=== PATIENT | female | born 1960 | race Caucasian/White ===

== ENCOUNTER → 2020-01-13 08:06 | Outpatient (CLI) | payer OTHER, SELFPAY ==
[2020-01-13 10:19] LABS: Absolute Lymphocyte Count 2.91 X10^3/uL (0.83-4.51); Absolute Neutrophil Count 4.7 X10^3/uL (2.0-7.7); Basophil# 0.06 X10^3/uL; Basophil% 0.7 % (0-1); Eosinophil# 0.35 X10^3/uL; Hematocrit 43.5 % (37-47); Hemoglobin 14.1 g/dL (12.0-15.0); Lymphocyte # 2.91 X10^3/ul (4.0); Lymphocyte % 33.4 % (19-41); Mean Corp Hgb Conc 32.4 g/dL (32-36); Mean Corpuscular Hgb 31.9 pg (27.0-32.0); Mean Corpuscular Volume 98.4 fL (81-99); Monocyte# 0.69 X10^3/uL; Monocyte% 7.9 % (0-10); NRBC Flagged by Analyzer 0 % (0-5); Neutrophil # 4.66 X10^3/uL (2.7-7.7); Neutrophil % 53.5 % (47-70); Platelet Count 298 K/mm3 (150-450); RBC Distribution Width CV 12.6 % (11.6-14.6); RBC Distribution Width SD 45.7 fl (35.1-43.9); Red Blood Count 4.42 M/mm3 (4.2-5.4); White Blood Count 8.7 K/mm3 (4.4-11.0)
[2020-01-13 10:36] LABS: Hemoglobin A1c 6.2 % (3.8-5.6)
[2020-01-13 10:43] LABS: ALB/GLOB Ratio 1.1 RATIO (0.9-2.4); AST(SGOT) 27 U/L (15-37); Alanine Aminotransfer ALT/SGPT 59 U/L (13-56); Albumin, Serum 3.9 g/dL (3.2-5.0); Alkaline Phosphatase 90 U/L (45-117); Anion Gap 10 (5-15); BUN 16 mg/dL (7-18); BUN/Creat Ratio 15.2 RATIO (10-20); Calcium,Total 9.8 mg/dL (8.5-10.1); Chloride 108 mmol/L (98-107); Cholesterol 203 mg/dL (200); Creatinine, Serum 1.05 mg/dL (0.55-1.02); EST Glomerular Filtration Rate 57 mL/min (>60); Est Glom Filt Rate - Afr Amer 69 mL/min (>60); Globulin 3.6 g/dL (2.2-4.2); Glucose 116 mg/dL (74-106); High Density Lipoprotein 38 mg/dL; Protein, Total 7.5 g/dL (6.4-8.2); Sodium Level 142 mmol/L (136-145); T4 Free Direct 0.95 ng/dL (0.76-1.46); Thyroid Stim Hormone (TSH) 0.33 uIU/mL (0.358-3.74); Triglycerides 245 mg/dL; Very Low Density Lipoprotein 49 mg/dL (5-40)
[2020-01-13 10:54] LABS: Microalbumin,Random Urine 10.2 mg/L (NO RANGE EST.); Microalbumin:Creatinine Ratio 10.1 mg/g CRE (<30 mg/g CRE)
[2020-01-14 05:06] LABS: Carcinoembryonic Antigen 0.7 ng/mL (0.0-4.7)
== END ==
PROVIDERS: PCP Family Medicine; Referring Provider Family Medicine; Visit Provider Family Medicine
DX: K63.5 Polyp of colon (principal); E11.9 Type 2 diabetes mellitus without complications; E07.9 Disorder of thyroid, unspecified
CPT/HCPCS: 36415; 80053; 80061; 82043; 82378; 82570; 83036; 84439; 84443; 85025

== ENCOUNTER 2020-02-25 11:30 | Outpatient (RCR) | payer OTHER, SELFPAY ==
--- NOTE | 2020-01-23 15:53 | HP.PTEVAL_ITS ---
Patient's Visit Information RICHY RODRIGUEZ is a 59 year old F referred to Physical Therapy by Dr. Jonnie Phipps MD with a diagnosis of L knee paintendonitis. Date of Evaluation: 01/23/20 Physical Therapist: Jonnie Calderón, DPT, OCS, CSCS - Visit Plan Frequency: 2x /Week Duration: 4-6 Weeks Plan: 2x/week for 4-6 for. quad and ITB rollout and stretches. L hip and quad strengthening progress to HEP. ES if needed. - Subjective L knee painful and sore. Sometimes afraid to walk due to shooting pain. Went to doctor and gave cortizone for a week which helped but it is back. Has been hurting for a couple months and insidious onset. Cortizone helped 100% for a month. No x rays. Sleep is OK now but hard before cortizone. took ibuprofen this am. 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 Not missed work. Home activites are effected as she cannot do flower bed shovelling. Packing house and cleaning is not getting .Can climb steps and shower and careful stepping into shower. - Pain L knee medially and top Pain Intensity (Out of 10): 0 Pain Intensity Range: 0, 7 Comment: worse with sitting too long. - Objective L knee shows slight antalgia in gait today. Up from chair without UE. steps reciprocal with slight L anterior knee pain. L knee tender to palpation under knee cap lateral>medial. - valgus and varus. - bounce home. + patellar grind L slightly. AROM L slightly limited vs R and stiff/tight anteriorly at end range flexion. Full extension. Other LE joints WFL however ITB and quad tight B and painful quad stretch L. Strength is 4 L knee ext with crepitus and 4+ flexion with R being 4+ B. Hip strength abd and ext 3+ and flexion 4- and adduction 4+. ankle 4+ throughout. 2/3 patella and achilles reflexes. - Goals Goal 1:: Sleep without waking due to pain Goal Time Frame: 4-6 Weeks Goal 2:: Work without increased pain getting out of chair Goal Time Frame: 4-6 Weeks Goal 3:: Pt feel 80% better in overall paina nd activity level Goal Time Frame: 4-6 Weeks Goal 4:: LEFS of 60+ Goal Time Frame: 4-6 Weeks Goal 5:: I approp HEP to minimize future problems Goal Time Frame: 4-6 Weeks - Rehabilitation Potential Physical Therapy Diagnosis: L knee pain tendonitis vs degeneration under knee cap. Rehabilitation Potential: Fair - Anticipated Interventions Patient/Client Instruction: Educate patient on: Condition, Plan of Care For the Purpose of:: To decrease pain, To increase ROM, To improve muscle performance and motor function, To improve performance and independence with ADL's Therapeutic Exercise to Include: Strength training, Flexibilty training, Neuromotor development, Passive ROM, Active ROM For the Purpose of:: To decrease pain, To increase ROM, To improve muscle performance and motor function, To increase tolerance to activity/condition/position, To improve ability of physical actions for home/community/work/leisure, To improve gait and locomotor functions Manual Therapy Techniques to Include: Mobilization, Soft tissue mobilization For the Purpose of:: To increase ROM TENS: Yes Thermo therapy (hot pack): Yes For the Purpose of:: To decrease pain Thank you for the opportunity to evaluate your patient. For Medicare and Medicare HMO plans, please review the plan of care and approve it. It will need to be FAXED BACK to us at [phone] for Medicare purposes. For Medicare only, by signing this I certify the plan of care. Please let me know if there are questions or concerns regarding this plan of care. Physician Signature: Date:
--- NOTE | 2020-04-27 16:10 | HP.PT.NRP ---
RICHY RODRIGUEZ was seen in my office for initial evaluation on 01/23/20. The following Plan of Care was established for this patient: Initial Frequency: 2x /Week Initial Duration: 4-6 Weeks Patient/Client Instruction: Educate patient on: Condition, Plan of Care For the Purpose of:: To decrease pain, To increase ROM, To improve muscle performance and motor function, To improve performance and independence with ADL's Therapeutic Exercise to Include: Strength training, Flexibilty training, Neuromotor development, Passive ROM, Active ROM For the Purpose of:: To decrease pain, To increase ROM, To improve muscle performance and motor function, To increase tolerance to activity/condition/position, To improve ability of physical actions for home/community/work/leisure, To improve gait and locomotor functions Manual Therapy Techniques to Include: Mobilization, Soft tissue mobilization For the Purpose of:: To increase ROM TENS: Yes Thermo therapy (hot pack): Yes For the Purpose of:: To decrease pain This patient was last seen in our office 02/25/20. Pertinent comments regarding their Physical therapy will appear below: Pt seen 8 visits of POC and was improving according to her notes. She did not schedule or attend her recheck. At this point, it has been over two months ad I will discontinue due to nonattendance. At this point I will be discontinuing this patient from physical therapy. I would be happy to see this patient again in the future if found appropriate by the physician. Thank you! Jonnie Calderón, DPT, OCS, CSCS
== END 2020-02-25 19:00 | disposition home or self-care (01) ==
LOC: PT 11:30
PROVIDERS: PCP Family Medicine; Referring Provider Family Medicine; Visit Provider Family Medicine
DX: M76.9 Unspecified enthesopathy, lower limb, excluding foot (principal)
CPT/HCPCS: 97110; 97161

== ENCOUNTER → 2020-07-13 | Outpatient (CLI) | payer OTHER, SELFPAY | END | disposition home or self-care (01) | LOC: LABSPEC 14:01 | PROVIDERS: PCP Family Medicine; Referring Provider Family Medicine; Visit Provider Family Medicine | DX: U07.1 COVID-19 (principal) | CPT/HCPCS: 87635; U0003 ==

== ENCOUNTER → 2020-11-03 08:16 | Outpatient (CLI) | payer OTHER, SELFPAY ==
[2020-11-03 10:52] LABS: AST(SGOT) 28 U/L (15-37); Alanine Aminotransfer ALT/SGPT 47 U/L (13-56); Albumin, Serum 3.9 g/dL (3.2-5.0); Alkaline Phosphatase 104 U/L (45-117); BUN 18 mg/dL (7-18); Calcium,Total 9.8 mg/dL (8.5-10.1); Cholesterol 231 mg/dL (200); Creatinine, Serum 1.06 mg/dL (0.55-1.02); EST Glomerular Filtration Rate 56 mL/min (>60); Est Glom Filt Rate - Afr Amer 68 mL/min (>60); Globulin 3.8 g/dL (2.2-4.2); Glucose 109 mg/dL (74-106); Protein, Total 7.7 g/dL (6.4-8.2); Triglycerides 233 mg/dL
[2020-11-03 10:53] LABS: Anion Gap 7 (5-15); Chloride 106 mmol/L (98-107); Free T3 2.5 pg/mL (2.18-3.98); High Density Lipoprotein 47 mg/dL; Potassium 4.2 mmol/L (3.5-5.1); Sodium Level 138 mmol/L (136-145); T4 Free Direct 0.98 ng/dL (0.76-1.46); Thyroid Stim Hormone (TSH) 0.39 uIU/mL (0.358-3.74); Very Low Density Lipoprotein 47 mg/dL (5-40)
[2020-11-05 16:09] LABS: Endomysial Antibody IgA Negative (Negative)
[2020-11-05 21:43] LABS: Deamidated Gliadin IgA 8 units (0-19); Deamidated Gliadin IgG 4 units (0-19); Immunoglobulin A 312 mg/dL (87-352); t-Transglutaminase IgA <2 U/mL (0-3)
== END ==
PROVIDERS: PCP Family Medicine; Referring Provider Family Medicine; Visit Provider Family Medicine
DX: E11.9 Type 2 diabetes mellitus without complications (principal); E07.9 Disorder of thyroid, unspecified
CPT/HCPCS: 36415; 80053; 80061; 82784; 83036; 83516; 84439; 84443; 84481; 86255

== ENCOUNTER → 2020-12-14 08:18 | Outpatient (CLI) | payer OTHER, SELFPAY ==
[2020-12-14 10:56] LABS: ALB/GLOB Ratio 1.1 RATIO (0.9-2.4); AST(SGOT) 22 U/L (15-37); Alanine Aminotransfer ALT/SGPT 46 U/L (13-56); Albumin, Serum 4.2 g/dL (3.2-5.0); Alkaline Phosphatase 106 U/L (45-117); Anion Gap 8 (5-15); BUN 15 mg/dL (7-18); BUN/Creat Ratio 15.2 RATIO (10-20); Calcium,Total 9.9 mg/dL (8.5-10.1); Chloride 103 mmol/L (98-107); Creatinine, Serum 0.99 mg/dL (0.55-1.02); EST Glomerular Filtration Rate 61 mL/min (>60); Est Glom Filt Rate - Afr Amer 74 mL/min (>60); Globulin 3.7 g/dL (2.2-4.2); Glucose 102 mg/dL (74-106); Potassium 3.9 mmol/L (3.5-5.1); Protein, Total 7.9 g/dL (6.4-8.2); Sodium Level 140 mmol/L (136-145); Thyroid Stim Hormone (TSH) 0.41 uIU/mL (0.358-3.74)
[2020-12-14 11:22] LABS: Hemoglobin A1c 5.9 % (3.8-5.6)
[2020-12-14 11:53] LABS: Creatinine, Urine (random) < 13.00 mg/dL (NO RANGE EST.); Microalbumin,Random Urine < 5.0 mg/L (NO RANGE EST.)
== END ==
PROVIDERS: PCP Family Medicine; Visit Provider Family Medicine
DX: E11.9 Type 2 diabetes mellitus without complications (principal); I10 Essential (primary) hypertension
CPT/HCPCS: 36415; 80053; 82043; 82570; 83036; 84443

== ENCOUNTER → 2020-12-23 07:17 | Outpatient (CLI) | payer OTHER, SELFPAY ==
--- NOTE | 2020-12-23 07:19 | BI_ITS ---
MAMMOGRAPHY - BILATERAL SCREENING REASON FOR EXAM: Female, 60 years old. Routine annual screening examination. PERTINENT HISTORY: Mother with breast cancer. TECHNIQUE: Digital bilateral breast miles (3D mammographic acquisition) in the CC and MLO projections. 2-D mediolateral oblique (MLO) and craniocaudad (CC) views of both breasts were obtained. CAD: Full Field Digital Mammography with Computer Added Detection was performed. COMPARISON: Comparison is made with prior outside examination dated 11/22/2018. FINDINGS: Breast Composition: The breasts are heterogeneously dense, which may obscure small masses. There are no dominant masses or suspicious calcifications. Stable benign appearing bilateral axillary lymph nodes. No other significant abnormalities are identified. There has been no significant change since the prior study. BI/SCRN MAMM (CAD)W/MILES BILAT IMPRESSION: Stable bilateral screening mammogram. Yearly follow-up mammogram recommended. (A) ASSESSMENT CATEGORY: BIRADS Category 2: Benign. A letter regarding these results will be sent to the patient by the facility within 30 days. Approximately 10% of breast cancers are not detected by mammography. A normal mammogram should not delay biopsy of a clinically suspicious abnormality. [id number] Electronically Signed: Lonnie Doll MD at 8:17 EDT , Service support ,
== END ==
PROVIDERS: PCP Family Medicine; Referring Provider Family Medicine; Visit Provider Family Medicine
DX: Z12.31 Encounter for screening mammogram for malignant neoplasm of breast (principal); Z80.3 Family history of malignant neoplasm of breast
CPT/HCPCS: 77063; 77067

== ENCOUNTER 2021-09-05 13:46 | Outpatient (CLI) | payer OTHER, SELFPAY | END 2021-09-05 23:59 | disposition short-term general hospital (02) | LOC: MFPLAB 13:47 | PROVIDERS: PCP Family Medicine; Visit Provider Family Medicine | DX: J39.9 Disease of upper respiratory tract, unspecified (principal) | CPT/HCPCS: 87635; U0003; U0005 ==

== ENCOUNTER 2021-10-07 08:06 | Outpatient (CLI) | payer OTHER, SELFPAY ==
[2021-10-07 10:29] LABS: ALB/GLOB Ratio 0.9 RATIO (0.9-2.4); AST(SGOT) 20 U/L (15-37); Alanine Aminotransfer ALT/SGPT 45 U/L (13-56); Albumin, Serum 3.7 g/dL (3.2-5.0); Alkaline Phosphatase 99 U/L (45-117); Anion Gap 8 (5-15); BUN 16 mg/dL (7-18); BUN/Creat Ratio 17.4 RATIO (10-20); Calcium,Total 9.8 mg/dL (8.5-10.1); Chloride 107 mmol/L (98-107); Cholesterol 188 mg/dL (200); Creatinine, Serum 0.92 mg/dL (0.55-1.02); EST Glomerular Filtration Rate 66 mL/min (>60); Est Glom Filt Rate - Afr Amer 80 mL/min (>60); Globulin 3.9 g/dL (2.2-4.2); Glucose 109 mg/dL (74-106); High Density Lipoprotein 39 mg/dL; Potassium 3.9 mmol/L (3.5-5.1); Protein, Total 7.6 g/dL (6.4-8.2); Sodium Level 139 mmol/L (136-145); Thyroid Stim Hormone (TSH) 0.31 uIU/mL (0.358-3.74); Triglycerides 204 mg/dL; Very Low Density Lipoprotein 41 mg/dL (5-40)
== END 2021-10-07 23:59 | disposition home or self-care (01) ==
LOC: MFPLAB 08:07
PROVIDERS: PCP Family Medicine; Referring Provider Family Medicine; Visit Provider Family Medicine
DX: Z00.00 Encounter for general adult medical examination without abnormal findings (principal); E11.9 Type 2 diabetes mellitus without complications; I10 Essential (primary) hypertension; E04.2 Nontoxic multinodular goiter
CPT/HCPCS: 36415; 80053; 80061; 83036; 84443

== ENCOUNTER → 2022-01-10 | Outpatient (CLI) | payer OTHER, SELFPAY ==
[2022-01-10 18:38] LABS: Microalbumin:Creatinine Ratio 8.6 mg/g CRE (<30 mg/g CRE)
[2022-01-10 18:48] LABS: AST(SGOT) 33 U/L (15-37); Alanine Aminotransfer ALT/SGPT 75 U/L (13-56); Albumin, Serum 3.7 g/dL (3.2-5.0); Alkaline Phosphatase 95 U/L (45-117); Anion Gap 7 (5-15); BUN 14 mg/dL (7-18); BUN/Creat Ratio 14.6 RATIO (10-20); Calcium,Total 9.9 mg/dL (8.5-10.1); Chloride 106 mmol/L (98-107); Creatinine, Serum 0.96 mg/dL (0.55-1.02); EST Glomerular Filtration Rate 63 mL/min (>60); Est Glom Filt Rate - Afr Amer 77 mL/min (>60); Free T3 2.3 pg/mL (2.18-3.98); Globulin 3.6 g/dL (2.2-4.2); Glucose 189 mg/dL (74-106); Potassium 3.6 mmol/L (3.5-5.1); Protein, Total 7.3 g/dL (6.4-8.2); Sodium Level 139 mmol/L (136-145); T4 Free Direct 0.84 ng/dL (0.76-1.46); Thyroid Stim Hormone (TSH) 0.63 uIU/mL (0.358-3.74)
[2022-01-13 11:13] LABS: Anti-Thyroglobulin AB < 1.0 IU/mL (0.0-0.9); Thyroglobulin, Serum Qt. 24.5 ng/mL (1.5-38.5); Thyroid Peroxidase AB < 8 IU/mL (0-34)
== END | disposition home or self-care (01) ==
LOC: MFPLAB 16:00
PROVIDERS: PCP Family Medicine; Visit Provider Family Medicine
DX: E11.9 Type 2 diabetes mellitus without complications (principal); E07.9 Disorder of thyroid, unspecified; I10 Essential (primary) hypertension
CPT/HCPCS: 36415; 80053; 82043; 82570; 84432; 84439; 84443; 84481; 86376; 86800

== ENCOUNTER → 2022-01-17 | Outpatient (CLI) | payer OTHER, SELFPAY ==
--- NOTE | 2022-01-17 08:44 | BI_ITS ---
MAMMOGRAPHY - BILATERAL SCREENING REASON FOR EXAM: Female, 61 years old. Routine annual screening examination. PERTINENT HISTORY: Mother with breast cancer. TECHNIQUE: Digital bilateral breast miles (3D mammographic acquisition) in the CC and MLO projections. 2-D mediolateral oblique (MLO) and craniocaudad (CC) views of both breasts were obtained. CAD: Full Field Digital Mammography with Computer Added Detection was performed. COMPARISON: Bilateral breast screening mammograms from 12/23/2020. FINDINGS: Breast Composition: The breasts are heterogeneously dense, which may obscure small masses. There are no dominant masses or suspicious calcifications. No other significant abnormalities are identified. There has been no significant change since the prior study. BI/SCRN MAMM (CAD)W/MILES BILAT IMPRESSION: Stable bilateral screening mammogram. Yearly follow-up mammogram recommended. (A) ASSESSMENT CATEGORY: BIRADS Category 1: Negative. A letter regarding these results will be sent to the patient by the facility within 30 days. Approximately 10% of breast cancers are not detected by mammography. A normal mammogram should not delay biopsy of a clinically suspicious abnormality. [id number] Electronically Signed: Jeff Llamas, at 18:39 EDT ,
== END | disposition home or self-care (01) ==
LOC: OPBI 08:42
PROVIDERS: PCP Family Medicine; Visit Provider Family Medicine
DX: Z12.31 Encounter for screening mammogram for malignant neoplasm of breast (principal); Z80.3 Family history of malignant neoplasm of breast
CPT/HCPCS: 77063; 77067

== ENCOUNTER → 2023-11-16 | Outpatient (CLI) | payer OTHER, SELFPAY ==
[2023-11-16 11:03] LABS: Microalbumin,Random Urine 14.1 mg/L (NO RANGE EST.); Microalbumin:Creatinine Ratio 8.7 mg/g CRE (<30 mg/g CRE)
[2023-11-16 11:55] LABS: Cholesterol 223 mg/dL (200); High Density Lipoprotein 36 mg/dL; Thyroid Stim Hormone (TSH) 0.79 uIU/mL (0.358-3.74); Triglycerides 334 mg/dL; Very Low Density Lipoprotein 67 mg/dL (5-40)
[2023-11-16 16:29] LABS: AST(SGOT) 50 U/L (15-37); Alanine Aminotransfer ALT/SGPT 81 U/L (13-56); Albumin, Serum 3.9 g/dL (3.2-5.0); Alkaline Phosphatase 131 U/L (45-117); Anion Gap 7 (5-15); BUN 14 mg/dL (7-18); BUN/Creat Ratio 15.9 RATIO (10-20); Chloride 108 mmol/L (98-107); Creatinine, Serum 0.88 mg/dL (0.55-1.02); EST Glomerular Filtration Rate 69 mL/min (>60); Est Glom Filt Rate - Afr Amer 83 mL/min (>60); Globulin 3.8 g/dL (2.2-4.2); Glucose 203 mg/dL (74-106); Potassium 4.2 mmol/L (3.5-5.1); Protein, Total 7.7 g/dL (6.4-8.2); Sodium Level 141 mmol/L (136-145)
== END | disposition home or self-care (01) ==
LOC: MTLAB 07:53
PROVIDERS: PCP Family Medicine; Referring Provider Family Medicine; Visit Provider Family Medicine
DX: E11.59 Type 2 diabetes mellitus with other circulatory complications (principal)
CPT/HCPCS: 36415; 80053; 80061; 82043; 82570; 84443

== ENCOUNTER → 2024-01-04 | Outpatient (CLI) | payer OTHER, SELFPAY ==
--- NOTE | 2024-01-04 07:15 | US_ITS ---
STUDY: ABDOMINAL ULTRASOUND - RIGHT UPPER QUADRANT; ELASTOGRAPHY REASON FOR VISIT: Female, 63 years old. History of fatty infiltration of the liver. TECHNIQUE: Ultrasound evaluation of the right upper quadrant was performed with real-time and static clancy-scale imaging. Point quantification shear wave elastography was performed (Solulink). TECHNICAL QUALITY: Adequate. COMPARISON: None. FINDINGS: Liver: The liver is enlarged and measures 19 cm. There is increased echogenicity consistent with fatty infiltration. The bile ducts are within normal limits. There is hepatic color flow. The direction of portal flow is hepatopetal. There is no demonstrated mass lesion. Median liver stiffness measured 8.9 kPa. Gallbladder: The patient is status post cholecystectomy. Common Bile Duct (C.B.D.): The common bile duct measures 6.7 mm. Pancreas: There is normal echogenicity of the visualized pancreas. There is no demonstrated pancreatic mass or cyst. Right Kidney: Normal size of the right kidney. The right kidney measures 11 cm x 5.4 cm x 3.8 cm. Normal renal cortex. The right cortex measures 1.8 cm. There is no demonstrated renal mass or cyst. There is no right hydronephrosis. US/ABD Limited w/ Elastography IMPRESSION: 1. Liver stiffness measures 8.9 kPa compatible with F2-F3 (Mild to moderate liver fibrosis) Metavir score. Electronically Signed: Lonnie Doll MD at 10:33 EDT ,
== END | disposition home or self-care (01) ==
PROVIDERS: PCP Family Medicine; Referring Provider Family Medicine; Visit Provider Family Medicine
DX: K76.9 Liver disease, unspecified (principal)
CPT/HCPCS: 76705; 76981

== ENCOUNTER → 2024-02-19 | Outpatient (CLI) | payer OTHER, SELFPAY ==
--- NOTE | 2024-02-19 09:25 | RAD_ITS ---
STUDY: X-RAY RIGHT FOREFOOT, ATTENTION SECOND TOE REASON FOR EXAM: Female, 63 years old. 3 view, 2nd R toe, diabetic ulcer on lateral aspect of right second toe. Patient also having pain to the dorsal aspect of the foot proximal to the toes. TECHNIQUE: 3 views of the right forefoot (with attention to the second toe) were obtained. COMPARISON: None. FINDINGS: Intact visualized metatarsi. There is mild degenerative arthrosis at the first MTP joint. Normal tibial and fibular sesamoid bones. Normal interphalangeal joint of the great toe. Normal phalanges of the great toe. Normal second through fifth metatarsophalangeal joints. Normal interphalangeal joints and phalanges of the lesser toes. There is no demonstrated fracture or osseous erosion. There is soft tissue swelling of the second digit. RAD/Toe(s) Min 2 Views IMPRESSION: Soft tissue swelling of the second digit. No demonstrated fracture or osseous erosion. Electronically Signed: Fam Flores MD at 8:55 EDT ,
[2024-02-19 12:35] LABS: Absolute Lymphocyte Count 3.28 X10^3/uL (0.83-4.51); Absolute Neutrophil Count 4.6 X10^3/uL (2.0-7.7); Basophil# 0.09 X10^3/uL; Eosinophil# 0.29 X10^3/uL; Eosinophils% 3.2 % (0-5); Hematocrit 40.7 % (37-47); Hemoglobin 13.5 g/dL (12.0-15.0); Lymphocyte # 3.28 X10^3/ul (0.83-4.51); Lymphocyte % 36.7 % (19-41); Mean Corp Hgb Conc 33.2 g/dL (32-36); Mean Corpuscular Hgb 32.1 pg (27.0-32.0); Mean Corpuscular Volume 96.7 fL (81-99); Mean Platelet Vol. 10.6 fl (6.2-12.0); Monocyte# 0.62 X10^3/uL; Monocyte% 6.9 % (0-10); NRBC Flagged by Analyzer 0 % (0-5); Neutrophil # 4.62 X10^3/uL (2.7-7.7); Neutrophil % 51.8 % (47-70); Platelet Count 332 K/mm3 (150-450); RBC Distribution Width CV 13.2 % (11.6-14.6); RBC Distribution Width SD 46.9 fl (35.1-43.9); Red Blood Count 4.21 M/mm3 (4.2-5.4); White Blood Count 8.9 K/mm3 (4.4-11.0)
[2024-02-19 12:48] LABS: CRP 8.85 mg/L (0.0-3.0)
== END | disposition home or self-care (01) ==
LOC: MTLAB 09:21
PROVIDERS: PCP Family Medicine; Referring Provider Family Medicine; Visit Provider Family Medicine
DX: E11.621 Type 2 diabetes mellitus with foot ulcer (principal)
CPT/HCPCS: 36415; 73660; 85025; 86140

== ENCOUNTER → 2024-02-26 | Outpatient (CLI) | payer OTHER, SELFPAY | END | disposition home or self-care (01) | PROVIDERS: PCP Family Medicine; Visit Provider Podiatrist | DX: L97.912 Non-pressure chronic ulcer of unspecified part of right lower leg with fat layer exposed (principal) | CPT/HCPCS: 87070; 87077; 87186; 87205 ==

== ENCOUNTER → 2024-04-23 | Outpatient (CLI) | payer OTHER, SELFPAY ==
--- NOTE | 2024-04-23 16:22 | RAD_ITS ---
EXAM: XR RIGHT TOES, 2 OR MORE VIEWS CLINICAL INDICATION: None provided. TECHNIQUE: Frontal, lateral and oblique views of the toes of the right foot. COMPARISON: History: PAIN FINDINGS: BONES/JOINTS: Hallux valgus deformity. No acute fracture. No dislocation. SOFT TISSUES: Unremarkable. No radiopaque foreign body. RAD/Toe(s) Min 2 Views IMPRESSION: Hallux valgus deformity. No acute abnormality. Electronically Signed: Lane Carbajal MD at 0:54 EDT ,
== END | disposition home or self-care (01) ==
LOC: MTRAD 16:21
PROVIDERS: PCP Family Medicine; Referring Provider Podiatrist; Visit Provider Podiatrist
DX: L97.513 Non-pressure chronic ulcer of other part of right foot with necrosis of muscle (principal)
CPT/HCPCS: 73660

== ENCOUNTER → 2024-09-23 | Outpatient (CLI) | payer OTHER, SELFPAY ==
[2024-09-23 15:20] LABS: Absolute Neutrophil Count 5.6 X10^3/uL (2.0-7.7); Hematocrit 41.5 % (37-47); Hemoglobin 13.4 g/dL (12.0-15.0); Mean Corp Hgb Conc 32.3 g/dL (32-36); Mean Corpuscular Hgb 31.3 pg (27.0-32.0); Platelet Count 349 K/mm3 (150-450); Red Blood Count 4.28 M/mm3 (4.2-5.4); White Blood Count 10.2 K/mm3 (4.4-11.0)
[2024-09-23 15:43] LABS: Microalbumin,Random Urine < 5.0 mg/L (NO RANGE EST.)
[2024-09-23 15:57] LABS: ALB/GLOB Ratio 0.9 RATIO (0.9-2.4); AST(SGOT) 16 U/L (15-37); Alanine Aminotransfer ALT/SGPT 33 U/L (13-56); Albumin, Serum 3.7 g/dL (3.2-5.0); Alkaline Phosphatase 97 U/L (45-117); Anion Gap 7 (5-15); BUN 20 mg/dL (7-18); BUN/Creat Ratio 20.3 RATIO (10-20); Calcium,Total 10.5 mg/dL (8.5-10.1); Chloride 104 mmol/L (98-107); Creatinine, Serum 0.99 mg/dL (0.55-1.02); EST Glomerular Filtration Rate 61 mL/min (>60); Est Glom Filt Rate - Afr Amer 73 mL/min (>60); Globulin 4.3 g/dL (2.2-4.2); Glucose 114 mg/dL (74-106); Potassium 3.6 mmol/L (3.5-5.1); Sodium Level 138 mmol/L (136-145)
[2024-09-23 18:25] LABS: Basophil 2 % (0-1); Eosinophil 4 % (0-5); Lymphocyte 38 % (19-41); Metamyelocyte 1 % (0-1); Monocyte 6 % (0-10); Neutrophil-Band 2 % (0-5); Neutrophil-Segmented 47 % (47-70); Total Cells Counted 100 (MANUAL DIFF)
[2024-09-23 18:26] LABS: Platelet Estimate ADEQUATE (ADEQ); Red Cell Morphology N CHROM NORMAL (NORM C&C)
[2024-09-23 18:30] LABS: Anisocytosis RARE; Macrocytosis RARE
[2024-09-24 14:25] LABS: Pathologist Review Reviewed
== END | disposition home or self-care (01) ==
LOC: MTLAB 12:49
PROVIDERS: PCP Family Medicine; Referring Provider Family Medicine; Visit Provider Family Medicine
DX: R68.83 Chills (without fever) (principal); E11.9 Type 2 diabetes mellitus without complications
CPT/HCPCS: 36415; 80053; 82043; 82570; 84443; 85007; 85027

== ENCOUNTER → 2025-05-05 | Outpatient (CLI) | payer OTHER, SELFPAY ==
--- NOTE | 2025-05-05 15:57 | CT_ITS ---
PROCEDURE: CT BRAIN/HEAD WITHOUT CONTRAST 05/05/2025 REASON FOR EXAM: DIZZINESS TECHNIQUE: Procedure Code: CTBR Modality: CT Procedure: BRAIN/HEAD WITHOUT CONTRAST Coronal and Sagittal reconstruction series were provided. One or more dose reduction techniques were used (e.g., Automated exposure control, adjustment of the mA and/or kV according to patient size, use of iterative reconstruction technique. RADIATION DOSE SUMMARY: CTDlvol: 44.99 mGy DLP: 812.98 mGycm COMPARISON: None available. FINDINGS: No acute intracranial hemorrhage, extra-axial collection, mass effect or evidence of acute infarct. Ventricles and subarachnoid spaces are normal in size. Orbital contents are unremarkable. Intact skull base and calvarium. Clear paranasal sinuses and mastoid air cells. CT/Brain/Head without Contrast IMPRESSION: No acute intracranial abnormality. Reading Location: [facility]
== END | disposition home or self-care (01) ==
LOC: CT 15:56
PROVIDERS: PCP Family Medicine; Referring Provider Nurse Practitioner Family; Visit Provider Nurse Practitioner Family
DX: R42 Dizziness and giddiness (principal)
CPT/HCPCS: 70450

== ENCOUNTER → 2025-06-04 | Outpatient (CLI) | payer OTHER, SELFPAY ==
--- NOTE | 2025-06-04 12:53 | US_ITS ---
PROCEDURE: THYROID 06/04/2025 REASON FOR EXAM: HYPERTHYROIDISM TECHNIQUE: Procedure Code: USTHY Modality: US Procedure: THYROID COMPARISON: None. FINDINGS: Right thyroid lobe size: 4.5 x 2.7 x 1.6 cm Upper pole, 8 x 7 x 6 mm, solid, heterogeneous, with a smooth margin. TR 3 Upper pole, 1.6 x 1.4 x 1.4 cm, solid, heterogeneous, with an ill-defined margin. TR 3 Left thyroid lobe size: 4.1 x 2.6 x 1.4 cm Upper pole, 9 x 8 x 7 mm, solid, heterogeneous, with a smooth margin. TR 3 Upper pole, 9 x 7 x 6 mm, solid, heterogeneous, with a smooth margin. TR 3 Isthmus: 3 mm US/Thyroid IMPRESSION: There is a TR 3 nodule measuring greater than 1.5 cm in the right thyroid lobe. Recommendation: Follow up thyroid ultrasound in 1 year. Reading Location: [place] [id number]
== END | disposition home or self-care (01) ==
LOC: US 12:50
PROVIDERS: PCP Family Medicine; Referring Provider Family Medicine; Visit Provider Family Medicine
DX: E05.90 Thyrotoxicosis, unspecified without thyrotoxic crisis or storm (principal)
CPT/HCPCS: 76536

== ENCOUNTER → 2025-06-10 | Outpatient (CLI) | payer OTHER, SELFPAY ==
[2025-06-10 19:00] LABS: AST(SGOT) 21 U/L (<=31); Alanine Aminotransfer ALT/SGPT 24 U/L (<=34); Albumin, Serum 4.3 g/dL (3.4-4.8); Alkaline Phosphatase 83 U/L (35-104); Anion Gap 13 (5-15); BUN 12 mg/dL (4-19); BUN/Creat Ratio 15.9 RATIO (10-20); Calcium,Total 10.4 mg/dL (7.6-11.0); Carbon Dioxide 21.5 mmol/L (21.0-32.0); Chloride 101 mmol/L (98-108); Globulin 2.8 g/dL (2.2-4.2); Glucose 105 mg/dL (70-99); Potassium 4.0 mmol/L (3.3-5.1); Syphilis Antibodies Nonreactive (Nonreactive)
[2025-06-12 15:08] LABS: PROEL- A/G Ratio 1.2 (0.7-1.7); PROEL- Albumin 3.6 g/dL (2.9-4.4); PROEL- Alpha-1 Globulin 0.2 g/dL (0.0-0.4); PROEL- Alpha-2 Globulin 0.9 g/dL (0.4-1.0); PROEL- Beta Globulin 1.2 g/dL (0.7-1.3); PROEL- Gamma Globulin 0.9 g/dL (0.4-1.8); PROEL- Globulin, Total 3.1 g/dL (2.2-3.9); PROEL- TOTAL PROTEIN 6.7 g/dL (6.0-8.5); PROEL-M-Spike Comment: g/dL (Not Observed)
== END | disposition home or self-care (01) ==
PROVIDERS: PCP Family Medicine; Visit Provider Family Medicine
DX: R27.0 Ataxia, unspecified (principal)
CPT/HCPCS: 36415; 80053; 84165; 84443; 86780

== ENCOUNTER → 2025-06-16 | Outpatient (CLI) | payer OTHER, SELFPAY ==
--- NOTE | 2025-06-16 08:52 | MRI_ITS ---
PROCEDURE: MRA HEAD ONLY WITHOUT CONTRAST; MRA NECK WITH AND W/O CONTRAST 06/16/2025 REASON FOR EXAM: BLURRED VISION, RULING OUT STROKE; AMAUROSIS FUGAX TECHNIQUE: Procedure Code: MRIMRAH; MRIMRANWWOC Modality: MR Procedure: MRA HEAD ONLY WITHOUT CONTRAST; MRA NECK WITH AND W/O CONTRAST Multiplanar multisequential imaging was performed without IV contrast administration. FINDINGS: HEAD: The intracranial segments of the bilateral ICAs appear unremarkable. The bilateral ACAs appear unremarkable. The anterior communicating artery is patent. The bilateral MCAs appear unremarkable. The proximal aspects of the bilateral ophthalmic arteries are visualized. The intracranial segments of the bilateral vertebral arteries (V4) appear unremarkable. The basilar artery is unremarkable. The bilateral business services intern are unremarkable. The bilateral posterior communicating arteries are visualized and patent. NECK: The bilateral common carotid arteries, carotid bulbs, and cervical ICAs appear unremarkable. The cervical segments of the bilateral vertebral arteries appear unremarkable. MRI/MRA Neck WITH and W/O Contrast IMPRESSION: No hemodynamically significant stenosis, major vessel occlusion/dissection, or aneurysm greater than 5 millimeters. Reading Location: [id number]
--- NOTE | 2025-06-16 08:52 | MRI_ITS ---
PROCEDURE: BRAIN W/WO CONTRAST 06/16/2025 REASON FOR EXAM: AMAUROSIS FUGAX dizziness, ataxia and memory loss. TECHNIQUE: Procedure Code: MRIBRWW Modality: MR Procedure: BRAIN W/WO CONTRAST Multiplanar and multisequence images were obtained. CONTRAST: Clariscan VOLUME: 19 mL COMPARISON: CT head without contrast, 05/05/2025. FINDINGS: There are few punctate foci of abnormal periventricular and subcortical white matter signal in both cerebral hemispheres. Additionally there is an area of abnormal white matter signal adjacent to the anterior horn of the right lateral ventricle. These findings are nonspecific and are consistent with chronic ischemic white matter disease, but demyelinating disease is not excluded. There is a chronic lacunar infarction in the right basal ganglia. There is no abnormal intracranial contrast enhancement. There is a normal sulcal pattern and gyral configuration. There is no evidence of acute intracranial hemorrhage or infarction. The clancy-white differentiation is well preserved. There is no evidence of restricted diffusion. The ventricles and basilar cisterns are normal. There are normal flow voids demonstrated in the recognized intracranial vessels. The cerebellum and brainstem are unremarkable. The cerebellar pontine angles are normal. The craniovertebral junction is normal. The sella and suprasellar regions are normal. The orbits and retro-orbital regions are unremarkable. There is nasal septal deviation to the left. There is mucoperiosteal thickening of the ethmoidal air cells bilaterally. The paranasal sinuses are otherwise clear. There is mucosal thickening of the left nasal cavity. There is a fluid-filled mastoid air cell on the right. The mastoid air cells are otherwise clear. There is normal bone marrow signal in the skull base and calvarium. MRI/Brain W/WO Contrast IMPRESSION: 1. No evidence of acute intracranial pathology. 2. There is a chronic lacunar infarction in the right basal ganglia. 3. Other findings as noted. Reading Location: [place] [id number]
--- NOTE | 2025-06-16 08:52 | MRI_ITS ---
PROCEDURE: MRA HEAD ONLY WITHOUT CONTRAST; MRA NECK WITH AND W/O CONTRAST 06/16/2025 REASON FOR EXAM: BLURRED VISION, RULING OUT STROKE; AMAUROSIS FUGAX TECHNIQUE: Procedure Code: MRIMRAH; MRIMRANWWOC Modality: MR Procedure: MRA HEAD ONLY WITHOUT CONTRAST; MRA NECK WITH AND W/O CONTRAST Multiplanar multisequential imaging was performed without IV contrast administration. FINDINGS: HEAD: The intracranial segments of the bilateral ICAs appear unremarkable. The bilateral ACAs appear unremarkable. The anterior communicating artery is patent. The bilateral MCAs appear unremarkable. The proximal aspects of the bilateral ophthalmic arteries are visualized. The intracranial segments of the bilateral vertebral arteries (V4) appear unremarkable. The basilar artery is unremarkable. The bilateral player development manager are unremarkable. The bilateral posterior communicating arteries are visualized and patent. NECK: The bilateral common carotid arteries, carotid bulbs, and cervical ICAs appear unremarkable. The cervical segments of the bilateral vertebral arteries appear unremarkable. MRI/MRA Head ONLY without Contrast IMPRESSION: No hemodynamically significant stenosis, major vessel occlusion/dissection, or aneurysm greater than 5 millimeters. Reading Location: [id number]
== END | disposition home or self-care (01) ==
LOC: MRI 08:49
PROVIDERS: PCP Family Medicine; Referring Provider Family Medicine; Visit Provider Family Medicine
DX: G45.3 Amaurosis fugax (principal); H53.8 Other visual disturbances
CPT/HCPCS: 70544; 70549; 70553; A9575; A4216

== ENCOUNTER 2025-06-19 12:41 | Emergency (ER) | payer OTHER, SELFPAY ==
[2025-06-19] VITALS (25 sets, daily range): BP systolic 123–148; BP diastolic 60–99; PULSE 52–86; RESP 12–23; TEMP 36.9–37.1; O2SAT 96–100; BMI 38.5
[2025-06-19 13:52] LABS: Hematocrit 40.1 % (37-47); Hemoglobin 13.2 g/dL (12.0-15.0); Immature Granulocytes Count 0.030 X10^3/uL (0.0-0.0); Mean Corp Hgb Conc 32.9 g/dL (32-36); Mean Corpuscular Volume 95.7 fL (81-99); Mean Platelet Vol. 9.9 fl (6.2-12.0); NRBC Flagged by Analyzer 0 % (0-5); Platelet Count 325 K/mm3 (150-450); RBC Distribution Width CV 13.1 % (11.6-14.6); RBC Distribution Width SD 45.8 fl (35.1-43.9); Red Blood Count 4.19 M/mm3 (4.2-5.4); White Blood Count 8.5 K/mm3 (4.4-11.0)
--- NOTE | 2025-06-19 13:56 | EX.ED.DYSGE1 ---
HPI History of Present Illness Chief Complaint: Weakness Informant: patient, family and PCP Narrative Narrative: 64-year-old female presenting to the emergency room with several week history of progressive confusion and gait abnormality and generalized weakness. Patient states that she had recently underwent MRI/MRA. She states that she has had some thyroid test and her doctor is concerned that she may be in thyroid storm. I spoke with her primary care doctor he tells me that the patient had a normal T3 and T4 but a markedly abnormally low TSH. He states that the MRI was concerning for possible MS. Family states that her confusion seems to be worsening. Her doctor tells me that it seemed that the patient had a pronounced foot drop that seems more central than peripheral when she ambulates. He was concerned that the patient would need more urgent neurologic evaluation and possible IV steroids. 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 PFSH PFSH Allergy/AdvReac Type Severity Reaction Status Date / Time No Known Allergies Allergy Verified 06/19/25 12:44 Social History Smoking Status: Never smoker ROS ROS ED ROS Narrative Generalized fatigue Constitutional Constitutional ED: Denies chills, fever(s) or weight loss Eyes Eyes: Denies blurry vision, change in vision or diplopia ENT ENT ED: Denies ear pain, rhinorrhea or sore throat Cardiovascular Cardiovascular: Denies chest pain, orthopnea, palpitations or racing heartbeat Respiratory/Chest Respiratory/Chest: Denies cough, dyspnea or orthopnea Gastrointestinal Gastrointestinal: Denies abdominal pain, diarrhea, nausea or vomiting Genitourinary Genitourinary ED: Denies dysuria, hematuria or urinary frequency Musculoskeletal Musculoskeletal: Denies arthralgias or myalgias Integumentary Denies abscess or rash Neurologic Neurologic: Reports other Details: Gait abnormality confusion ; Denies headache(s) or weakness Psychiatric Psychiatric: Denies anxiety, depression, suicidal ideation or suicidal thoughts Endocrine Endocrinology: Denies polydipsia, polyphagia or polyuria Allergic/Immunologic Allergic/Immunologic ED: Denies mouth swelling, tongue swelling or urticaria EXAM Physical Exam Const Vital Signs: 06/19/25 12:42 06/19/25 12:42 06/19/25 13:42 Temperature 98.4 F Temperature Source Oral Pulse Rate 85 66 Respiratory Rate 16 13 Respiratory Effort Normal Non-Labored Respiratory Pattern Normal Blood Pressure 131/76 H 139/85 H Blood Pressure Mean 94 103 Pulse Ox 99 97 Oxygen Delivery Method Room Air Room Air 06/19/25 15:00 Temperature Temperature Source Pulse Rate 66 Respiratory Rate 12 Respiratory Effort Respiratory Pattern Blood Pressure 137/76 H Blood Pressure Mean 96 Pulse Ox 98 Oxygen Delivery Method Room Air Positive well nourished and well developed General Appearance ED: well developed HEENT Reports normocephalic, head/scalp atraumatic and moist mucous membranes Eyes PERRL and EOMs intact bilaterally Neck no lymphadenopathy, supple and no JVD Resp normal respiratory effort and clear to auscultation bilaterally Cardio regular rate, regular rhythm and no murmurs GI normal to inspection, nondistended, normoactive bowel sounds and non-tender Palpation: soft Back/Spine no CVA tenderness and normal ROM Extremity normal to inspection General Extremety ED: Negative for edema General Extremity: Negative for edema Neuro oriented x3, CN's II-XII intact bilaterally and no sensory deficits noted Neuro Narrative: While alert and oriented x 3. She often looks to her daughter to answer questions that are basic. She forgets what room number she is in her which direction to go to good from the bathroom to her room. I watched her ambulate she does not appear to have a foot drop that the gait seems to be more wide-based and short steps. She is able to lift both arms and legs off the bed and maintain it. She is able to push with her feet against my hands and up against my hands. Sensorium / Orientation: alert Motor Exam: strength 5/5 throughout Psych mental status grossly normal Mood & Affect: Negative for depressed or tearful Skin no rashes or lesions noted and no wounds MDM MDM MDM Narrative Medical decision making narrative: Differential diagnosis includes but not limited to thyroid dysfunction demyelinating neuropathy discitis transverse myelitis NPH toxidromes I reviewed the patient's outpatient MRIs thyroid imaging. I spoke with her primary care doctor. Basic blood work here was rather unremarkable showing a TSH of however of 0.019 and a free T4 of 1.5 with a free T3 of 3.6. Urinalysis shows no overt infection. Alcohol level is negative. I spoke with our hospitalist regarding potential admission. I do not see an obvious cause to the patient's symptomology as this is a very unique presentation especially for the patient. They have asked that I add on ESR CRP and ammonia level. I have also asked for a teleneurology consult to see if would be appropriate to keep the patient at this institution. History & Record Review Discussion w/independent historian: Patient, Family and Other (PCP) Additional record(s) reviewed:: Prior outpatient record and Prior labs Lab Data Attestation: I reviewed the patient's lab results. Labs: Laboratory Results - last 24 hr 06/19/25 06/19/25 11:41 12:58 WBC 8.5 RBC 4.19 L Hgb 13.2 Hct 40.1 MCV 95.7 MCH 31.5 MCHC 32.9 RDW Std Deviation 45.8 H RDW Coeff of Teresa 13.1 Plt Count 325 MPV 9.9 Immature Gran % (Auto) 0.400 Neut % (Auto) 58.8 Lymph % (Auto) 30.7 Fannin % (Auto) 7.6 Eos % (Auto) 2.0 Baso % (Auto) 0.5 Absolute Neuts (auto) 5.0 Absolute Lymphs (auto) 2.59 Nucleated RBC % 0 Sodium 138 Potassium 3.9 Chloride 101 Carbon Dioxide 25.5 Anion Gap 11 BUN 11 Creatinine 0.91 Est GFR (MDRD) Non-Af 71 BUN/Creatinine Ratio 12.2 Glucose 255 H Calcium 10.5 Magnesium 2.1 Total Bilirubin 1.63 H AST 23 ALT 25 Alkaline Phosphatase 81 Total Protein 7.2 Albumin 4.3 Globulin 2.9 Albumin/Globulin Ratio 1.5 TSH 0.019 L Free T4 1.50 H Free T3 pg/dL 3.6 Urine Color Yellow Urine Clarity Sl. Cloudy Urine pH 5.0 Ur Specific [place] 1.030 Urine Protein 30 H Urine Glucose (UA) 100 H Urine Ketones Negative Urine Occult Blood 25 H Urine Nitrite Negative Urine Bilirubin Negative Urine Urobilinogen Normal Ur Leukocyte Esterase Negative Urine RBC 0-5 SEEN Urine WBC 0 SEEN Ur Squamous Epith Cells 0-5 SEEN Urine Bacteria 1+ Urine Mucus 1+ Ethyl Alcohol < 10.1 Management Discussion w/another healthcare provider: Hospitalist and PCP Discharge Plan Triage Chief Complaint: Weakness ED Provider: Shayne Herring Dx/Rx/DC Orders Primary Care Provider: Jonnie Phipps Referrals: Jonnie Phipps MD [Primary Care Provider, Family Practice] Print Language: Ukrainian
[2025-06-19 14:18] LABS: AST(SGOT) 23 U/L (<=31); Alanine Aminotransfer ALT/SGPT 25 U/L (<=34); Albumin, Serum 4.3 g/dL (3.4-4.8); Alkaline Phosphatase 81 U/L (35-104); Anion Gap 11 (5-15); BUN 11 mg/dL (4-19); BUN/Creat Ratio 12.2 RATIO (10-20); Calcium,Total 10.5 mg/dL (7.6-11.0); Carbon Dioxide 25.5 mmol/L (21.0-32.0); Chloride 101 mmol/L (98-108); Free T3 3.6 pg/mL (2.18-3.98); Globulin 2.9 g/dL (2.2-4.2); Glucose 255 mg/dL (70-99); Magnesium 2.1 mg/dL (1.5-2.2); Potassium 3.9 mmol/L (3.3-5.1)
[2025-06-19 14:20] LABS: Color, Urine Yellow (Yellow); Glucose, Dipstick 100 mg/dl (Normal); Ketone-Dipstick Negative (Negative); Leukocyte Esterase-Dipstick Negative /ul (Negative); Nitrite-Dipstick Negative (Negative); Occult Blood-Urine 25 /ul (Negative); Protein-Dipstick 30 mg/dl (Negative); Specific Gravity, Urine 1.030 (1.002-1.030); Urine Bilirubin Dipstick Negative (Negative)
[2025-06-19 14:26] LABS: Mucous, Urine 1+ /hpf (<or=2+); Red Blood Cells-Urine 0-5 SEEN /hpf (0-5); Squamous Epithelial Cells - UA 0-5 SEEN /hpf (5-10)
[2025-06-19 14:39] LABS: Alcohol, Blood (Medical)-Serum < 10.1 mg/dL (<=10.0)
[2025-06-19 17:48] LABS: Ammonia 17.5 umol/L (11-51)
[2025-06-19 17:53] LABS: CRP 3.20 mg/L (0.0-3.0)
== END 2025-06-19 22:15 | disposition short-term general hospital (02) ==
PROVIDERS: Emergency Provider Emergency Medicine; PCP Family Medicine; Visit Provider Emergency Medicine
DX: R41.0 Disorientation, unspecified (principal); R26.9 Unspecified abnormalities of gait and mobility; R53.1 Weakness; M21.379 Foot drop, unspecified foot
CPT/HCPCS: 80053; 81001; 82077; 82140; 83735; 84439; 84443; 84481; 85025; 85652; 86140; 99285; A4216

== ENCOUNTER 2025-06-24 13:43 | Inpatient (IN) | payer OTHER, SELFPAY ==
[2025-06-24 14:11] VITALS: BP 134/88; PULSE 72; RESP 17; TEMP 36.2; O2SAT 96; BMI 39.8
--- NOTE | 2025-06-24 14:55 | EX.PCM.HP.RE ---
Documented by User: OMER Perea 06/25/25 12:42 HPI - General General Date of Admission: 06/24/25 Date of Service: 06/24/25 Chief Complaint: Ataxia with debility HPI Narrative RICHY RODRIGUEZ, is a 64 F who has history of hypertension, dyslipidemia, type 2 diabetes who is being admitted to inpatient rehab following presentation to the ED at [facility] on 06/19/25 for AMS and Ataxia. She was reportedly experiencing progressive confusion and forgetfulness over several weeks She had a complaint of dizziness/lightheadedness with intermittent blurred vision. She had been, reportedly, experiencing unstady gait. She denied any focal weakness, numbness or paresthesia. There was an MRI of the brain with and without contrast as well as an MRA of the head and neck available. These were assessed by the ED physician which demonstrated scattered T2 flair, hyperintensities within the periventricular white matter right greater than left they were fairly mild in severity. There was no definite enhancement of contrast but the MRI was limited by artifact motion. There was no suggestion of recent infarct or hemorrhage. Family was concerned about MS, which runs in the family. Pt was then transferred to [facility] for continued workup. At [facility], the pt did receive a repeat MRI did show some white matter disease present on previous MRI. No enhancing lesions. She did have an elevated Ammonia in which she received Lactulose. Neurology was consulted and felt that demyelinating was less likely. They did recommend an EMG/NCS as an outpatient, given her ataxia and gait instability. On assessment, pt states that she feels hazy She is aao x 3. During her NIH assessment, I did note her to have some ataxia in bilateral upper arms. She does acknowledge some forgetfulness and does take notes frequently. . Although pt was able to follow all instructions, I did note a slight delay in completion of tasks or answering questions. [facility] Medical History (Updated 06/25/25 @ 16:[address] Suyapa Templeton DO) Encephalopathy Hemorrhoids Obesity Diabetes mellitus Hyperlipidemia Hypertension Home Medications ?Medication ?Instructions ?Recorded ?Last Taken ?Type amlodipine 5 mg tablet 5 mg PO QHS blood pressure 06/19/25 Unknown History losartan 50 mg tablet 50 mg PO DAILY blood pressure 06/19/25 06/24/25 History metoprolol succinate 50 mg 50 mg PO DAILY blood pressure 06/19/25 06/24/25 History tablet,extended release 24 hr rosuvastatin 10 mg tablet 10 mg PO QHS cholesterol 06/19/25 06/23/25 History metformin 750 mg tablet 750 mg PO DAILY DM 06/24/25 06/24/25 History Allergy/AdvReac Type Severity Reaction Status Date / Time No Known Allergies Allergy Verified 06/19/25 12:44 Family History unable to obtain Social History household members: none Smoking Status: Never smoker ROS Review of Systems ROS Unobtainable: Denies due to encephalopathy, due to endotracheal tube, due to mental condition or due to mental status Constitutional Constitutional: Reports systems reviewed and no addt'l complaints, except as documented; Denies anorexia, change in weight, chills, fatigue, fever(s), night sweats or weakness Eyes Eyes: Reports blurry vision bilateral (Intermittent) and change in vision bilateral (Intermittent); Denies eye pain or loss of vision ENT HEENT: Reports other Details: Feeling of fogginess ; Denies abnormal hearing, dysphagia, headache(s), hearing loss, nasal congestion or sore throat Cardiovascular Cardiovascular: Reports systems reviewed and no addt'l complaints, except as documented; Denies chest pain, dyspnea on exertion, edema, lightheadedness, orthopnea, palpitations, paroxysmal nocturnal dyspnea or syncope Respiratory/Chest Respiratory/Chest: Reports systems reviewed and no addt'l complaints, except as documented; Denies cough, dyspnea, shortness of breath at rest, shortness of breath with exertion or wheezing Gastrointestinal Gastrointestinal: Reports systems reviewed and no addt'l complaints, except as documented; Denies abdominal pain, constipation, diarrhea, dyspepsia, hematemesis, hematochezia, nausea or vomiting Genitourinary Genitourinary: Reports systems reviewed and no addt'l complaints, except as documented; Denies dysuria, hematuria, nocturia, urinary frequency, urinary hesitancy, urinary incontinence or urinary urgency Musculoskeletal Musculoskeletal: Reports systems reviewed and no addt'l complaints, except as documented; Denies back pain, joint pain, joint swelling or neck pain Integumentary Integumentary: Reports systems reviewed and no addt'l complaints, except as documented Neurologic Neurologic: Reports as per HPI, abnormal movements and confusion; Denies disequilibrium, dizziness, focal weakness, headache(s), paresthesias, seizures or tremor(s) Psychiatric Psychiatric: Reports systems reviewed and no addt'l complaints, except as documented; Denies anxiety, depression, homicidal ideation or suicidal ideation Endocrine Endocrinology: Reports systems reviewed and no addt'l complaints, except as documented; Denies change in body appearance, polydipsia or polyuria Hematologic/Lymphatic Hematologic/Lymphatic: Reports systems reviewed and no addt'l complaints, except as documented; Denies easy bleeding, easy bruising or lymphadenopathy Allergic/Immunologic Allergic/Immunologic: Reports systems reviewed and no addt'l complaints, except as documented; Denies rhinitis, eczemia or asthma Vital Signs Vital Signs Vital Signs: Weight Weight: 231 lb 14.821 oz Body Mass Index (BMI) 39.8 Indicators for Scoring Admitted with or Primary Diagnosis of CVA/Stroke: No Hx of CVA/Stroke: No Modified Rosa Score MRS Score at time of Evaluation: 3-Moderate disability NIHSS NIHSS 1a. Level of Consciousness: 0 - Alert; keenly responsive 1b. LOC Questions: 0 - Answers BOTH questions correctly 1c. LOC Commands: 0 - Performs BOTH tasks correctly 2. Best Gaze: 0 - Normal 3. Visual: 0 - No visual loss 4. Facial Palsy: 0 - Normal symmetrical movements 5a. Left Arm: 0 - No drift; arm holds 90 (or 45) degrees for full 10 seconds 5b. Right Arm: 0 - No drift; arm holds 90 (or 45) degrees for full 10 seconds 6a. Left Le - No drift; leg holds 30-degree position for full 5 seconds 6b. Right Le - No drift; leg holds 30-degree position for full 5 seconds 7. Limb Ataxia: 2 - Present in 2 limbs 8. Sensory: 0 - Normal; no sensory loss 9. Best Language: 0 - No aphasia; normal 10. Dysarthria: 0 - Normal 11. Extinction and Inattention: 0 - No abnormality Total: 2 Physical Exam Const alert, oriented x3 and no apparent distress General Appearance: cooperative and comfortable Orientation / Consciousness: awake, oriented to person, oriented to place and oriented to time HEENT normocephalic Mouth: oral and palatal mucosa normal Eyes PERRL Neck full ROM Chest inspection of chest normal Resp normal respiratory effort, no use of accessory muscles and clear to auscultation bilaterally Cardio regular rate, regular rhythm, S1 normal heart sound, S2 normal heart sound, no murmurs, no rub and no gallops GI normal to inspection, nondistended, normoactive bowel sounds, non-tender and non-distended GI Narrative: no guarding with palpation no CVA tenderness Extremity no clubbing, cyanosis or edema Skin no rashes or lesions noted, no wounds and no jaundice Neuro oriented x3, CN's II-XII intact bilaterally and moves all extremities Neuro Narrative: Reported abnormal gait. Patient was sitting in bedside recliner and did not assess gait. I did note some ataxia in her upper extremities. Although she did answer all questions appropriately she did repeat my question and had a delayed answer although correct. No facial asymmetry. No visual field cuts. Tongue protrudes on the midline. Palate elevates symmetrically. Good shoulder shrug bilaterally. No drift with either upper extremity. Good biofuels technology development manager strength bilaterally. No tremors. Generalized weakness. No ataxia of the lower extremities. No drift with the legs. No extinction. No significant dysarthria.....I can understand her easily. Able to read all the words and sentences on the NIHSS screening tool. Was able to tell me several things that were going on in the picture without prompting. No paresthesias. Sensorium / Orientation: alert Coordination: [id number] test normal Psych affect normal Psych Narrative: appropriate, makes good eye contact Results Lab / Micro Data 06/25/25 06:42 06/25/25 06:42 Assessment & Plan Assessment/Plan (1) Debility: PLAN: *continue all therapies *PT for gait stability *OT for ADL's *ST for evaluation (2) Abnormal gait: PLAN: *Continue all therapies. *fall precautions *call gracia within reach (3) Confusion: PLAN: *reorientation as needed *continue to monitor (4) Diabetes mellitus: QUALIFIERS: Diabetes mellitus type: type 2 Diabetes mellitus termite treater insulin use: without fdc use Diabetes mellitus complication status: with neurologic complications Diabetes mellitus complication detail: with unspecified neuropathy Qualified Code(s): E11.40 - Type 2 diabetes mellitus with diabetic neuropathy, unspecified PLAN: *POC blood sugars AC/HS *hypoglycemia protocol *Metformin 750mg po daily *Humalog sliding scale AC/HS * carb consistent calorie controlled diet (5) Hyperlipidemia: QUALIFIERS: Hyperlipidemia type: unspecified Qualified Code(s): E78.5 - Hyperlipidemia, unspecified PLAN: *Lipitor 20mg PO nightly (6) Essential (primary) hypertension: PLAN: *Metoprolol Succinate 50mg PO daily *Cozaar 50mg PPO daily *Norvasc 5mg PO nightly * Vital signs per protocol PLAN: Plan *Analgesics as needed *Bowel protocol *Assess for Anxiety/Depression *GI prophylaxis -not necessary at this time. She is asymptomatic. *DVT prophylaxis Heparin 5000units q 12h *Follow up with PCP, neurology, following DC from [facility] Rehab *AM lab including CMP, CBC, Mag and Phos Charges/Coding Visit Charges Inpatient E&M: 87331 Init Hosp L2 Documented by User: Dr. Suyapa Templeton, 06/25/25 16:59 HPI - General General Date of Admission: 06/24/25 HPI Narrative RICHY RODRIGUEZ, is a 64 F who has history of hypertension, dyslipidemia, type 2 diabetes who is being admitted to inpatient rehab following presentation to the ED at [facility] on 06/19/25 for AMS and Ataxia. She was reportedly experiencing progressive confusion and forgetfulness over several weeks She had a complaint of dizziness/lightheadedness with intermittent blurred vision. She had been, reportedly, experiencing unstady gait. She denied any focal weakness, numbness or paresthesia. There was an MRI of the brain with and without contrast as well as an MRA of the head and neck available. These were assessed by the ED physician which demonstrated scattered T2 flair, hyperintensities within the periventricular white matter right greater than left they were fairly mild in severity. There was no definite enhancement of contrast but the MRI was limited by artifact motion. There was no suggestion of recent infarct or hemorrhage. Family was concerned about MS, which runs in the family. Pt was then transferred to [facility] for continued workup. At [facility], the pt did receive a repeat MRI did show some white matter disease present on previous MRI. No enhancing lesions. She did have an elevated Ammonia in which she received Lactulose. Neurology was consulted and felt that demyelinating was less likely. They did recommend an EMG/NCS as an outpatient, given her ataxia and gait instability. On assessment, pt states that she feels hazy She is aao x 3. During her NIH assessment, I did note her to have some ataxia in bilateral upper arms. She does acknowledge some forgetfulness and does take notes frequently. Although pt was able to follow all instructions, I did note a slight delay in completion of tasks or answering questions. I independently reviewed the documentation of the MANAGER OF TRANSPORTATION and reviewed all lab work and documentation sent to us from [facility]. The Tsh is low but, T4 and T3 are normal. Antithyroid antibodies were negative. Calcium has been as high as 11.2 but the PTH was reportedly normal. Bilirubin has been elevated but the other LFTs are within normal limits. An ultrasound of the liver was consistent with fatty infiltration. Hemoglobin A1c was excellent at 6.4. She had a single elevated ammonia at 38 and was given 1 dose of lactulose but follow-up studies revealed normal ammonia. C3 was high at 188. C4 was normal. Folate was normal. C-reactive protein was less than 0.5. ESR was normal at 13. Test for syphilis was nonreactive. Vitamin D level was normal at 42.6 and the B12 was normal at 450. Total cholesterol was 108 with an HDL of 30 and an LDL of 42. Tests that were still pending at the time of discharge include a B1, protein electrophoresis panel and an anti-NMDAR. She did not have a lumbar puncture. Neurology signed off prior to Dc and did not feel strongly about dx of MS but, did not offer a lot of other possibilities. she had an MRI of the cervical spine and the report was not included in the documentation sent to us. Follow up was recommended with Dr. Migue Palacio post DC fro cervical stenosis and with the [facility] for evaluation for MS. She had a brother with MS who also had spina bifida and he has . She has a sister who is 45 and was diagnosed with MS several years ago. She tells me that she recently started using a cane to help maintain her balance. She loses her balance when she is in a crowd. She tells me that she has numbness in her feet and EMG/NCV were recommended. 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 When I was asking her about numbness in her hands she was very evasive and was slow to answer questions. She c/o blurred vision in the L eye but, this resolves when she puts her most recent lens RX glasses on. Denies urine and fecal incontinence. Denies cephalgia, neck stiffness, fevers, chills, night sweats. ESR and CRP were both within normal limits and she is afebrile. She drives. Lives independently but, thinks she will stay with her mother when she is discharged from rehab. On PE she had no ataxia with the UE's or LE's. The pupils are equal round and reactive to light. She is slow to adduct both eyes and the eye do not deviate totally to the lateral canthus. She had no nystagmus. There is no facial asymmetry. Sensation in the face is intact. The tongue protrudes on the midline. She denies any problems with dysphagia. She has no drift with either upper extremity and strength is 5/5. She also has no drift of the lower extremities and strength is 5/5 bilaterally. She has good plantarflexion and dorsiflexion in both feet. She had a negative reverse Phalen's. Good biofuels technology development manager strength BL. She had no difficulty with naming objects and she was able to read all the words on the NIHSS exam and all the sentences with no dysarthria. She is very slow to answer some of my questions. she was oriented to place, person, month and year but, it took her a while to come up with May. She can not count backward from 100 by 7's........she only got 93 correct. She is able to spell the word WORLD backwards and forwards when asked. When I ask her questions about her sx she tells what what her family thinks is malou with her and what she has been doing. She is very slow to answer questions about what she has noticed difficulty with. I agree with the remainder of the PE as documented by the MANAGER OF TRANSPORTATION [facility] Medical History (Updated 06/25/25 @ 16:[address] Suyapa Templeton, ) Encephalopathy Hemorrhoids Obesity Diabetes mellitus Hyperlipidemia Hypertension Home Medications ?Medication ?Instructions ?Recorded ?Last Taken ?Type amlodipine 5 mg tablet 5 mg PO QHS blood pressure 06/19/25 Unknown History losartan 50 mg tablet 50 mg PO DAILY blood pressure 06/19/25 06/24/25 History metoprolol succinate 50 mg 50 mg PO DAILY blood pressure 06/19/25 06/24/25 History tablet,extended release 24 hr rosuvastatin 10 mg tablet 10 mg PO QHS cholesterol 06/19/25 06/23/25 History metformin 750 mg tablet 750 mg PO DAILY DM 06/24/25 06/24/25 History Allergy/AdvReac Type Severity Reaction Status Date / Time No Known Allergies Allergy Verified 06/19/25 12:44 Family History unable to obtain Social History household members: none Smoking Status: Never smoker NIHSS NIHSS Total: 2 Results Lab / Micro Data 06/25/25 06:42 06/25/25 06:42 Assessment & Plan Assessment/Plan (1) Debility: (2) Abnormal gait: (3) Confusion: (4) Diabetes mellitus: QUALIFIERS: Diabetes mellitus type: type 2 Diabetes mellitus fdc insulin use: without termite treater use Diabetes mellitus complication status: with neurologic complications Diabetes mellitus complication detail: with unspecified neuropathy Qualified Code(s): E11.40 - Type 2 diabetes mellitus with diabetic neuropathy, unspecified (5) Hyperlipidemia: QUALIFIERS: Hyperlipidemia type: unspecified Qualified Code(s): E78.5 - Hyperlipidemia, unspecified (6) Essential (primary) hypertension: PLAN: Plan *Analgesics as needed *Bowel protocol *Assess for Anxiety/Depression *GI prophylaxis -not necessary at this time. She is asymptomatic. *DVT prophylaxis Heparin 5000units q 12h *Follow up with PCP, neurology, following DC from Rehab *AM lab including CMP, CBC, Mag and Phos I personally supervised the nurse practitioner in the evaluation and development of a treatment plan for this patient on the same day of service. I personally discussed the review of systems and interviewed the patient along with performing a physical examination. I discussed the patient's condition and treatment options with patient. All questions were answered. My findings agree with the nurse practitioners note except for any details corrected below. Will obtain the results of the cervical MRI, thiamine, anti-NMDAR and protein electrophoresis. Many of the findings that were present on admission to [facility] have either resolved or improved. No definitive dx at this time. Will F/U with neurology post DC. Will recommende she follow up with the drivers rehab program at [facility] [place] prior to driving again. Charges/Coding Visit Charges Inpatient E&M: 52992 Init Hosp L3
[2025-06-24 17:34] VITALS: BP 134/88; PULSE 72; RESP 17; TEMP 36.2; O2SAT 96
[2025-06-24 21:00] VITALS: PULSE 72; RESP 17; O2SAT 96
[2025-06-24] MEDS: Heparin Injection (Vial) 5,000 UNIT/ML VIAL 5000 UNIT SC (21:15)
[2025-06-24] MEDS: Senna/Docusate Sodium 1 Tablet 2 TABLET PO (21:15)
[2025-06-25 05:00] VITALS: BP 123/72; PULSE 68; RESP 16; TEMP 37.1; O2SAT 94
[2025-06-25 06:54] LABS: Hematocrit 36.5 % (37-47); Hemoglobin 12.1 g/dL (12.0-15.0); Immature Granulocytes Count 0.030 X10^3/uL (0.0-0.0); Mean Corp Hgb Conc 33.2 g/dL (32-36); Mean Corpuscular Volume 94.8 fL (81-99); Mean Platelet Vol. 9.6 fl (6.2-12.0); NRBC Flagged by Analyzer 0 % (0-5); Platelet Count 263 K/mm3 (150-450); RBC Distribution Width CV 13.2 % (11.6-14.6); RBC Distribution Width SD 45.0 fl (35.1-43.9); Red Blood Count 3.85 M/mm3 (4.2-5.4); White Blood Count 7.8 K/mm3 (4.4-11.0)
[2025-06-25 06:57] VITALS: O2SAT 94
[2025-06-25 08:28] VITALS: BP 107/71; PULSE 78
[2025-06-25] MEDS: Heparin Injection (Vial) 5,000 UNIT/ML VIAL 5000 UNIT SC ×2 (08:28→21:32)
[2025-06-25] MEDS: Metoprolol(XL)Succ 50 MG Tablet PO (08:28)
[2025-06-25] MEDS: Senna/Docusate Sodium 1 Tablet 2 TABLET PO (08:29)
[2025-06-25 09:02] LABS: AST(SGOT) 26 U/L (<=31); Alanine Aminotransfer ALT/SGPT 27 U/L (<=34); Albumin, Serum 3.8 g/dL (3.4-4.8); Alkaline Phosphatase 77 U/L (35-104); Anion Gap 12 (5-15); BUN 13 mg/dL (4-19); BUN/Creat Ratio 16.1 RATIO (10-20); Calcium,Total 10.4 mg/dL (7.6-11.0); Carbon Dioxide 21.9 mmol/L (21.0-32.0); Chloride 104 mmol/L (98-108); Estimated Creatinine Clearance 84.06 ml/min (50-250); Globulin 2.6 g/dL (2.2-4.2); Glucose 132 mg/dL (70-99); Magnesium 2.2 mg/dL (1.5-2.2); Potassium 4.3 mmol/L (3.3-5.1)
--- NOTE | 2025-06-25 10:40 | REHABEVAL_ITS ---
Admission Information Primary Diagnosis:: ataxia Actual Problem List:: Mobility Impaired, Self Care Deficit, BP, Hypertension and Alteration-Leisure Activ. Potential Problem List:: DVT, Falls and Depression Risk of Complications DVT: LMWH Bleeding: Monitor Lab Values Infection: Clinical Staff to Monitor for S/S of infection: Urinary Tract Infection: Monitor for frequency, burning, discomfort, or incontinence. Aspiration: Clinical staff will monitor for coughing, drooling, congestion. Falls: Patient will be evaluated for Fall Precautions and Patient will be placed on Fall Precautions as indicated per protocol. Skin Breakdown: Nursing will assess skin daily using assessment tool. Pain: Clinical staff will assess patient's pain level per protocol. Plan of Care Patient needs Physical Therapy: At least 5 out of 7 days and For a minimum of 1.5 hrs Patient needs Physical Therapy to improve:: Mobility, Strengthening, Transfers, Endurance, Stairs, Gait and Balance Patient needs Occupational Therapy: For a minimum of 1 hour and At least 5 out of 7 days Patient needs Occupational Therapy to improve ADL's incl.: Bathing, Dressing, Toileting, Toilet transfers, Household tasks, Adaptive Equipment and Other activities as determined Patient requires speech therapy: For a minimum of 1 hour and At least 5 out of 7 days Patient requires speech therapy for: Cognition Patient requires 24/7 Rehabilitation Nursing for: Identifying and preventing risk factors, Monitoring and reporting current medical conditions, Assisting with ambulation, transfer, and all ADL's, Providing safe environment and Medication Management Patient needs Doctor Of Chiropractic/ Case Management for: Discharge Planning, Arranging Home Equipment or Services and Family Interventions Patient needs Dietary and Nutrition Services for: Adequate Nutrition and Nutritional Education Goals Goals Patient will remain: free from falls and or injury at time of discharge. Patient will perform eating at: Standby Assist. Patient will perform bed mobility at: Standby Assist. Patient will complete transfers from bed to chair at: Standby Assist. Patient will ambulate: 100 feet and with MOD I assist Patient will complete upper body dressing at: Standby Assist. Patient will complete lower body dressing at: Standby Assist. Patient will complete toilet transfer at: Standby Assist. Patient will complete toileting at: Standby Assist. Patient will perform bathing at: Standby Assist. Patient will perform Tub/Shower transfer at: Standby Assist. Patient will complete grooming at: Standby Assist. Patient will complete home management skills at: Standby Assist. Patient will achieve: at MOD I assist and with standby assist Patient will have pain level of: of 3 or less Patient's skin will: remain intact Patient will receive: adequate nutrition. Discharge Planning Pt Prognosis for Sig. Practical Improv. w/in Reasonable Time: Good Estimated Length of stay (days): 21 Anticipated D/C Destination: Home w/ family or friends Was Preadmission Assessment Accurate?: Yes
[2025-06-25 13:46] VITALS: BP 106/77; BP 120/76; BP 126/69; PULSE 65; PULSE 73; PULSE 77
[2025-06-25 17:52] VITALS: BP 121/72; PULSE 75; RESP 16; TEMP 37.1; O2SAT 97
[2025-06-25 21:00] VITALS: PULSE 75; RESP 16; O2SAT 97
[2025-06-26 05:24] VITALS: BP 129/74; PULSE 75; RESP 16; TEMP 37.2; O2SAT 97
[2025-06-26 08:08] VITALS: PULSE 69
[2025-06-26] MEDS: Metoprolol(XL)Succ 50 MG Tablet PO (08:08)
[2025-06-26] MEDS: Heparin Injection (Vial) 5,000 UNIT/ML VIAL 5000 UNIT SC ×2 (08:09→21:24)
[2025-06-26 08:30] VITALS: BP 111/63; PULSE 96
--- NOTE | 2025-06-26 10:40 | PCM.PROGNOTE ---
Subjective Subjective Afebrile Blood pressure is well-controlled however she is on amlodipine, metoprolol and losartan for hypertension. Heart rate has ranged from 65-96 over the past 24 hours. Blood sugars are well-controlled on metformin 750 mg once daily and her hemoglobin A1c was recently 6.4. We received additional labs done at [facility]. TONY, RA, anti-CCP, protein electrophoresis, anti- NMDAR, ESR, CRP and antithyroid antibodies were all WNL. An extensive autoimmune panel was negative. She had mild elevation in C4. No LP was done and we still do not have a thiamine level. MRI at [facility] showed a chronic lacunar infarct in the R BG. She had mild R side weakness and ataxia with the RUE. She also had confusion and dysequilibrium. there is 1 note from [facility] that said she had foot drop. EEG was negative. TSH at [facility] at presentation to the ER was only 0.019. T4 was mildly elevated at 1.5. T3 was normal at 3.6. At [facility] the TSH was 0.022 and the T4 and T3 were normal. Recent ultrasound of the thyroid showed thyroid nodules with 1 of the nodules measuring 1.4 cm with irregular margins. She admits to having anxiety, insomnia, tremors, confusion, sweating and weakness. Has had difficulty climbing steps at work for a few months. I discussed her PE with PT....she does not have ataxia but, she jerks the R leg up and down and has difficulty maintaining balance. PT did not feel she had weakness in the RUE. She has no pronator drift on my exam. Lots of trouble word finding. she has no complaints today. 10 point ROS is negative. Objective Data Objective Data Vital Signs: Vital Signs Temp Pulse Resp BP Pulse Ox O2 Del Method 98.9 F 96 16 111/63 97 Room Air 06/26/25 05:24 06/26/25 08:30 06/26/25 05:24 06/26/25 08:30 06/26/25 05:24 06/26/25 05:24 Oxygen Delivery Method Room Air Weight: 231 lb 14.821 oz Body Mass Index (BMI) 39.8 Intake & Output: Intake and Output for Last 24 Hours 06/24/25 06/25/25 06/26/25 23:59 23:59 23:59 Intake Total 420 / 420 1860 / 1860 150 / 150 Output Total 650 / 650 1500 / 1500 600 / 600 Balance -230 / -230 360 / 360 -450 / -450 Lab / Micro Data 06/25/25 06:42 06/25/25 06:42 Labs: Laboratory Results - last 24 hr 06/25/25 11:46: POC Glucose 118 H 06/25/25 16:38: POC Glucose 136 H 06/25/25 21:29: POC Glucose 151 H 06/26/25 06:32: POC Glucose 125 H Physical Exam Const alert, oriented x3 and no apparent distress General Appearance: cooperative and comfortable Resp normal respiratory effort and clear to auscultation bilaterally Cardio regular rate, regular rhythm, no murmurs, no rub and no gallops GI normal to inspection, nondistended, normoactive bowel sounds, non-tender and non-distended GI Narrative: no guarding with palpation Skin Skin Narrative: appears to have rosacea. 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 Continue therapy 2. We repeated the TSH, T4 and T3. TSH is still very low at 0.028 but the T4 is normal at 1.3 and the free T3 is normal at 3. Discussed with endocrinology and they recommend methimazole 2.[address] Gomez is agreeable to following up with Breanna postdischarge from rehab. Will likely need a thyroid nuclear scan going forward. 3. Met with family and discussed plans for Methimazole and we discussed that she has had a lacunar infarct in the past and I suspect this was within a few weeks of presenting to the ED at [facility]. We discussed the results of all the lab work we have received from [facility]. Charges/Coding Visit Charges Inpatient E&M: 74102 Subs Hosp L1
[2025-06-26 11:15] LABS: Free T3 3.0 pg/mL (2.18-3.98)
[2025-06-26 11:28] LABS: CPK Total, Creatine Kinase 35 U/L (24-195)
[2025-06-26 18:00] VITALS: BP 107/54; PULSE 71; RESP 17; TEMP 36.5; O2SAT 96
[2025-06-26 21:00] VITALS: PULSE 71; RESP 17; O2SAT 96
[2025-06-27 06:00] VITALS: PULSE 68; RESP 16; O2SAT 95
[2025-06-27] MEDS: Heparin Injection (Vial) 5,000 UNIT/ML VIAL 5000 UNIT SC ×2 (09:03→20:30)
[2025-06-27 09:04] VITALS: BP 127/79; PULSE 90
[2025-06-27] MEDS: Metoprolol(XL)Succ 50 MG Tablet PO (09:04)
[2025-06-27 17:50] VITALS: BP 108/59; PULSE 67; RESP 18; TEMP 36.4; O2SAT 97
[2025-06-28 00:40] VITALS: PULSE 77; O2SAT 96
[2025-06-28 06:00] VITALS: BP 122/71; PULSE 75; RESP 17; TEMP 36.8; O2SAT 98
[2025-06-28 07:52] VITALS: BP 120/70; PULSE 71; RESP 18; O2SAT 96
[2025-06-28 07:58] VITALS: BP 120/70; PULSE 71
[2025-06-28] MEDS: Heparin Injection (Vial) 5,000 UNIT/ML VIAL 5000 UNIT SC ×2 (07:58→20:25)
[2025-06-28] MEDS: Metoprolol(XL)Succ 50 MG Tablet PO (07:58)
[2025-06-28 17:54] VITALS: BP 120/84; PULSE 71; RESP 17; TEMP 36.5; O2SAT 96
[2025-06-29 06:00] VITALS: BP 126/76; PULSE 72; RESP 16; TEMP 36.9; O2SAT 85
[2025-06-29 07:58] VITALS: BP 122/79; PULSE 82
[2025-06-29] MEDS: Metoprolol(XL)Succ 50 MG Tablet PO (07:58)
[2025-06-29] MEDS: Heparin Injection (Vial) 5,000 UNIT/ML VIAL 5000 UNIT SC ×2 (08:00→20:51)
[2025-06-29] MEDS: Senna/Docusate Sodium 1 Tablet 2 TABLET PO (08:05)
--- NOTE | 2025-06-29 09:17 | PCM.PROGNOTE ---
Subjective Subjective Patient states that she feels like she is less foggy today. She continues to have some ataxia to the right upper extremity. Mini Baccarat Dealer strengths are equal bilaterally. She does have some difficulty with complex problems requiring more than 1 step. She does have some difficulty with word finding. She does feel that this is progressively improving but very slowly. She did state that she had some fogginess when she came out of the bathroom earlier but she stated it was not dizziness she feels that her dizziness has improved. I did note her to be alert and oriented x 3 she currently denies pain or shortness of breath. I did review PT/OT's/ST notes. Breanna continues to work well with PT/OT/ST. I did note her to have bruising to the posterior aspect of the left upper extremity. It is in various stages of healing. It does resemble a handprint. Patient was unaware of how it happened she feels it may have been the result of someone helping her up. This would be consistent with the handprint. Per previous documentation, patient was thought to have thyroid toxicosis related to multinodular goiter. She has been started on methimazole and will follow-up with endocrinology at discharge. All questions answered. This note was generated with [employer] dictation software. It may contain incorrect words, spelling, and punctuation that were not noted in checking the note before signing. Objective Data Objective Data Vital Signs: Vital Signs Temp Pulse Resp BP Pulse Ox O2 Del Method FiO2 98.4 F 82 16 122/79 H 85 Room Air 21 06/29/25 06:00 06/29/25 07:58 06/29/25 06:00 06/29/25 07:58 06/29/25 06:00 06/29/25 06:00 06/28/25 00:40 Oxygen Delivery Method Room Air Weight: 231 lb 14.821 oz Body Mass Index (BMI) 39.8 Intake & Output: Intake and Output for Last 24 Hours 06/27/25 06/28/25 06/29/25 23:59 22:59 23:59 Intake Total 1520 / 1520 1462 / 1462 300 / 300 Output Total 1600 / 1600 900 / 900 1425 / 1425 Balance -80 / -80 562 / 562 -1125 / -1125 Lab / Micro Data Attestation: I reviewed the patient's lab results. Lab results narrative: No new labs since 06/25/2025. 06/25/25 06:42 06/25/25 06:42 Labs: Laboratory Results - last 24 hr 06/28/25 11:23: POC Glucose 139 H 06/28/25 16:32: POC Glucose 158 H 06/28/25 20:37: POC Glucose 187 H 06/29/25 07:13: POC Glucose 153 H Physical Exam Const alert, oriented x3 and no apparent distress General Appearance: cooperative and comfortable Orientation / Consciousness: awake, oriented to person, oriented to place and oriented to time HEENT normocephalic Eyes PERRL Neck full ROM Chest inspection of chest normal Resp normal respiratory effort, no use of accessory muscles and clear to auscultation bilaterally Cardio regular rate, regular rhythm, S1 normal heart sound, S2 normal heart sound, no murmurs, no rub and no gallops GI normal to inspection, nondistended, normoactive bowel sounds, non-tender and non-distended GI Narrative: no guarding with palpation no CVA tenderness Extremity no clubbing, cyanosis or edema Skin no rashes or lesions noted, no wounds and no jaundice Neuro oriented x3, CN's II-XII intact bilaterally, moves all extremities and no focal motor deficits Neuro Narrative: Reported abnormal gait. Patient was sitting in bedside recliner and did not assess gait. I did note some ataxia in her R upper extremities. Although she did answer all questions appropriately she did repeat my question and had a delayed answer although correct. No facial asymmetry. No visual field cuts. Tongue protrudes on the midline. Palate elevates symmetrically. Good shoulder shrug bilaterally. No drift with either upper extremity. Good electrician underground strength bilaterally. No tremors. Generalized weakness. No ataxia of the lower extremities. No drift with the legs. No extinction. No significant dysarthria.....I can understand her easily. Able to read all the words and sentences on the NIHSS screening tool. Was able to tell me several things that were going on in the picture without prompting. Does experience some word finding issues. No paresthesias. Sensorium / Orientation: alert Coordination: [id number] test normal Psych affect normal Psych Narrative: appropriate, makes good eye contact Assessment & Plan Assessment/Plan (1) Debility: PLAN: *continue all therapies *PT for gait stability *OT for ADL's *ST for evaluation (2) Abnormal gait: PLAN: *Continue all therapies. *fall precautions *call gracia within reach (3) Confusion: PLAN: *reorientation as needed *continue to monitor (4) Diabetes mellitus: QUALIFIERS: Diabetes mellitus type: type 2 Diabetes mellitus fci insulin use: without parts counterman use Diabetes mellitus complication status: with neurologic complications Diabetes mellitus complication detail: with unspecified neuropathy Qualified Code(s): E11.40 - Type 2 diabetes mellitus with diabetic neuropathy, unspecified PLAN: *POC blood sugars AC/HS *hypoglycemia protocol *Metformin 750mg po daily *Humalog sliding scale AC/HS * carb consistent calorie controlled diet (5) Hyperlipidemia: QUALIFIERS: Hyperlipidemia type: unspecified Qualified Code(s): E78.5 - Hyperlipidemia, unspecified PLAN: *Lipitor 20mg PO nightly (6) Essential (primary) hypertension: PLAN: *Metoprolol Succinate 50mg PO daily *Cozaar 50mg PPO daily *Norvasc 5mg PO nightly * Vital signs per protocol (7) Right-sided lacunar infarction: (8) 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 We repeated the TSH, T4 and T3. TSH is still very low at 0.028 but the T4 is normal at 1.3 and the free T3 is normal at 3. Discussed with endocrinology and they recommend methimazole 2.[address] Gomez is agreeable to following up with Breanna postdischarge from rehab. Will likely need a thyroid nuclear scan going forward. 2. Family was informed by Dr. Templeton about ddition of Methimazole and they discussed that she has had a lacunar infarct in the past and she suspect this was within a few weeks of presenting to the ED at [facility]. They discussed the results of all the lab work we have received from [facility]. PLAN: Plan *Analgesics as needed *Bowel protocol *Assess for Anxiety/Depression *GI prophylaxis -not necessary at this time. She is asymptomatic. *DVT prophylaxis Heparin 5000units q 12h *Follow up with PCP, neurology, following DC from [facility] Charges/Coding Visit Charges Inpatient E&M: 87965 Subs Hosp L2
--- NOTE | 2025-06-29 09:52 | PCM.PROGNOTE ---
Subjective Subjective Breanna was seen independently of the nurse practitioner. Objective Data Objective Data Vital Signs: Vital Signs Temp Pulse Resp BP Pulse Ox O2 Del Method FiO2 98.4 F 82 16 122/79 H 85 Room Air 21 06/29/25 06:00 06/29/25 07:58 06/29/25 06:00 06/29/25 07:58 06/29/25 06:00 06/29/25 06:00 06/28/25 00:40 Oxygen Delivery Method Room Air Weight: 231 lb 14.821 oz Body Mass Index (BMI) 39.8 Intake & Output: Intake and Output for Last 24 Hours 06/27/25 06/28/25 06/29/25 23:59 22:59 23:59 Intake Total 1520 / 1520 1462 / 1462 540 / 540 Output Total 1600 / 1600 900 / 900 1675 / 1675 Balance -80 / -80 562 / 562 -1135 / -1135 Lab / Micro Data 06/25/25 06:42 06/25/25 06:42 Labs: Laboratory Results - last 24 hr 06/28/25 11:23: POC Glucose 139 H 06/28/25 16:32: POC Glucose 158 H 06/28/25 20:37: POC Glucose 187 H 06/29/25 07:13: POC Glucose 153 H
--- NOTE | 2025-06-29 12:56 | CASEMGMT ---
Team meeting held with pt present and pt's dgt in [facility] on speaker phone. PT/OT/ST/SN and physician provided updates on pt current status. Pt is progressing well with therapy. SW updated pt that insurance has approved stay with next review on 07/06 and that continued stay is not guranteed. Pt recently sold her home and was planning on moving in with her mother at an independent living at [facility]. Alecia confirms that pt's mother is able to supervise pt with medications and for safety decisions. Pt's mother is not able to assist with physical care. Will continue with treatment plan at this time and reTeam next week. JIM Byrnes
[2025-06-29 18:00] VITALS: BP 116/65; PULSE 74; RESP 18; TEMP 36.6; O2SAT 98
[2025-06-29 20:45] VITALS: PULSE 74; RESP 18; O2SAT 98
[2025-06-30 05:17] VITALS: BP 127/79; PULSE 74; RESP 16; TEMP 36.9; O2SAT 95
[2025-06-30] MEDS: Heparin Injection (Vial) 5,000 UNIT/ML VIAL 5000 UNIT SC ×2 (07:57→20:36)
[2025-06-30 07:59] VITALS: BP 114/79; PULSE 77
[2025-06-30] MEDS: Metoprolol(XL)Succ 50 MG Tablet PO (07:59)
--- NOTE | 2025-06-30 16:21 | PCM.PROGNOTE ---
Subjective Subjective Afebrile VSS -blood pressure over the past 24 hours has ranged from 114/79 to 127/79. Heart rate is within normal limits. Maintaining appropriate oxygen saturation on RA Oral intake - FOOD good FLUIDS good Discussed with nursing - no problems that need addressed Reviewed the THERAPY notes Medication list reviewed. Denies vertigo but feels off as though she has trouble maintaining her balance. Denies cephalgia, chest pain, palpitations, shortness of breath, nausea/vomiting/abdominal pain, dysuria, calf pain. Objective Data Objective Data Vital Signs: Vital Signs Temp Pulse Resp BP Pulse Ox O2 Del Method FiO2 98.4 F 77 16 114/79 95 Room Air 21 06/30/25 05:17 06/30/25 07:59 06/30/25 05:17 06/30/25 07:59 06/30/25 05:17 06/30/25 10:00 06/28/25 00:40 Oxygen Delivery Method Room Air Weight: 231 lb 14.821 oz Body Mass Index (BMI) 39.8 Intake & Output: Intake and Output for Last 24 Hours 06/28/25 06/29/25 06/30/25 22:59 23:59 23:59 Intake Total 1462 / 1462 1840 / 1940 740 / 740 Output Total 900 / 900 3075 / 3075 1050 / 1050 Balance 562 / 562 -1235 / -1135 -310 / -310 Lab / Micro Data 06/25/25 06:42 06/25/25 06:42 Physical Exam Const alert, oriented x3 and no apparent distress Constitutional Narrative: Still having a lot of trouble answering direct questions and coming up with an answer. General Appearance: cooperative Resp normal respiratory effort and clear to auscultation bilaterally Cardio regular rate, regular rhythm, no murmurs, no rub and no gallops GI normal to inspection, nondistended, normoactive bowel sounds, non-tender and non-distended GI Narrative: no guarding with palpation Extremity no calf tenderness General Extremity: Negative for edema Skin Skin Narrative: appears to have rosacea. Assessment & Plan Assessment/Plan (1) Debility: (2) Right-sided lacunar infarction: PLAN: Her neurologic deficits at presentation to the emergency department were consistent with a right sided lacunar/right basal ganglia infarct. (3) Thyrotoxicosis due to multinodular goiter: (4) Cognitive dysfunction: (5) Right sided weakness: (6) Ataxia: PLAN: Plan 1. Continue therapy 2. Recheck a BMP on . 3. Unsafe to go home alone so will be going to stay with her mother in [place]. 4. I do not think that all this confusion is coming from MS but, will have her follow up with the [facility] to complete the W/U. Sx started suddenly several weeks ago and she has a infarct on the MRI.......I think she had a stroke and problems/deficits are exacerbated by the thyrotoxicosis. Will continue the Methimazole. 5. some how accuchecks got DC'd? Will reorder AC and HS. Glucophage was increased yesterday. Charges/Coding Visit Charges Inpatient E&M: 31813 Subs Hosp L1
[2025-06-30 17:36] VITALS: BP 110/69; PULSE 60; RESP 18; TEMP 37; O2SAT 97
[2025-06-30 20:30] VITALS: PULSE 60; RESP 18; O2SAT 97
[2025-06-30] MEDS: Senna/Docusate Sodium 1 Tablet 2 TABLET PO (20:36)
[2025-07-01 05:45] VITALS: BP 115/80; PULSE 68; RESP 17; TEMP 37; O2SAT 94
[2025-07-01 05:51] VITALS: BMI 40.6
[2025-07-01] MEDS: Senna/Docusate Sodium 1 Tablet 2 TABLET PO (07:43)
[2025-07-01 07:44] VITALS: PULSE 68
[2025-07-01] MEDS: Heparin Injection (Vial) 5,000 UNIT/ML VIAL 5000 UNIT SC ×2 (07:44→20:28)
[2025-07-01] MEDS: Metoprolol(XL)Succ 50 MG Tablet PO (07:44)
[2025-07-01 17:54] VITALS: BP 115/82; PULSE 80; RESP 17; TEMP 36.6; O2SAT 98
[2025-07-01 22:00] VITALS: PULSE 80; RESP 17; O2SAT 98
[2025-07-02 05:00] VITALS: BP 111/62; PULSE 66; RESP 16; TEMP 36.8; O2SAT 96
[2025-07-02 09:14] VITALS: BP 111/62; PULSE 66
[2025-07-02] MEDS: Metoprolol(XL)Succ 50 MG Tablet PO (09:14)
[2025-07-02] MEDS: Heparin Injection (Vial) 5,000 UNIT/ML VIAL 5000 UNIT SC ×2 (09:16→21:03)
--- NOTE | 2025-07-02 09:17 | PCM.PROGNOTE ---
Subjective Subjective Afebrile VSS -blood pressure is within goal. Heart rate is within normal limits. Maintaining appropriate oxygen saturation on RA Oral intake - FOOD good FLUIDS good The blood sugar record was reviewed and the blood sugars are well-controlled. Discussed with nursing - no problems that need addressed Reviewed the THERAPY notes Medication list reviewed. Still very confused. Nothing acute just not progressing with cognition. Memory is poor and balance is also poor. She is CGA. mother is 92 and although she can supervise medications I doubt she will be able to assist with ambulation/equilibrium. She really has no complaints other than blurriness........same complaint every day and when I ask her if it is better with her glasses on she says yes. Very slow to repsond to questions. May need SNF at DC and follow up with neurology MARGARET after DC from rehab. Objective Data Objective Data Vital Signs: Vital Signs Temp Pulse Resp BP Pulse Ox O2 Del Method FiO2 98.3 F 66 16 111/62 96 Room Air 21 07/02/25 05:00 07/02/25 05:00 07/02/25 05:00 07/02/25 05:00 07/02/25 05:00 07/02/25 05:00 06/28/25 00:40 Oxygen Delivery Method Room Air Weight: 238 lb 1.588 oz Body Mass Index (BMI) 40.6 Intake & Output: Intake and Output for Last 24 Hours 06/30/25 07/01/25 07/02/25 23:59 23:59 23:59 Intake Total 1430 / 1430 1940 / 1940 Output Total 1250 / 1250 2400 / 2400 400 / 400 Balance 180 / 180 -460 / -460 -400 / -400 Lab / Micro Data 06/25/25 06:42 06/25/25 06:42 Labs: Laboratory Results - last 24 hr 07/01/25 20:33: POC Glucose 134 H 07/02/25 06:34: POC Glucose 127 H Physical Exam Const alert and no apparent distress Constitutional Narrative: Still having a lot of trouble answering direct questions and coming up with an answer. Always pleasant. No signs of depression. Seems to understand what I am saying when we talk but, can not retain the information. General Appearance: cooperative Neck supple Resp normal respiratory effort and clear to auscultation bilaterally Cardio regular rate, regular rhythm, no murmurs, no rub and no gallops GI normal to inspection, nondistended, normoactive bowel sounds, non-tender and non-distended GI Narrative: no guarding with palpation Extremity no calf tenderness General Extremity: Negative for edema Skin Skin Narrative: appears to have rosacea. 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 Continue therapy 2. Change the Accu-Chek blood sugars to as needed. They are well-controlled with no hypoglycemia. 3. Continue methimazole and will follow-up with Dr. Tyrese Gomez as an outpatient. 4. She has an appointment to follow-up with Dr. Melchor from neurology postdischarge from rehab. If Dr. Melchor feels she needs more W/U for possible MS family is willing to take her to the [facility]. I had a discussion with pt and family about dysequilibrium and risk of falls. She is still CGA with the therapists. PT, family an myself agree that probably the safest option at DC is going to be SNF. I have the feeling that we are nissing something and she is going to need additional testing. Will check with SW tomorrow and discuss options for DC. Charges/Coding Visit Charges Inpatient E&M: 89692 Subs Hosp L1
[2025-07-02 18:00] VITALS: BP 116/74; PULSE 75; RESP 16; TEMP 36.4; O2SAT 98
[2025-07-02 21:01] VITALS: BP 119/77; PULSE 78
[2025-07-02] MEDS: Senna/Docusate Sodium 1 Tablet 2 TABLET PO (21:04)
[2025-07-03 06:00] VITALS: BP 107/79; PULSE 72; RESP 16; TEMP 36.5; O2SAT 95
[2025-07-03 08:13] VITALS: PULSE 72
[2025-07-03] MEDS: Metoprolol(XL)Succ 50 MG Tablet PO (08:13)
[2025-07-03] MEDS: Senna/Docusate Sodium 1 Tablet 2 TABLET PO ×2 (08:13→22:01)
[2025-07-03] MEDS: Heparin Injection (Vial) 5,000 UNIT/ML VIAL 5000 UNIT SC ×2 (08:13→22:01)
--- NOTE | 2025-07-03 13:08 | CASEMGMT ---
Social Work Dr spoke with this worker about conversation with family and pt. Pt will need an alternative DC plan, likely a SNF, as pt is not safe to live with mother. - HARPREET attempted to contact the son, but not the phone number did appear in service. HARPREET phoned the sister and sister was not involved in conversation, but noted son and DIL were. Son's phone number confirmed, but he drives truck. Sister provided pt's DIL phone number. SW phoned DIL and left VM. Chyna Escobar CLOTH DESIZING RANGE OPERATOR CHIEF GREEN PRIZE PACKER
--- NOTE | 2025-07-03 15:24 | CASEMGMT ---
Social Work SW received return call from ROMY. HARPREET and ROMY discussed the need for pt to DC to a SNF as pt's mother cannot provide the care pt needs. ROMY inquired about Dr's recommendation for TCU. SW educated that is likely not an appropriate placement given insurance may deny the SNF precert, pt may need Medicaid, and pt does not have current housing and will likely need longer term placement. TCU is a short-term skilled, thus pt would likely need to transfer to another ECF after TCU stay, if insurance approves. ROMY expressed understanding and agreed, as there are many unknowns to pt's recovery and condition. SW agreed. SW educated to skilled vs intermediate stay in a SNF, part B therapies, private pay and Medicaid coverage. HARPREET advised family determining pt's finances, updating this worker, to determine if pt is eligible for GM to start that application process. ROMY agreed. SW to provide GM checklist to assist in gathering financial information. SW to leave a list of SNF providers in pt's room for family to retrieve that are in pt's preferred geographical area, INN with pt?s insurance, including quality and resource data via [employer]. ROYM appreciative. SW acknowledged there is a lot of information and can be overwhelming, but this worker will continue assisting as family makes decisions. ROMY appreciative. HARPREET educated that insurance update is 07/06 and unsure of LOS. Team meeting will be held on Sunday as well. ROMY inquired about SSI disability as pt was working prior. SW encouraged family to contact pt's HR department to assist with insurance coverage and resources, but SW can provide resources for SS disability. ROMY stated since pt will no longer be employed at 2025, HR is working with pt's son getting COBRA insurance or private insurance. HARPREET also stated that would impact coverage in the long-term. ROMY expressed understanding. SW will continue to follow for DC planning. Chyna Escobar TYPESETTER APPRENTICE DIGITAL INTERN
[2025-07-03 17:17] VITALS: BP 127/97; PULSE 82; RESP 16; TEMP 36.7; O2SAT 96
[2025-07-04 05:21] VITALS: BP 127/78; PULSE 64; RESP 17; TEMP 36.4; O2SAT 95
[2025-07-04] MEDS: Heparin Injection (Vial) 5,000 UNIT/ML VIAL 5000 UNIT SC ×2 (07:58→20:09)
[2025-07-04 07:59] VITALS: BP 125/80; PULSE 81
[2025-07-04] MEDS: Metoprolol(XL)Succ 50 MG Tablet PO (07:59)
[2025-07-04] MEDS: Senna/Docusate Sodium 1 Tablet 2 TABLET PO ×2 (08:00→20:08)
[2025-07-04 17:03] VITALS: BP 109/74; PULSE 76; RESP 16; TEMP 36.5; O2SAT 97
[2025-07-04 20:00] VITALS: BP 112/74; PULSE 79; RESP 16; TEMP 37; O2SAT 96
[2025-07-05 05:27] VITALS: BP 116/76; PULSE 72; RESP 18; TEMP 36.8; O2SAT 95
[2025-07-05] MEDS: Senna/Docusate Sodium 1 Tablet 2 TABLET PO ×2 (08:58→21:03)
[2025-07-05] MEDS: Heparin Injection (Vial) 5,000 UNIT/ML VIAL 5000 UNIT SC ×2 (08:59→21:02)
[2025-07-05 09:06] VITALS: PULSE 82
[2025-07-05] MEDS: Metoprolol(XL)Succ 50 MG Tablet PO (09:06)
[2025-07-05 17:19] VITALS: BP 130/74; PULSE 71; RESP 16; TEMP 36.9; O2SAT 96
[2025-07-05 21:19] VITALS: PULSE 82
[2025-07-06 05:43] LABS: Hematocrit 37.9 % (37-47); Hemoglobin 12.6 g/dL (12.0-15.0); Mean Corp Hgb Conc 33.2 g/dL (32-36); Mean Corpuscular Volume 95.2 fL (81-99); Mean Platelet Vol. 9.7 fl (6.2-12.0); Platelet Count 287 K/mm3 (150-450); RBC Distribution Width CV 13.0 % (11.6-14.6); RBC Distribution Width SD 45.5 fl (35.1-43.9); Red Blood Count 3.98 M/mm3 (4.2-5.4); White Blood Count 10.3 K/mm3 (4.4-11.0)
[2025-07-06 05:54] VITALS: BP 126/79; PULSE 83; RESP 16; TEMP 36.9; O2SAT 95
[2025-07-06 06:08] LABS: Anion Gap 12 (5-15); BUN 12 mg/dL (4-19); BUN/Creat Ratio 16.3 RATIO (10-20); Calcium,Total 10.5 mg/dL (7.6-11.0); Carbon Dioxide 20.7 mmol/L (21.0-32.0); Chloride 105 mmol/L (98-108); Estimated Creatinine Clearance 90.93 ml/min (50-250); Glucose 149 mg/dL (70-99); Potassium 3.8 mmol/L (3.3-5.1)
[2025-07-06] MEDS: Heparin Injection (Vial) 5,000 UNIT/ML VIAL 5000 UNIT SC ×2 (07:57→21:03)
[2025-07-06 09:05] VITALS: PULSE 83
[2025-07-06] MEDS: Metoprolol(XL)Succ 50 MG Tablet PO (09:05)
--- NOTE | 2025-07-06 09:28 | PCM.PROGNOTE ---
Subjective Subjective Breanna was seen on team rounds today. Her [id number]-bz-svp Alecia and her son Lucio participated by phone. Afebrile VSS -blood pressure is within goal. Heart rate is within normal limits. Maintaining appropriate oxygen saturation on RA Oral intake - FOOD good FLUIDS good Discussed with nursing - no problems that need addressed Reviewed the THERAPY notes Medication list reviewed. All lab from today was personally reviewed. White blood cell count is 10.3. Hemoglobin is normal at 12.6 and platelets are also normal. Normal MCV and MCH. Sodium is 138 and the potassium is 3.8. The BUN is 12 and a creatinine of 0.76. Random blood sugar today is 149. The calcium is normal at 10.5. No complaints other than blurry vision which is an everyday complaint. No visual field cuts. When asked how she thinks she is doing she says she is still foggy. She thinks she is walking okay but, she still need a FWW and she is still CGA and voice cueing. Not really making progress with this. She recognizes that it would not be safe going home with her mother and knows she will need to go to a SNF. We talked about the importance of getting in to see a neurologist MARGARET. She agrees with this. Objective Data Objective Data Vital Signs: Vital Signs Temp Pulse Resp BP Pulse Ox O2 Del Method FiO2 98.5 F 83 16 126/79 H 95 Room Air 21 07/06/25 05:54 07/06/25 09:05 07/06/25 05:54 07/06/25 05:54 07/06/25 05:54 07/06/25 05:54 06/28/25 00:40 Oxygen Delivery Method Room Air Weight: 238 lb 1.588 oz Body Mass Index (BMI) 40.6 Intake & Output: Intake and Output for Last 24 Hours 07/04/25 07/05/25 07/06/25 23:59 23:59 23:59 Intake Total 1350 / 1350 2340 / 2500 920 / 920 Output Total 650 / 650 700 / 700 600 / 600 Balance 700 / 700 1640 / 1800 320 / 320 Lab / Micro Data 07/06/25 05:17 07/06/25 05:17 Labs: Laboratory Results - last 24 hr 07/06/25 05:17: WBC 10.3, RBC 3.98 L, Hgb 12.6, Hct 37.9, MCV 95.2, MCH 31.7, MCHC 33.2, RDW Std Deviation 45.5 H, RDW Coeff of Teresa 13.0, Plt Count 287, MPV 9.7, Sodium 138, Potassium 3.8, Chloride 105, Carbon Dioxide 20.7 L, Anion Gap 12, BUN 12, Creatinine 0.76, Estim Creat Clear Calc 90.93, Est GFR (MDRD) Non-Af 88, BUN/Creatinine Ratio 16.3, Glucose 149 H, Calcium 10.5 Physical Exam Const alert and no apparent distress Constitutional Narrative: Still having a lot of trouble answering direct questions and coming up with an answer. Always pleasant. No signs of depression. Seems to understand what I am saying when we talk but, can not retain the information. Unable to give me the names of her 2 sons that live in the area. When I said the son I have been talking to has 2 children she was able to come up with Fredis. General Appearance: cooperative Orientation / Consciousness: confused HEENT moist oral mucous membranes Eyes PERRL and EOMs intact bilaterally Eyes Narrative: No visual field cuts. Neck No nuchal rigidity and supple Resp normal respiratory effort and clear to auscultation bilaterally Resp Narrative: No conversational dyspnea. Able to speak in complete sentences. No cough. Effort and Inspection: Negative for tachypneic Cardio regular rate, regular rhythm, no murmurs, no rub and no gallops Cardio Narrative: No ectopy. GI normal to inspection, nondistended, normoactive bowel sounds, non-tender and non-distended GI Narrative: no guarding with palpation Extremity no calf tenderness General Extremity: Negative for edema Skin Skin Narrative: appears to have rosacea. Neuro Neuro Narrative: No drift with the RUE. No pronator drift with either UE. No ataxia........goes from her nose to my finger slowly and has to concentrate but, no ataxia with either UE. No ataxia with the LE's. No tremors. No difficulty swallowing. Lots of trouble answering even simple questions. when I asked her if her family was coming in for TEAM today she started counting and went from 1-6. She then said she thought she had 6 family members in yesterday. 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 Continue therapy 2. She is no longer making progress in therapy. Remains confused and has dysequilibrium requiring the use of a FWW and CGA from the therapists. 3. I feel she did have a R side lacunar infarct in the past couple months......sx started suddenly in March with disequilibrium and then progressed to confusion. she did not have an LP at the previous hospital. Extensive blood tests were negative for etiology of the confusion. She has made progress in therapy but, she has now plateaued. In my opinion it is imperative she be evaluated by neurology as soon as possible for additional W/U to determine the etiology of her persistent sx. Will need to go to SNF at [place]......not safe to go home with her 92 YO mother........still CGA and losing balance. Family agrees with plan to go to SNF and F/U with neurology as soon as we can get an appt. She has an appt with Dr. Melchor on 08/06........they will notify us if they have a cancellation. Charges/Coding Visit Charges Inpatient E&M: 31928 Subs Hosp L2
--- NOTE | 2025-07-06 13:13 | CASEMGMT ---
Social Work IDT met with patient at bedside, then heather Valdes and ROMY Alston, via conference call for Team meeting. 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 Educated to [facility] insurance with NRD 07/06 and continued stay is not guaranteed with each review. SW re-educated on pt needing a SNF at DC and a SNF will allow pt to attend specialist appts. Currently, pt has appt with Dr. Melchor on 07/30 and if there is an earlier appt that would be ideal. Family to review pt's finances to determine OOP or Medicaid, and provide SNF choices for this worker to place referrals. SW will request precert at SNF, but if denied, finances will need to be determined. SW will continue to follow for DC planning. Chyna Escobar TIE MAKER WINDOW MACHINE OPERATOR
[2025-07-06 17:30] VITALS: BP 122/80; PULSE 78; RESP 17; TEMP 36.6; O2SAT 96
[2025-07-06] MEDS: Senna/Docusate Sodium 1 Tablet 2 TABLET PO (21:02)
[2025-07-06 21:04] VITALS: BP 147/88; PULSE 82
[2025-07-07 05:51] VITALS: BP 108/71; PULSE 67; RESP 16; TEMP 36.7; O2SAT 98
[2025-07-07 07:38] VITALS: PULSE 67
[2025-07-07] MEDS: Metoprolol(XL)Succ 50 MG Tablet PO (07:38)
[2025-07-07] MEDS: Heparin Injection (Vial) 5,000 UNIT/ML VIAL 5000 UNIT SC ×2 (07:38→22:31)
[2025-07-07] MEDS: Senna/Docusate Sodium 1 Tablet 2 TABLET PO (07:39)
--- NOTE | 2025-07-07 14:25 | CASEMGMT ---
Addendum entered by Chyna Escobar 07/07/25 15:03: Addendum: SW did inform DIL that insurance clearly stated skilled precert for SNF would not be approved. Thus pt would either need to admit private pay with 30 days upfront or Medicaid pending Original Note: Social Work SW received update from insurance that they were anticipating a DC date for pt, but after further advocation from Hall Tender, insurance approved with DC date no later than 07/13 to allow for safe DC planning. - SW phoned DIL to update on above. SW inquired family review of pt's finances or SNF chocies. DIL stated well it is hard to get the three sons together at the same time. SW explained information and decisions need to be made and provided to this worker by the morning of 07/09 to allow for referrals and coordination of DC to align with DC 07/13 or sooner. DIL expressed understanding. SW stressed this worker is available to assist and answer questions. DIL appreciative. SW will continue to follow. Chyna Escobar WEB UI SOFTWARE ENGINEER HOP FARM WORKER
--- NOTE | 2025-07-07 15:18 | PCM.PROGNOTE ---
Subjective Subjective Afebrile Vital signs stable and blood pressure is well-controlled Maintaining appropriate oxygen saturation on room air Blood sugars are well-controlled. Sleeping well at night. No concerns per nursing except that she seems to be getting more confused and having more difficulty with ambulation. Had more difficulty with ambulation today and tells me legs were mushy Very confused and needing VC's for all activities. She has no complaints and laughs about mushy legs. OT had her propelling a WC today. She is not improving and is actually getting worse. We have no reason for her neurologic deficits. I reviewed once again all the records we have from [facility]. C spine had no demyelination. C-reactive protein was less than 0.5. C3 TONY was mildly elevated at 188 and the C4 a was normal at 34. Folate was normal at 17.88. Antithyroid antibodies were negative. Vitamin D level was within normal limits. Rheumatoid factor was negative CCP was negative. Antiparietal cell antibody was negative. Phipps antibody was negative. INSPECTOR RETURNED MATERIALS antibody was negative. SSA and SSB were negative. Centromere antibody was negative. Scleroderma antibody was negative. Ribosomal INSPECTOR RETURNED MATERIALS was negative. Fartun 1 antibody was negative. Chromatin antibody was negative. Actin antibody was negative. Acsd-nvrjth-rijlgcwg DNA was negative. Mitochondrial antibody was negative. Serum protein electrophoresis was normal. NMDA R antibody was negative. EEG was negative for epileptic activity. NO LP wqs done and she diud not have nerve conduction studies done. On list of final diagnoses it lists MG without exacerbation? She was sent to rehab and told to follow up at [facility]. Objective Data Objective Data Vital Signs: Vital Signs Temp Pulse Resp BP Pulse Ox O2 Del Method FiO2 98.0 F 67 16 108/71 98 Room Air 21 07/07/25 05:51 07/07/25 07:38 07/07/25 05:51 07/07/25 05:51 07/07/25 05:51 07/07/25 05:51 06/28/25 00:40 Oxygen Delivery Method Room Air Weight: 238 lb 1.588 oz Body Mass Index (BMI) 40.6 Intake & Output: Intake and Output for Last 24 Hours 07/05/25 07/06/25 07/07/25 23:59 23:59 23:59 Intake Total 2340 / 2500 1720 / 1820 940 / 940 Output Total 700 / 700 750 / 900 350 / 350 Balance 1640 / 1800 970 / 920 590 / 590 Lab / Micro Data 07/06/25 05:17 07/06/25 05:17 Labs: Laboratory Results - last 24 hr 07/06/25 16:36: POC Glucose 156 H 07/07/25 06:22: POC Glucose 133 H Physical Exam Const alert and no apparent distress Constitutional Narrative: Confusion is worse today. General Appearance: cooperative Orientation / Consciousness: confused HEENT moist oral mucous membranes Eyes PERRL and EOMs intact bilaterally Eyes Narrative: No visual field cuts. C/O blurry vision with the left eye........but when she has her glasses on the blurriness goes away. Neck No nuchal rigidity and supple Neck Narrative: Denies cephalgia and neck pain. Lymph Lymphatic: no lymphadenopathy noted Resp normal respiratory effort and clear to auscultation bilaterally Resp Narrative: No conversational dyspnea. Able to speak in complete sentences. No cough. Effort and Inspection: Negative for tachypneic Cardio regular rate, regular rhythm, no murmurs, no rub and no gallops Cardio Narrative: No ectopy. GI normal to inspection, nondistended, normoactive bowel sounds, non-tender and non-distended GI Narrative: no guarding with palpation Extremity no calf tenderness General Extremity: Negative for edema Skin Skin Narrative: appears to have rosacea. Rashes: no rashes Neuro Neuro Narrative: No drift with the RUE or the LUE. No pronator drift with either UE. No ataxia........goes from her nose to my finger slowly and has to concentrate but, no ataxia with either UE. No ataxia with the LE's. No tremors. Mild decrease in strength with the RLE but, no drift. She can hold her legs up for a count of 5 but, she is bouncing the legs up and down a bit.......she always does this bouncing at the knees when she is standing and ambulating. Ambulation was worse today. No difficulty swallowing. Lots of trouble answering even simple questions. When I asked her if her family was coming in for TEAM today she started counting and went from 1-6. She then said she thought she had 6 family members in her room yesterday. Psych Psych Narrative: Seems to be unaware of the extent of her cognitive deficits. Laughing inappropriately at times. She is unable to retain information for even a minute. Today she could not remember how to turn the TV off......the PT showed her how to do it and then she was trying to use the TV remote to put the leg rest on the recliner down. 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 Continue therapy for now. Insurance wants her discharged by the . Neurology can not see her until 08/06 which is a month away. Extensive testing at the previous hospital was negative for etiology of her sx but, they did not do a LP. They told her to follow up at the [facility]. She was fully functional and living alone and working prior to March. In March she developed trouble walking and dysequilibrium. She continued to work. In April she became confused and could not do her work. Whatever she has it has been progressive. I discussed this with Breanna and her family. They are not happy with the workup done at [place]. We discussed trying to transfer to another acute facility since she is continuing to decline. They are in agreement. Will start calling around to find a place with in house neurology who will accepty her. 2. WBC was normal yesterday but a little higher than it had been. Will check a UA (straight cath) and an ammonia level. She had 1 mildly elevated ammonia level at the previous hospital......she has fatty infiltration of the liver. Charges/Coding Visit Charges Inpatient E&M: 29675 Subs Hosp L2
[2025-07-07 17:01] VITALS: BP 113/77; PULSE 74; RESP 16; TEMP 36.2; O2SAT 96
[2025-07-07 17:48] LABS: Ammonia 19.0 umol/L (11-51)
[2025-07-07 22:16] LABS: Color, Urine Yellow (Yellow); Glucose, Dipstick Normal (Normal); Ketone-Dipstick Negative (Negative); Leukocyte Esterase-Dipstick Negative /ul (Negative); Nitrite-Dipstick Negative (Negative); Occult Blood-Urine 10 /ul (Negative); Protein-Dipstick 15 mg/dl (Negative); Specific Gravity, Urine 1.025 (1.002-1.030); Urine Bilirubin Dipstick Negative (Negative)
[2025-07-07 22:27] LABS: Red Blood Cells-Urine 0-5 SEEN /hpf (0-5)
[2025-07-07 22:28] LABS: Mucous, Urine 1+ /hpf (<or=2+); Squamous Epithelial Cells - UA 0-5 SEEN /hpf (5-10)
[2025-07-07 22:29] LABS: Calcium Oxalate Crystals Ur 1+ /hpf (<or=2+)
[2025-07-08 05:04] VITALS: BP 120/65; PULSE 74; RESP 18; TEMP 36.7; O2SAT 95; BMI 37.1
[2025-07-08 08:58] VITALS: PULSE 74
[2025-07-08] MEDS: Metoprolol(XL)Succ 50 MG Tablet PO (08:58)
[2025-07-08] MEDS: Heparin Injection (Vial) 5,000 UNIT/ML VIAL 5000 UNIT SC ×2 (08:58→20:34)
--- NOTE | 2025-07-08 09:05 | PN_ITS ---
Subjective Subjective Afebrile Vital signs stable and blood pressure is well-controlled Maintaining appropriate oxygen saturation on room air Blood sugars are well-controlled. Sleeping well at night. No concerns per nursing except that she seems to be getting more confused. Today she states that she is feeling woozey I asked her if she felt woozey as in nauseated or dizzy and she pointed to her head. She was able to tell me that she was at [employer], the year and the president. General Inspector are strong and equal bilaterally leg strength strong and equal bilaterally. No facial asymmetry noted. I did encourage her to drink water. Orthostatic VS ordered. Concerns that she is not improving and is actually getting worse. We have no reason for her neurologic deficits. Pt is to follow up with Neurology as outpatient, per Dr. Templeton notes that I reviewed from [facility]: C spine had no demyelination. C-reactive protein was less than 0.5. C3 TONY was mildly elevated at 188 and the C4 a was normal at 34. Folate was normal at 17.88. Antithyroid antibodies were negative. Vitamin D level was within normal limits. Rheumatoid factor was negative CCP was negative. Antiparietal cell antibody was negative. Phipps antibody was negative. PROGRAM ANALYST antibody was negative. SSA and SSB were negative. Centromere antibody was negative. Scleroderma antibody was negative. Ribosomal PROGRAM ANALYST was negative. Fartun 1 antibody was negative. Chromatin antibody was negative. Actin antibody was negative. Wbhj-pwlxox-inyenthv DNA was negative. Mitochondrial antibody was negative. Serum protein electrophoresis was normal. NMDA R antibody was negative. EEG was negative for epileptic activity. NO LP wqs done and she did not have nerve conduction studies done. She was sent to rehab and told to follow up at [facility]. Objective Data Objective Data Vital Signs: Vital Signs Temp Pulse Resp BP Pulse Ox O2 Del Method FiO2 98.1 F 74 18 120/65 95 Room Air 21 07/08/25 05:04 07/08/25 08:58 07/08/25 05:04 07/08/25 05:04 07/08/25 05:04 07/08/25 05:04 06/28/25 00:40 Oxygen Delivery Method Room Air Weight: 216 lb 4.375 oz Body Mass Index (BMI) 37.1 Intake & Output: Intake and Output for Last 24 Hours 11/10/25 11/11/25 11/12/25 23:59 23:59 23:59 Intake Total 1720 / 1820 1680 / 1780 340 / 340 Output Total 750 / 900 550 / 850 300 / 300 Balance 970 / 920 1130 / 930 40 / 40 Lab / Micro Data Attestation: I reviewed the patient's lab results. Lab results narrative: reviewed labs from 07/0607/06/25 05:17 07/06/25 05:17 Labs: Laboratory Results - last 24 hr 07/07/25 16:05: POC Glucose 128 H 07/07/25 17:15: Ammonia 19.0 07/07/25 20:55: Urine Color Yellow, Urine Clarity Clear, Urine pH 5.0, Ur Specific Frederic 1.025, Urine Protein 15 H, Urine Glucose (UA) Normal, Urine Ketones Negative, Urine Occult Blood 10 H, Urine Nitrite Negative, Urine Bilirubin Negative, Urine Urobilinogen Normal, Ur Leukocyte Esterase Negative, Urine RBC 0-5 SEEN, Urine WBC 0-5 SEEN, Ur Squamous Epith Cells 0-5 SEEN, Calcium Oxalate Crystal 1+, Urine Bacteria RARE, Hyaline Casts 0-5 SEEN, Urine Mucus 1+ 07/08/25 07:01: POC Glucose 133 H Physical Exam Const alert, oriented x3 and no apparent distress Constitutional Narrative: Confusion is worse today. General Appearance: cooperative and comfortable Orientation / Consciousness: awake, oriented to person, oriented to place and oriented to time HEENT normocephalic Eyes PERRL Eyes Narrative: No visual field cuts. C/O blurry vision with the left eye........but when she has her glasses on the blurriness goes away. Neck full ROM Neck Narrative: Denies cephalgia and neck pain. Lymph Lymphatic: no lymphadenopathy noted Chest inspection of chest normal Resp normal respiratory effort, no use of accessory muscles and clear to auscultation bilaterally Resp Narrative: No conversational dyspnea. Able to speak in complete sentences. No cough. Effort and Inspection: Negative for tachypneic Cardio regular rate, S1 normal heart sound, S2 normal heart sound, no murmurs, no rub and no gallops Cardio Narrative: No ectopy. GI normal to inspection, nondistended, normoactive bowel sounds, non-tender and non-distended GI Narrative: no guarding with palpation no CVA tenderness Extremity no clubbing, cyanosis or edema General Extremity: Negative for edema Skin no rashes or lesions noted, no wounds and no jaundice Skin Narrative: appears to have rosacea. Rashes: no rashes Neuro oriented x3, CN's II-XII intact bilaterally, moves all extremities and no focal motor deficits Neuro Narrative: Reported abnormal gait. Patient was sitting in bedside recliner. She did answer all questions appropriately No facial asymmetry. No visual field cuts. Tongue protrudes on the midline. Palate elevates symmetrically. Good shoulder shrug bilaterally. No drift with either upper extremity. Good winder contort operator strength bilaterally. No tremors. Generalized weakness. No ataxia of the lower extremities. No drift with the legs. No extinction. No significant dysarthria. Some word finding/delay. No paresthesias. Sensorium / Orientation: alert Coordination: [id number]-ra-vrwj test normal Psych affect normal Psych Narrative: appropriate, makes good eye contact Assessment & Plan Assessment/Plan (1) Debility: PLAN: *continue all therapies *PT for gait stability *OT for ADL's *ST for evaluation (2) Abnormal gait: PLAN: *Continue all therapies. 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 use: without halfway use Diabetes mellitus complication status: with neurologic complications Diabetes mellitus complication detail: with unspecified neuropathy Qualified Code(s): E11.40 - Type 2 diabetes mellitus with diabetic neuropathy, unspecified PLAN: *POC blood sugars AC/HS *hypoglycemia protocol *Metformin 750mg po daily *Humalog sliding scale AC/HS * carb consistent calorie controlled diet (5) Hyperlipidemia: QUALIFIERS: Hyperlipidemia type: unspecified Qualified Code(s): E 78.5 - Hyperlipidemia, unspecified PLAN: *Lipitor 20mg PO nightly (6) Essential (primary) hypertension: PLAN: *Metoprolol Succinate 50mg PO daily *Cozaar 50mg PPO daily *Norvasc 5mg PO nightly * Vital signs per protocol (7) Right-sided lacunar infarction: (8) 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 We repeated the TSH, T4 and T3. TSH is still very low at 0.028 but the T4 is normal at 1.3 and the free T3 is normal at 3. Discussed with endocrinology and they recommend methimazole 2.[address] Gomez is agreeable to following up with Breanna postdischarge from rehab. Will likely need a thyroid nuclear scan going forward. 2. Family was informed by Dr. Templeton about ddition of Methimazole and they discussed that she has had a lacunar infarct in the past and she suspect this was within a few weeks of presenting to the ED at [facility]. They discussed the results of all the lab work we have received from [facility]. (9) Cognitive dysfunction: (10) Right sided weakness: (11) Ataxia: PLAN: Plan *Analgesics as needed *Bowel protocol *Assess for Anxiety/Depression *GI prophylaxis -not necessary at this time. She is asymptomatic. *DVT prophylaxis Heparin 5000units q 12h *Follow up with PCP, neurology, following DC from [facility] *Teleneurology consult 07/09/25. PLAN: 1. Continue therapy for now. Insurance wants her discharged by the . Neurology can not see her until 08/06 which is a month away. Extensive testing at the previous hospital was negative for etiology of her sx but, they did not do a LP. They told her to follow up at the [facility]. She was fully functional and living alone and working prior to March. In March she developed trouble walking and dysequilibrium. She continued to work. In April she became confused and could not do her work. Whatever she has it has been progressive. I discussed this with Breanna and her family. They are not happy with the workup done at [place]. We discussed trying to transfer to another acute facility since she is continuing to decline. They are in agreement. Will start calling around to find a place with in house neurology who will accepty her. 2. WBC was normal yesterday but a little higher than it had been. Will check a UA (straight cath) and an ammonia level. She had 1 mildly elevated ammonia level at the previous hospital......she has fatty infiltration of the liver. Dr. Templeton plans to consult Teleneurology on 07/09/25. Charges/Coding Visit Charges Inpatient E&M: 11306 Subs Hosp L2
[2025-07-08 09:32] VITALS: BP 116/76; BP 118/72; BP 123/74; PULSE 73; PULSE 80; PULSE 91
[2025-07-08 17:32] VITALS: BP 116/70; PULSE 84; RESP 16; TEMP 36.6; O2SAT 98
[2025-07-08] MEDS: Senna/Docusate Sodium 1 Tablet 2 TABLET PO (20:34)
[2025-07-08 20:44] VITALS: RESP 16; O2SAT 95
[2025-07-09 06:00] VITALS: BP 111/80; PULSE 78; RESP 16; TEMP 36.7; O2SAT 95
[2025-07-09] MEDS: Senna/Docusate Sodium 1 Tablet 2 TABLET PO ×2 (08:18→21:45)
[2025-07-09 08:20] VITALS: BP 110/71; PULSE 85
[2025-07-09] MEDS: Heparin Injection (Vial) 5,000 UNIT/ML VIAL 5000 UNIT SC ×2 (08:20→21:45)
[2025-07-09] MEDS: Metoprolol(XL)Succ 50 MG Tablet PO (08:20)
--- NOTE | 2025-07-09 15:16 | PN_ITS ---
Subjective Subjective Afebrile VSS -blood pressure over the past 24 hours has ranged from 110/71 to 120/65. The heart rate has ranged from 73-85. Maintaining appropriate oxygen saturation on RA -95 to 98% Oral intake - FOOD good FLUIDS good Discussed with nursing - no problems that need addressed. Unsteady with ambulation, unstable with standing at the sink. The knees are soft and tend to buckle. Reviewed the THERAPY notes -when working with OT today she did not feel that she would be able to walk to 15 feet from the bathroom to the recliner. The therapist move the recliner to 10 feet away and she completed functional mobility using a wheeled walker at min assist. Still requiring voice cues for hand placement on the walker. Also requiring voice cues for positioning to turn and then sit...... does not turn enough and then sits too soon. Contact-guard assist with therapy. Slight loss of balance today with toilet transfer with physical therapy. She is oriented to person and place. she guessed the date and was right. Medication list reviewed. Calm and pleasant but, unable to answer simple questions. Can not retain information that I give her even 30 sec after I have told her something. When I ask her how she is feeling she consistently tells me blurry........when I ask her if her vision is blurry with her glasses on she says no. Always with the same answer to how are you. When I ask her a direct question she usually just stares at me and can not give me an answer. Denies CARRION. No lightheadedness. Denies pain. Denies shortness of breath. No cough. Denies dysuria. Recent UA was negative for infection. Serum ammonia was only 19 which is normal. Denies calf pain. Sits in her recliner most of the day when not with therapy.......staring out the window. She was able to follow instructions with ST today but, there is a delay in responses and completion of tasks. With speech therapy today she was able to retain a word list of 4 words with 80% accuracy. She was able to complete abstract category identification tasks with 93% accuracy without cues and connected the dot puzzles of increasing complexity with numerical order without cues at 100%. She was given alphabetical order pictures and only needed 35 to 50% assistance to recall and maintain throughout the task. During a delayed recall task the patient was tasked with generating a list of 7 items requiring 35 to 50% cues to generate. After 7 minutes she did not even recall making a list. Her performance from day to day is highly variable and inconsistent. Orthostatics are negative.......she is unable to explain to me what she means when she says she is blurry or hazy I d not know if this refers to her vision or her cognition. She has no visual field cuts. PERRL and EOMI. Objective Data Objective Data Vital Signs: Vital Signs Temp Pulse Resp BP Pulse Ox O2 Del Method FiO2 98.0 F 85 16 110/71 95 Room Air 21 07/09/25 06:00 07/09/25 08:20 07/09/25 06:00 07/09/25 08:20 07/09/25 06:00 07/09/25 06:00 06/28/25 00:40 Oxygen Delivery Method Room Air Weight: 216 lb 4.375 oz Body Mass Index (BMI) 37.1 Intake & Output: Intake and Output for Last 24 Hours 07/07/25 07/08/25 07/09/25 23:59 23:59 23:59 Intake Total 1680 / 1780 1780 / 1780 960 / 960 Output Total 550 / 850 950 / 950 Balance 1130 / 930 830 / 830 960 / 960 Lab / Micro Data 07/06/25 05:17 07/06/25 05:17 Labs: Laboratory Results - last 24 hr 07/09/25 06:16: POC Glucose 119 H Physical Exam Const alert and no apparent distress Constitutional Narrative: Oriented to person and she can tell me the month and the year. when I asked her where she is she told me [facility]. she told the PT she just got here yesterday. When I asked her why she is here she told me because she fell. PT tells me that her gait was more unsteady today. She is bouncing at the knees when she is standing and trying to walk as though her legs are going to buckle. She is sitting in the recliner at the bedside. He does not appear to be in any distress and she actually looks comfortable. General Appearance: cooperative Orientation / Consciousness: awake, oriented to person, oriented to place, oriented to time and confused HEENT moist oral mucous membranes HEENT Narrative: Tongue protrudes on the midline. Palate elevates symmetrically. Eyes PERRL, EOMs intact bilaterally, conjunctivae normal and no scleral icterus Eyes Narrative: No visual field cuts. No visual extinction. No discharge from the eyes and no mattering of the eyelashes. the R eye does not track all the way to the lateral canthus. There is no nystagmus. Neck supple Neck Narrative: Denies cephalgia and neck pain. General: trachea midline Lymph Lymphatic: no lymphadenopathy noted Chest inspection of chest normal Chest: symmetrical chest wall rise Resp normal respiratory effort, normal air movement and clear to auscultation bilaterally Resp Narrative: No cough. Effort and Inspection: able to speak in complete sentences Cardio regular rate, regular rhythm, no murmurs, no rub and no gallops Cardio Narrative: No ectopy. GI normal to inspection, nondistended, normoactive bowel sounds, soft to palpation and non-tender GI Narrative: No guarding with palpation. Having regular bowel movements. No nausea, no vomiting. Eating 75 to 100% of her meals. no CVA tenderness Extremity no calf tenderness and no pedal edema General Extremity: Negative for edema Skin no rashes or lesions noted, no wounds and no jaundice Skin Narrative: appears to have rosacea. General Skin Exam: no breakdown Rashes: rashes noted Neuro oriented x3, CN's II-XII intact bilaterally, moves all extremities and no focal motor deficits Neuro Narrative: Cranial nerves II through XII are grossly intact. She is oriented to person, month and year. Cannot tell me where she is at and thinks she is at [facility]. She thinks she is here because she fell. She does not recall me telling her yesterday that we are planning to transfer to [facility] when a bed becomes available. Tongue protrudes on the midline. Palate elevates symmetrically. No nystagmus. No visual field cuts. No visual extinction. She can hold both upper extremities up for a count of 10 with no drift. She has good straight knife cutter machine strength bilaterally. The RUE has very mild ataxia......this seems to wax and wane. She has drift with both lower extremities today and is c/o pain in the anterior thighs when she is trying to hold her legs off the bed....she is grimacing......this is new today. The legs hit the bed prior to a count of 5. She denies back pain. No ataxia in the lower extremities. Good plantarflexion and dorsiflexion bilaterally. No foot drop. Babinski's are downgoing bilaterally. No extinction. She was able to correctly name all of the pictures on the NIHSS scoring card. She was also able to identify several things in the picture. She was able to read all the words with no significant slurring and she was also able to complete all the sentences. I gave her 3 words to remember and she was able to immediately repeat them. After 5 minutes she could not give me any of the words. Unable to coung backwards from 100 by 7's. She could spell WORLD forwards but, when spelling it backward she said DLwor. Sensorium / Orientation: alert Coordination: [id number] test normal Psych affect normal, denies hallucinations, denies homicidal ideation and denies suicidal ideation Psych Narrative: Seems to be unaware of the extent of her cognitive deficits. Laughing inappropriately at times. She is unable to retain information for even a minute. Today she could not remember how to turn the TV off......the PT showed her how to do it and then she was trying to use the TV remote to put the leg rest on the recliner down. Appearance: grossly normal Attitude: calm, engaged and other She is engaged from I am speaking with her but then cannot recall what hide said to her even a few minutes later. Activity / Motor Behavior: appropriate eye contact Assessment & Plan Assessment/Plan (1) Debility: (2) Toxic metabolic encephalopathy: PLAN: Seen at [facility] and had MRI of the brain in the ED at [facility] on 06/16/2025 which showed a few punctate foci of abnormal periventricular and subcortical white matter signal in both cerebral hemispheres. There was an area of abnormal white matter signal adjacent to the anterior horn of the right lateral ventricle. There was also a chronic lacunar infarction in the right basal ganglia. Breanna denied hx of stroke. MRA of the head/neck showed no hemodynamically significant stenosis, major vessel occlusion/dissection or aneurysm greater than 5 mm. She was transferred to [facility] for further workup and was seen by neurology. MRI was repeated at [facility] and was not significantly different. It showed areas of white matter disease which were nonspecific possibly secondary to small vessel disease, MS or other demyelinating neurodengenerative disease. MRI of the C spine showed no demyelination. Extensive lab work was negative. EEG showed no seizure activity. No LP was done. (3) Right sided weakness: (4) Abnormal gait: PLAN: Dysequilibrium....FWW needed and still CGA due to LOB. Knees are soft and can buckle with ambulation. Needs voice cues for hand placement on the FWW. (5) Ataxia: (6) Right-sided lacunar infarction: (7) Diabetes mellitus: QUALIFIERS: Diabetes mellitus type: type 2 Diabetes mellitus mcfp insulin use: without mcfp use Diabetes mellitus complication status: with neurologic complications Diabetes mellitus complication detail: with unspecified neuropathy Qualified Code(s): E11.40 - Type 2 diabetes mellitus with diabetic neuropathy, unspecified PLAN: Most recent HGBA1C was 6.4. BS's are well controlled on metformin 750 mg in the a.m. and 500 mg with supper. No diarrhea and no hypoglycemia. (8) Hyperlipidemia: QUALIFIERS: Hyperlipidemia type: unspecified Qualified Code(s): E 78.5 - Hyperlipidemia, unspecified PLAN: Taking atorvastatin 20 mg daily. (9) Essential (primary) hypertension: PLAN: Blood pressure is consistently less than 130/80. Hx of a R basal ganglia lacunar infarct. Unknown when the stroke happened. 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 Antithyroid antibodies were negative. TSH has been low since 2019 but recently decreased. On 06/19/2025 the TSH was 0.019. On that MAP was elevated at 1.5. She has thyroid nodules. The largest stone had change in 1 cm and is located in the right thyroid. It has ill-defined margins. She has not had a biopsy. She was started on methimazole 2.5 mg daily. (11) Fatty infiltration of liver: PLAN: Liver ultrasound with elastography in December 2023 showed liver stiffness measuring 8.9 K PA compatible with F2?F3 disease (mild to moderate liver fibrosis). She had a ammonia of 38 at [place], got 1 dose of lactulose and follow up testing shows ammonia to be WNL.......the most recent ammonia was 19. (12) Obesity (BMI 30-39.9): PLAN: BMI is 37.1. PLAN: Plan 1. Continue therapy 2. She has been accepted for transfer to [facility] but, they do not currently have a bed and she is on a list. I spoke with Dr. Grajeda from neurology. She requested that we try and obtain discs of the MRI's she had a [place]. Will also send all the lab results we have obtained. She is not improving with therapy and in fact has been declining. No diagnosis for her confusion and dysequilibrium at this time. In order to treat we need a diagnosis. 3.. I talked with Breanna's [id number] Chuyita and explained that she was accepted at [facility] and we will transfer when there is a bed available. EEG and all lab done at [place] were negative. Charges/Coding Visit Charges Inpatient E&M: 45204 [facility] L[facility]
[2025-07-09 17:06] VITALS: BP 117/75; PULSE 78; RESP 17; TEMP 36.8; O2SAT 96
[2025-07-09 21:00] VITALS: PULSE 78; RESP 17; O2SAT 96
[2025-07-10 06:00] VITALS: BP 126/86; PULSE 67; RESP 15; TEMP 37; O2SAT 96
--- NOTE | 2025-07-10 07:49 | DS.PCM_ITS ---
Providers Date of Admission: 06/24/25 Primary Care Physician: Dr. Jonnie Phipps MD none Reason For Visit: Toxic Metabolic Encephalopathy Diagnosis Discharge Diagnosis (1) Debility: Status: Acute Code(s): R53.81 - Other malaise (2) Toxic metabolic encephalopathy: Status: Acute Code(s): G92.8 - Other toxic encephalopathy Plan: Seen at [facility] and had MRI of the brain in the ED at [facility] on 06/16/2025 which showed a few punctate foci of abnormal periventricular and subcortical white matter signal in both cerebral hemispheres. There was an area of abnormal white matter signal adjacent to the anterior horn of the right lateral ventricle. There was also a chronic lacunar infarction in the right basal ganglia. Breanna denied hx of stroke. MRA of the head/neck showed no hemodynamically significant stenosis, major vessel occlusion/dissection or aneurysm greater than 5 mm. She was transferred to [facility] for further workup and was seen by neurology. MRI was repeated at [facility] and was not significantly different. It showed areas of white matter disease which were nonspecific possibly secondary to small vessel disease, MS or other demyelinating neurodengenerative disease. MRI of the C spine showed no demyelination. Extensive lab work was negative. EEG showed no seizure activity. No LP was done. (3) Right sided weakness: Status: Acute Code(s): R53.1 - Weakness (4) Abnormal gait: Status: Acute Code(s): R26.9 - Unspecified abnormalities of gait and mobility Plan: Dysequilibrium....FWW needed and still CGA due to LOB. Knees are soft and can buckle with ambulation. Needs voice cues for hand placement on the FWW. (5) Ataxia: Status: Acute Code(s): R27.0 - Ataxia, unspecified (6) Right-sided lacunar infarction: Status: Chronic Code(s): I63.81 - Other cerebral infarction due to occlusion or stenosis of small artery (7) Diabetes mellitus: Status: Chronic Code(s): E11.9 - Type 2 diabetes mellitus without complications Qualifiers: Diabetes mellitus complication detail: with unspecified neuropathy D iabetes mellitus complication status: with neurologic complications Diabetes mellitus [facility] insulin use: without [facility] use Diabetes mellitus type: t ype 2 Qualified Code(s): E11.40 - Type 2 diabetes mellitus with diabetic neuropathy, unspecified Plan: Most recent HGBA1C was 6.4. BS's are well controlled on metformin 750 mg in the a.m. and 500 mg with supper. No diarrhea and no hypoglycemia. (8) Hyperlipidemia: Status: Chronic Code(s): E78.5 - Hyperlipidemia, unspecified Qualifiers: Hyperlipidemia type: unspecified Qualified Code(s): E78.5 - Hyperlipidemia, unspecified Plan: Taking atorvastatin 20 mg daily. (9) Essential (primary) hypertension: Status: Chronic Code(s): I10 - Essential (primary) hypertension Plan: Blood pressure is consistently less than 130/80. Hx of a R basal ganglia lacunar infarct. Unknown when the stroke happened. 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 Antithyroid antibodies were negative. TSH has been low since 2019 but recently decreased. On 06/19/2025 the TSH was 0.019. On that MAP was elevated at 1.5. She has thyroid nodules. The largest stone had change in 1 cm and is located in the right thyroid. It has ill-defined margins. She has not had a biopsy. She was started on methimazole 2.5 mg daily. (11) Fatty infiltration of liver: Status: Chronic Code(s): K76.0 - Fatty (change of) liver, not elsewhere classified Plan: Liver ultrasound with elastography in December 2023 showed liver stiffness measuring 8.9 K PA compatible with F2?F3 disease (mild to moderate liver fibrosis). She had a ammonia of 38 at [place], got 1 dose of lactulose and follow up testing shows ammonia to be WNL.......the most recent ammonia was 19. (12) Obesity (BMI 30-39.9): Status: Chronic Code(s): E66.9 - Obesity, unspecified Plan: BMI is 37.1. Plan Medications at Discharge Home Medications amlodipine 5 mg tablet 5 mg PO QHS blood pressure 06/19/25 losartan 50 mg tablet 50 mg PO DAILY blood pressure 06/19/25 metoprolol succinate 50 mg tablet,extended release 24 hr 50 mg PO DAILY blood pressure 06/19/25 metformin 750 mg tablet 750 mg PO DAILY DM 06/24/25 acetaminophen 325 mg tablet 650 mg (2 x 325 mg) PO Q6H PRN PRN Pain Score 1-10 #1 TAB 07/10/25 atorvastatin 20 mg tablet 20 mg PO QHS #1 TAB 07/10/25 heparin (porcine) 5,000 unit/mL injection solution 5,000 unit subcut Q12 #1 mL 07/10/25 metformin 500 mg tablet 500 mg PO SUPPER #1 TAB 07/10/25 methimazole 5 mg tablet 2.5 mg (1/2 x 5 mg) PO DAILY #1 TAB 07/10/25 sennosides 8.6 mg-docusate sodium 50 mg tablet (Stimulant Laxative Plus) 2 tab PO BID #1 TAB 07/10/25 Physical Exam Const alert and no apparent distress Constitutional Narrative: Oriented to person and she can tell me the month and the year. when I asked her where she is she told me [facility]. she told the PT she just got here yesterday. When I asked her why she is here she told me because she fell. PT tells me that her gait was more unsteady today. She is bouncing at the knees when she is standing and trying to walk as though her legs are going to buckle. She is sitting in the recliner at the bedside. He does not appear to be in any distress and she actually looks comfortable. General Appearance: cooperative HEENT moist oral mucous membranes HEENT Narrative: Tongue protrudes on the midline. Palate elevates symmetrically. Eyes PERRL, conjunctivae normal and no scleral icterus Eyes Narrative: No visual field cuts. No visual extinction. No discharge from the eyes and no mattering of the eyelashes. the R eye does not track all the way to the lateral canthus. There is no nystagmus. Neck supple and no carotid bruits General: trachea midline Chest Chest: symmetrical chest wall rise Resp normal respiratory effort, normal air movement and clear to auscultation bilaterally Resp Narrative: No cough. Effort and Inspection: able to speak in complete sentences Cardio regular rate, regular rhythm, S1 normal heart sound, S2 normal heart sound, no murmurs, no rub and no gallops GI normal to inspection, nondistended, normoactive bowel sounds, soft to palpation and non-tender GI Narrative: No guarding with palpation. Having regular bowel movements. No nausea, no vomiting. Eating 75 to 100% of her meals. no CVA tenderness Extremity no calf tenderness and no pedal edema Skin no jaundice General Skin Exam: no breakdown Rashes: rashes noted rosacea Neuro Neuro Narrative: Cranial nerves II through XII are grossly intact. She is oriented to person, month and year. Cannot tell me where she is at and thinks she is at [facility]. She thinks she is here because she fell. She does not recall me telling her yesterday that we are planning to transfer to [facility] when a bed becomes available. Tongue protrudes on the midline. Palate elevates symmetrically. No nystagmus. No visual field cuts. No visual extinction. She can hold both upper extremities up for a count of 10 with no drift. 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 The RUE has very mild ataxia......this seems to wax and wane. She has drift with both lower extremities today and is c/o pain in the anterior thighs when she is trying to hold her legs off the bed....she is grimacing......this is new today. The legs hit the bed prior to a count of 5. She denies back pain. No ataxia in the lower extremities. Good plantarflexion and dorsiflexion bilaterally. No foot drop. Babinski's are downgoing bilaterally. No extinction. She was able to correctly name all of the pictures on the NIHSS scoring card. She was also able to identify several things in the picture. She was able to read all the words with no significant slurring and she was also able to complete all the sentences. I gave her 3 words to remember and she was able to immediately repeat them. After 5 minutes she could not give me any of the words. Unable to coung backwards from 100 by 7's. She could spell WORLD forwards but, when spelling it backward she said DLwor. Psych affect normal, denies hallucinations, denies homicidal ideation and denies suicidal ideation Appearance: grossly normal Attitude: calm, engaged and other She is engaged from I am speaking with her but then cannot recall what hide said to her even a few minutes later. Activity / Motor Behavior: appropriate eye contact Weight / BMI Weight Weight: 216 lb 4.375 oz Body Mass Index (BMI) 37.1 ABG / Lab / Microbiology Data 07/06/25 05:17 07/06/25 05:17 Laboratory: Laboratory Results - last 24 hr 07/09/25 16:30: POC Glucose 151 H 07/10/25 06:28: POC Glucose 135 H Indicators for Scoring Admitted with or Primary Diagnosis of CVA/Stroke: No Hx of CVA/Stroke: No Modified [place] Score MRS Score at time of Evaluation: 3-Moderate disability (She has a chronic R basal ganglia lacunar infarct on MRI.....she denies a hx of CVA. ) NIHSS NIHSS 1a. Level of Consciousness: 0 - Alert; keenly responsive 1b. LOC Questions: 1 - Answers ONE question correctly 1c. LOC Commands: 0 - Performs BOTH tasks correctly 2. Best Gaze: 1 - Partial gaze palsy; (The right thigh does not track completely to the outer canthus.) 3. Visual: 0 - No visual loss 4. Facial Palsy: 0 - Normal symmetrical movements 5a. Left Arm: 0 - No drift; arm holds 90 (or 45) degrees for full 10 seconds 5b. Right Arm: 0 - No drift; arm holds 90 (or 45) degrees for full 10 seconds 6a. Left Le - Some effort against gravity; (Previously able to hold the legs up for, 5 with slight drift.) 6b. Right Le - Some effort against gravity; 7. Limb Ataxia: 1 - Present in 1 limb 8. Sensory: 1 - [id number] sensory loss; (Decreased sensation in the R arm) 9. Best Language: 0 - No aphasia; normal 10. Dysarthria: 0 - Normal 11. Extinction and Inattention: 0 - No abnormality Total: 8 Stroke Questions Stroke Team Activated: No D/C Instructions Diet Diet Order/Speech Therapy: INPATIENT Hospital Diet / Speech Therapy Order(s) 06/24/25 14:10 Diet: Consistent Carb - Calorie Controlled How many daily calories?: 1800 calorie Discharge order: Continue INPATIENT Hospital Diet / Speech Therapy Orders: No Discharge Diet: - (She is on an 1800-calorie, carb consistent, low-fat, low-salt diet) Discharge Activity: May Not Drive and Use Walker Weight Bearing Status: Full weight bearing DC O2, CPAP, BIPAP Needs PSN CPAP & BiPAP: BiPAP & CPAP Settings per PSN Fraction of Inspired Oxygen ( 06/28/25 00:40 FIO2) Home O2 Discharge instructions: No DC home with Oxygen: No Pending Tests Upon Discharge: none Meaningful Use Info Meaningful Use Meaningful Use Diagnoses (Choose all that apply): None applicable (she has had a stroke in the past but, she is not admitted for this. She was admitted for toxic/metabolic encephalopathy of unknown origin. ) Ischemic Stroke Statin Dosing Therapy Reference: STATIN DOSE THERAPY REFERENCE: * Patients > 75 years receive moderate or high dose statin therapy. * Patients 75 years or YOUNGER should receive HIGH intensity statin dose unless contraindicated. You will be required to document reason for non-treatment if statin daily dose does not meet guidelines. HIGH DOSE STATIN THERAPY DAILY Atorvastatin > than or = to 40 mg Rosuvastatin > than or = to 20 mg Amlodipine + Atorvastatin > than or = to 2.5/40 mg Ezetimibe + Simvastatin 10/80 mg Simvastatin 80mg Discharge Plan Admission Admit Date/Time: 06/24/25 13:43 Primary Reason for Your Visit: Toxic/metabolic encephalopathy of unknown origin leading to disequilibrium Attending Provider: Suyapa Templeton Primary Care Provider: Jonnie Phipps Instructions Additional Instructions / Restrictions: She is being discharged to [facility] when a bed becomes available. Discharge Orders/Prescriptions Prescriptions: New acetaminophen 325 mg Tablet 650 mg PO Q6H PRN PRN (Reason: Pain Score 1-10) Qty: 1 0RF metformin 500 mg Tablet 500 mg PO SUPPER Qty: 1 0RF atorvastatin 20 mg Tablet 20 mg PO QHS Qty: 1 0RF sennosides-docusate sodium [Stimulant Laxative Plus] 8.6-50 mg Tablet 2 tab PO BID Qty: 1 0RF methimazole 5 mg Tablet 2.5 mg PO DAILY Qty: 1 0RF heparin (porcine) 5,000 unit/mL Solution 5,000 unit subcut Q12 Qty: 1 0RF Continued losartan 50 mg tablet 50 mg PO DAILY metoprolol succinate 50 mg tablet extended release 24 hr 50 mg PO DAILY amlodipine 5 mg tablet 5 mg PO QHS metformin 750 mg tablet 750 mg PO DAILY Discontinued rosuvastatin 10 mg tablet 10 mg PO QHS Referrals / Follow Up: Fer Melchor MD [Med Staff - Consulting, Neurology] - 07/07/25 11:45 Jonnie Greco MD [Primary Care Provider, Family Practice] Tyrese Gomez MD [Med Staff - Courtesy Staff, Endocrinology] - 08/06/25 Disposition Disposition (needs filled in before D/C Order can be placed): Acute Care Hospital Hospital Course RU Operations None Procedures None Summary of Care Provided Minutes Spent on Discharge: 60 Hospital Course: Breanna Valera is a 64-year-old female with a past medical history of hypertension, dyslipidemia (LDL on 07/10 is 48 with an HDL of 43 on 20 mg of Atorvastatin daily), type 2 diabetes mellitus (without insulin), a low TSH (dating back to December of 2019), thyroid nodules on thyroid US, fatty infiltration of the liver and obesity who presented to the ED at [facility] on 06/19/2025 complaining of a several week history of progressive confusion, disequilibrium and generalized weakness. Family stated the dysequilibrium started in mid March and she had to start using a cane. She had a noncontrast CT brain done as an OP on 05/05/2025 that showed no acute intracranial abnormality and did not mention any white matter changes. In April she developed confusion and it was progressive. On 06/16/2025 she had an outpatient MRI of the brain and the impressions were no evidence of acute intracranial pathology, chronic lacunar infarction in the right basal ganglia and a few punctate foci of abnormal periventricular and subcortical white matter signals in both cerebral hemispheres. There was also an area of abnormal white matter signal adjacent to the anterior horn of the right lateral ventricle. MRA of the head and neck on 06/16/2025 showed no hemodynamically significant stenosis, no major muscle occlusion/dissection or aneurysm. Prior to the onset of dysequilibrium in March she was working full-time, living alone and driving. Lab in the ED was unremarkable with the exception of a low TSH of 0.019 and an elevated free T4 at 1.5. Free T3 was normal at 3.6. She did not have any additional imaging in the ED. Because there is not a neurologist on staff at [facility] she was transferred to [facility] in [place]. Repeat MRI with contrast at [place] on 06/21/2025 showed no change in the callosal/pericallosal white matter disease. There were no enhancing lesions. MRI of the cervical spine showed no demyelination. She had an EEG that showed no epileptiform activity. Labs showed a mildly increased calcium of 11 but this has since normalized. PTH was normal at 75. TSH was low at 0.022 and the free T4 was 1.55 which is normal. The free T3 was also normal at 3.51. Thyroid antibodies were negative. She had 1 mildly elevated ammonia of 38 and received 1 dose of lactulose but, follow-up ammonia levels were normal. C-reactive protein was less than 0.5. ESR was 13. Vitamin D level was normal. Syphilis was negative. Folate was normal. Hemoglobin A1c was 6.4%. Anti-NMDAR was negative. Serum protein electrophoresis was negative for monoclonal gammopathy. RA and CCP were negative. TONY and [id number] DNA were negative. B12 was normal. a thiamine level was supposedly ordered but, this was not sent to us when we got her records. Antiparietal cell antibody was negative. Phipps antibody was negative. GELATIN MAKER UTILITY antibody was negative. SSA and SSB were negative. Centromere antibody was negative and so was the sclera antibody. Fartun 1 antibody was negative and chromatin antibody was negative. Actin antibody was negative. Mitochondrial antibody was negative. Complement C3A was mildly increased at 188 and the complement C4A was normal at 34. At that point neurology signed off the case and recommended an LP as OP, nerve conduction studies as an OP and follow up at [facility]. She was seen by PT/OT/ST and acute inpt rehab was recommended. She was transferred to the acute inpatient rehab unit at [facility] on 06/24/2025 with a diagnosis of toxic metabolic encephalopathy. Her TSH has been low since December of 2019 but, T4 and T3 have been normal or high normal. She has nodules on the thyroid US and the largest nodule measures 1.6 x 1.4 x 1.4 cm and has ill-defined margins. I discussed with endocrinology and they felt she likely had a hot nodule. They recommended starting methimazole 2.5 mg daily and this was started on 06/26/2025. We rechecked a TSH and T4 on 07/10/2025 and the TSH is now 0.141 (up from 0.019 on 06/19/2025). The T4 is 1.2 (down from 1.5 on 06/19/2025). she will need to follow up with endocrinology going forward for further W/U for toxic multinodular goiter. At arrival to acute rehab her BCAT (brief cognitive assessment tool) score was 33 out of a possible 50. This is indicative of significant cognitive dysfunction. She had disequilibrium and was using a front wheel walker to ambulate. Even with the front wheel walker she had loss of balance and she is still CGA when ambulating. She needs constant reminders for proper placement of her hands on the front wheeled walker and proper technique for sitting down into a chair. She can not operate the TV remote and she tries to use the remote to lower the foot rest on the recliner which is not controlled by a remote....it is manual. Her memory is very poor and she can not not retain information for more than 5 minutes. She failed to make progress on acute rehab and in fact she has decflined. She is consistently oriented to person, place, month and year but, when I ask her open ended direct questions like how are you she stares at me and can not give me an answer. Often times she will tell me she is blurry but, she can not can not tell me what she means by this. when I ask her if her vision is blurry she will say yes.......but she denies Blurry vision when she has her glasses on. She has no side neglect and visual grier are intact in all quadrants. Sometimes she can recalll her sons name and sometimes she can't and she describes them instead. We do not have a diagnosis and can not treat without a diagnosis. She is not improving with therapy and is getting worse. Family is not able to care for her at home. I reached out to [facility] and they graciously agreed to accept Breanna for transfer to the main [place] when a bed becomes available. Breanna and her family are agreeable with the transfer.
[2025-07-10 07:58] VITALS: BP 113/67; PULSE 74
[2025-07-10] MEDS: Metoprolol(XL)Succ 50 MG Tablet PO (07:58)
[2025-07-10] MEDS: Senna/Docusate Sodium 1 Tablet 2 TABLET PO ×2 (08:00→20:32)
[2025-07-10] MEDS: Heparin Injection (Vial) 5,000 UNIT/ML VIAL 5000 UNIT SC ×2 (08:49→20:33)
[2025-07-10 10:51] LABS: Cholesterol 115 mg/dL (<=200); Low Density Lipoprotein Calc. 48 mg/dL; Triglycerides 138 mg/dL; Very Low Density Lipoprotein 28 mg/dL (5-40); cholesterol:hdl ratio screen 2.67
[2025-07-10 17:00] VITALS: BP 109/70; PULSE 70; RESP 16; TEMP 36.6; O2SAT 95
[2025-07-11 05:19] VITALS: BP 133/80; PULSE 71; RESP 18; TEMP 37.2; O2SAT 95
[2025-07-11] MEDS: Heparin Injection (Vial) 5,000 UNIT/ML VIAL 5000 UNIT SC ×2 (09:27→19:51)
[2025-07-11 09:28] VITALS: BP 119/73; PULSE 83
[2025-07-11] MEDS: Metoprolol(XL)Succ 50 MG Tablet PO (09:28)
[2025-07-11 17:47] VITALS: BP 106/60; PULSE 72; RESP 18; TEMP 37.2; O2SAT 95
--- NOTE | 2025-07-11 18:31 | NURSING ---
Attempted to give report to [facility] H060 for pt going to bed 13 three times. Spoke to biscuit machine operator twice. Phone only rings with no answer.
[2025-07-11 20:00] VITALS: BP 130/71; PULSE 73; RESP 18; TEMP 37.3; O2SAT 95
--- NOTE | 2025-07-11 21:00 | NURSING ---
1999; Physicians here to get pt. Report given. VSS. Pt is pain free. Skin warm and dry. Evening meds administered to pt. 2014; Pt transported to [facility] via ambulance. 2054; Report given to Blanche WALTON on H060 Bed 13.
== END 2025-07-11 20:15 | disposition short-term general hospital (02) | DRG 57 ==
PROVIDERS: Nurse Practitioner Family; Admitting Provider Internal Medicine; PCP Family Medicine; Visit Provider Internal Medicine
DX: I69.393 Ataxia following cerebral infarction (principal); E04.2 Nontoxic multinodular goiter; E11.40 Type 2 diabetes mellitus with diabetic neuropathy, unspecified; I10 Essential (primary) hypertension; K76.0 Fatty (change of) liver, not elsewhere classified; Z68.39 Body mass index [BMI] 39.0-39.9, adult; E05.20 Thyrotoxicosis with toxic multinodular goiter without thyrotoxic crisis or storm; K74.00 Hepatic fibrosis, unspecified; M48.02 Spinal stenosis, cervical region; E78.5 Hyperlipidemia, unspecified; H53.8 Other visual disturbances; F09 Unspecified mental disorder due to known physiological condition; Z79.84 Long term (current) use of oral hypoglycemic drugs; Z79.899 Other long term (current) drug therapy; E66.9 Obesity, unspecified
CPT/HCPCS: 36415; 80048; 80053; 80061; 81001; 82140; 82550; 82962; 83735; 84100; 84439; 84443; 84481; 85025; 85027; 92507; 92523; 94762; 97110; 97112; 97116; 97129; 97130; 97162; 97167; 97530; 97535

== ENCOUNTER → 2025-07-24 06:32 | Outpatient (REF) | payer OTHER, SELFPAY ==
--- OUTSIDE RECORDS SUMMARY | 2025-07-24 07:20 | XMS RPT_ITS | CCD ---
Author Organization [facility] ion [facility] Care Team Providers Care Ton Container Filler Name Role Phone REFERRING, PHY WO ID Unavailable Unavailable MURALI LEIVA Unavailable Unavailable MURALI LEIVA Unavailable Unavailable REFERRING, PHY WO ID Unavailable Unavailable MURALI LEIVA Unavailable Unavailable MURALI LEIVA Unavailable Unavailable CALI ADMITTING CLERK-CUSTOMER EXPERIENCE CONSULTANT, MURALI S Primary Care Physicia n JULY REES MD Primary Care Physician OLIVIER BROWN DO Attending Unavailable CALI ADMITTING CLERK-CUSTOMER EXPERIENCE CONSULTANTMURALI Primary Care Unava ilable OLIVIER BROWN DO Attending Unavailable JULY REES MD Primary Care Unavailable OLIVIER BROWN DO Attending Unavailable JULY REES MD Primary Care Unavailable OLIVIER BROWN DO Attending Unavailable JULY REES MD Primary Care Unavailable OLIVIER BROWN DO Referring Unavailable NAHUM HEWITT Attending Unavailable JULY REES MD Primary Care Unavailable Dr. July Rees MD Primary Care Physician Pat EFFICIENCY MANAGER-CNan Attending Physician [phone] Pat EFFICIENCY MANAGER-C, Nan Referring Provider TORITO KEE, FAAN, CHAS Consulting Sienna DR ANGY Meza DO Attending Unavailable STANISLAV KEE, DR KAPLAN Admitting Unavailable JULY REES MD Primary Care Unavailable ELVIS NEGRON MD Consulting Unavailable JULY REES MD Primary Care Unavailable JULY REES MD Attending Unavailable JULY REES MD Attending Unavailable JULY REES MD Primary Care Unavailable JULY REES MD Attending Unavailable JULY REES MD Primary Care Unavailable JUANPABLO PATEL Attending Unavailable MOISE KEE, JULY Amezquita Primary Care Unavailable MOISE KEE, JULY Amezquita Primary Care Unavailable JULY REES MD Attending Unavailable Andres Serrano Consulting Unavailable Moise, July Primary Care Unavailable Shayne Herring Attending Unavailable Debby Frank Consulting Unavailable Rodolfo Mayfield Consulting Unavailable Nena Hernandez Consulting Unavailable Citlaly Estrada Consulting Unavailable Patricio Amador Consulting Unavailable Reagan Rodas Consulting Unavailable Lm Schofield Consulting Unavailable Vazquez Hernández Consulting Unavailable Hinduchi, Preeti Consulting Unavailable Carbajal, Ramtrina Consulting Unavailable Get Virgen Consulting Unavailable JedElaine finney Consulting Unavailable Campbell Rowe Consulting Unavailable Jayleen Flores Consulting Unavailable Anjana Hayden Consulting Unavailable Thad Gomez Consulting Unavailable Tony Vila Consulting Unavailable Soren Duque Consulting Unavailable Princess Webb Consulting UnavailNicole Flores Consulting Unavailable July Rees Referring Unavailable July Rees Attending Unavailable Moise, July Primary Care Unavailable Suyapa Templeton Admitting Unavailraad Rees, July Primary Care Unavailable Fanny Anthony Attending Suyapa Mccarty Consulting UnavailSuyapa Lopez Attending Unavailraad Rees, July Primary Care Unavailable Pat EFFICIENCY MANAGER, Nan Referring Unavailable Pat EFFICIENCY MANAGER, Nan Attending Unavailable Moise, July Primary Care Unavailable July Rees Referring Unavailable July Rees Attending Unavailable Moise, July Primary Care Unavailable July Rees Attending Unavailable Moise, July Primary Care Unavailable July Rees Referring Unavailable July Rees Attending Unavailable Medications Current Medications Medication Drug Class(es) Dates Sig (Normalized) Sig (Original) losartan potassium 25 mg oral tablet (10 sources) Angiotensin 2 Receptor Wil Start: 07-09-2019 losartan 25 mg oral tablet See Instructions, # 60 tab(s), Refill #: 5 Total Refills: 5, TAKE 1 TABLET BY MOUTH EVERY DAY, [facility]/pharmacy #[id number] Start Date: 07/09/19 Status: Ordered Medication Dispense Status: Completed Quantity: 60.0 Unit: tab(s) Total Allowed Fills: 6 Fills Dispensed: 0 24 hr metFORMIN hydrochloride 750 mg extended release oral tablet (10 sources) Biguanide Start: 07-22-2018 metFORMIN 750 mg oral tablet, extended release Dose : 750 mg = 1 tab(s), Oral, qDay, # 90 tab(s), 0 Refill(s) Start Date: 07/22/18 Status: Ordered Medication Dispense Status: Completed Quantity: 90.0 Unit: tab(s) Total Allowed Fills: 1 Fills Dispensed: 0 Completed/Discontinued Medications Medication Drug Class(es) Dates Sig (Normalized) Sig (Original) 24 hr metoprolol succinate 50 mg extended release oral tablet (12 sources) beta-Adrenergic Wil Start: 06-23-2025 End: 06-24-2025 take 1 tablet by mouth in the morning metoprolol succinate 50 mg oral TABLET extended release Start: 06/24/25 8:00:00 AM EDT, Dose = 50 mg, = 1 tab(s), Oral, give with food/meal, 06/20/25 4:32:00 EDT Start Date: 06/24/25 Stop Date: 06/24/25 Status: Completed Medication Dispense Status: Completed Total Allowed Fills: 1 Fills Dispensed: 0 Start: 06-10-2019 Metoprolol Suc cinate ER 50 mg oral tablet, extended release See Instructions, # 30 tab(s), Refill #: 11 Total Refills: 11, TAKE 1 TABLET BY MOUTH EVERY DAY, [facility]/pharmacy #[id number] Start Date: 06/10/19 Status: Ordered Medication Dispense Status: Completed Quantity: 30.0 Unit: tab(s) Total Allowed Fills: 12 Fills Dispensed: 0 Problems Active Problems Problem Classification Problem Date Documented Da te Episodic/Chronic Acquired foot deformities (6 sources) Foot-drop; Translations: [Foot drop, unspecified foot] Onset: 06-19-2025 Episodic Acute cerebrovascular disease (1 source) Other cerebral infarction due to occlusion or stenosis of small artery; Translations: [Other cerebral infarction due to occlusion or stenosis of small artery] Onset: 07-08-2025 Chronic Conditions associated with dizziness or vertigo (2 sources) Benign paroxysmal vertigo, right ear; Translations: [Dizziness and giddiness] Onset: 05-11-2025 Episodic Delirium, dementia, and amnestic and other cognitive disorders (1 source) Unspecified mental disorder due to known physiological condition; Translations: [Unspecified mental disorder due to known physiological condition] Onset: 07-08-2025 Chronic Diabetes mellitus with complications (1 source) Type 2 diabetes mellitus with diabetic neuropathy, unspecified; Translations: [Type 2 diabetes mellitus with diabetic neuropathy, unspecified] Onset: 07-08-2025 Chronic Diabetes mellitus without complication (12 sources) Type 2 diabetes mellitus; Translations: [Type 2 diabetes mellitus without complications] Onset: 06-19-2025 07-16-2018 Chronic Disorders of lipid metabolism (11 sources) Mixed hyperlipidemia; Translations: [Hyperlipidemia, unspecified] Onset: 07-08-2025 08-12-2019 Chronic Essential hypertension (11 sources) Hypertensive disorder; Translations: [Essential (primary) hypertension] Onset: 07-08-2025 07-16-2018 Chronic Hemorrhoids (10 sources) Hemorrhoids 07-22-2018 Episodic Malaise and fatigue (3 sources) Other malaise; Translations: [Weakness] Onset: 07-01-2025 Episodic Other circulatory disease (1 source) History of transient ischemic attack; Translations: [Personal history of transient ischemic attack (TIA), and cerebral infarction without residual deficits] Episodic Other circulatory disease (1 source) Personal history of transient ischemic attack (TIA), and cerebral infarction without residual deficits; Translations: [Personal history of transient ischemic attack (TIA), and cerebral infarction without residual deficits] Onset: 06-19-2025 Episodic Other connective tissue disease (2 sources) Calcific tendinitis of left shoulder; Translations: [Calcific tendinitis of left shoulder] Episodic Other connective tissue disease (1 source) Bursitis of left shoulder; Translations: [Bursitis of left shoulder] Episodic Other liver diseases (1 source) Steatosis of liver; Translations: [Fatty (change of) liver, not elsewhere classified] Chronic Other liver diseases (1 source) Fatty (change of) liver, not elsewhere classified; Translations: [Fatty (change of) liver, not elsewhere classified] Onset: 06-19-2025 Chronic Other nervous system disorders (1 source) Myasthenia gravis without exacerbation; Translations: [Myasthenia gravis without (acute) exacerbation] Chronic Other nervous system disorders (1 source) Myasthenia gravis without (acute) exacerbation; Translations: [Myasthenia gravis without (acute) exacerbation] Onset: 06-19-2025 Chronic Other nervous system disorders (1 source) Toxic encephalopathy; Translations: [Other toxic encephalopathy] Episodic Other nervous system disorders (1 source) Ataxia; Translations: [Ataxia, unspecified] Episodic Other nervous system disorders (1 source) Ataxic gait; Translations: [Ataxic gait] Episodic Other nervous system disorders (1 source) White matter disease; Translations: [White matter disease, unspecified] Episodic Other nervous system disorders (3 sources) Ataxia, unspecified; Translations: [Ataxia, unspecified] Onset: 06-19-2025 Episodic Other nervous system disorders (1 source) Ataxic gait; Translations: [Ataxic gait] Onset: 06-19-2025 Episodic Other nervous system disorders (1 source) White matter disease, unspecified; Translations: [White matter disease, unspecified] Onset: 06-19-2025 Episodic Other nervous system disorders (1 source) Unspecified abnormalities of gait and mobility; Translations: [Unspecified abnormalities of gait and mobility] Onset: 07-08-2025 Episodic Other nutritional; endocrine; and metabolic disorders (1 source) Obesity; Translations: [Obesity, unspecified] Chronic Other nutritional; endocrine; and metabolic disorders (1 source) Obesity, unspecified; Translations: [Obesity, unspecified] Onset: 06-19-2025 Chronic Other screening for suspected conditions (not mental disorders or infectious disease) (2 sources) Encounter for screening for malignant neoplasm of colon; Translations: [Encounter for screening for malignant neoplasm of colon] Onset: 11-20-2022 Episodic Residual codes; unclassified (1 source) Disorientation, unspecified; Translations: [Disorientation, unspecified] Onset: 07-08-2025 Episodic Sprains and strains (1 source) Injury of glenoid labrum of shoulder joint; Translations: [Superior glenoid labrum lesion of left shoulder, subsequent encounter] Episodic Thyroid disorders (2 sources) Thyrotoxicosis with toxic multinodular goiter without thyrotoxic crisis or storm; Translations: [Thyrotoxicosis, unspecified without thyrotoxic crisis or storm] Onset: 06-22-2025 Chronic Transient cerebral ischemia (1 source) Amaurosis fugax; Translations: [Amaurosis fugax] Onset: 06-23-2025 Chronic Unclassified (1 source) Unknown / UNK(Unknown) Onset: 03-03-2017 Unclassified (1 source) Other toxic encephalopathy; Translations: [Other toxic encephalopathy] Onset: 06-19-2025 Past or Other Problems Problem Classification Problem Date Documented Da te Episodic/Chronic Residual codes; unclassified (1 source) Chills (without fever); Translations: [Chills (without fever)] Onset: 10-09-2024 Episodic Unclassified (1 source) E78.2, E11.9, E04.2 Onset: 03-03-2017 Results Test Name Value Interpretation Reference Range Facility Bedside Glucoseon 07-08-2025 FINGERSTICK GLU 133 mg/dL High 74-106 [facility] Comment on above: Result Comment: KATYA GEMENT OF PATIENT CARE PER NURSING PROTOCOL Performed By: #### L 501.080 #### [facility] [address] [place], [address] Ammoniaon 07-07-2025 Ammonia (P) [Moles/Vol] 19.0 umol/L Normal [facility] Comment on above: Performed By: #### L 503.5510 #### [facility] [address] [place], [address] Bedside Glucoseon 07-07-2025 FINGERSTICK GLU 128 mg/dL High 74-106 [facility] Comment on above: Result Comment: KATYA GEMENT OF PATIENT CARE PER NURSING PROTOCOL Performed By: #### L 501.080 #### [facility] [address] [place], [address] FINGERSTICK GLU 133 mg/dL High 74-106 [facility] Comment on above: Result Comment: KATYA GEMENT OF PATIENT CARE PER NURSING PROTOCOL Performed By: #### L 501.080 #### [facility] [address] [place], [address] Urinalysis, Completeon 07-07 CA OX CRYSTAL 1+ /hpf Normal [facility] Comment on above: Order Comment: ANGELA TER SPECIMEN Performed By: #### L 400.0001 #### [facility] [address] [place], [address] CAST,HYALINE 0-5 SEEN Normal 0-5 [facility] Comment on above: Order Comment: ANGELA TER SPECIMEN Performed By: #### L 400.0001 #### [facility] [address] [place], [address] BACTERIA RARE Normal None Seen [facility] Comment on above: Order Comment: ANGELA TER SPECIMEN Performed By: #### L 400.0001 #### [facility] [address] [place], [address] EPI,SQUAMOUS 0-5 SEEN Normal 5-10 [facility] Comment on above: Order Comment: ANGELA TER SPECIMEN Performed By: #### L 400.0001 #### [facility] [address] [place], [address] Mucus Ql (Urine sed) 1+ /hpf Normal [facility] Comment on above: Order Comment: ANGELA TER SPECIMEN Performed By: #### L 400.0001 #### [facility] [address] [place], [address] RBC 0-5 SEEN Normal 0-5 [facility] Comment on above: Order Comment: ANGELA TER SPECIMEN Performed By: #### L 400.0001 #### [facility] [address] [place], [address] WBC 0-5 SEEN Normal 0-5 [facility] Comment on above: Order Comment: ANGELA TER SPECIMEN Performed By: #### L 400.0001 #### [facility] [address] [place], [address] Basic Metabolic Profile (BMP )on 07-06-2025 BUN/CRE 16.3 RATIO Normal 10-20 [facility] Comment on above: Performed By: #### L 100.0500, L500.2500 #### [facility] [address] [place], [address] Calcium [Mass/Vol] 10.5 mg/dL Normal 7.6-11.0 [facility] Comment on above: Performed By: #### L 100.0500, L500.2500 #### [facility] [address] [place], [address] Chloride [Moles/Vol] 105 mmol/L Normal 98-108 [facility] Comment on above: Performed By: #### L 100.0500, L500.2500 #### [facility] [address] [place], [address] CO2 [Moles/Vol] 20.7 mmol/L Low 21.0-32.0 [facility] Comment on above: Performed By: #### L 100.0500, L500.2500 #### [facility] [address] [place], [address] Creatinine [Mass/Vol] 0.76 mg/dL Normal 0.70-1.[address] [facility] Comment on above: Performed By: #### L 100.0500, L500.2500 #### [facility] [address] [place], [address] ECRCL 90.93 ml/min Normal 50-250 [facility] Comment on above: Performed By: #### L 100.0500, L500.2500 #### [facility] [address] [place], [address] GAP 12 Normal 5-15 [facility] Comment on above: Performed By: #### L 100.0500, L500.2500 #### [facility] [address] [place], [address] GFR/1.73 sq M.predicted among non-blacks MDRD (S/P/Bld) [Vol rate/Area] 88 mL/min/{1.73_m2} Normal >60 [facility] Comment on above: Result Comment: mL/m in/1.73m2 CKD-EPI Creatinine Equation (2020) Performed By: #### L 100.0500, L500.2500 #### [facility] [address] [place], [address] Glucose [Mass/Vol] 149 mg/dL High 70-99 [facility] Comment on above: Performed By: #### L 100.0500, L500.2500 #### [facility] [address] [place], [address] Potassium [Moles/Vol] 3.8 mmol/L Normal 3.3-5.[address] [facility] Comment on above: Performed By: #### L 100.0500, L500.2500 #### [facility] [address] [place], [address] Sodium [Moles/Vol] 138 mmol/L Normal 133-145 [facility] Comment on above: Performed By: #### L 100.0500, L500.2500 #### [facility] [address] [place], [address] Urea nitrogen [Mass/Vol] 12 mg/dL Normal 4-19 [facility] Comment on above: Performed By: #### L 100.0500, L500.2500 #### [facility] [address] [place], [address] Bedside Glucoseon 07-06-2025 FINGERSTICK GLU 156 mg/dL High 74-106 [facility] Comment on above: Result Comment: KATYA SAINI OF PATIENT CARE PER NURSING PROTOCOL Performed By: #### L 501.080 #### [facility] [address] [place], [address] CBC-Complete Blood Cnt No Di ffon 07-06-2025 Erythrocyte distribution width (RBC) [Ratio] 13.0 % Normal 11.6-14.6 [facility] Comment on above: Performed By: #### L 100.0500, L500.2500 #### [facility] [address] [place], [address] Hematocrit (Bld) [Volume fraction] 37.9 % Normal 37-47 [facility] Comment on above: Performed By: #### L 100.0500, L500.2500 #### [facility] [address] [place], [address] Hemoglobin (Bld) [Mass/Vol] 12.6 g/dL Normal 12.0-15.0 [facility] Comment on above: Performed By: #### L 100.0500, L500.2500 #### [facility] [address] [place], [address] MCH (RBC) [Entitic mass] 31.7 pg Normal 27.0-32.0 [facility] Comment on above: Performed By: #### L 100.0500, L500.2500 #### [facility] [address], [address] MCHC (RBC) [Mass/Vol] 33.2 g/dL Normal 32-[address] [facility] Comment on above: Performed By: #### L 100.0500, L500.2500 #### [facility] [address], [address] MCV (RBC) [Entitic vol] 95.2 fL Normal 81-99 [facility] Comment on above: Performed By: #### L 100.0500, L500.2500 #### [facility] [address] [place], [address] Platelet mean volume (Bld) [Entitic vol] 9.7 fL Normal 6.2-12.0 [facility] Comment on above: Performed By: #### L 100.0500, L500.2500 #### [facility] [address] [place], [address] Platelets (Bld) [#/Vol] 287 10*3/uL Normal 150-450 [facility] Comment on above: Performed By: #### L 100.0500, L500.2500 #### [facility] [address] [place], [address] RBC (Bld) [#/Vol] 3.98 10*6/uL Low 4.2-5.4 [facility] Comment on above: Performed By: #### L 100.0500, L500.2500 #### [facility] [address] [place], [address] RDW SD 45.5 fl High 35.1-43.9 [facility] Comment on above: Performed By: #### L 100.0500, L500.2500 #### [facility] [address] [place], [address] WBC (Bld) [#/Vol] 10.3 10*3/uL Normal 4.4-11.0 [facility] Comment on above: Performed By: #### L 100.0500, L500.2500 #### [facility] [address] [place], [address] Bedside Glucoseon 07-02-2025 FINGERSTICK GLU 127 mg/dL High 74-106 [facility] Comment on above: Result Comment: KATYA GEMENT OF PATIENT CARE PER NURSING PROTOCOL Performed By: #### L 501.080 #### [facility] [address] [place], [address] Bedside Glucoseon 07-01-2025 FINGERSTICK GLU 134 mg/dL High 74-106 [facility] Comment on above: Result Comment: KATYA GEMENT OF PATIENT CARE PER NURSING PROTOCOL Performed By: #### L 501.080 #### [facility] [address] [place], [address] FINGERSTICK GLU 149 mg/dL High 74-106 [facility] Comment on above: Result Comment: KATYA GEMENT OF PATIENT CARE PER NURSING PROTOCOL Performed By: #### L 501.080 #### [facility] [address] [place], [address] B1WBon 06-30-2025 Vitamin B1 Whl Bld 97.1 nmol/L Normal 66.5-200.0 [facility] Comment on above: Result Comment: This test was developed and its performance characteristics determined by [facility]. It has not been cleared or approved by the Food and Drug Administration. Performed At: [facility] [id number] Bob Cohen MD Ph:[phone] Performed By: #### P #### [facility] [address] [place] [address] Bedside Glucoseon 06-30-2025 FINGERSTICK GLU 132 mg/dL High 74-106 [facility] Comment on above: Result Comment: KATYA GEMENT OF PATIENT CARE PER NURSING PROTOCOL Performed By: #### L 400.0001 #### [facility] [address] [place], [address] Bedside Glucoseon 06-29-2025 FINGERSTICK GLU 153 mg/dL High 74-106 [facility] Comment on above: Result Comment: KATYA GEMENT OF PATIENT CARE PER NURSING PROTOCOL Performed By: #### L 400.0001 #### [facility] [address] [place], [address] Bedside Glucoseon 06-28-2025 FINGERSTICK GLU 187 mg/dL High 74-106 [facility] [facility] Comment on above: Result Comment: KATYA GEMENT OF PATIENT CARE PER NURSING PROTOCOL Performed By: #### L 501.080 #### [facility] [address] [place], [address] FINGERSTICK GLU 158 mg/dL High -106 [facility] Comment on above: Result Comment: KATYA GEMENT OF PATIENT CARE PER NURSING PROTOCOL Performed By: #### L 100.0500, L500.2500 #### [facility] [address] [place], [address] FINGERSTICK GLU 139 mg/dL High 74-106 [facility] Comment on above: Result Comment: KATYA GEMENT OF PATIENT CARE PER NURSING PROTOCOL Performed By: #### L 501.080 #### [facility] [address] [place], [address] FINGERSTICK GLU 135 mg/dL High [address] [place] [address] Comment on above: Result Comment: KATYA GEMENT OF PATIENT CARE PER NURSING PROTOCOL Performed By: #### L 400.0001 #### [facility] [address] [facility] [address] Bedside Glucoseon 06-27-2025 FINGERSTICK GLU 187 mg/dL High [address] [place] [address] Comment on above: Result Comment: KATYA GEMENT OF PATIENT CARE PER NURSING PROTOCOL Performed By: #### L 100.0500, L500.2500 #### [facility] [address] [facility] [address] FINGERSTICK GLU 120 mg/dL High -106 [facility] Comment on above: Result Comment: KATYA GEMENT OF PATIENT CARE PER NURSING PROTOCOL Performed By: #### L 100.0500, L500.2500 #### [facility] [address] [facility] [address] FINGERSTICK GLU 146 mg/dL High [address] [place] [address] Comment on above: Result Comment: KATYA GEMENT OF PATIENT CARE PER NURSING PROTOCOL Performed By: #### L 100.0500, L500.2500 #### [facility] [address] [facility] [address] FINGERSTICK GLU 126 mg/dL [facility] Comment on above: Result Comment: KATYA GEMENT OF PATIENT CARE PER NURSING PROTOCOL Performed By: #### L 100.0500, L500.2500 #### [facility] [address] [place], [address] Bedside Glucoseon 06-26-2025 FINGERSTICK GLU 156 mg/dL High -106 [facility] Comment on above: Result Comment: KATYA GEMENT OF PATIENT CARE PER NURSING PROTOCOL Performed By: #### L 100.0500, L500.2500 #### [facility] [address] [place], [address] FINGERSTICK GLU 155 mg/dL High 74-106 [facility] Comment on above: Result Comment: KATYA GEMENT OF PATIENT CARE PER NURSING PROTOCOL Performed By: #### L 501.080 #### [facility] [address] [place], [address] FINGERSTICK GLU 136 mg/dL High 74-106 [facility] Comment on above: Result Comment: KATYA GEMENT OF PATIENT CARE PER NURSING PROTOCOL Performed By: #### L 100.0500, L500.2500 #### [facility] [address] [place], [address] FINGERSTICK GLU 125 mg/dL High 74-106 [facility] Comment on above: Result Comment: KATYA GEMENT OF PATIENT CARE PER NURSING PROTOCOL Performed By: #### L 400.0001 #### [facility] [address] [place], [address] CPK Total, Creatine Kinaseon 06-26-2025 CPK TOTAL 35 U/L Normal 24-195 [facility] Comment on above: Order Comment: Comme nts: OK to use blood from yesterday Performed By: #### L 501.080 #### [facility] [address] [place], [address] Free T3on 06-26-2025 Free T3 [Mass/Vol] 3.0 pg/mL Normal 2.18-3.98 [facility] Comment on above: Performed By: #### L 400.0001 #### [facility] [address] [place], [address] [id number] 06-26-2025 Reverse T3 23.1 ng/dL Normal 9.2-24.1 [facility] Comment on above: Result Comment: This test was developed and its performance characteristics determined by [facility]. It has not been cleared or approved by the Food and Drug Administration. Performed At: [address] [id number] Bob Cohen MD Ph:[phone] Performed By: #### P TH #### [facility] [address] [place] [address] T4 Free Directon 06-26-2025 T4 FREE DIRECT 1.30 ng/dL Normal 0.76-1.46 [facility] Comment on above: Performed By: #### L 400.0001 #### [facility] [address] [place], [address] Thyroid Stim Hormone (TSH)on 06-26-2025 TSH 0.028 uIU/mL Low 0.300-4.200 [facility] Comment on above: Performed By: #### L 400.0001 #### [facility] [address] [place], [address] Bedside Glucoseon 06-25-2025 FINGERSTICK GLU 151 mg/dL High 74-106 [facility] Comment on above: Result Comment: KATYA GEMENT OF PATIENT CARE PER NURSING PROTOCOL Performed By: #### L 400.0001 #### [facility] [address] [place], [address] FINGERSTICK GLU 136 mg/dL High 74-106 [facility] Comment on above: Result Comment: KATYA GEMENT OF PATIENT CARE PER NURSING PROTOCOL Performed By: #### L 400.0001 #### [facility] [address] [place], [address] FINGERSTICK GLU 118 mg/dL High 74-106 [facility] Comment on above: Result Comment: KATYA GEMENT OF PATIENT CARE PER NURSING PROTOCOL Performed By: #### L 100.0500, L500.2500 #### [facility] [address] [place], [address] FINGERSTICK GLU 126 mg/dL High 74-106 [facility] Comment on above: Result Comment: KATYA SAINI OF PATIENT CARE PER NURSING PROTOCOL Performed By: #### L 501.080 #### [facility] [address] [place], [address] CBC W/Diff, Automatedon 10-3 0-2024 Absolute Lymph 2.55 X10 3/uL Normal 0.83-4.51 [facility] Comment on above: Performed By: #### L 100.0500, L500.2500 #### [facility] [address] [place], [address] Absolute Neut 4.1 X10 3/uL Normal 2.0-7.7 [facility] Comment on above: Performed By: #### L 100.0500, L500.2500 #### [facility] [address] [place], [address] Basophils/100 WBC (Bld) 0.8 % Normal 0-1 [facility] Comment on above: Performed By: #### L 100.0500, L500.2500 #### [facility] [address] [place], [address] Eosinophils/100 WBC (Bld) 2.9 % Normal 0-5 [facility] Comment on above: Performed By: #### L 100.0500, L500.2500 #### [facility] [address] [place], [address] Erythrocyte distribution width (RBC) [Ratio] 13.2 % Normal 11.6-14.6 [facility] Comment on above: Performed By: #### L 100.0500, L500.2500 #### [facility] [address] [place], [address] Hematocrit (Bld) [Volume fraction] 36.5 % Low 37-47 [facility] Comment on above: Performed By: #### L 100.0500, L500.2500 #### [facility] [address] [place], [address] Hemoglobin (Bld) [Mass/Vol] 12.1 g/dL Normal 12.0-15.0 [facility] Comment on above: Performed By: #### L 100.0500, L500.2500 #### [facility] [address] [place], [address] IG% 0.400 Normal 0.0-0.9 [facility] Comment on above: Result Comment: IG% - Immature Granulocytes (promyelocytes, myelocytes and metamyelocytes) > 1% indicates that a LEFT SHIFT is Present. Performed By: #### L 100.0500, L500.2500 #### [facility] [address] [place], [address] Lymphocytes/100 WBC (Bld) 32.7 % Normal 19-41 [facility] Comment on above: Performed By: #### L 100.0500, L500.2500 #### [facility] [address] [place], [address] MCH (RBC) [Entitic mass] 31.4 pg Normal 27.0-32.0 [facility] Comment on above: Performed By: #### L 100.0500, L500.2500 #### [facility] [address] [place], [address] MCHC (RBC) [Mass/Vol] 33.2 g/dL Normal 32-[address] [facility] Comment on above: Performed By: #### L 100.0500, L500.2500 #### [facility] [address] [place], [address] MCV (RBC) [Entitic vol] 94.8 fL Normal 81-99 [facility] Comment on above: Performed By: #### L 100.0500, L500.2500 #### [facility] [address] [place], [address] Monocytes/100 WBC (Bld) 10.4 % High 0-10 [facility] Comment on above: Performed By: #### L 100.0500, L500.2500 #### [facility] [address] [place], [address] Neutrophils/100 WBC (Bld) 52.8 % Normal 47-70 [facility] Comment on above: Performed By: #### L 100.0500, L500.2500 #### [facility] [address] [place], [address] Nucleated RBC (Bld) [#/Vol] 0 10*3/uL Normal 0-5 [facility] Comment on above: Performed By: #### L 100.0500, L500.2500 #### [facility] [address] [place], [address] Platelet mean volume (Bld) [Entitic vol] 9.6 fL Normal 6.2-12.0 [facility] Comment on above: Performed By: #### L 100.0500, L500.2500 #### [facility] [address] [place], [address] Platelets (Bld) [#/Vol] 263 10*3/uL Normal 150-450 [facility] Comment on above: Performed By: #### L 100.0500, L500.2500 #### [facility] [address] [place], [address] RBC (Bld) [#/Vol] 3.85 10*6/uL Low 4.2-5.4 [facility] Comment on above: Performed By: #### L 100.0500, L500.2500 #### [facility] [address] [place], [address] RDW SD 45.0 fl High 35.1-43.9 [facility] Comment on above: Performed By: #### L 100.0500, L500.2500 #### [facility] [address] [place], [address] WBC (Bld) [#/Vol] 7.8 10*3/uL Normal 4.4-11.0 [facility] Comment on above: Performed By: #### L 100.0500, L500.2500 #### [facility] [address] [place], [address] Comprehensive Metabolic Prof ilon 06-25-2025 Albumin [Mass/Vol] 3.8 g/dL Normal 3.4-4.8 [facility] Comment on above: Performed By: #### L 100.0500, L500.2500 #### [facility] [address] [place], [address] Albumin/Globulin [Mass ratio] 1.4 {ratio} Normal 0.9-2.4 [facility] Comment on above: Performed By: #### L 100.0500, L500.2500 #### [facility] [address] [place], [address] ALK PHOS 77 U/L Normal 35-104 [facility] Comment on above: Performed By: #### L 100.0500, L500.2500 #### [facility] [address] [place], [address] ALT [Catalytic activity/Vol] 27 U/L Normal <=34 [facility] Comment on above: Performed By: #### L 100.0500, L500.2500 #### [facility] [address] [place], [address] AST [Catalytic activity/Vol] 26 U/L Normal <=31 [facility] Comment on above: Performed By: #### L 100.0500, L500.2500 #### [facility] [address] [place], [address] Bilirubin [Mass/Vol] 1.27 mg/dL Normal 0.00-1.30 [facility] Comment on above: Performed By: #### L 100.0500, L500.2500 #### [facility] [address] [place], [address] BUN/CRE 16.1 RATIO Normal 10-20 [facility] Comment on above: Performed By: #### L 100.0500, L500.2500 #### [facility] [address] [place], [address] Calcium [Mass/Vol] 10.4 mg/dL Normal 7.6-11.0 [facility] Comment on above: Performed By: #### L 100.0500, L500.2500 #### [facility] [address] [place], [address] Chloride [Moles/Vol] 104 mmol/L Normal 98-108 [facility] Comment on above: Performed By: #### L 100.0500, L500.2500 #### [facility] [address] [place], [address] CO2 [Moles/Vol] 21.9 mmol/L Normal 21.0-32.0 [facility] Comment on above: Performed By: #### L 100.0500, L500.2500 #### [facility] [address] [place], [address] Creatinine [Mass/Vol] 0.81 mg/dL Normal 0.70-1.[address] [facility] Comment on above: Performed By: #### L 100.0500, L500.2500 #### [facility] [address] [place], [address] ECRCL 84.06 ml/min Normal 50-250 [facility] Comment on above: Performed By: #### L 100.0500, L500.2500 #### [facility] [address] [place], [address] GAP 12 Normal 5-15 [facility] Comment on above: Performed By: #### L 100.0500, L500.2500 #### [facility] [address] [place], [address] GFR/1.73 sq M.predicted among non-blacks MDRD (S/P/Bld) [Vol rate/Area] 82 mL/min/{1.73_m2} Normal >60 [facility] Comment on above: Result Comment: mL/m in/1.73m2 CKD-EPI Creatinine Equation (2020) Performed By: #### L 100.0500, L500.2500 #### [facility] [address] [place], [address] Globulin (S) [Mass/Vol] 2.6 g/dL Normal 2.2-4.2 [facility] Comment on above: Performed By: #### L 100.0500, L500.2500 #### [facility] [address] [place], [address] Glucose [Mass/Vol] 132 mg/dL High 70-99 [facility] Comment on above: Performed By: #### L 100.0500, L500.2500 #### [facility] [address] [place], [address] Potassium [Moles/Vol] 4.3 mmol/L Normal 3.3-5.[address] [facility] Comment on above: Performed By: #### L 100.0500, L500.2500 #### [facility] [address] [place], [address] Sodium [Moles/Vol] 138 mmol/L Normal 133-145 [facility] Comment on above: Performed By: #### L 100.0500, L500.2500 #### [facility] [address] [place], [address] T PROT 6.4 g/dL Normal 5.9-8.4 [facility] Comment on above: Performed By: #### L 100.0500, L500.2500 #### [facility] [address] [place], [address] Urea nitrogen [Mass/Vol] 13 mg/dL Normal 4-19 [facility] Comment on above: Performed By: #### L 100.0500, L500.2500 #### [facility] [address] [place], [address] Magnesiumon 06-25-2025 Magnesium [Mass/Vol] 2.2 mg/dL Normal 1.5-2.2 [facility] Comment on above: Performed By: #### L 100.0500, L500.2500 #### [facility] [address] [place], [address] Phosphoruson 06-25-2025 Phosphate [Mass/Vol] 3.9 mg/dL Normal 2.7-4.5 [facility] Comment on above: Performed By: #### L 100.0500, L500.2500 #### [facility] [address] [place], [address] .Auto Diffon 06-24-2025 Basophil, Absolute 0.0 10 3/mcL Normal 0.0-0.3 [facility] Comment on above: Performed By: #### C BC, ADIFF, ANEU, BMP, GFR #### [address] [address] Basophils/100 WBC (Bld) 0.7 % Normal 0.0-2.5 [facility] Comment on above: Performed By: #### C BC, ADIFF, ANEU, BMP, GFR #### [address] [address] Eosinophil, Absolute 0.2 10 3/mcL Normal 0.0-0.7 [facility] Comment on above: Performed By: #### C BC, ADIFF, ANEU, BMP, GFR #### [address] [address] Eosinophils/100 WBC (Bld) 3.0 % Normal 0.0-6.0 [facility] Comment on above: Performed By: #### C BC, ADIFF, ANEU, BMP, GFR #### [address] [address] Lymphocyte, Absolute 2.6 10 3/mcL Normal 0.9-4.3 [facility] Comment on above: Performed By: #### C BC, ADIFF, ANEU, BMP, GFR #### [address] [address] Lymphocytes/100 WBC (Bld) 38.6 % Normal 20.0-40.0 [facility] Comment on above: Performed By: #### C BC, ADIFF, ANEU, BMP, GFR #### [address] [address] Monocyte, Absolute 0.6 10 3/mcL Normal 0.1-1.4 [facility] Comment on above: Performed By: #### C BC, ADIFF, ANEU, BMP, GFR #### [address] [address] Monocytes/100 WBC (Bld) 9.6 % Normal 2.0-13.0 [facility] Comment on above: Performed By: #### C BC, ADIFF, ANEU, BMP, GFR #### [address] [address] Neutrophils/100 WBC (Bld) 48.1 % Low 50.0-75.0 [facility] Comment on above: Performed By: #### C BC, ADIFF, ANEU, BMP, GFR #### [address] [address] .GFRon 06-24-2025 Estimated Glomerular Filtration Rate 99 ml/min/1.73sqm Normal [facility] Comment on above: Result Comment: Stages of Chronic Kidney Disease (CKD) Stage Description eGFR(ml/min/1.73 sq.m.) CKD 1 Normal kidney function or >=90 normal kindney function with possible kidney damage (ex. Proteinuria) CKD 2 Kidney damage with mild loss 60-89 of kidney function CKD 3a Mild to moderate loss of kidney 45-59 function CKD 3b Moderate to severe loss of 30-44 of kindey function CKD 4 Severe loss of kidney function 15-29 CKD 5 Kidney failure <15 Note: (go live 2024) the eGFR calculation was updated to the 2020 CKD-EPI creatinine equation without a race factor to calculate the eGFR results. Performed By: #### C BC, ADIFF, ANEU, BMP, GFR #### [address] [address] .NEUABSon 06-24-2025 Neutrophil, Absolute 3.2 10 3/mcL Normal 2.3-8.1 [facility] Comment on above: Performed By: #### C BC, ADIFF, ANEU, BMP, GFR #### [place] [id number] [facility] BUN/Creatinine Ratio 12.5 ratio Normal 10.0-22.0 [facility] Comment on above: Performed By: #### C BC, ADIFF, ANEU, BMP, GFR #### [place] [address] Calcium [Mass/Vol] 11.0 mg/dL High 8.7-10.4 [facility] Comment on above: Performed By: #### C BC, ADIFF, ANEU, BMP, GFR #### [place] [address] Chloride [Moles/Vol] 107 mmol/L Normal 98-110 [facility] Comment on above: Performed By: #### C BC, ADIFF, ANEU, BMP, GFR #### [place] [address] CO2 [Moles/Vol] 25 mmol/L Normal 22-32 [facility] Comment on above: Performed By: #### C BC, ADIFF, ANEU, BMP, GFR #### [place] [id number] Creatinine [Mass/Vol] 0.64 mg/dL Normal 0.50-1.20 [facility] Comment on above: Result Comment: Test ing performed on [employer] analyzer using enzymatic creatinine methodology. Performed By: #### C BC, ADIFF, ANEU, BMP, GFR #### [address] [address] Electrolyte Balance 8.0 mEq/L Normal 4.0-15.0 [facility] Comment on above: Performed By: #### C BC, ADIFF, ANEU, BMP, GFR #### [address] [address] Glucose [Mass/Vol] 116 mg/dL High 82-115 [facility] Comment on above: Performed By: #### C BC, ADIFF, ANEU, BMP, GFR #### [address] [address] Potassium [Moles/Vol] 4.4 mmol/L Normal 3.5-5.0 [facility] Comment on above: Result Comment: Spec imen slightly hemolyzed. Performed By: #### C BC, ADIFF, ANEU, BMP, GFR #### [address] [address] Sodium [Moles/Vol] 140 mmol/L Normal 136-145 [facility] Comment on above: Performed By: #### C BC, ADIFF, ANEU, BMP, GFR #### [address] [address] Urea nitrogen [Mass/Vol] 8.0 mg/dL Normal 8.0-22.0 [facility] Comment on above: Performed By: #### C BC, ADIFF, ANEU, BMP, GFR #### [address] [address] Bedside Glucoseon 06-24-2025 FINGERSTICK GLU 175 mg/dL High 74-106 [facility] Comment on above: Result Comment: KATYA GEMENT OF PATIENT CARE PER NURSING PROTOCOL Performed By: #### L 100.0500, L500.2500 #### [facility] [address] [place], [place], [id number] FINGERSTICK GLU 114 mg/dL High 74-106 [facility] Comment on above: Result Comment: KATYA GEMENT OF PATIENT CARE PER NURSING PROTOCOL Performed By: #### L 100.0500, L500.2500 #### [facility] [address] [place], [address] CBCon 06-24-2025 Erythrocyte distribution width (RBC) [Ratio] 13.4 % Normal 11.5-15.5 [facility] Comment on above: Performed By: #### C BC, ADIFF, ANEU, BMP, GFR #### [place] [id number] Hematocrit (Bld) [Volume fraction] 35.9 % Normal 34.0-46.0 [facility] Comment on above: Performed By: #### C BC, ADIFF, ANEU, BMP, GFR #### [place] [id number] Hgb 12.1 G/dL Normal 12.0-16.0 [facility] Comment on above: Performed By: #### C BC, ADIFF, ANEU, BMP, GFR #### [place] [id number] MCH (RBC) [Entitic mass] 32.3 pg Normal 27.0-33.0 [facility] Comment on above: Performed By: #### C BC, ADIFF, ANEU, BMP, GFR #### [place] [id number] MCHC 33.8 G/dL Normal 32.0-36.0 [facility] Comment on above: Performed By: #### C BC, ADIFF, ANEU, BMP, GFR #### [place] [id number] MCV (RBC) [Entitic vol] 95.4 fL Normal 80.0-99.0 [facility] Comment on above: Performed By: #### C BC, ADIFF, ANEU, BMP, GFR #### [place] [id number] Platelet 236 10 3/mcL Normal 150-450 [facility] Comment on above: Performed By: #### C BC, ADIFF, ANEU, BMP, GFR #### [place] [id number] Platelet mean volume (Bld) [Entitic vol] 7.7 fL Normal 6.6-10.5 [facility] Comment on above: Performed By: #### C BC, ADIFF, ANEU, BMP, GFR #### [address] [address] RBC 3.77 10 6/mcL Low 4.10-5.30 [facility] Comment on above: Performed By: #### C BC, ADIFF, ANEU, BMP, GFR #### [address] [address] WBC 6.7 10 3/mcL Normal 4.5-10.8 [facility] Comment on above: Performed By: #### C BC, ADIFF, ANEU, BMP, GFR #### [address] [address] LABORATORYOrdered By: Cliff Frias on 06-24-2025 Glucose [Mass/Vol] 164 mg/dL High 82 - 115 mg/dL [facility] Work Phone: LABORATORYOrdered By: Karl Burgess on 06-24-2025 Blood Glucose Testing Reason Routine (06/24/25 7:47 AM) [facility] Work Phone: Glucose [Mass/Vol] 125 mg/dL High 82 - 115 mg/dL [facility] Work Phone: LABORATORYOrdered By: SYSTEM SYSTEM on 06-24-2025 Basophils (Bld) [#/Vol] 0.0 103/mcL Normal 0.0 - 0.3 10^3/mcL AH Workflow SS Basophils/100 WBC (Bld) 0.7 % Normal 0.0 - 2.5 % AH Workflow SS Calcium [Mass/Vol] 11.0 mg/dL High 8.7 - 10. 4 mg/dL ADM SS Chloride [Moles/Vol] 107 mmol/L Normal 98 - 110 mEq/L AH ADM SS CO2 [Moles/Vol] 25 mmol/L Normal 22 - 32 mEq/L AH ADM SS Creatinine [Mass/Vol] 0.64 mg/dL Normal 0.50 - 1.20 mg/dL AH ADM SS Comment on above: Interpretive Data: T esting performed on Cloud[employer] analyzer using enzymatic creatinine methodology. Electrolyte Balance 8.0 mEq/L Normal 4.0 - 15 .0 mEq/L ADM SS Eosinophils (Bld) [#/Vol] 0.2 103/mcL Normal 0.0 - 0.7 10^3/mcL AH Workflow SS Eosinophils/100 WBC (Bld) 3.0 % Normal 0.0 - 6.0 % AH Workflow SS Erythrocyte distribution width (RBC) [Ratio] 13.4 % Normal 11.5 - 15.5 % AH Workflow SS GLOMERULAR FILTRATION RATE/1.73 SQ M.PREDICTED:ARVRAT:PT :SER/PLAS/BLD:QN:CREA TININE-BASED FORMULA (CKD-EPI 2020) 99 ml/min/1.73sqm Invalid Interpretation Code Chemistry S Comment on above: Interpretive Data: Stages of Chronic Kidney Disease (CKD) Stage Description eGFR(ml/min/1.73 sq.m.) CKD 1 Normal kidney function or >=90 normal kindney function with possible kidney damage (ex. Proteinuria) CKD 2 Kidney damage with mild loss 60-89 of kidney function CKD 3a Mild to moderate loss of kidney 45-59 function CKD 3b Moderate to severe loss of 30-44 of kindey function CKD 4 Severe loss of kidney function 15-29 CKD 5 Kidney failure <15 Note: (go live 2024) the eGFR calculation was updated to the 2020 CKD-EPI creatinine equation without a race factor to calculate the eGFR results. Glucose [Mass/Vol] 116 mg/dL High 82 - 115 mg/dL ADM SS Hematocrit (Bld) [Volume fraction] 35.9 % Normal 34.0 - 46.0 % Workflow SS Hemoglobin (Bld) [Mass/Vol] 12.1 G/dL Normal 12.0 - 16.0 G/dL AH Workflow SS Lymphocytes (Bld) [#/Vol] 2.6 103/mcL Normal 0.9 - 4.3 10^3/mcL Workflow SS Lymphocytes/100 WBC (Bld) 38.6 % Normal 20.0 - 40.0 % Workflow SS MCH (RBC) [Entitic mass] 32.3 pg Normal 27.0 - 33.0 pg Workflow SS MCHC 33.8 G/dL Normal 32.0 - 36.0 G/dL AH Workflow SS MCV (RBC) [Entitic vol] 95.4 fL Normal 80.0 - 99.0 fL AH Workflow SS Monocytes (Bld) [#/Vol] 0.6 103/mcL Normal 0.1 - 1.4 10^3/mcL AH Workflow SS Monocytes/100 WBC (Bld) 9.6 % Normal 2.0 - 13.0 % AH Workflow SS Neutrophils (Bld) [#/Vol] 3.2 103/mcL Normal 2.3 - 8.1 10^3/mcL AH Workflow SS Neutrophils/100 WBC (Bld) 48.1 % Low 50.0 - 75.0 % AH Workflow SS Platelet mean volume (Bld) [Entitic vol] 7.7 fL Normal 6.6 - 10.5 fL AH Workflow SS Platelets (Bld) [#/Vol] 236 103/mcL Normal 150 - 450 10^3/mcL AH Workflow SS Potassium [Moles/Vol] 4.4 mmol/L Normal 3.5 - 5.0 mEq/L AH ADM SS Comment on above: Result Comment: Spec imen slightly hemolyzed. RBC (Bld) [#/Vol] 3.77 106/mcL Low 4.10 - 5.3 0 10^6/mcL AH Workflow SS Sodium [Moles/Vol] 140 mmol/L Normal 136 - 145 mEq/L AH ADM SS Urea nitrogen [Mass/Vol] 8.0 mg/dL Normal 8.0 - 22.0 mg/dL AH ADM SS Urea nitrogen/Creatinine [Mass ratio] 12.5 ratio Normal 10.0 - 22.0 ratio AH ADM SS WBC (Bld) [#/Vol] 6.7 103/mcL Normal 4.5 - 10.8 10^3/mcL AH Workflow SS NMDAGon 06-24-2025 NMDAR Antibody, Cell-based IFA Negative Normal Negative [facility] Comment on above: Result Comment: This test was developed and its performance characteristics determined by [facility]. It has not been cleared or approved by the Food and Drug Administration. The NIH-sponsored ExTINGUISH Trial (activity and safety of Inebilizumab in anti-NMDAR encephalitis) is actively recruiting patients. You may consider enrolling your patient in the clinical trial if the result of this test is positive. To learn more, or to refer your patient, call [phone] ([phone], study hotline) or see ClinicalTrials.gov (study ID, [id number]). Performed At: [facility] [address] [id number] Bob Cohen MD Ph:[phone] Performed By: #### P TH #### [place] [address] SPEon 06-24-2025 SPE Interpretation Normal serum protein electrophoresis pattern. No abnormality detected. Normal [facility] Comment on above: Result Comment: Elec tronically Signed by: SHAYNE VILLAGOMEZ 06/24/2025 13:07 EDT Performed By: #### P TH #### [place] [address] Albumin 3.8 G/dL Normal 3.3-5.0 [facility] Comment on above: Performed By: #### P TH #### [place] [address] Alpha 1 0.2 G/dL Normal 0.1-0.4 [facility] Comment on above: Performed By: #### P TH #### [place] [address] Alpha 2 0.9 G/dL Normal 0.6-1.2 [facility] Comment on above: Performed By: #### P TH #### [place] [address] Beta 1.2 G/dL Normal 0.6-1.3 [facility] Comment on above: Performed By: #### P TH #### [place] [address] Gamma 0.8 G/dL Normal 0.7-1.6 [facility] Comment on above: Performed By: #### P TH #### [place] [address] TRABon 06-24-2025 TSH Receptor Ab <1.10 Normal 0.00-1.75 [facility] Comment on above: Result Comment: Perf ormed At: [facility] [address] [place] [id number] Bob Cohen MD Ph:[phone] Performed By: #### P TH #### [place] [address] .Auto Diffon 06-23-2025 Basophil, Absolute 0.1 10 3/mcL Normal 0.0-0.3 [facility] Comment on above: Performed By: #### B MP, GFR, CBC, ADIFF, ANEU ####[address] [address] Basophils/100 WBC (Bld) 0.9 % Normal 0.0-2.5 [facility] Comment on above: Performed By: #### B MP, GFR, CBC, ADIFF, ANEU ####[address] [address] Eosinophil, Absolute 0.2 10 3/mcL Normal 0.0-0.7 [facility] Comment on above: Performed By: #### B MP, GFR, CBC, ADIFF, ANEU ####[address] [address] Eosinophils/100 WBC (Bld) 3.1 % Normal 0.0-6.0 [facility] Comment on above: Performed By: #### B MP, GFR, CBC, ADIFF, ANEU ####[address] [address] Lymphocyte, Absolute 2.7 10 3/mcL Normal 0.9-4.3 [facility] Comment on above: Performed By: #### B MP, GFR, CBC, ADIFF, ANEU ####[address] [address] Lymphocytes/100 WBC (Bld) 38.1 % Normal 20.0-40.0 [facility] Comment on above: Performed By: #### B MP, GFR, CBC, ADIFF, ANEU ####[address] [address] Monocyte, Absolute 0.7 10 3/mcL Normal 0.1-1.4 [facility] Comment on above: Performed By: #### B MP, GFR, CBC, ADIFF, ANEU ####[address] [address] Monocytes/100 WBC (Bld) 10.6 % Normal 2.0-13.0 [facility] Comment on above: Performed By: #### B MP, GFR, CBC, ADIFF, ANEU ####[address] [address] Neutrophils/100 WBC (Bld) 47.3 % Low 50.0-75.0 [facility] Comment on above: Performed By: #### B MP, GFR, CBC, ADIFF, ANEU ####[address] [address] .GFRon 06-23-2025 Estimated Glomerular Filtration Rate 88 ml/min/1.73sqm Normal [facility] Comment on above: Result Comment: Stages of Chronic Kidney Disease (CKD) Stage Description eGFR(ml/min/1.73 sq.m.) CKD 1 Normal kidney function or >=90 normal kindney function with possible kidney damage (ex. Proteinuria) CKD 2 Kidney damage with mild loss 60-89 of kidney function CKD 3a Mild to moderate loss of kidney 45-59 function CKD 3b Moderate to severe loss of 30-44 of kindey function CKD 4 Severe loss of kidney function 15-29 CKD 5 Kidney failure <15 Note: (go live 2024) the eGFR calculation was updated to the 2020 CKD-EPI creatinine equation without a race factor to calculate the eGFR results. Performed By: #### B MP, GFR, CBC, ADIFF, ANEU ####[address] [address] .NEUABSon 06-23-2025 Neutrophil, Absolute 3.3 10 3/mcL Normal 2.3-8.1 [facility] Comment on above: Performed By: #### B MP, GFR, CBC, ADIFF, ANEU ####[address] [address] ANAIFSon 06-23-2025 Antinuclear Ab Screen Negative Normal Negative [facility] Comment on above: Result Comment: Anti -nuclear antibody test is used as an aid in diagnosis of systemic autoimmune diseases. Where positive and clinically warranted, follow-up using disease-specific testing is recommended. Low positive titers are not uncommon with advanced age, certain chronic infections, and malignancies among others. Test methodology: Indirect fluorescence immunoassay (IFA) using HEp-2 cells. Performed By: [facility] [address] [place] [address] Mild Disabilities Teacher: Kasi Hatch III#: [id number] Performed By: #### P TH #### [address] [address] BMPon 06-23-2025 BUN/Creatinine Ratio 11.8 ratio Normal 10.0-22.0 [facility] Comment on above: Performed By: #### B MP, GFR, CBC, ADIFF, ANEU #### [place] [address] Calcium [Mass/Vol] 11.0 mg/dL High 8.7-10.4 [facility] Comment on above: Performed By: #### B MP, GFR, CBC, ADIFF, ANEU #### [place] [address] Chloride [Moles/Vol] 106 mmol/L Normal 98-110 [facility] Comment on above: Performed By: #### B MP, GFR, CBC, ADIFF, ANEU #### [place] [address] CO2 [Moles/Vol] 28 mmol/L Normal 22-32 [facility] Comment on above: Performed By: #### B MP, GFR, CBC, ADIFF, ANEU #### [place] [id number] Creatinine [Mass/Vol] 0.76 mg/dL Normal 0.50-1.20 [facility] Comment on above: Result Comment: Test ing performed on [employer] analyzer using enzymatic creatinine methodology. Performed By: #### B MP, GFR, CBC, ADIFF, ANEU #### [place] [id number] Electrolyte Balance 7.0 mEq/L Normal 4.0-15.0 [facility] Comment on above: Performed By: #### B MP, GFR, CBC, ADIFF, ANEU #### [place] [id number] Glucose [Mass/Vol] 119 mg/dL High 82-115 [facility] Comment on above: Performed By: #### B MP, GFR, CBC, ADIFF, ANEU #### [address] [address] Potassium [Moles/Vol] 4.5 mmol/L Normal 3.5-5.0 [facility] Comment on above: Performed By: #### B MP, GFR, CBC, ADIFF, ANEU #### [address] [address] Sodium [Moles/Vol] 141 mmol/L Normal 136-145 [facility] Comment on above: Performed By: #### B MP, GFR, CBC, ADIFF, ANEU #### [place] [address] Urea nitrogen [Mass/Vol] 9.0 mg/dL Normal 8.0-22.0 [facility] Comment on above: Performed By: #### B MP, GFR, CBC, ADIFF, ANEU #### [place] [address] CBCon 06-23-2025 Erythrocyte distribution width (RBC) [Ratio] 13.1 % Normal 11.5-15.5 [facility] Comment on above: Performed By: #### B MP, GFR, CBC, ADIFF, ANEU ####[place] [address] Hematocrit (Bld) [Volume fraction] 37.3 % Normal 34.0-46.0 [facility] Comment on above: Performed By: #### B MP, GFR, CBC, ADIFF, ANEU ####[place] [address] Hgb 12.4 G/dL Normal 12.0-16.0 [facility] Comment on above: Performed By: #### B MP, GFR, CBC, ADIFF, ANEU ####[place] [address] MCH (RBC) [Entitic mass] 31.9 pg Normal 27.0-33.0 [facility] Comment on above: Performed By: #### B MP, GFR, CBC, ADIFF, ANEU ####[place] [address] MCHC 33.3 G/dL Normal 32.0-36.0 [facility] Comment on above: Performed By: #### B MP, GFR, CBC, ADIFF, ANEU ####[place] [address] MCV (RBC) [Entitic vol] 95.8 fL Normal 80.0-99.0 [facility] Comment on above: Performed By: #### B MP, GFR, CBC, ADIFF, ANEU ####[place] [address] Platelet 262 10 3/mcL Normal 150-450 [facility] Comment on above: Performed By: #### B MP, GFR, CBC, ADIFF, ANEU ####[place] [address] Platelet mean volume (Bld) [Entitic vol] 7.7 fL Normal 6.6-10.5 [facility] Comment on above: Performed By: #### B MP, GFR, CBC, ADIFF, ANEU ####[place] [address] RBC 3.89 10 6/mcL Low 4.10-5.30 [facility] Comment on above: Performed By: #### B MP, GFR, CBC, ADIFF, ANEU ####[place] [address] WBC 7.0 10 3/mcL Normal 4.5-10.8 [facility] Comment on above: Performed By: #### B MP, GFR, CBC, ADIFF, ANEU ####[place] [address] CCPon 06-23-2025 Anti-CCP Ab, IgG/IgA 10 units Normal 0-19 [facility] Comment on above: Result Comment: Nega tive <20 Weak positive 20 - 39 Moderate positive 40 - 59 Strong positive >59 Performed At: [facility] [address] [place], [place] [id number] Pritesh Sidhu PhD Ph:[phone] Performed By: #### 1 [address], 639975, 688257, 263684, ENA1, 407359, 570215, 598009, 487306, ANAIFS, 102198, SPE, 710246, 251842, ESR, AMM, CRP, C3C4A, TSH, FT4, FOL, B12, THYAB, VIDH, A1C ####[place] [address] DNAon 06-23-2025 Anti-dsDNA Antibodies <1 Normal 0-9 [facility] Comment on above: Result Comment: Nega tive <5 Equivocal 5 - 9 Positive >9 Performed At: [address] [id number] Pritesh Sidhu PhD Ph:[phone] Performed By: #### P TH #### [place] [address] ENA1on 06-23-2025 Centromere <0.2 Normal <1.0 [facility] Comment on above: Result Comment: Anti -centromere antibody is used as in aid in diagnosis of systemic sclerosis. Clinical correlation is required. Test Methodology: Multiplex flow immunoassay. Performed By: [facility] [employer] [place] [address] Mild Disabilities Teacher: Keith Bennett III, M.D. CLIA#: [id number] Performed By: #### 1 [address], 781628, 801698, 565804, ENA1, 200587, 798131, 789362, 466729, ANAIFS, 180501, SPE, 538516, 400223, ESR, AMM, CRP, C3C4A, TSH, FT4, FOL, B12, THYAB, VIDH, A1C ####[place] [address] Centromere Ab Qualitative Negative Normal Negative [facility] Comment on above: Result Comment: Perf ormed By: [facility] [employer] [facility] [place] [address] Mild Disabilities Teacher: Keith Bennett III, M.D. CLIA#: [id number] Performed By: #### 1 20895, 715478, 102867, 877457, ENA1, 125673, 643008, 712026, 301289, ANAIFS, 962696, SPE, 374537, 989899, ESR, AMM, CRP, C3C4A, TSH, FT4, FOL, B12, THYAB, VIDH, A1C ####[address] [address] Chromatin Ab Qualitative Negative Normal Negative [facility] Comment on above: Result Comment: Perf ormed By: [place] [address] Mild Disabilities Teacher: Keith Bennett III, M.D. CLIA#: [id number] Performed By: #### 1 73873, 212691, 777322, 701796, ENA1, 978540, 540718, 343457, 692095, ANAIFS, 361582, SPE, 734944, 152340, ESR, AMM, CRP, C3C4A, TSH, FT4, FOL, B12, THYAB, VIDH, A1C ####[address] [address] Chromatin Antibody <0.2 Normal <1.0 [facility] Comment on above: Result Comment: Test Methodology: Multiplex flow immunoassay. Anti-chromatin antibody is used as an aid in diagnosis of systemic lupus erythematosus. Clinical correlation is required. Test Methodology: Multiplex flow immunoassay. Performed By: [facility] [address] [place] [address] Mild Disabilities Teacher: Keith Bennett III, M.D. CLIA#: [id number] Performed By: #### 1 08033, 348074, 366237, 640322, ENA1, 097189, 637510, 628671, 961705, ANAIFS, 556605, SPE, 646572, 123835, ESR, AMM, CRP, C3C4A, TSH, FT4, FOL, B12, THYAB, VIDH, A1C ####[address] [address] TWAN 1 Antibody <0.2 Normal <1.0 [facility] Comment on above: Result Comment: Perf ormed By: [facility] [address] [place] [address] Mild Disabilities Teacher: Keith Bennett III, M.D. CLIA#: [id number] Performed By: #### 1 28183, 648545, 498603, 388596, ENA1, 243189, 363630, 930040, 482164, ANAIFS, 442417, SPE, 058743, 326595, ESR, AMM, CRP, C3C4A, TSH, FT4, FOL, B12, THYAB, VIDH, A1C ####[address] [address] TWAN 1 Antibody Qual Negative Normal Negative [facility] Comment on above: Result Comment: Anti -TWAN-1 antibody is used as an aid in diagnosis of polymyositis and dermatomyositis especially with pulmonary involvement. A negative result cannot rule out polymyositis or dermatomyositis. Clinical correlation is required. Test Methodology: Multiplex flow immunoassay. Performed By: [facility] [employer] [place] [address] Mild Disabilities Teacher: Keith Bennett III, M.D. CLIA#: [id number] Performed By: #### 1 43856, 522514, 551987, 749575, ENA1, 692047, 729358, 972610, 631776, ANAIFS, 599616, SPE, 705550, 414975, ESR, AMM, CRP, C3C4A, TSH, FT4, FOL, B12, THYAB, VIDH, A1C ####[place] [id number] Ribosomal CORPORATE SECRETARY <0.2 Normal <1.0 [facility] Comment on above: Result Comment: Perf ormed By: [facility] [facility] [address] [place] [address] Mild Disabilities Teacher: Keith Bennett III, M.D. CLIA#: [id number] Performed By: #### 1 99434, 662135, 100087, 001225, ENA1, 173527, 113152, 861421, 866966, ANAIFS, 086710, SPE, 026822, 439228, ESR, AMM, CRP, C3C4A, TSH, FT4, FOL, B12, THYAB, VIDH, A1C ####[address] [address] Ribosomal CORPORATE SECRETARY Qualitative Negative Normal Negative [facility] Comment on above: Result Comment: Anti -Ribosomal RNA (Ribosomal P) antibody is used as an aid in diagnosis of systemic autoimmune diseases especially systemic lupus erythematosus and mixed connective tissue disease. Cross-reactivity with Anti-rees antibody is not uncommon. Clinical correlation is required. Test Methodology: Multiplex flow immunoassay. Performed By: [facility] [address] [place] [address] Mild Disabilities Teacher: Keith Bennett III, M.D. CLIA#: [id number] Performed By: #### 1 64210, 880701, 555261, 464639, ENA1, 369575, 282029, 733405, 947311, ANAIFS, 936303, SPE, 233481, 570890, ESR, AMM, CRP, C3C4A, TSH, FT4, FOL, B12, THYAB, VIDH, A1C ####[address] [address] CORPORATE SECRETARY Antibody <0.2 Normal <1.0 [facility] Comment on above: Result Comment: Anti -CORPORATE SECRETARY antibody is used as an aid in diagnosis of systemic autoimmune diseases especially systemic lupus erythematosus and mixed connective tissue disease. Cross-reactivity with Anti-rees antibody is not uncommon. Clinical correlation is required. Test Methodology: Multiplex flow immunoassay. Performed By: [facility] [address] [place] [address] Mild Disabilities Teacher: Keith Bennett III, M.D. CLIA#: [id number] Performed By: #### 1 50898, 257539, 666249, 062834, ENA1, 090284, 758973, 134391, 955513, ANAIFS, 519622, SPE, 546270, 270020, ESR, AMM, CRP, C3C4A, TSH, FT4, FOL, B12, THYAB, VIDH, A1C ####[address] [address] CORPORATE SECRETARY Antibody Qualitative Negative Normal Negative [facility] Comment on above: Result Comment: Perf ormed By: [facility] [facility] [address] [place] [address] Mild Disabilities Teacher: Keith Bennett III, M.D. CLIA#: [id number] Performed By: #### 1 57832, 798635, 082867, 845420, ENA1, 659711, 901999, 680265, 407298, ANAIFS, 973942, SPE, 074480, 470306, ESR, AMM, CRP, C3C4A, TSH, FT4, FOL, B12, THYAB, VIDH, A1C ####[place] [address] Scleroderma Ab, IgG Qualitative Negative Normal Negative [facility] Comment on above: Result Comment: Perf ormed By: [place] [address] Mild Disabilities Teacher: Keith Bennett III, M.D. CLIA#: [id number] Performed By: #### 1 54263, 934466, 349524, 405179, ENA1, 042257, 401865, 606335, 092629, ANAIFS, 770427, SPE, 096750, 064110, ESR, AMM, CRP, C3C4A, TSH, FT4, FOL, B12, THYAB, VIDH, A1C ####[place] [address] Scleroderma IgG Ab <0.2 Normal <1.0 [facility] Comment on above: Result Comment: Scl- 70/Scleroderma antibody test is used as an aid in diagnosis of systemic sclerosis especially the diffuse cutaneous form. A negative result cannot rule out systemic sclerosis. The final interpretation should consider clinical picture and other test results such as anti-centromere antibody. Test Methodology: Multiplex flow immunoassay. Performed By: [facility] [address] [place] [address] Mild Disabilities Teacher: Keith Bennett III, M.D. CLIA#: [id number] Performed By: #### 1 46881, 609397, 318445, 082917, ENA1, 023071, 485783, 368849, 648453, ANAIFS, 605396, SPE, 427497, 782143, ESR, AMM, CRP, C3C4A, TSH, FT4, FOL, B12, THYAB, VIDH, A1C ####[place] [address] Sm Antibody <0.2 Normal <1.0 [facility] Comment on above: Result Comment: Perf ormed By: [facility] [address] [place] [address] Mild Disabilities Teacher: Keith Bennett III, M.D. CLIA#: [id number] Performed By: #### 1 50234, 124006, 568355, 938505, ENA1, 875213, 003359, 875986, 717683, ANAIFS, 943535, SPE, 585336, 438696, ESR, AMM, CRP, C3C4A, TSH, FT4, FOL, B12, THYAB, VIDH, A1C ####[address] [address] Sm Antibody Qual Negative Normal Negative [facility] Comment on above: Result Comment: Anti -Sm (Rees) antibody is used as an aid in diagnosis of systemic lupus erythematosus and its presence is associated with renal disease. A negative result cannot rule out systemic lupus erythematosus. Clinical correlation is required. Test Methodology: Multiplex flow immunoassay. Performed By: [facility] [address] [place] [address] Mild Disabilities Teacher: Keith Bennett III, M.D. CLIA#: [id number] Performed By: #### 1 82536, 991640, 537859, 374192, ENA1, 411773, 619154, 308533, 039347, ANAIFS, 389745, SPE, 820924, 890325, ESR, AMM, CRP, C3C4A, TSH, FT4, FOL, B12, THYAB, VIDH, A1C ####[address] [address] SS-A Antibody <0.2 Normal <1.0 [facility] Comment on above: Result Comment: Test Methodology: Multiplex flow immunoassay. Anti-SSA (anti-Ro) antibody is used as an aid in diagnosis of a variety of systemic autoimmune diseases, Sjogren's syndrome among others. Clinical correlation is required. Test Methodology: Multiplex flow immunoassay. Performed By: [facility] [address] [place] [address] Mild Disabilities Teacher: Keith Bennett III, M.D. CLIA#: [id number] Performed By: #### 1 94491, 955452, 477778, 989068, ENA1, 681382, 656424, 729550, 000205, ANAIFS, 925099, SPE, 830744, 629038, ESR, AMM, CRP, C3C4A, TSH, FT4, FOL, B12, THYAB, VIDH, A1C ####[place] [id number] SS-B Antibody <0.2 Normal <1.0 [facility] Comment on above: Result Comment: Anti -SSB (anti-La) antibody is used as an aid in diagnosis of a variety of systemic autoimmune diseases, especially for Sjogren's syndrome and systemic lupus erythematosus. Clinical correlation is required. Test Methodology: Multiplex flow immunoassay. Performed By: [facility] [address] [place] [address] Mild Disabilities Teacher: Keith Bennett III, M.D. CLIA#: [id number] Performed By: #### 1 17856, 621787, 959690, 870285, ENA1, 043078, 396467, 317552, 423831, ANAIFS, 297556, SPE, 458100, 462615, ESR, AMM, CRP, C3C4A, TSH, FT4, FOL, B12, THYAB, VIDH, A1C ####[place] [address] SSA Antibody Qualitative Negative Normal Negative [facility] Comment on above: Result Comment: Perf ormed By: [facility] [address] [place] [address] Mild Disabilities Teacher: Keith Bennett III, M.D. CLIA#: [id number] Performed By: #### 1 29055, 823417, 528700, 467953, ENA1, 405932, 318232, 637854, 120991, ANAIFS, 674631, SPE, 091485, 035095, ESR, AMM, CRP, C3C4A, TSH, FT4, FOL, B12, THYAB, VIDH, A1C ####[place] [id number] SSB Antibody Qualitative Negative Normal Negative [facility] Comment on above: Result Comment: Perf ormed By: [facility] [address] [place] [address] Mild Disabilities Teacher: Keith Bennett III, M.D. CLIA#: [id number] Performed By: #### 1 79860, 480252, 302519, 806487, ENA1, 150697, 216085, 392425, 505225, ANAIFS, 649434, SPE, 192700, 654482, ESR, AMM, CRP, C3C4A, TSH, FT4, FOL, B12, THYAB, VIDH, A1C ####[place] [id number] [address] [place] [address] FT3on 06-23-2025 Free T3 [Mass/Vol] 3.51 pg/mL Normal 2.30-4.20 [facility] Comment on above: Performed By: #### F T3 ####[address] [address] LABORATORYOrdered By: Bright Aguiar on 06-23-2025 Blood Glucose Testing Reason Routine (06/23/25 8:40 PM) [facility] Work Phone: Glucose [Mass/Vol] 217 mg/dL High 82 - 115 mg/dL [facility] Work Phone: Blood Glucose Testing Reason Routine (06/23/25 4:25 PM) [facility] Work Phone: LABORATORYOrdered By: SYSTEM SYSTEM on 06-23-2025 25-hydroxyvitamin D3 [Mass/Vol] 40.4 ng/mL Invalid Interpretation Code ADM Comment on above: Interpretive Data: I nterpretive Values Based on Total 25(OH)D: Severe Deficiency <20 ng/mL Mild to Moderate Deficiency 20-30 ng/mL Optimum Levels 30-100 ng/mL Toxicity Possible >100 ng/mL Free T3 [Mass/Vol] 3.51 pg/mL Normal 2.30 - 4. 20 pg/mL ADM SS Parathyrin.intact [Mass/Vol] 75.0 pg/mL Normal 18.5 - 88.0 pg/mL ADM SS Basophils (Bld) [#/Vol] 0.1 103/mcL Normal 0.0 - 0.3 10^3/mcL Workflow SS Basophils/100 WBC (Bld) 0.9 % Normal 0.0 - 2.5 % Workflow SS Calcium [Mass/Vol] 11.0 mg/dL High 8.7 - 10. 4 mg/dL ADM SS Chloride [Moles/Vol] 106 mmol/L Normal 98 - 110 mEq/L ADM SS CO2 [Moles/Vol] 28 mmol/L Normal 22 - 32 mEq/L ADM SS Creatinine [Mass/Vol] 0.76 mg/dL Normal 0.50 - 1.20 mg/dL ADM SS Comment on above: Interpretive Data: T esting performed on [employer] analyzer using enzymatic creatinine methodology. Electrolyte Balance 7.0 mEq/L Normal 4.0 - 15 .0 mEq/L ADM SS Eosinophils (Bld) [#/Vol] 0.2 103/mcL Normal 0.0 - 0.7 10^3/mcL Workflow SS Eosinophils/100 WBC (Bld) 3.1 % Normal 0.0 - 6.0 % Workflow SS Erythrocyte distribution width (RBC) [Ratio] 13.1 % Normal 11.5 - 15.5 % Workflow SS GLOMERULAR FILTRATION RATE/1.73 SQ M.PREDICTED:ARVRAT:PT :SER/PLAS/BLD:QN:CREA TININE-BASED FORMULA (CKD-EPI 2020) 88 ml/min/1.73sqm Invalid Interpretation Code Chemistry S Comment on above: Interpretive Data: Stages of Chronic Kidney Disease (CKD) Stage Description eGFR(ml/min/1.73 sq.m.) CKD 1 Normal kidney function or >=90 normal kindney function with possible kidney damage (ex. Proteinuria) CKD 2 Kidney damage with mild loss 60-89 of kidney function CKD 3a Mild to moderate loss of kidney 45-59 function CKD 3b Moderate to severe loss of 30-44 of kindey function CKD 4 Severe loss of kidney function 15-29 CKD 5 Kidney failure <15 Note: (go live 2024) the eGFR calculation was updated to the 2020 CKD-EPI creatinine equation without a race factor to calculate the eGFR results. Glucose [Mass/Vol] 119 mg/dL High 82 - 115 mg/dL AH ADM SS Hematocrit (Bld) [Volume fraction] 37.3 % Normal 34.0 - 46.0 % AH Workflow SS Hemoglobin (Bld) [Mass/Vol] 12.4 G/dL Normal 12.0 - 16.0 G/dL AH Workflow SS Lymphocytes (Bld) [#/Vol] 2.7 103/mcL Normal 0.9 - 4.3 10^3/mcL AH Workflow SS Lymphocytes/100 WBC (Bld) 38.1 % Normal 20.0 - 40.0 % AH Workflow SS MCH (RBC) [Entitic mass] 31.9 pg Normal 27.0 - 33.0 pg AH Workflow SS MCHC 33.3 G/dL Normal 32.0 - 36.0 G/dL AH Workflow SS MCV (RBC) [Entitic vol] 95.8 fL Normal 80.0 - 99.0 fL AH Workflow SS Monocytes (Bld) [#/Vol] 0.7 103/mcL Normal 0.1 - 1.4 10^3/mcL AH Workflow SS Monocytes/100 WBC (Bld) 10.6 % Normal 2.0 - 13.0 % AH Workflow SS Neutrophils (Bld) [#/Vol] 3.3 103/mcL Normal 2.3 - 8.1 10^3/mcL AH Workflow SS Neutrophils/100 WBC (Bld) 47.3 % Low 50.0 - 75.0 % AH Workflow SS Platelet mean volume (Bld) [Entitic vol] 7.7 fL Normal 6.6 - 10.5 fL AH Workflow SS Platelets (Bld) [#/Vol] 262 103/mcL Normal 150 - 450 10^3/mcL AH Workflow SS Potassium [Moles/Vol] 4.5 mmol/L Normal 3.5 - 5.0 mEq/L AH ADM SS RBC (Bld) [#/Vol] 3.89 106/mcL Low 4.10 - 5.3 0 10^6/mcL AH Workflow SS Sodium [Moles/Vol] 141 mmol/L Normal 136 - 145 mEq/L AH ADM SS Urea nitrogen [Mass/Vol] 9.0 mg/dL Normal 8.0 - 22.0 mg/dL AH ADM SS Urea nitrogen/Creatinine [Mass ratio] 11.8 ratio Normal 10.0 - 22.0 ratio ADM SS WBC (Bld) [#/Vol] 7.0 103/mcL Normal 4.5 - 10.8 10^3/mcL AH Workflow SS MITOon 06-23-2025 Mitochondrial (M2) Antibody <20.0 Normal 0.0-20.0 [facility] Comment on above: Result Comment: Nega tive 0.0 - 20.0 Equivocal 20.1 - 24.9 Positive >24.9 Mitochondrial (M2) Antibodies are found in 90-96% of patients with primary biliary cirrhosis. Performed At: [facility] [id number] Pritesh Sidhu PhD Ph:[phone] Performed By: #### P TH #### [place] [address] MRI SPINE CERVICAL W/ + W/O CONTRASTon 06-23-2025 MRI SPINE CERVICAL W/ + W/O CONTRAST ORIGINAL EXAMINATION: MRI OF THE CERVICAL SPINE WITHOUT AND WITH CONTRAST 06/23/2025 3:34 pm HISTORY: ORDERING SYSTEM PROVIDED HISTORY: Reason for Exam: GAIT INSTABILITY TECHNIQUE: Multiplanar multisequence MRI of the cervical spine was performed without and with the administration of intravenous contrast. COMPARISON: X-ray cervical spine 06/14/2006 FINDINGS: Motion artifact limits evaluation. Alignment: No acute malalignment. Mild anterolisthesis of C7 on T1 vertebra likely on a degenerative basis. Vertebrae: No fracture, vertebral body height loss, or destructive bone lesion. ACDF changes at C6-C7 vertebral body with osseous fusion. Spinal cord: No abnormal cord signal intensity. No abnormal intramedullary or leptomeningeal enhancement. Limited assessment due to motion artifact. C2-C3: The central canal and foramina are adequately patent. C3-C4: The central canal and foramina are adequately patent. C4-C5: Diffuse disc bulge, facet arthropathy and uncovertebral hypertrophy causing moderate left foraminal stenosis and mild canal stenosis. No severe right foraminal stenosis. C5-C6 : Diffuse disc bulge, uncovertebral hypertrophy and facet arthropathy with effacement of ventral thecal sac and mild canal stenosis. No severe foraminal stenosis. C6-C7: The central canal and foramina are adequately patent. C7-T1 : Diffuse disc bulge, uncovertebral hypertrophy and facet arthropathy. No severe canal or foraminal stenosis Paraspinal soft tissues: Normal. Visualized posterior fossa: Normal. Visualized neck: Normal. IMPRESSION: Multilevel degenerative changes with up to mild canal stenosis and moderate left foraminal stenosis at C4-C5 level. No abnormal cord signal intensity, intramedullary or leptomeningeal enhancement. I have personally reviewed the images of this examination and agree with the resident's findings and interpretation. Interpreted by: Nena Landaverde MD Preliminary Report By: Arnoldo Levin Electronically signed By Nena Landaverde MD Dictated Date: 06/23/2025 4:02:40 PM Prelim Date: 06/23/2025 4:50:33 PM Sign Date: 06/23/2025 4:50:33 PM Ordering Provider[facility] Antiparietal Cell Antibody 1.8 units Normal 0.0-20.0 [facility] Comment on above: Result Comment: Nega tive 0.0 - 20.0 Equivocal 20.1 - 24.9 Positive >24.9 Parietal Cell Antibodies are found in 90% of patients with pernicious anemia and 30% of first degree relatives with pernicious anemia. Performed At: [facility] [address] [id number] Pritesh Sidhu PhD Ph:[phone] Performed By: #### 1 79554, 375925, 772233, 703380, ENA1, 825096, 276321, 843173, 412466, ANAIFS, 649382, SPE, 573609, 916505, ESR, AMM, CRP, C3C4A, TSH, FT4, FOL, B12, THYAB, VIDH, A1C ####[address] [address] PTHon 06-23-2025 PTH, Intact 75.0 pg/mL Normal 18.5-88.0 [facility] Comment on above: Performed By: #### P TH #### [address] [address] RFon 06-23-2025 Rheumatoid Factor (RF) <10.0 Normal <14.0 [facility] Comment on above: Result Comment: Perf ormed At: [facility] [address] [id number] Pritesh Sidhu PhD Ph:[phone] Performed By: #### 1 07107, 857900, 379537, 473561, ENA1, 339962, 946055, 909289, 959272, ANAIFS, 557449, SPE, 041358, 921512, ESR, AMM, CRP, C3C4A, TSH, FT4, FOL, B12, THYAB, VIDH, A1C ####[place] [id number] RIBABon 06-23-2025 Antiribosomal P Abs <0.2 Normal 0.0-0.9 [facility] Comment on above: Result Comment: Perf ormed At: [address] [id number] Pritesh Sidhu PhD Ph:[phone] Performed By: #### P TH #### [place] [address] RPRon 06-23-2025 Reagin Ab RPR Ql (S) Non-Reactive Normal Non-Reactive [facility] Comment on above: Order Comment: add o n lab Result Comment: The RPR test is a non-treponemal assay useful as an aid in the diagnosis of primary and secondary syphilis. It converts to positive generally within 2 weeks after the appearance of a lesion. This test is also useful for monitoring response to antibiotic therapy. False positive RPR tests may occur in 1) patients with underlying autoimmune disorders, 2) elderly patients, 3) , and 4) other conditions with abnormal serum globulins. Performed By: #### C BC, ADIFF, ANEU, BMP, GFR #### [place] [id number] SMUSCon 06-23-2025 Actin (Smooth Muscle) Antibody 8 units Normal 0-19 [facility] Comment on above: Result Comment: Nega tive 0 - 19 Weak positive 20 - 30 Moderate to strong positive >30 Actin Antibodies are found in 52-85% of patients with autoimmune hepatitis or chronic active hepatitis and in 22% of patients with primary biliary cirrhosis. Performed At: [address] [id number] Prtiesh Sidhu PhD Ph:[phone] Performed By: #### P TH #### [address] [address] VIDHon 06-23-2025 Vit. D 25-Hydroxy 40.4 ng/mL Normal [facility] Comment on above: Result Comment: Inte rpretive Values Based on Total 25(OH)D: Severe Deficiency <20 ng/mL Mild to Moderate Deficiency 20-30 ng/mL Optimum Levels 30-100 ng/mL Toxicity Possible >100 ng/mL Performed By: #### C BC, ADIFF, ANEU, BMP, GFR #### [address] [address] .Auto Diffon 06-22-2025 Basophil, Absolute 0.0 10 3/mcL Normal 0.0-0.3 [facility] Comment on above: Performed By: #### C BC, ADIFF, ANEU, BMP, GFR #### [address] [address] Basophils/100 WBC (Bld) 0.7 % Normal 0.0-2.5 [facility] Comment on above: Performed By: #### C BC, ADIFF, ANEU, BMP, GFR #### [address] [address] Eosinophil, Absolute 0.2 10 3/mcL Normal 0.0-0.7 [facility] Comment on above: Performed By: #### C BC, ADIFF, ANEU, BMP, GFR #### [address] [address] Eosinophils/100 WBC (Bld) 3.2 % Normal 0.0-6.0 [facility] Comment on above: Performed By: #### C BC, ADIFF, ANEU, BMP, GFR #### [address] [address] Lymphocyte, Absolute 2.7 10 3/mcL Normal 0.9-4.3 [facility] Comment on above: Performed By: #### C BC, ADIFF, ANEU, BMP, GFR #### [address] [address] Lymphocytes/100 WBC (Bld) 41.4 % High 20.0-40.0 [facility] Comment on above: Performed By: #### C BC, ADIFF, ANEU, BMP, GFR #### [address] [address] Monocyte, Absolute 0.7 10 3/mcL Normal 0.1-1.4 [facility] Comment on above: Performed By: #### C BC, ADIFF, ANEU, BMP, GFR #### [address] [address] Monocytes/100 WBC (Bld) 10.2 % Normal 2.0-13.0 [facility] Comment on above: Performed By: #### C BC, ADIFF, ANEU, BMP, GFR #### [address] [address] Neutrophils/100 WBC (Bld) 44.5 % Low 50.0-75.0 [facility] Comment on above: Performed By: #### C BC, ADIFF, ANEU, BMP, GFR #### [place] [address] .GFRon 06-22-2025 Estimated Glomerular Filtration Rate 95 ml/min/1.73sqm Normal [facility] Comment on above: Result Comment: Stages of Chronic Kidney Disease (CKD) Stage Description eGFR(ml/min/1.73 sq.m.) CKD 1 Normal kidney function or >=90 normal kindney function with possible kidney damage (ex. Proteinuria) CKD 2 Kidney damage with mild loss 60-89 of kidney function CKD 3a Mild to moderate loss of kidney 45-59 function CKD 3b Moderate to severe loss of 30-44 of kindey function CKD 4 Severe loss of kidney function 15-29 CKD 5 Kidney failure <15 Note: (go live 2024) the eGFR calculation was updated to the 2020 CKD-EPI creatinine equation without a race factor to calculate the eGFR results. Performed By: #### C BC, ADIFF, ANEU, BMP, GFR #### [address] [address] .NEUABSon 06-22-2025 Neutrophil, Absolute 2.9 10 3/mcL Normal 2.3-8.1 [facility] Comment on above: Performed By: #### C BC, ADIFF, ANEU, BMP, GFR #### [place] [address] CBCon 06-22-2025 Erythrocyte distribution width (RBC) [Ratio] 13.4 % Normal 11.5-15.5 [facility] Comment on above: Performed By: #### C BC, ADIFF, ANEU, BMP, GFR #### [place] [address] Hematocrit (Bld) [Volume fraction] 37.4 % Normal 34.0-46.0 [facility] Comment on above: Performed By: #### C BC, ADIFF, ANEU, BMP, GFR #### [place] [address] Hgb 12.4 G/dL Normal 12.0-16.0 [facility] Comment on above: Performed By: #### C BC, ADIFF, ANEU, BMP, GFR #### [place] [address] MCH (RBC) [Entitic mass] 31.5 pg Normal 27.0-33.0 [facility] Comment on above: Performed By: #### C BC, ADIFF, ANEU, BMP, GFR #### [place] [address] MCHC 33.1 G/dL Normal 32.0-36.0 [facility] Comment on above: Performed By: #### C BC, ADIFF, ANEU, BMP, GFR #### [place] [address] MCV (RBC) [Entitic vol] 95.3 fL Normal 80.0-99.0 [facility] Comment on above: Performed By: #### C BC, ADIFF, ANEU, BMP, GFR #### [place] [address] Platelet 246 10 3/mcL Normal 150-450 [facility] Comment on above: Performed By: #### C BC, ADIFF, ANEU, BMP, GFR #### [place] [address] Platelet mean volume (Bld) [Entitic vol] 7.7 fL Normal 6.6-10.5 [facility] Comment on above: Performed By: #### C BC, ADIFF, ANEU, BMP, GFR #### [address] [address] RBC 3.92 10 6/mcL Low 4.10-5.30 [facility] Comment on above: Performed By: #### C BC, ADIFF, ANEU, BMP, GFR #### [place] [address] WBC 6.4 10 3/mcL Normal 4.5-10.8 [facility] Comment on above: Performed By: #### C BC, ADIFF, ANEU, BMP, GFR #### [address] [address] CMPon 06-22-2025 Albumin Level 3.5 G/dL Normal 3.2-4.8 [facility] Comment on above: Performed By: #### C BC, ADIFF, ANEU, BMP, GFR #### [place] [address] Albumin/Globulin [Mass ratio] 1.2 {ratio} Normal 0.9-1.6 [facility] Comment on above: Performed By: #### C BC, ADIFF, ANEU, BMP, GFR #### [address] [address] ALP [Catalytic activity/Vol] 75 U/L Normal 38-126 [facility] Comment on above: Performed By: #### C BC, ADIFF, ANEU, BMP, GFR #### [address] [address] ALT [Catalytic activity/Vol] 14 U/L Normal 10-49 [facility] Comment on above: Performed By: #### C BC, ADIFF, ANEU, BMP, GFR #### [place] [id number] AST [Catalytic activity/Vol] 17 U/L Normal 8-34 [facility] Comment on above: Performed By: #### C BC, ADIFF, ANEU, BMP, GFR #### [place] [id number] Bili Total 1.70 mg/dL High 0.20-1.20 [facility] Comment on above: Result Comment: Use of this assay is not recommended for patients undergoing treatment with eltrombopag due to the potential for falsely elevated results. Performed By: #### C BC, ADIFF, ANEU, BMP, GFR #### [place] [id number] BUN/Creatinine Ratio 14.1 ratio Normal 10.0-22.0 [facility] Comment on above: Performed By: #### C BC, ADIFF, ANEU, BMP, GFR #### [place] [id number] Calcium [Mass/Vol] 10.5 mg/dL High 8.7-10.4 [facility] Comment on above: Performed By: #### C BC, ADIFF, ANEU, BMP, GFR #### [place] [id number] Chloride [Moles/Vol] 107 mmol/L Normal 98-110 [facility] Comment on above: Performed By: #### C BC, ADIFF, ANEU, BMP, GFR #### [place] [id number] CO2 [Moles/Vol] 27 mmol/L Normal 22-32 [facility] Comment on above: Performed By: #### C BC, ADIFF, ANEU, BMP, GFR #### [place] [id number] Creatinine [Mass/Vol] 0.71 mg/dL Normal 0.50-1.20 [facility] Comment on above: Result Comment: Test ing performed on [employer] analyzer using enzymatic creatinine methodology. Performed By: #### C BC, ADIFF, ANEU, BMP, GFR #### [place] [id number] Electrolyte Balance 6.0 mEq/L Normal 4.0-15.0 [facility] Comment on above: Performed By: #### C BC, ADIFF, ANEU, BMP, GFR #### [place] [id number] Globulin 3.0 G/dL Normal 2.5-4.2 [facility] Comment on above: Performed By: #### C BC, ADIFF, ANEU, BMP, GFR #### [address] [address] Glucose [Mass/Vol] 117 mg/dL High 82-115 [facility] Comment on above: Performed By: #### C BC, ADIFF, ANEU, BMP, GFR #### [address] [address] Potassium [Moles/Vol] 3.9 mmol/L Normal 3.5-5.0 [facility] Comment on above: Performed By: #### C BC, ADIFF, ANEU, BMP, GFR #### [address] [address] Sodium [Moles/Vol] 140 mmol/L Normal 136-145 [facility] Comment on above: Performed By: #### C BC, ADIFF, ANEU, BMP, GFR #### [address] [address] Total Protein 6.5 G/dL Normal 5.7-8.2 [facility] Comment on above: Performed By: #### C BC, ADIFF, ANEU, BMP, GFR #### [address] [address] Urea nitrogen [Mass/Vol] 10.0 mg/dL Normal 8.0-22.0 [facility] Comment on above: Performed By: #### C BC, ADIFF, ANEU, BMP, GFR #### [address] [address] LABORATORYOrdered By: SYSTEM SYSTEM on 06-22-2025 Albumin BCP dye [Mass/Vol] 3.5 G/dL Normal 3.2 - 4.8 G/dL ADM SS Albumin/Globulin [Mass ratio] 1.2 {ratio} Normal 0.9 - 1.6 ratio ADM SS ALP [Catalytic activity/Vol] 75 U/L Normal 38 - 126 U/L ADM SS ALT No additional P-5'-P [Catalytic activity/Vol] 14 U/L Normal 10 - 49 U/L ADM SS AST [Catalytic activity/Vol] 17 U/L Normal 8 - 34 U/L ADM SS Basophils (Bld) [#/Vol] 0.0 103/mcL Normal 0.0 - 0.3 10^3/mcL Workflow SS Basophils/100 WBC (Bld) 0.7 % Normal 0.0 - 2.5 % Workflow SS Bilirubin [Mass/Vol] 1.70 mg/dL High 0.20 - 1.20 mg/dL ADM SS Comment on above: Interpretive Data: U se of this assay is not recommended for patients undergoing treatment with eltrombopag due to the potential for falsely elevated results. Calcium [Mass/Vol] 10.5 mg/dL High 8.7 - 10. 4 mg/dL ADM SS Chloride [Moles/Vol] 107 mmol/L Normal 98 - 110 mEq/L ADM SS CO2 [Moles/Vol] 27 mmol/L Normal 22 - 32 mEq/L ADM SS Creatinine [Mass/Vol] 0.71 mg/dL Normal 0.50 - 1.20 mg/dL ADM Comment on above: Interpretive Data: T esting performed on [employer] analyzer using enzymatic creatinine methodology. Electrolyte Balance 6.0 mEq/L Normal 4.0 - 15 .0 mEq/L ADM SS Eosinophils (Bld) [#/Vol] 0.2 103/mcL Normal 0.0 - 0.7 10^3/mcL Workflow SS Eosinophils/100 WBC (Bld) 3.2 % Normal 0.0 - 6.0 % Workflow SS Erythrocyte distribution width (RBC) [Ratio] 13.4 % Normal 11.5 - 15.5 % Workflow Globulin 3.0 G/dL Normal 2.5 - 4.2 G/dL ADM SS GLOMERULAR FILTRATION RATE/1.73 SQ M.PREDICTED:ARVRAT:PT :SER/PLAS/BLD:QN:CREA TININE-BASED FORMULA (CKD-EPI 2020) 95 ml/min/1.73sqm Invalid Interpretation Code Chemistry S Comment on above: Interpretive Data: Stages of Chronic Kidney Disease (CKD) Stage Description eGFR(ml/min/1.73 sq.m.) CKD 1 Normal kidney function or >=90 normal kindney function with possible kidney damage (ex. Proteinuria) CKD 2 Kidney damage with mild loss 60-89 of kidney function CKD 3a Mild to moderate loss of kidney 45-59 function CKD 3b Moderate to severe loss of 30-44 of kindey function CKD 4 Severe loss of kidney function 15-29 CKD 5 Kidney failure <15 Note: (go live 2024) the eGFR calculation was updated to the 2020 CKD-EPI creatinine equation without a race factor to calculate the eGFR results. Glucose [Mass/Vol] 117 mg/dL High 82 - 115 mg/dL AH ADM SS Hematocrit (Bld) [Volume fraction] 37.4 % Normal 34.0 - 46.0 % AH Workflow SS Hemoglobin (Bld) [Mass/Vol] 12.4 G/dL Normal 12.0 - 16.0 G/dL AH Workflow SS Lymphocytes (Bld) [#/Vol] 2.7 103/mcL Normal 0.9 - 4.3 10^3/mcL AH Workflow SS Lymphocytes/100 WBC (Bld) 41.4 % High 20.0 - 40.0 % AH Workflow SS MCH (RBC) [Entitic mass] 31.5 pg Normal 27.0 - 33.0 pg AH Workflow SS MCHC 33.1 G/dL Normal 32.0 - 36.0 G/dL AH Workflow SS MCV (RBC) [Entitic vol] 95.3 fL Normal 80.0 - 99.0 fL AH Workflow SS Monocytes (Bld) [#/Vol] 0.7 103/mcL Normal 0.1 - 1.4 10^3/mcL AH Workflow SS Monocytes/100 WBC (Bld) 10.2 % Normal 2.0 - 13.0 % AH Workflow SS Neutrophils (Bld) [#/Vol] 2.9 103/mcL Normal 2.3 - 8.1 10^3/mcL AH Workflow SS Neutrophils/100 WBC (Bld) 44.5 % Low 50.0 - 75.0 % AH Workflow SS Platelet mean volume (Bld) [Entitic vol] 7.7 fL Normal 6.6 - 10.5 fL AH Workflow SS Platelets (Bld) [#/Vol] 246 103/mcL Normal 150 - 450 10^3/mcL AH Workflow SS Potassium [Moles/Vol] 3.9 mmol/L Normal 3.5 - 5.0 mEq/L AH ADM SS Protein [Mass/Vol] 6.5 G/dL Normal 5.7 - 8.2 G/dL AH ADM SS RBC (Bld) [#/Vol] 3.92 106/mcL Low 4.10 - 5.3 0 10^6/mcL AH Workflow SS Sodium [Moles/Vol] 140 mmol/L Normal 136 - 145 mEq/L AH ADM SS Urea nitrogen [Mass/Vol] 10.0 mg/dL Normal 8.0 - 22.0 mg/dL ADM SS Urea nitrogen/Creatinine [Mass ratio] 14.1 ratio Normal 10.0 - 22.0 ratio AH ADM SS WBC (Bld) [#/Vol] 6.4 103/mcL Normal 4.5 - 10.8 10^3/mcL Workflow SS .Auto Diffon 06-21-2025 Basophil, Absolute 0.0 10 3/mcL Normal 0.0-0.3 [facility] Comment on above: Performed By: #### C BC, ADIFF, ANEU, BMP, GFR #### [address] [address] Basophils/100 WBC (Bld) 0.6 % Normal 0.0-2.5 [facility] Comment on above: Performed By: #### C BC, ADIFF, ANEU, BMP, GFR #### [address] [address] Eosinophil, Absolute 0.2 10 3/mcL Normal 0.0-0.7 [facility] Comment on above: Performed By: #### C BC, ADIFF, ANEU, BMP, GFR #### [address] [address] Eosinophils/100 WBC (Bld) 2.3 % Normal 0.0-6.0 [facility] Comment on above: Performed By: #### C BC, ADIFF, ANEU, BMP, GFR #### [address] [address] Lymphocyte, Absolute 2.6 10 3/mcL Normal 0.9-4.3 [facility] Comment on above: Performed By: #### C BC, ADIFF, ANEU, BMP, GFR #### [address] [address] Lymphocytes/100 WBC (Bld) 36.8 % Normal 20.0-40.0 [facility] Comment on above: Performed By: #### C BC, ADIFF, ANEU, BMP, GFR #### [address] [address] Monocyte, Absolute 0.7 10 3/mcL Normal 0.1-1.4 [facility] Comment on above: Performed By: #### C BC, ADIFF, ANEU, BMP, GFR #### [address] [address] Monocytes/100 WBC (Bld) 9.5 % Normal 2.0-13.0 [facility] Comment on above: Performed By: #### C BC, ADIFF, ANEU, BMP, GFR #### [address] [address] Neutrophils/100 WBC (Bld) 50.8 % Normal 50.0-75.0 [facility] Comment on above: Performed By: #### C BC, ADIFF, ANEU, BMP, GFR #### [place] [address] .GFRon 06-21-2025 Estimated Glomerular Filtration Rate 91 ml/min/1.73sqm Normal [facility] Comment on above: Result Comment: Stages of Chronic Kidney Disease (CKD) Stage Description eGFR(ml/min/1.73 sq.m.) CKD 1 Normal kidney function or >=90 normal kindney function with possible kidney damage (ex. Proteinuria) CKD 2 Kidney damage with mild loss 60-89 of kidney function CKD 3a Mild to moderate loss of kidney 45-59 function CKD 3b Moderate to severe loss of 30-44 of kindey function CKD 4 Severe loss of kidney function 15-29 CKD 5 Kidney failure <15 Note: (go live 2024) the eGFR calculation was updated to the 2020 CKD-EPI creatinine equation without a race factor to calculate the eGFR results. Performed By: #### C BC, ADIFF, ANEU, BMP, GFR #### [address] [address] .NEUABSon 06-21-2025 Neutrophil, Absolute 3.6 10 3/mcL Normal 2.3-8.1 [facility] Comment on above: Performed By: #### C BC, ADIFF, ANEU, BMP, GFR #### [address] [address] Dilshad 06-21-2025 Ammonia 15 mcmol/l Normal 11-32 [facility] Comment on above: Performed By: #### C BC, ADIFF, ANEU, BMP, GFR #### [address] [address] CBCon 06-21-2025 Erythrocyte distribution width (RBC) [Ratio] 13.3 % Normal 11.5-15.5 [facility] Comment on above: Performed By: #### C BC, ADIFF, ANEU, BMP, GFR #### [place] [address] Hematocrit (Bld) [Volume fraction] 37.0 % Normal 34.0-46.0 [facility] Comment on above: Performed By: #### C BC, ADIFF, ANEU, BMP, GFR #### [place] [address] Hgb 12.5 G/dL Normal 12.0-16.0 [facility] Comment on above: Performed By: #### C BC, ADIFF, ANEU, BMP, GFR #### [place] [address] MCH (RBC) [Entitic mass] 32.4 pg Normal 27.0-33.0 [facility] Comment on above: Performed By: #### C BC, ADIFF, ANEU, BMP, GFR #### [place] [address] MCHC 33.9 G/dL Normal 32.0-36.0 [facility] Comment on above: Performed By: #### C BC, ADIFF, ANEU, BMP, GFR #### [place] [address] MCV (RBC) [Entitic vol] 95.5 fL Normal 80.0-99.0 [facility] Comment on above: Performed By: #### C BC, ADIFF, ANEU, BMP, GFR #### [place] [address] Platelet 251 10 3/mcL Normal 150-450 [facility] Comment on above: Performed By: #### C BC, ADIFF, ANEU, BMP, GFR #### [place] [address] Platelet mean volume (Bld) [Entitic vol] 7.6 fL Normal 6.6-10.5 [facility] Comment on above: Performed By: #### C BC, ADIFF, ANEU, BMP, GFR #### [place] [address] RBC 3.87 10 6/mcL Low 4.10-5.30 [facility] Comment on above: Performed By: #### C BC, ADIFF, ANEU, BMP, GFR #### [place] [address] WBC 7.2 10 3/mcL Normal 4.5-10.8 [facility] Comment on above: Performed By: #### C BC, ADIFF, ANEU, BMP, GFR #### [place] [address] CMPon 06-21-2025 Albumin Level 3.6 G/dL Normal 3.2-4.8 [facility] Comment on above: Performed By: #### C BC, ADIFF, ANEU, BMP, GFR #### [place] [address] Albumin/Globulin [Mass ratio] 1.2 {ratio} Normal 0.9-1.6 [facility] Comment on above: Performed By: #### C BC, ADIFF, ANEU, BMP, GFR #### [place] [address] ALP [Catalytic activity/Vol] 74 U/L Normal 38-126 [facility] Comment on above: Performed By: #### C BC, ADIFF, ANEU, BMP, GFR #### [place] [address] ALT [Catalytic activity/Vol] 14 U/L Normal 10-49 [facility] Comment on above: Performed By: #### C BC, ADIFF, ANEU, BMP, GFR #### [place] [id number] AST [Catalytic activity/Vol] 16 U/L Normal 8-34 [facility] Comment on above: Performed By: #### C BC, ADIFF, ANEU, BMP, GFR #### [address] [address] Bili Total 1.80 mg/dL High 0.20-1.20 [facility] Comment on above: Result Comment: Use of this assay is not recommended for patients undergoing treatment with eltrombopag due to the potential for falsely elevated results. Performed By: #### C BC, ADIFF, ANEU, BMP, GFR #### [address] [address] BUN/Creatinine Ratio 9.5 ratio Low 10.0-22.0 [facility] Comment on above: Performed By: #### C BC, ADIFF, ANEU, BMP, GFR #### [address] [address] Calcium [Mass/Vol] 11.0 mg/dL High 8.7-10.4 [facility] Comment on above: Performed By: #### C BC, ADIFF, ANEU, BMP, GFR #### [address] [address] Chloride [Moles/Vol] 106 mmol/L Normal 98-110 [facility] Comment on above: Performed By: #### C BC, ADIFF, ANEU, BMP, GFR #### [address] [address] CO2 [Moles/Vol] 27 mmol/L Normal 22-32 [facility] Comment on above: Performed By: #### C BC, ADIFF, ANEU, BMP, GFR #### [address] [address] Creatinine [Mass/Vol] 0.74 mg/dL Normal 0.50-1.20 [facility] Comment on above: Result Comment: Test ing performed on CloudHelix analyzer using enzymatic creatinine methodology. Performed By: #### C BC, ADIFF, ANEU, BMP, GFR #### [address] [address] Electrolyte Balance 6.0 mEq/L Normal 4.0-15.0 [facility] Comment on above: Performed By: #### C BC, ADIFF, ANEU, BMP, GFR #### [address] [address] Globulin 2.9 G/dL Normal 2.5-4.2 [facility] Comment on above: Performed By: #### C BC, ADIFF, ANEU, BMP, GFR #### [address] [address] Glucose [Mass/Vol] 127 mg/dL High 82-115 [facility] Comment on above: Performed By: #### C BC, ADIFF, ANEU, BMP, GFR #### [address] [address] Potassium [Moles/Vol] 4.0 mmol/L Normal 3.5-5.0 [facility] Comment on above: Performed By: #### C BC, ADIFF, ANEU, BMP, GFR #### [address] [address] Sodium [Moles/Vol] 139 mmol/L Normal 136-145 [facility] Comment on above: Performed By: #### C BC, ADIFF, ANEU, BMP, GFR #### [address] [address] Total Protein 6.5 G/dL Normal 5.7-8.2 [facility] Comment on above: Performed By: #### C BC, ADIFF, ANEU, BMP, GFR #### [address] [address] Urea nitrogen [Mass/Vol] 7.0 mg/dL Low 8.0-22.0 [facility] Comment on above: Performed By: #### C BC, ADIFF, ANEU, BMP, GFR #### [address] [address] LABORATORYOrdered By: SYSTEM SYSTEM on 06-21-2025 Albumin BCP dye [Mass/Vol] 3.6 G/dL Normal 3.2 - 4.8 G/dL ADM SS Albumin/Globulin [Mass ratio] 1.2 {ratio} Normal 0.9 - 1.6 ratio ADM SS ALP [Catalytic activity/Vol] 74 U/L Normal 38 - 126 U/L AH ADM SS ALT No additional P-5'-P [Catalytic activity/Vol] 14 U/L Normal 10 - 49 U/L AH ADM SS Ammonia (P) [Moles/Vol] 15 umol/L Normal 11 - 32 mcmol/L AH ADM SS AST [Catalytic activity/Vol] 16 U/L Normal 8 - 34 U/L AH ADM SS Bilirubin [Mass/Vol] 1.80 mg/dL High 0.20 - 1.20 mg/dL AH ADM SS Comment on above: Interpretive Data: U se of this assay is not recommended for patients undergoing treatment with eltrombopag due to the potential for falsely elevated results. Globulin 2.9 G/dL Normal 2.5 - 4.2 G/dL AH ADM SS Protein [Mass/Vol] 6.5 G/dL Normal 5.7 - 8.2 G/dL ADM SS MRI BRAIN W/ + W/O CONTRASTo n 06-21-2025 MRI BRAIN W/ + W/O CONTRAST ORIGINAL EXAMINATION: MRI OF THE BRAIN WITHOUT AND WITH CONTRAST 06/21/2025 11:39 am TECHNIQUE: Multiplanar multisequence MRI of the head/brain was performed without and with the administration of intravenous contrast. COMPARISON: 06/16/2025 HISTORY: ORDERING SYSTEM PROVIDED HISTORY: Reason for Exam: Demyelinating disease ; Multiple sclerosis (MS) FINDINGS: Foci of T2 prolongation are seen in the periventricular/peric allosal white matter. Lesion near the right side of the anterior corpus callosum is similar to the prior study. No definite new areas of T2 prolongation visible. Restricted diffusions seen. Ventricular caliber is normal. No enhancing lesions visible. No mass effect or midline shift. Flow voids appear patent. No significant fluid seen in the sinuses or mastoids. No gross abnormality seen of the orbits. IMPRESSION: No change in the callosal/pericallosal white matter disease, presumably related to the known demyelinating disorder. No enhancing lesions. Interpreted by: Kin Garcia MD Preliminary Report By: Kin Garcia MD Electronically signed By Kin Garcia MD Dictated Date: 06/21/2025 11:59:02 AM Prelim Date: 06/21/2025 12:07:11 PM Sign Date: 06/21/2025 12:07:11 PM Ordering Provider: ELVIS NEGRON RP Normal [facility] US ABDOMEN/ELASTOGRAPHY/DOPP LER ABDOMENon 06-21-2025 US ABDOMEN/ELASTOGRAPHY/ DOPPLER ABDOMEN ORIGINAL EXAMINATION: Exam Title:US ELASTOGRAPHY Completed Time: 06/21/2025 8:30 am Procedure Description:US ELASTOGRAPHY RAC COMPARISON: No direct comparison available HISTORY: ORDERING SYSTEM PROVIDED HISTORY: Reason for Exam: Possible hepatic encephalopathy TECHNIQUE: Real-time grayscale, color, and color imaging ultrasound was performed. Standard random multi segment B mode hepatic measurements obtained. Permanently stored images reviewed. FINDINGS: Cholecystectomy. Portions of liver obscured. Included portions liver demonstrate moderate hyperechoic granular echogenicity. Hepatic color flow demonstrated. Hepatopetal portal vein flow. Common bile duct measures 6.2 mm. Pancreas mostly obscured. Included portions aorta normal in caliber. Spleen normal in size. Mild bilateral renal cortical thinning. No hydronephrosis. Renal color flow demonstrated. No free fluid. ELASTOGRAPHY: Median Velocity : 1.68 m/s IQR: 0.14 m/s IQR/median ratio: 0.08 (ratio should be ? 0.3 for kPa and ? 0.15 for m/s suggestive of a quality data set) Additional information: In the setting of elevated liver function tests, nonfasting, congestive heart failure, etc., the degree of liver fibrosis may be over-estimated. IMPRESSION: [] 1. Fatty replacement of liver by grayscale imaging. Hepatic median velocity quantification felt to correlate with normal to mild risk of clinically significant liver fibrosis. ~40% probability Metavir stage F1 by elastography. 2. Limited assessment pancreas and portions of liver. Reference: 1.35-1.66 m/sec (5.48 kPa - 8.29 kPa) normal to mild risk of clinically significant liver fibrosis. ~40% probability Metavir stage F1 by elastography. 1.66-1.77 m/sec (kP 8.29 a-k 9.40 Pa) mild to moderate risk of clinically significant liver fibrosis. ~30% probability Metavir stage F2 by elastography. 1.77-1.99 m/sec (9.4 kPa-11.9 kPa) moderate to severe risk of clinically significant liver fibrosis. ~40% probability Metavir stage F3 by elastography. >1.99 m/sec (11.9 kPa) advanced fibrosis and/or cirrhosis. >90% probability Metavir stage F4 by elastography. RSNA vol 276, No 3 Elastography Assessment of Liver Fibrosis: Society of Radiologists in Ultrasound Consensus Conference 2015. Interpreted by: Gil Beaver DO Preliminary Report By: Gil Beaver DO Electronically signed By Gil Beaver DO Dictated Date: 06/21/2025 8:55:49 AM Prelim Date: 06/21/2025 8:58:29 AM Sign Date: 06/21/2025 8:58:29 AM Ordering Provider: KAREN NOWAK RP Normal [facility] .Auto Diffon 06-20-2025 Basophil, Absolute 0.1 10 3/mcL Normal 0.0-0.3 [facility] Comment on above: Performed By: #### C BC, ADIFF, ANEU, BMP, GFR #### [address] [address] Basophils/100 WBC (Bld) 1.0 % Normal 0.0-2.5 [facility] Comment on above: Performed By: #### C BC, ADIFF, ANEU, BMP, GFR #### [address] [address] Eosinophil, Absolute 0.2 10 3/mcL Normal 0.0-0.7 [facility] Comment on above: Performed By: #### C BC, ADIFF, ANEU, BMP, GFR #### [address] [address] Eosinophils/100 WBC (Bld) 2.2 % Normal 0.0-6.0 [facility] Comment on above: Performed By: #### C BC, ADIFF, ANEU, BMP, GFR #### [address] [address] Lymphocyte, Absolute 2.9 10 3/mcL Normal 0.9-4.3 [facility] Comment on above: Performed By: #### C BC, ADIFF, ANEU, BMP, GFR #### [address] [address] Lymphocytes/100 WBC (Bld) 41.1 % High 20.0-40.0 [facility] Comment on above: Performed By: #### C BC, ADIFF, ANEU, BMP, GFR #### [address] [address] Monocyte, Absolute 0.7 10 3/mcL Normal 0.1-1.4 [facility] Comment on above: Performed By: #### C BC, ADIFF, ANEU, BMP, GFR #### [address] [address] Monocytes/100 WBC (Bld) 9.7 % Normal 2.0-13.0 [facility] Comment on above: Performed By: #### C BC, ADIFF, ANEU, BMP, GFR #### [address] [address] Neutrophils/100 WBC (Bld) 46.0 % Low 50.0-75.0 [facility] Comment on above: Performed By: #### C BC, ADIFF, ANEU, BMP, GFR #### [address] [address] .GFRon 06-20-2025 Estimated Glomerular Filtration Rate 89 ml/min/1.73sqm Normal [facility] Comment on above: Result Comment: Stages of Chronic Kidney Disease (CKD) Stage Description eGFR(ml/min/1.73 sq.m.) CKD 1 Normal kidney function or >=90 normal kindney function with possible kidney damage (ex. Proteinuria) CKD 2 Kidney damage with mild loss 60-89 of kidney function CKD 3a Mild to moderate loss of kidney 45-59 function CKD 3b Moderate to severe loss of 30-44 of kindey function CKD 4 Severe loss of kidney function 15-29 CKD 5 Kidney failure <15 Note: (go live 2024) the eGFR calculation was updated to the 2020 CKD-EPI creatinine equation without a race factor to calculate the eGFR results. Performed By: #### C BC, ADIFF, ANEU, BMP, GFR #### [address] [address] .NEUABSon 06-20-2025 Neutrophil, Absolute 3.3 10 3/mcL Normal 2.3-8.1 [facility] Comment on above: Performed By: #### C BC, ADIFF, ANEU, BMP, GFR #### [place] [address] [place] [address] A1Con 06-20-2025 Glucose [Mass/Vol] 137 mg/dL Normal [facility] Comment on above: Result Comment: Beth mated Average Glucose calculated by equation ((28.7xA1C)-46.7) Estimated average glucose (eAG) is a calculated value from Hemoglobin A1C and is sales support representative of the average blood glucose level in the last 2-3 month period. Normal range: less than 114 mg/dL Performed By: #### 1 94581, 579901, 333436, 621762, ENA1, 547488, 322580, 096453, 408251, ANAIFS, 033533, SPE, 251808, 474335, ESR, AMM, CRP, C3C4A, TSH, FT4, FOL, B12, THYAB, VIDH, A1C ####[address] [address] HbA1c (Bld) [Mass fraction] 6.4 % High 4.0-6.0 [facility] Comment on above: Performed By: #### 1 55754, 403050, 878802, 981512, ENA1, 399195, 108778, 431091, 768972, ANAIFS, 467093, SPE, 859967, 189019, ESR, AMM, CRP, C3C4A, TSH, FT4, FOL, B12, THYAB, VIDH, A1C ####[address] [address] Dilshad 06-20-2025 Ammonia 25 mcmol/l Normal [address] [place] [address] MAIN Comment on above: Performed By: #### C BC, ADIFF, ANEU, BMP, GFR #### [address] [address] Ammonia 38 mcmol/l High [address] [place] [address] MAIN Comment on above: Performed By: #### 1 [address]78, 079341, 363747, 870707, ENA1, 937953, 500547, 609933, 469732, ANAIFS, 986691, SPE, 936966, 695143, ESR, AMM, CRP, C3C4A, TSH, FT4, FOL, B12, THYAB, VIDH, A1C ####[place] [address] [place] [address] B12on 06-20-2025 Cobalamin (Vitamin B12) [Mass/Vol] 450 pg/mL Normal 211-911 [facility] Comment on above: Performed By: #### 1 43063, 822512, 782485, 766950, ENA1, 128189, 056419, 216824, 683667, ANAIFS, 589800, SPE, 319566, 891542, ESR, AMM, CRP, C3C4A, TSH, FT4, FOL, B12, THYAB, VIDH, A1C ####[address] [address] BMPon 06-20-2025 BUN/Creatinine Ratio 10.7 ratio Normal 10.0-22.0 [facility] Comment on above: Performed By: #### C BC, ADIFF, ANEU, BMP, GFR #### [address] [address] Calcium [Mass/Vol] 11.2 mg/dL High 8.7-10.4 [facility] Comment on above: Performed By: #### C BC, ADIFF, ANEU, BMP, GFR #### [address] [address] Chloride [Moles/Vol] 107 mmol/L Normal 98-110 [facility] Comment on above: Performed By: #### C BC, ADIFF, ANEU, BMP, GFR #### [address] [address] CO2 [Moles/Vol] 24 mmol/L Normal 22-32 [facility] Comment on above: Performed By: #### C BC, ADIFF, ANEU, BMP, GFR #### [address] [address] Creatinine [Mass/Vol] 0.75 mg/dL Normal 0.50-1.20 [facility] Comment on above: Result Comment: Test ing performed on CloudHel[employer] analyzer using enzymatic creatinine methodology. Performed By: #### C BC, ADIFF, ANEU, BMP, GFR #### [address] [address] Electrolyte Balance 8.0 mEq/L Normal 4.0-15.0 [facility] Comment on above: Performed By: #### C BC, ADIFF, ANEU, BMP, GFR #### [address] [address] Glucose [Mass/Vol] 122 mg/dL High 82-115 [facility] Comment on above: Performed By: #### C BC, ADIFF, ANEU, BMP, GFR #### [address] [address] Potassium [Moles/Vol] 4.1 mmol/L Normal 3.5-5.0 [facility] Comment on above: Performed By: #### C BC, ADIFF, ANEU, BMP, GFR #### [address] [address] Sodium [Moles/Vol] 139 mmol/L Normal 136-145 [facility] Comment on above: Performed By: #### C BC, ADIFF, ANEU, BMP, GFR #### [address] [address] Urea nitrogen [Mass/Vol] 8.0 mg/dL Normal 8.0-22.0 [facility] Comment on above: Performed By: #### C BC, ADIFF, ANEU, BMP, GFR #### [address] [address] [id number] 06-20-2025 Complement C3A 188.0 mg/dL High 90.0-170.0 [facility] Comment on above: Performed By: #### 1 [address]29, 422841, 460131, 316242, ENA1, 650088, 661315, 301511, 234410, ANAIFS, 535636, SPE, 882328, 233447, ESR, AMM, CRP, C3C4A, TSH, FT4, FOL, B12, THYAB, VIDH, A1C ####[address] [address] Complement C4A 34.0 mg/dL Normal 16.0-38.0 [facility] Comment on above: Performed By: #### 1 09097, 492105, 177854, 077573, ENA1, 355163, 926308, 245058, 244852, ANAIFS, 690662, SPE, 179131, 987172, ESR, AMM, CRP, C3C4A, TSH, FT4, FOL, B12, THYAB, VIDH, A1C ####[place] [address] CBCon 06-20-2025 Erythrocyte distribution width (RBC) [Ratio] 13.4 % Normal 11.5-15.5 [facility] Comment on above: Performed By: #### C BC, ADIFF, ANEU, BMP, GFR #### [place] [address] Hematocrit (Bld) [Volume fraction] 39.0 % Normal 34.0-46.0 [facility] Comment on above: Performed By: #### C BC, ADIFF, ANEU, BMP, GFR #### [place] [address] Hgb 13.3 G/dL Normal 12.0-16.0 [facility] Comment on above: Performed By: #### C BC, ADIFF, ANEU, BMP, GFR #### [place] [address] MCH (RBC) [Entitic mass] 32.5 pg Normal 27.0-33.0 [facility] Comment on above: Performed By: #### C BC, ADIFF, ANEU, BMP, GFR #### [place] [address] MCHC 34.2 G/dL Normal 32.0-36.0 [facility] Comment on above: Performed By: #### C BC, ADIFF, ANEU, BMP, GFR #### [place] [address] MCV (RBC) [Entitic vol] 95.0 fL Normal 80.0-99.0 [facility] Comment on above: Performed By: #### C BC, ADIFF, ANEU, BMP, GFR #### [address] [address] Platelet 274 10 3/mcL Normal 150-450 [facility] Comment on above: Performed By: #### C BC, ADIFF, ANEU, BMP, GFR #### [facility] [address] [place] [address] Platelet mean volume (Bld) [Entitic vol] 7.8 fL Normal 6.6-10.5 [facility] Comment on above: Performed By: #### C BC, ADIFF, ANEU, BMP, GFR #### [address] [address] RBC 4.10 10 6/mcL Normal 4.10-5.30 [facility] Comment on above: Performed By: #### C BC, ADIFF, ANEU, BMP, GFR #### [address] [address] WBC 7.1 10 3/mcL Normal 4.5-10.8 [facility] Comment on above: Performed By: #### C BC, ADIFF, ANEU, BMP, GFR #### [address] [address] CRPon 06-20-2025 CRP [Mass/Vol] mg/L Normal 0.0-1.0 [facility] Comment on above: Performed By: #### 1 49636, 981828, 846702, 138064, ENA1, 029282, 374514, 862977, 940260, ANAIFS, 529484, SPE, 879861, 614062, ESR, AMM, CRP, C3C4A, TSH, FT4, FOL, B12, THYAB, VIDH, A1C ####[place] [address] [place] [address] ESRon 06-20-2025 Erythrocyte Sed Rate 13 mm/hr Normal 0-30 [facility] Comment on above: Performed By: #### 1 [address], 636460, 104465, 117314, ENA1, 275508, 668016, 774398, 780756, ANAIFS, 909221, SPE, 712548, 697180, ESR, AMM, CRP, C3C4A, TSH, FT4, FOL, B12, THYAB, VIDH, A1C ####[facility] [place] [address] FOLon 06-20-2025 Folate 17.88 ng/mL Normal 5.38-24.00 [facility] Comment on above: Performed By: #### 1 12446, 239135, 863704, 566619, ENA1, 626685, 729994, 721548, 332023, ANAIFS, 543904, SPE, 038017, 983853, ESR, AMM, CRP, C3C4A, TSH, FT4, FOL, B12, THYAB, VIDH, A1C ####[place] [address] [place] [address] FT4on 06-20-2025 Free T4 [Mass/Vol] 1.55 ng/dL Normal 0.89-1.76 [facility] Comment on above: Result Comment: No te - New Reference Range in effect 20 Performed By: #### 1 97872, 775631, 248454, 021396, ENA1, 575725, 205058, 842379, 373111, ANAIFS, 669806, SPE, 864958, 583610, ESR, AMM, CRP, C3C4A, TSH, FT4, FOL, B12, THYAB, VIDH, A1C ####[place] [address] [place] [address] HFPon 06-20-2025 Bili Indirect 1.6 mg/dL Normal 0.1-10.0 [facility] Comment on above: Performed By: #### C BC, ADIFF, ANEU, BMP, GFR #### [address] [address] Albumin Level 3.9 G/dL Normal 3.2-4.8 [facility] Comment on above: Performed By: #### C BC, ADIFF, ANEU, BMP, GFR #### [address] [address] Albumin/Globulin [Mass ratio] 1.3 {ratio} Normal 0.9-1.6 [facility] Comment on above: Performed By: #### C BC, ADIFF, ANEU, BMP, GFR #### [place] [id number] ALP [Catalytic activity/Vol] 79 U/L Normal 38-126 [facility] Comment on above: Performed By: #### C BC, ADIFF, ANEU, BMP, GFR #### [place] [id number] ALT [Catalytic activity/Vol] 17 U/L Normal 10-49 [facility] Comment on above: Performed By: #### C BC, ADIFF, ANEU, BMP, GFR #### [place] [id number] AST [Catalytic activity/Vol] 21 U/L Normal 8-34 [facility] Comment on above: Performed By: #### C BC, ADIFF, ANEU, BMP, GFR #### [place] [address] Bili Direct 0.6 mg/dL High 0.0-0.4 [facility] Comment on above: Result Comment: Use of this assay is not recommended for patients undergoing treatment with eltrombopag due to the potential for falsely elevated results. Performed By: #### C BC, ADIFF, ANEU, BMP, GFR #### [place] [address] Bili Total 2.20 mg/dL High 0.20-1.20 [facility] Comment on above: Result Comment: Use of this assay is not recommended for patients undergoing treatment with eltrombopag due to the potential for falsely elevated results. Performed By: #### C BC, ADIFF, ANEU, BMP, GFR #### [place] [id number] Globulin 3.0 G/dL Normal 2.5-4.2 [facility] Comment on above: Performed By: #### C BC, ADIFF, ANEU, BMP, GFR #### [place] [address] Total Protein 6.9 G/dL Normal 5.7-8.2 [facility] Comment on above: Performed By: #### C BC, ADIFF, ANEU, BMP, GFR #### [place] [address] LABORATORYOrdered By: SYSTEM SYSTEM on 06-20-2025 Ammonia (P) [Moles/Vol] 25 umol/L Normal 11 - 32 mcmol/L AH ADM SS Lactate [Moles/Vol] 1.8 mmol/L Normal 0.5 - 2. 2 mmol/L AH ADM SS 25-hydroxyvitamin D3 [Mass/Vol] 42.6 ng/mL Invalid Interpretation Code AH ADM SS Comment on above: Interpretive Data: I nterpretive Values Based on Total 25(OH)D: Severe Deficiency <20 ng/mL Mild to Moderate Deficiency 20-30 ng/mL Optimum Levels 30-100 ng/mL Toxicity Possible >100 ng/mL Ammonia (P) [Moles/Vol] 38 umol/L High 11 - 32 mcmol/L ADM SS Cobalamin (Vitamin B12) [Mass/Vol] 450 pg/mL Normal 211 - 911 pg/mL ADM SS Complement C3 [Mass/Vol] 188.0 mg/dL High 90.0 - 170.0 mg/dL AH ADM SS Complement C4 [Mass/Vol] 34.0 mg/dL Normal 16.0 - 38.0 mg/dL AH ADM SS CRP [Mass/Vol] mg/dL Normal 0.0 - 1.0 mg/dL AH ADM SS Folate [Mass/Vol] 17.88 ng/mL Normal 5.38 - 24. 00 ng/mL AH ADM SS Free T4 [Mass/Vol] 1.55 ng/dL Normal 0.89 - 1. 76 ng/dL ADM SS Comment on above: Interpretive Data: * *Note - New Reference Range in effect 20 Glucose [Mass/Vol] 137 mg/dL Invalid Interpretation Code AH Auto Chem SS Comment on above: Interpretive Data: E stimated average glucose (eAG) is a calculated value from Hemoglobin A1C and is sales support representative of the average blood glucose level in the last 2-3 month period. Normal range: less than 114 mg/dL HbA1c (Bld) [Mass fraction] 6.4 % High 4.0 - 6.0 % Auto Chem SS Thyroglobulin Ab IA Qn 26 unit/mL Normal 15 - 60 unit/mL AH ADM SS TPO Ab IA Qn unit/mL Normal 0 - 60 unit/mL ADM S S TSH Qn 0.022 mIU/mL Low 0.550 - 4.780 mIU/mL ADM SS Albumin BCP dye [Mass/Vol] 3.9 G/dL Normal 3.2 - 4.8 G/dL ADM SS Albumin/Globulin [Mass ratio] 1.3 {ratio} Normal 0.9 - 1.6 ratio AH ADM SS ALP [Catalytic activity/Vol] 79 U/L Normal 38 - 126 U/L ADM SS ALT No additional P-5'-P [Catalytic activity/Vol] 17 U/L Normal 10 - 49 U/L ADM SS AST [Catalytic activity/Vol] 21 U/L Normal 8 - 34 U/L ADM SS Bili Indirect 1.6 mg/dL Normal 0.1 - 10.0 mg/dL Chemistry S Bilirubin [Mass/Vol] 2.20 mg/dL High 0.20 - 1.20 mg/dL ADM SS Comment on above: Interpretive Data: U se of this assay is not recommended for patients undergoing treatment with eltrombopag due to the potential for falsely elevated results. Bilirubin.conjugated [Mass/Vol] 0.6 mg/dL High 0.0 - 0.4 mg/dL ADM SS Comment on above: Interpretive Data: U se of this assay is not recommended for patients undergoing treatment with eltrombopag due to the potential for falsely elevated results. Globulin 3.0 G/dL Normal 2.5 - 4.2 G/dL ADM SS Magnesium [Mass/Vol] 2.2 mg/dL Normal 1.6 - 2 .4 mg/dL ADM SS LABORATORYOrdered By: Clinton Singletary on 06-20-2025 BE Venous 0.2 mmol/L Normal -3.0 - 3.0 mmol/L Main Rapid Comm SS CO2 [Moles/Vol] 27.9 mmol/L Normal 22.0 - 32.0 mmol/L Main Rapid Comm SS HCO3 (Bld) [Moles/Vol] 26.4 mmol/L Normal 21.0 - 30.0 mmol/L Main Rapid Comm SS pCO2 Andre 49.1 mm[Hg] Normal 41.0 - 51.0 mm Hg Main Rapid Comm SS pH (Bld) 7.348 [pH] Low 7.380 - 7.460 AH Main Rapid Comm SS pO2 Andre 51.4 mm[Hg] High 35.0 - 40.0 mm Hg AH Main Rapid Comm SS Protein [Mass/Vol] 6.8 G/dL Normal 5.7 - 8.2 G/dL AH ADM SS LABORATORYOrdered By: Yessi Cordon on 06-20-2025 Reagin Ab RPR Ql (S) Non-Reactive 32 (06/20/25 6:34 PM) Normal Non-Reactive AH Man Viro/Sero SS Comment on above: Interpretive Data: T he RPR test is a non-treponemal assay useful as an aid in the diagnosis of primary and secondary syphilis. It converts to positive generally within 2 weeks after the appearance of a lesion. This test is also useful for monitoring response to antibiotic therapy. False positive RPR tests may occur in 1) patients with underlying autoimmune disorders, 2) elderly patients, 3) , and 4) other conditions with abnormal serum globulins. LABORATORYOrdered By: Pearl Carrington on 06-20-2025 Syphilis Interpretation See Interp 41 *NA* (06/20/25 6:34 PM) Invalid Interpretation Code Chemistry S Comment on above: Result Comment: Clinical Interpretation: Negative for syphilis T. pallidum antibody; cannot exclude early primary syphilis. If syphilis infection is strongly suspected, retest in one month. T. pallidum Ab IA Ql (S) Non-Reactive (06/20/25 6:34 PM) Normal Non-Reactive AH ADM SS LABORATORYOrdered By: [facility] CONTRIBUTOR_SYSTEM on 06-20-2025 Actin (Smooth Muscle) Antibody (LC) 8 Units Invalid Interpretation Code 0-19 Sendouts Comment on above: Result Comment: Nega tive 0 - 19 Weak positive 20 - 30 Moderate to strong positive >30 Actin Antibodies are found in 52-85% of patients with autoimmune hepatitis or chronic active hepatitis and in 22% of patients with primary biliary cirrhosis. Performed At: [facility] [address] [place] [id number] Pritesh Sidhu PhD Ph:[phone] Anti-CCP Ab, IgG/IgA (LC) 10 Units Invalid Interpretation Code 0-19 Sendouts SS Comment on above: Result Comment: Nega tive <20 Weak positive 20 - 39 Moderate positive 40 - 59 Strong positive >59 Performed At: [address] [id number] Pritesh Sidhu PhD Ph:[phone] Anti-dsDNA Antibodies (LC) Int unit/mL Invalid Interpretation Code 0-9 AH Sendouts Comment on above: Result Comment: Nega tive <5 Equivocal 5 - 9 Positive >9 Performed At: [address] [id number] Pritesh Sidhu PhD Ph:[phone] Antiparietal Cell Antibody (LC) 1.8 Units Invalid Interpretation Code 0.0-20.0 AH Sendouts Comment on above: Result Comment: Nega tive 0.0 - 20.0 Equivocal 20.1 - 24.9 Positive >24.9 Parietal Cell Antibodies are found in 90% of patients with pernicious anemia and 30% of first degree relatives with pernicious anemia. Performed At: [address] [id number] Pritesh Sidhu PhD Ph:[phone] Antiribosomal P Abs (LC) AI Invalid Interpretation Code 0.0-0.9 AH Sendouts Comment on above: Result Comment: Perf ormed At: [address] [id number] Pritesh Sidhu PhD Ph:[phone] Mitochondrial (M2) Antibody (LC) Units Invalid Interpretation Code 0.0-20.0 Sendouts Comment on above: Result Comment: Nega tive 0.0 - 20.0 Equivocal 20.1 - 24.9 Positive >24.9 Mitochondrial (M2) Antibodies are found in 90-96% of patients with primary biliary cirrhosis. Performed At: [address] [id number] Pritesh Sidhu PhD Ph:[phone] NMDAR Antibody, Cell-based IFA (LC) Negative Invalid Interpretation Code Negative AH Sendouts Comment on above: Result Comment: This test was developed and its performance characteristics determined by [facility]. It has not been cleared or approved by the Food and Drug Administration. The NIH-sponsored ExTINGUISH Trial (activity and safety of Inebilizumab in anti-NMDAR encephalitis) is actively recruiting patients. You may consider enrolling your patient in the clinical trial if the result of this test is positive. To learn more, or to refer your patient, call [phone] ([phone], study hotline) or see ClinicalTrials.gov (study ID, [id number]). Performed At: [address] [id number] Bob Cohen MD Ph:[phone] Rheumatoid Factor (RF) (LC) Int unit/mL Invalid Interpretation Code <14.0 AH Sendouts SS Comment on above: Result Comment: Perf ormed At: [address] [id number] Pritesh Sidhu PhD Ph:[phone] TSH Receptor Ab (LC) [iU]/L Invalid Interpretation Code 0.00-1.75 AH Sendouts SS Comment on above: Result Comment: Perf ormed At: [address] [id number] Bob Cohen MD Ph:[phone] LABORATORYOrdered By: Chas Sweet on 06-20-2025 Albumin 3.8 G/dL Normal 3.3 - 5.0 G/dL AH Special Chem SS Alpha 1 0.2 G/dL Normal 0.1 - 0.4 G/dL AH Special Chem SS Alpha 2 0.9 G/dL Normal 0.6 - 1.2 G/dL AH Special Chem SS Beta 1.2 G/dL Normal 0.6 - 1.3 G/dL AH Special Chem SS Gamma 0.8 G/dL Normal 0.7 - 1.6 G/dL AH Special Chem SS LABORATORYOrdered By: MIR RASMUSSEN CONTRIBUTOR_SYSTEM on 06-20-2025 Antinuclear Ab Screen Negative Invalid Interpretation Code Negative Sendouts Comment on above: Result Comment: Anti -nuclear antibody test is used as an aid in diagnosis of systemic autoimmune diseases. Where positive and clinically warranted, follow-up using disease-specific testing is recommended. Low positive titers are not uncommon with advanced age, certain chronic infections, and malignancies among others. Test methodology: Indirect fluorescence immunoassay (IFA) using HEp-2 cells. Performed By: [address] [address] [employer] Teacher: Keith Bennett III, M.D. IA#: [id number] Centromere AI Invalid Interpretation Code <1.0 AH Sendouts SS Comment on above: Result Comment: Anti -centromere antibody is used as in aid in diagnosis of systemic sclerosis. Clinical correlation is required. Test Methodology: Multiplex flow immunoassay. Performed By: [place] [address] Mild Disabilities Teacher: Keith Bennett III, M.D. CLIA#: [id number] Centromere Ab Qualitative Negative Invalid Interpretation Code Negative AH Sendouts SS Comment on above: Result Comment: Perf ormed By: [place] [address] Mild Disabilities Teacher: Keith Bennett III, M.D. CLIA#: [id number] Chromatin Ab Qualitative Negative Invalid Interpretation Code Negative AH Sendouts SS Comment on above: Result Comment: Perf ormed By: [place] [address] Mild Disabilities Teacher: Keith Bennett III, M.D. CLIA#: [id number] Chromatin Antibody AI Invalid Interpretation Code <1.0 AH Sendouts SS Comment on above: Result Comment: Test Methodology: Multiplex flow immunoassay. Anti-chromatin antibody is used as an aid in diagnosis of systemic lupus erythematosus. Clinical correlation is required. Test Methodology: Multiplex flow immunoassay. Performed By: [place] [address] Mild Disabilities Teacher: Keith Bennett III, M.D. CLIA#: [id number] TWAN 1 Antibody AI Invalid Interpretation Code <1.0 AH Sendouts Comment on above: Result Comment: Perf ormed By: [place] [address] Mild Disabilities Teacher: Keith Bennett III, M.D. CLIA#: [id number] TWAN 1 Antibody Qual Negative Invalid Interpretation Code Negative AH Sendouts Comment on above: Result Comment: Anti -TWAN-1 antibody is used as an aid in diagnosis of polymyositis and dermatomyositis especially with pulmonary involvement. A negative result cannot rule out polymyositis or dermatomyositis. Clinical correlation is required. Test Methodology: Multiplex flow immunoassay. Performed By: [place] [address] Mild Disabilities Teacher: Keith Bennett III, M.D. CLIA#: [id number] Ribosomal CORPORATE SECRETARY AI Invalid Interpretation Code <1.0 Sendouts Comment on above: Result Comment: Perf ormed By: [facility] [employer] [address] [place] [address] Mild Disabilities Teacher: Keith Bennett III, M.D. CLIA#: [id number] Ribosomal CORPORATE SECRETARY Qualitative Negative Invalid Interpretation Code Negative Sendouts Comment on above: Result Comment: Anti -Ribosomal RNA (Ribosomal P) antibody is used as an aid in diagnosis of systemic autoimmune diseases especially systemic lupus erythematosus and mixed connective tissue disease. Cross-reactivity with Anti-rees antibody is not uncommon. Clinical correlation is required. Test Methodology: Multiplex flow immunoassay. Performed By: [facility] [employer] [facility] [place] [address] Mild Disabilities Teacher: Keith Bennett III, M.D. CLIA#: [id number] CORPORATE SECRETARY Antibody AI Invalid Interpretation Code <1.0 Sendouts Comment on above: Result Comment: Anti -CORPORATE SECRETARY antibody is used as an aid in diagnosis of systemic autoimmune diseases especially systemic lupus erythematosus and mixed connective tissue disease. Cross-reactivity with Anti-rees antibody is not uncommon. Clinical correlation is required. Test Methodology: Multiplex flow immunoassay. Performed By: [facility] [employer] [facility] [place] [address] Mild Disabilities Teacher: Keith Bennett III, M.D. CLIA#: [id number] CORPORATE SECRETARY Antibody Qualitative Negative Invalid Interpretation Code Negative Sendouts Comment on above: Result Comment: Perf ormed By: [facility] [employer] [address] [place] [address] Mild Disabilities Teacher: Keith Bennett III, M.D. CLIA#: [id number] Scleroderma Ab, IgG Qualitative Negative Invalid Interpretation Code Negative Sendouts Comment on above: Result Comment: Perf ormed By: [facility] [employer] [facility] [place] [address] Mild Disabilities Teacher: Keith Bennett III, M.D. CLIA#: [id number] Scleroderma IgG Ab AI Invalid Interpretation Code <1.0 Sendouts Comment on above: Result Comment: Scl- 70/Scleroderma antibody test is used as an aid in diagnosis of systemic sclerosis especially the diffuse cutaneous form. A negative result cannot rule out systemic sclerosis. The final interpretation should consider clinical picture and other test results such as anti-centromere antibody. Test Methodology: Multiplex flow immunoassay. Performed By: [place] [address] Mild Disabilities Teacher: Keith Bennett III, M.D. CLIA#: [id number] Sm Antibody AI Invalid Interpretation Code <1.0 Sendouts Comment on above: Result Comment: Perf ormed By: [place] [address] Mild Disabilities Teacher: Keith Bennett III, M.D. CLIA#: [id number] Sm Antibody Qual Negative Invalid Interpretation Code Negative Sendouts Comment on above: Result Comment: Anti -Sm (Rees) antibody is used as an aid in diagnosis of systemic lupus erythematosus and its presence is associated with renal disease. A negative result cannot rule out systemic lupus erythematosus. Clinical correlation is required. Test Methodology: Multiplex flow immunoassay. Performed By: [place] [address] Mild Disabilities Teacher: Keith Bennett III, M.D. CLIA#: [id number] SS-A Antibody AI Invalid Interpretation Code <1.0 Sendouts Comment on above: Result Comment: Test Methodology: Multiplex flow immunoassay. Anti-SSA (anti-Ro) antibody is used as an aid in diagnosis of a variety of systemic autoimmune diseases, Sjogren's syndrome among others. Clinical correlation is required. Test Methodology: Multiplex flow immunoassay. Performed By: [place] [address] Mild Disabilities Teacher: Keith Bennett III, M.D. CLIA#: [id number] SS-B Antibody AI Invalid Interpretation Code <1.0 Sendouts Comment on above: Result Comment: Anti -SSB (anti-La) antibody is used as an aid in diagnosis of a variety of systemic autoimmune diseases, especially for Sjogren's syndrome and systemic lupus erythematosus. Clinical correlation is required. Test Methodology: Multiplex flow immunoassay. Performed By: [place] [address] Mild Disabilities Teacher: Keith Bennett III, M.D. CLIA#: [id number] SSA Antibody Qualitative Negative Invalid Interpretation Code Negative Sendouts SS Comment on above: Result Comment: Perf ormed By: [facility] [employer] [address] [place] [address] Mild Disabilities Teacher: Keith Bennett III, M.D. CLIA#: [id number] SSB Antibody Qualitative Negative Invalid Interpretation Code Negative AH Sendouts SS Comment on above: Result Comment: Perf ormed By: [facility] [employer] [address] [place] [address] Mild Disabilities Teacher: Keith Bennett III, M.D. CLIA#: [id number] LABORATORYOrdered By: Makayla Araujo on 06-20-2025 ESR 15 minute reading (Bld) [Velocity] 13 mm/hr Normal 0 - 30 mm/hr AH Auto Heme SS LABORATORYOrdered By: SHAYNE VILLAGOMEZ on 06-20-2025 SPE Interpretation Normal serum protein electrophoresis pattern. No abnormality detected. Invalid Interpretation Code AH Special Chem SS Work Phone: LABORATORYOrdered By: Bernadette ramirez on 06-20-2025 Cholesterol [Mass/Vol] 108 mg/dL Normal 50 - 199 mg/dL AH ADM SS Comment on above: Interpretive Data: C holesterol Reference Interval: Less than 200 Desirable 200-239 Borderline high risk 240 and above High risk Cholesterol in HDL [Mass/Vol] 30 mg/dL Low 40 - 59 mg/dL AH ADM SS Cholesterol in LDL [Mass/Vol] 42 mg/dL Normal 0 - 129 mg/dL ADM SS Triglyceride [Mass/Vol] 182 mg/dL High 3 - 149 mg/dL ADM SS LACon 06-20-2025 Lactic Acid Lvl 1.8 mmol/L Normal 0.5-2.2 [facility] Comment on above: Performed By: #### C BC, ADIFF, ANEU, BMP, GFR #### [address] [address] LIPIDon 06-20-2025 Cholesterol [Mass/Vol] 108 mg/dL Normal 50-199 [facility] Comment on above: Result Comment: Chol esterol Reference Interval: Less than 200 Desirable 200-239 Borderline high risk 240 and above High risk Performed By: #### C BC, ADIFF, ANEU, BMP, GFR #### [address] [address] Cholesterol in HDL [Mass/Vol] 30 mg/dL Low 40-59 [facility] Comment on above: Performed By: #### C BC, ADIFF, ANEU, BMP, GFR #### [place] [id number] Cholesterol in LDL [Mass/Vol] 42 mg/dL Normal 0-129 [facility] Comment on above: Performed By: #### C BC, ADIFF, ANEU, BMP, GFR #### [address] [address] Triglyceride [Mass/Vol] 182 mg/dL High 3-149 [facility] Comment on above: Performed By: #### C BC, ADIFF, ANEU, BMP, GFR #### [place] [address] MGon 06-20-2025 Magnesium [Mass/Vol] 2.2 mg/dL Normal 1.6-2.4 [facility] Comment on above: Performed By: #### C BC, ADIFF, ANEU, BMP, GFR #### [place] [id number] SPEon 06-20-2025 Total Protein 6.8 G/dL Normal 5.7-8.2 [facility] Comment on above: Performed By: #### P TH #### [place] [id number] SYPHRon 06-20-2025 Syphilis Non-Reactive Normal Non-Reactive [facility] Comment on above: Performed By: #### C BC, ADIFF, ANEU, BMP, GFR #### [address] [address] Syphilis Interpretation See Interp [facility] Comment on above: Result Comment: Clinical Interpretation: Negative for syphilis T. pallidum antibody; cannot exclude early primary syphilis. If syphilis infection is strongly suspected, retest in one month. Performed By: #### C BC, ADIFF, ANEU, BMP, GFR #### [place] [id number] THYABon 06-20-2025 anti-Thyroid Peroxidase <28 Normal 0-60 [facility] Comment on above: Performed By: #### 1 14123, 161702, 370119, 484271, ENA1, 938916, 927232, 468742, 715501, ANAIFS, 049909, SPE, 524444, 013529, ESR, AMM, CRP, C3C4A, TSH, FT4, FOL, B12, THYAB, VIDH, A1C ####[address] [address] Thyroglobulin Ab 26 units/ml Normal 15-60 [facility] Comment on above: Performed By: #### 1 30713, 970725, 328145, 481033, ENA1, 444982, 116697, 403084, 964921, ANAIFS, 466975, SPE, 749880, 777081, ESR, AMM, CRP, C3C4A, TSH, FT4, FOL, B12, THYAB, VIDH, A1C ####[place] [id number] TSHon 06-20-2025 TSH 0.022 mIU/mL Low 0.550-4.780 [facility] Comment on above: Performed By: #### 1 01736, 004538, 808099, 718180, ENA1, 095158, 004353, 579308, 401888, ANAIFS, 301903, SPE, 067261, 716786, ESR, AMM, CRP, C3C4A, TSH, FT4, FOL, B12, THYAB, VIDH, A1C ####[place] [id number] VBGon 06-20-2025 BE Venous 0.2 mmol/L Normal -3.0-3.0 [facility] Comment on above: Performed By: #### C BC, ADIFF, ANEU, BMP, GFR #### [address] [address] CO2 [Moles/Vol] 27.9 mmol/L Normal 22.0-32.0 [facility] Comment on above: Performed By: #### C BC, ADIFF, ANEU, BMP, GFR #### [address] [address] HCO3 (Bld) [Moles/Vol] 26.4 mmol/L Normal 21.0-30.0 [facility] Comment on above: Performed By: #### C BC, ADIFF, ANEU, BMP, GFR #### [place] [address] Oxygen saturation in Blood 84.8 % High 70.0-75.0 [facility] Comment on above: Performed By: #### C BC, ADIFF, ANEU, BMP, GFR #### [place] [address] pCO2 Andre 49.1 mmHg Normal 41.0-51.0 [facility] Comment on above: Performed By: #### C BC, ADIFF, ANEU, BMP, GFR #### [place] [address] pH Venous 7.348 Low 7.380-7.460 [facility] Comment on above: Performed By: #### C BC, ADIFF, ANEU, BMP, GFR #### [place] [address] pO2 Andre 51.4 mmHg High 35.0-40.0 [facility] Comment on above: Performed By: #### C BC, ADIFF, ANEU, BMP, GFR #### [place] [address] VIDHon 06-20-2025 Vit. D 25-Hydroxy 42.6 ng/mL Normal [facility] Comment on above: Result Comment: Inte rpretive Values Based on Total 25(OH)D: Severe Deficiency <20 ng/mL Mild to Moderate Deficiency 20-30 ng/mL Optimum Levels 30-100 ng/mL Toxicity Possible >100 ng/mL Performed By: #### 1 38260, 024402, 618385, 041967, ENA1, 475808, 230465, 813149, 252425, ANAIFS, 108463, SPE, 232983, 041594, ESR, AMM, CRP, C3C4A, TSH, FT4, FOL, B12, THYAB, VIDH, A1C ####[place] [address] Alcohol, Blood (Medical)-Ser umon 06-19-2025 SERUM ETOH < 10.1 Normal <=10.0 [facility] Comment on above: Result Comment: This test is for medical purposes only. The legal definition of intoxication varies according to local law. Performed By: #### L 100.0500, L500.2500 #### [facility] [address] [place], [address] Ammoniaon 06-19-2025 Ammonia (P) [Moles/Vol] 17.5 umol/L Normal 11-51 [facility] Comment on above: Performed By: #### L 503.5510 #### [facility] [address] [place], [address] CBC W/Diff, Automatedon 05-28 Absolute Lymph 2.59 X10 3/uL Normal 0.83-4.51 [facility] Comment on above: Performed By: #### L 100.0500, L500.2500 #### [facility] [address] [place], [address] Absolute Neut 5.0 X10 3/uL Normal 2.0-7.7 [facility] Comment on above: Performed By: #### L 100.0500, L500.2500 #### [facility] [address] [place], [address] Basophils/100 WBC (Bld) 0.5 % Normal 0-1 [facility] Comment on above: Performed By: #### L 100.0500, L500.2500 #### [facility] [address] [place], [address] Eosinophils/100 WBC (Bld) 2.0 % Normal 0-5 [facility] Comment on above: Performed By: #### L 100.0500, L500.2500 #### [facility] [address] [place], [address] Erythrocyte distribution width (RBC) [Ratio] 13.1 % Normal 11.6-14.6 [facility] Comment on above: Performed By: #### L 100.0500, L500.2500 #### [facility] [address], [address] Hematocrit (Bld) [Volume fraction] 40.1 % Normal 37-47 [facility] Comment on above: Performed By: #### L 100.0500, L500.2500 #### [facility] [address], [address] Hemoglobin (Bld) [Mass/Vol] 13.2 g/dL Normal 12.0-15.0 [facility] Comment on above: Performed By: #### L 100.0500, L500.2500 #### [facility] [address] [place], [address] IG% 0.400 Normal 0.0-0.9 [facility] Comment on above: Result Comment: IG% - Immature Granulocytes (promyelocytes, myelocytes and metamyelocytes) > 1% indicates that a LEFT SHIFT is Present. Performed By: #### L 100.0500, L500.2500 #### [facility] [address] [place], [address] Lymphocytes/100 WBC (Bld) 30.7 % Normal 19-41 [facility] Comment on above: Performed By: #### L 100.0500, L500.2500 #### [facility] [address], [address] MCH (RBC) [Entitic mass] 31.5 pg Normal 27.0-32.0 [facility] Comment on above: Performed By: #### L 100.0500, L500.2500 #### [facility] [address], [address] MCHC (RBC) [Mass/Vol] 32.9 g/dL Normal 32-[address] [facility] Comment on above: Performed By: #### L 100.0500, L500.2500 #### [facility] [address] [place], [address] MCV (RBC) [Entitic vol] 95.7 fL Normal 81-99 [facility] Comment on above: Performed By: #### L 100.0500, L500.2500 #### [facility] [address] [place], [address] Monocytes/100 WBC (Bld) 7.6 % Normal 0-10 [facility] Comment on above: Performed By: #### L 100.0500, L500.2500 #### [facility] [address] [place], [address] Neutrophils/100 WBC (Bld) 58.8 % Normal 47-70 [facility] Comment on above: Performed By: #### L 100.0500, L500.2500 #### [facility] [address] [place], [address] Nucleated RBC (Bld) [#/Vol] 0 10*3/uL Normal 0-5 [facility] Comment on above: Performed By: #### L 100.0500, L500.2500 #### [facility] [address] [place], [address] Platelet mean volume (Bld) [Entitic vol] 9.9 fL Normal 6.2-12.0 [facility] Comment on above: Performed By: #### L 100.0500, L500.2500 #### [facility] [address] [place], [address] Platelets (Bld) [#/Vol] 325 10*3/uL Normal 150-450 [facility] Comment on above: Performed By: #### L 100.0500, L500.2500 #### [facility] [address] [place], [address] RBC (Bld) [#/Vol] 4.19 10*6/uL Low 4.2-5.4 [facility] Comment on above: Performed By: #### L 100.0500, L500.2500 #### [facility] [address] [place], [address] RDW SD 45.8 fl High 35.1-43.9 [facility] Comment on above: Performed By: #### L 100.0500, L500.2500 #### [facility] [address] [place], [address] WBC (Bld) [#/Vol] 8.5 10*3/uL Normal 4.4-11.0 [facility] Comment on above: Performed By: #### L 100.0500, L500.2500 #### [facility] [address] [place], [address] CRPon 06-19-2025 C-REACTIVE PROT 3.20 mg/L High 0.0-3.0 [facility] Comment on above: Performed By: #### L 503.5510 #### [facility] [address] [place], [address] Comprehensive Metabolic Prof ilon 06-19-2025 Albumin [Mass/Vol] 4.3 g/dL Normal 3.4-4.8 [facility] Comment on above: Performed By: #### L 100.0500, L500.2500 #### [facility] [address] [place], [address] Albumin/Globulin [Mass ratio] 1.5 {ratio} Normal 0.9-2.4 [facility] Comment on above: Performed By: #### L 100.0500, L500.2500 #### [facility] [address] [place], [address] ALK PHOS 81 U/L Normal 35-104 [facility] Comment on above: Performed By: #### L 100.0500, L500.2500 #### [facility] [address] [place], [address] ALT [Catalytic activity/Vol] 25 U/L Normal <=34 [facility] Comment on above: Performed By: #### L 100.0500, L500.2500 #### [facility] [address] [place], [address] AST [Catalytic activity/Vol] 23 U/L Normal <=31 [facility] Comment on above: Performed By: #### L 100.0500, L500.2500 #### [facility] [address] [place], [address] Bilirubin [Mass/Vol] 1.63 mg/dL High 0.00-1.30 [facility] Comment on above: Performed By: #### L 100.0500, L500.2500 #### [facility] [address] [place], [address] BUN/CRE 12.2 RATIO Normal 10-20 [facility] Comment on above: Performed By: #### L 100.0500, L500.2500 #### [facility] [address] [place], [address] Calcium [Mass/Vol] 10.5 mg/dL Normal 7.6-11.0 [facility] Comment on above: Performed By: #### L 100.0500, L500.2500 #### [facility] [address] [place], [address] Chloride [Moles/Vol] 101 mmol/L Normal 98-108 [facility] Comment on above: Performed By: #### L 100.0500, L500.2500 #### [facility] [address] [place], [address] CO2 [Moles/Vol] 25.5 mmol/L Normal 21.0-32.0 [facility] Comment on above: Performed By: #### L 100.0500, L500.2500 #### [facility] [address] [place], [address] Creatinine [Mass/Vol] 0.91 mg/dL Normal 0.70-1.[address] [facility] Comment on above: Performed By: #### L 100.0500, L500.2500 #### [facility] [address] [place], [address] GAP 11 Normal 5-15 [facility] Comment on above: Performed By: #### L 100.0500, L500.2500 #### [facility] [address] [place], [address] GFR/1.73 sq M.predicted among non-blacks MDRD (S/P/Bld) [Vol rate/Area] 71 mL/min/{1.73_m2} Normal >60 [facility] Comment on above: Result Comment: mL/m in/1.73m2 CKD-EPI Creatinine Equation (2020) Performed By: #### L 100.0500, L500.2500 #### [facility] [address] [place], [address] Globulin (S) [Mass/Vol] 2.9 g/dL Normal 2.2-4.2 [facility] Comment on above: Performed By: #### L 100.0500, L500.2500 #### [facility] [address] [place], [address] Glucose [Mass/Vol] 255 mg/dL High 70-99 [facility] Comment on above: Performed By: #### L 100.0500, L500.2500 #### [facility] [address] [place], [address] Potassium [Moles/Vol] 3.9 mmol/L Normal 3.3-5.[address] [facility] Comment on above: Performed By: #### L 100.0500, L500.2500 #### [facility] [address] [place], [address] Sodium [Moles/Vol] 138 mmol/L Normal 133-145 [facility] Comment on above: Performed By: #### L 100.0500, L500.2500 #### [facility] [address] [place], [address] T PROT 7.2 g/dL Normal 5.9-8.4 [facility] Comment on above: Performed By: #### L 100.0500, L500.2500 #### [facility] [address] [place], [address] Urea nitrogen [Mass/Vol] 11 mg/dL Normal 4-19 [facility] Comment on above: Performed By: #### L 100.0500, L500.2500 #### [facility] [address] [place], [address] Emergency Department Summary on 06-19-2025 Emergency Department Summary [facility] Medical Records Department [address] [place] [address] Emergency Department Summary 06/19/25 MR#: [id number] Acct: [id number] Name: RICHY RODRIGUEZ Rep #: [id number] : 1960 64 From: Shayne Herring DO PCP: Dr. July Rees MD Status:REG ER Location: ED HPI History of Present Illness Chief Complaint: Weakness Informant: patient, family and PCP Narrative Narrative: 64-year-old female presenting to the emergency room with several week history of progressive confusion and gait abnormality and generalized weakness. Patient states that she had recently underwent MRI/MRA. She states that she has had some thyroid test and her doctor is concerned that she may be in thyroid storm. I spoke with her primary care doctor he tells me that the patient had a normal T3 and T4 but a markedly abnormally low TSH. He states that the MRI was concerning for possible MS. Family states that her confusion seems to be worsening. Her doctor tells me that it seemed that the patient had a pronounced foot drop that seems more central than peripheral when she ambulates. He was concerned that the patient would need more urgent neurologic evaluation and possible IV steroids. 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 PFSH PFSH Allergy/AdvReac Type Severity Reaction Status Date / Time No Known Allergies Allergy Verified 06/19/25 12:44 Social History Smoking Status: Never smoker ROS ROS ED ROS Narrative Generalized fatigue Constitutional Constitutional ED: Denies chills, fever(s) or weight loss Eyes Eyes: Denies blurry vision, change in vision or diplopia ENT ENT ED: Denies ear pain, rhinorrhea or sore throat Cardiovascular Cardiovascular: Denies chest pain, orthopnea, palpitations or racing heartbeat Respiratory/Chest Respiratory/Chest: Denies cough, dyspnea or orthopnea Gastrointestinal Gastrointestinal: Denies abdominal pain, diarrhea, nausea or vomiting Genitourinary Genitourinary ED: Denies dysuria, hematuria or urinary frequency Musculoskeletal Musculoskeletal: Denies arthralgias or myalgias Integumentary Denies abscess or rash Neurologic Neurologic: Reports other Details: Gait abnormality confusion ; Denies headache(s) or weakness Psychiatric Psychiatric: Denies anxiety, depression, suicidal ideation or suicidal thoughts Endocrine Endocrinology: Denies polydipsia, polyphagia or polyuria Allergic/Immunologic Allergic/Immunologic ED: Denies mouth swelling, tongue swelling or urticaria EXAM Physical Exam Const Vital Signs: 06/19/25 12:42 06/19/25 12:42 06/19/25 13:42 Temperature 98.4 F Temperature Source Oral Pulse Rate 85 66 Respiratory Rate 16 13 Respiratory Effort Normal Non-Labored Respiratory Pattern Normal Blood Pressure 131/76 H 139/85 H Blood Pressure Mean 94 103 Pulse Ox 99 97 Oxygen Delivery Method Room Air Room Air 06/19/25 15:00 Temperature Temperature Source Pulse Rate 66 Respiratory Rate 12 Respiratory Effort Respiratory Pattern Blood Pressure 137/76 H Blood Pressure Mean 96 Pulse Ox 98 Oxygen Delivery Method Room Air Positive well nourished and well developed General Appearance ED: well developed HEENT Reports normocephalic, head/scalp atraumatic and moist mucous membranes Eyes PERRL and EOMs intact bilaterally Neck no lymphadenopathy, supple and no JVD Resp normal respiratory effort and clear to auscultation bilaterally Cardio regular rate, regular rhythm and no murmurs GI normal to inspection, nondistended, normoactive bowel sounds and non-tender Palpation: soft Back/Spine no CVA tenderness and normal ROM Extremity normal to inspection General Extremety ED: Negative for edema General Extremity: Negative for edema Neuro oriented x3, CN's II-XII intact bilaterally and no sensory deficits noted Neuro Narrative: While alert and oriented x 3. She often looks to her daughter to answer questions that are basic. She forgets what room number she is in her which direction to go to good from the bathroom to her room. I watched her ambulate she does not appear to have a foot drop that the gait seems to be more wide-based and short steps. She is able to lift both arms and legs off the bed and maintain it. She is able to push with her feet against my hands and up against my hands. Sensorium / Orientation: alert Motor Exam: strength 5/5 throughout Psych mental status grossly normal Mood Affect: Negative for depressed or tearful Skin no rashes or lesions noted and no wounds MDM MDM MDM Narrative Medical decision making narrative: Differential diagnosis includes but not limited t (more content not included)... Normal [facility] Erythrocyte Sed Rateon 06-19 SED RATE 18 mm/hr Normal 0-30 [facility] Comment on above: Performed By: #### L 400.0001 #### [facility] [address] [place], [address] Free T3on 06-19-2025 Free T3 [Mass/Vol] 3.6 pg/mL Normal 2.18-3.98 [facility] Comment on above: Performed By: #### L 501.080 #### [facility] [address] [place], [address] Magnesiumon 06-19-2025 Magnesium [Mass/Vol] 2.1 mg/dL Normal 1.5-2.2 [facility] Comment on above: Performed By: #### L 501.080 #### [facility] [address] [place], [address] T4 Free Directon 06-19-2025 T4 FREE DIRECT 1.50 ng/dL High 0.76-1.46 [facility] Comment on above: Performed By: #### L 501.080 #### [facility] [address] [place], [address] Thyroid Stim Hormone (TSH)on 06-19-2025 TSH 0.019 uIU/mL Low 0.300-4.200 [facility] Comment on above: Performed By: #### L 501.080 #### [facility] [address] [place], [address] Urinalysis, Completeon 06-19 BACTERIA 1+ /hpf Normal None Seen [facility] Comment on above: Order Comment: CLEAN CATCH Performed By: #### L 501.080 #### [facility] [address] [place], [address] EPI,SQUAMOUS 0-5 SEEN Normal - [facility] Comment on above: Order Comment: CLEAN CATCH Performed By: #### L 501.080 #### [facility] [address] [place], [address] Mucus Ql (Urine sed) 1+ /hpf Normal [facility] Comment on above: Order Comment: CLEAN CATCH Performed By: #### L 501.080 #### [facility] [address] [place], [address] RBC 0-5 SEEN Normal 0-5 [facility] Comment on above: Order Comment: CLEAN CATCH Performed By: #### L 501.080 #### [facility] [address] [place], [address] WBC 0 SEEN Normal 0-5 [facility] Comment on above: Order Comment: CLEAN CATCH Performed By: #### L 501.080 #### [facility] [address] [place], [address] Brain W/WO Contraston 2024 Brain W/WO Contrast [facility] [address] [place] [address] Brain W/WO Contrast MR#: [id number] Acct: [id number] Name: RICHY RODRIGUEZ Rep #: [id number] : 1960 F 64 From: João Hill MD PCP: Dr. July Rees MD Status: REG CLI Study: Brain W/WO Contrast Date of Exam: 06/16/25 Exam# [id number] Ordering Dr: July Rees MD PROCEDURE: BRAIN W/WO CONTRAST 06/16/2025 REASON FOR EXAM: AMAUROSIS FUGAX dizziness, ataxia and memory loss. TECHNIQUE: Procedure Code: MRIBRWW Modality: MR Procedure: BRAIN W/WO CONTRAST Multiplanar and multisequence images were obtained. CONTRAST: Clariscan VOLUME: 19 mL COMPARISON: CT head without contrast, 05/05/2025. FINDINGS: There are few punctate foci of abnormal periventricular and subcortical white matter signal in both cerebral hemispheres. Additionally there is an area of abnormal white matter signal adjacent to the anterior horn of the right lateral ventricle. These findings are nonspecific and are consistent with chronic ischemic white matter disease, but demyelinating disease is not excluded. There is a chronic lacunar infarction in the right basal ganglia. There is no abnormal intracranial contrast enhancement. There is a normal sulcal pattern and gyral configuration. There is no evidence of acute intracranial hemorrhage or infarction. The clancy-white differentiation is well preserved. There is no evidence of restricted diffusion. The ventricles and basilar cisterns are normal. There are normal flow voids demonstrated in the recognized intracranial vessels. The cerebellum and brainstem are unremarkable. The cerebellar pontine angles are normal. The craniovertebral junction is normal. The sella and suprasellar regions are normal. The orbits and retro-orbital regions are unremarkable. There is nasal septal deviation to the left. There is mucoperiosteal thickening of the ethmoidal air cells bilaterally. The paranasal sinuses are otherwise clear. There is mucosal thickening of the left nasal cavity. There is a fluid-filled mastoid air cell on the right. The mastoid air cells are otherwise clear. There is normal bone marrow signal in the skull base and calvarium. MRI/Brain W/WO Contrast IMPRESSION: 1. No evidence of acute intracranial pathology. 2. There is a chronic lacunar infarction in the right basal ganglia. 3. Other findings as noted. Reading Location: [place] [address] CC: Dr. July Rees MD Process Technician: Signed Normal [facility] MRA Head ONLY without Contra ston 06-16-2025 MRA Head ONLY without Contrast [facility] [address] [place], [place] [address] MRA Head ONLY without Contrast MR#: [id number] Acct: [id number] Name: RICHY RODRIGUEZ Rep #: [id number] : 1960 F 64 From: Chad Giang MD PCP: Dr. July Rees MD Status: REG CLI Study: MRA Head ONLY without Contrast Date of Exam: Exam# [id number] Ordering Dr: July Rees MD PROCEDURE: MRA HEAD ONLY WITHOUT CONTRAST; MRA NECK WITH AND W/O CONTRAST 06/16/2025 REASON FOR EXAM: BLURRED VISION, RULING OUT STROKE; AMAUROSIS FUGAX TECHNIQUE: Procedure Code: MRIMRAH; MRIMRANWWOC Modality: MR Procedure: MRA HEAD ONLY WITHOUT CONTRAST; MRA NECK WITH AND W/O CONTRAST Multiplanar multisequential imaging was performed without IV contrast administration. FINDINGS: HEAD: The intracranial segments of the bilateral ICAs appear unremarkable. The bilateral ACAs appear unremarkable. The anterior communicating artery is patent. The bilateral MCAs appear unremarkable. The proximal aspects of the bilateral ophthalmic arteries are visualized. The intracranial segments of the bilateral vertebral arteries (V4) appear unremarkable. The basilar artery is unremarkable. The bilateral design assistant are unremarkable. The bilateral posterior communicating arteries are visualized and patent. NECK: The bilateral common carotid arteries, carotid bulbs, and cervical ICAs appear unremarkable. The cervical segments of the bilateral vertebral arteries appear unremarkable. MRI/MRA Head ONLY without Contrast IMPRESSION: No hemodynamically significant stenosis, major vessel occlusion/dissection, or aneurysm greater than 5 millimeters. Reading Location: [id number] CC: Dr. July Rees MD Process Technician: Signed Normal [facility] MRA Neck WITH and W/O Contra ston 06-16-2025 MRA Neck WITH and W/O Contrast [facility] [address] [place], [place] [address] MRA Neck WITH and W/O Contrast MR#: [id number] Acct: [id number] Name: RICHY RODRIGUEZ Rep #: [id number] : 1960 F 64 From: Chad Giang MD PCP: Dr. July Rees MD Status: REG CLI Study: MRA Neck WITH and W/O Contrast Date of Exam: Exam# [id number] Ordering Dr: July Rees MD PROCEDURE: MRA HEAD ONLY WITHOUT CONTRAST; MRA NECK WITH AND W/O CONTRAST 06/16/2025 REASON FOR EXAM: BLURRED VISION, RULING OUT STROKE; AMAUROSIS FUGAX TECHNIQUE: Procedure Code: MRIMRAH; MRIMRANWWOC Modality: MR Procedure: MRA HEAD ONLY WITHOUT CONTRAST; MRA NECK WITH AND W/O CONTRAST Multiplanar multisequential imaging was performed without IV contrast administration. FINDINGS: HEAD: The intracranial segments of the bilateral ICAs appear unremarkable. The bilateral ACAs appear unremarkable. The anterior communicating artery is patent. The bilateral MCAs appear unremarkable. The proximal aspects of the bilateral ophthalmic arteries are visualized. The intracranial segments of the bilateral vertebral arteries (V4) appear unremarkable. The basilar artery is unremarkable. The bilateral design assistant are unremarkable. The bilateral posterior communicating arteries are visualized and patent. NECK: The bilateral common carotid arteries, carotid bulbs, and cervical ICAs appear unremarkable. The cervical segments of the bilateral vertebral arteries appear unremarkable. MRI/MRA Neck WITH and W/O Contrast IMPRESSION: No hemodynamically significant stenosis, major vessel occlusion/dissection, or aneurysm greater than 5 millimeters. Reading Location: [id number] CC: Dr. July Rees MD Process Technician: Signed Normal [facility] [id number] 06-15-2025 [facility] Misc. COMMENT Normal . [facility] Comment on above: Order Comment: [id number] 5AQUAPORIN AQP 4 RED SEUM RMT Result Comment: Test Ordered: [id number] Anti-Aquaporin (AQP4), Serum Test(s) 720231-KFV4 Antibody, Cell-based IFA was developed and its performance characteristics determined by [facility]. It has not been cleared or approved by the Food and Drug Administration. AQP4 Antibody, Cell-based IFA Negative Reference Range: Negative Performed at: [address] [id number] Mild Disabilities Teacher: Vicki Rojas MD, Phone: [phone] Performed at: [address] [id number] Mild Disabilities Teacher: Nahum Jonas PhD, Phone: [phone] Performed By: #### L [id number] #### [facility] [address] [place] [address]. [place], [place], [id number] L3410.9994on 06-15-2025 [facility] Misc. 2 COMMENT Normal . [facility] Comment on above: Order Comment: [id number] 0MOG SERUM RED RMT Result Comment: Test Ordered: [id number] Anti-MOG, Serum Test(s) 136514-SAR Antibody, Cell-based IFA was developed and its performance characteristics determined by [facility]. It has not been cleared or approved by the Food and Drug Administration. MOG Antibody, Cell-based IFA Negative Reference Range: Negative Performed at: [address] [id number] Mild Disabilities Teacher: Vicki Rojas MD, Phone: [phone] Performed at: [address] [id number] Mild Disabilities Teacher: Nahum Jonas PhD, Phone: [phone] Performed By: #### L 503.5510 #### [facility] [address] [facility] [place], [address] Protein Electroph, Son 06-12 Albumin [Mass/Vol] 3.6 g/dL Normal 2.9-4.4 [facility] Comment on above: Performed By: #### L 503.5510 #### [facility] [address] [place], [address] Albumin/Globulin [Mass ratio] 1.2 {ratio} Normal 0.7-1.7 [facility] Comment on above: Performed By: #### L 503.5510 #### [facility] [address] [place], [address] ALPHA-1 GLOBUL 0.2 g/dL Normal 0.0-0.4 [facility] Comment on above: Performed By: #### L 503.5510 #### [facility] [address] [place], [address] ALPHA-2 GLOBUL 0.9 g/dL Normal 0.4-1.0 [facility] Comment on above: Performed By: #### L 503.5510 #### [facility] [address] [place], [address] BETA GLOBULIN 1.2 g/dL Normal 0.7-1.3 [facility] Comment on above: Performed By: #### L 503.5510 #### [facility] [address] [place], [address] GAMMA GLOBULIN 0.9 g/dL Normal 0.4-1.8 [facility] Comment on above: Performed By: #### L 503.5510 #### [facility] [address] [place], [address] Globulin (S) [Mass/Vol] 3.1 g/dL Normal 2.2-3.9 [facility] Comment on above: Performed By: #### L 503.5510 #### [facility] [address] [place], [address] INTERPRETATION Comment Normal . [facility] Comment on above: Result Comment: Prot ein electrophoresis scan will follow via computer, mail, or systems integration advisor delivery. Performed By: #### L 503.4510 #### [facility] [address] [place], [address] M-SPIKE Comment: Normal Not Observed [facility] Comment on above: Result Comment: asym metrical gamma Performed By: #### L 503.5510 #### [facility] [address] [place], [place], [id number] NOTE: Comment Normal . [facility] Comment on above: Result Comment: Parth t band in gamma region suspicious for monoclonal immunoglobulin. This band may represent a benign spike as seen in older people or could be a paraprotein as seen in Multiple Myeloma, Waldenstrom's Macroglobulinemia or Lymphoma. Depending on clinical circumstances, further diagnostic studies may include serum immunofixation or serum free light chain quantitation. Performed at: [address] [id number] Mild Disabilities Teacher: Nahum Jonas PhD, Phone: [phone] Performed By: #### L 503.5510 #### [facility] [address] [place], [address] Protein [Mass/Vol] 6.7 g/dL Normal 6.0-8.5 [facility] Comment on above: Performed By: #### L 503.5510 #### [facility] [address] [place], [address] Comprehensive Metabolic Prof ilon 06-10-2025 Albumin [Mass/Vol] 4.3 g/dL Normal 3.4-4.8 [facility] Comment on above: Performed By: #### L 503.5510 #### [facility] [address] [place], [address] Albumin/Globulin [Mass ratio] 1.6 {ratio} Normal 0.9-2.4 [facility] Comment on above: Performed By: #### L 503.5510 #### [facility] [address] [place], [place], [address] (302 ALK PHOS 83 U/L Normal 35-104 [facility] Comment on above: Performed By: #### L 503.5510 #### [facility] [address] [place], [address] ALT [Catalytic activity/Vol] 24 U/L Normal <=34 [facility] Comment on above: Performed By: #### L 503.5510 #### [facility] [address] [place], [address] AST [Catalytic activity/Vol] 21 U/L Normal <=31 [facility] Comment on above: Performed By: #### L 503.5510 #### [facility] [address] [place], [address] Bilirubin [Mass/Vol] 1.25 mg/dL Normal 0.00-1.30 [facility] Comment on above: Performed By: #### L 503.5510 #### [facility] [address] [place], [address] BUN/CRE 15.9 RATIO Normal 10-20 [facility] Comment on above: Performed By: #### L 503.5510 #### [facility] [address] [place], [address] Calcium [Mass/Vol] 10.4 mg/dL Normal 7.6-11.0 [facility] Comment on above: Performed By: #### L 503.5510 #### [facility] [address] [place], [address] Chloride [Moles/Vol] 101 mmol/L Normal 98-108 [facility] Comment on above: Performed By: #### L 503.5510 #### [facility] [address] [place], [address] CO2 [Moles/Vol] 21.5 mmol/L Normal 21.0-32.0 [facility] Comment on above: Performed By: #### L 503.5510 #### [facility] [address] [place], [address] Creatinine [Mass/Vol] 0.77 mg/dL Normal 0.70-1.[address] [facility] Comment on above: Performed By: #### L 503.5510 #### [facility] [address] [place], [address] GAP 13 Normal 5-15 [facility] Comment on above: Performed By: #### L 503.5510 #### [facility] [address] [place], [address] GFR/1.73 sq M.predicted among non-blacks MDRD (S/P/Bld) [Vol rate/Area] 87 mL/min/{1.73_m2} Normal >60 [facility] Comment on above: Result Comment: mL/m in/1.73m2 CKD-EPI Creatinine Equation (2020) Performed By: #### L 503.5510 #### [facility] [address] [place], [address] Globulin (S) [Mass/Vol] 2.8 g/dL Normal 2.2-4.2 [facility] Comment on above: Performed By: #### L 503.5510 #### [facility] [address] [place], [address] Glucose [Mass/Vol] 105 mg/dL High 70-99 [facility] Comment on above: Performed By: #### L 503.5510 #### [facility] [address] [place], [address] Potassium [Moles/Vol] 4.0 mmol/L Normal 3.3-5.[address] [facility] Comment on above: Performed By: #### L 503.5510 #### [facility] [address] [place], [address] Sodium [Moles/Vol] 136 mmol/L Normal 133-145 [facility] Comment on above: Performed By: #### L 503.5510 #### [facility] [address] [place], [address] T PROT 7.1 g/dL Normal 5.9-8.4 [facility] Comment on above: Performed By: #### L 503.5510 #### [facility] [address] [place], [address] Urea nitrogen [Mass/Vol] 12 mg/dL Normal 4-19 [facility] Comment on above: Performed By: #### L 503.5510 #### [facility] [address] [place], [address] Syphilis Antibodieson 2024 Syphilis Abs Non-Reactive Normal Nonreactive [facility] Comment on above: Performed By: #### L 503.5510 #### [facility] [address] [place], [address] Thyroid Stim Hormone (TSH)on 06-10-2025 TSH 0.065 uIU/mL Low 0.300-4.200 [facility] Comment on above: Performed By: #### L 503.5510 #### [facility] [address] [place], [address] Thyroidon 06-04-2025 Thyroid [facility] [address] [place] [address] Thyroid MR#: [id number] Acct: [id number] Name: RICHY RODRIGUEZ BHAVYA Rep #: [id number] : 1960 F 64 From: [place]ão [place] MD PCP: Dr. July Rees MD Status: REG CLI Study: Thyroid Date of Exam: 06/04/25 Exam# [id number] Ordering Dr: July Rees MD PROCEDURE: THYROID 06/04/2025 REASON FOR EXAM: HYPERTHYROIDISM TECHNIQUE: Procedure Code: USTHY Modality: US Procedure: THYROID COMPARISON: None. FINDINGS: Right thyroid lobe size: 4.5 x 2.7 x 1.6 cm Upper pole, 8 x 7 x 6 mm, solid, heterogeneous, with a smooth margin. TR 3 Upper pole, 1.6 x 1.4 x 1.4 cm, solid, heterogeneous, with an ill-defined margin. TR 3 Left thyroid lobe size: 4.1 x 2.6 x 1.4 cm Upper pole, 9 x 8 x 7 mm, solid, heterogeneous, with a smooth margin. TR 3 Upper pole, 9 x 7 x 6 mm, solid, heterogeneous, with a smooth margin. TR 3 Isthmus: 3 mm US/Thyroid IMPRESSION: There is a TR 3 nodule measuring greater than 1.5 cm in the right thyroid lobe. Recommendation: Follow up thyroid ultrasound in 1 year. Reading Location: [place] [address] CC: Dr. July Rees MD Process Technician: Signed [facility] LABORATORYOrdered By: SYSTEM SYSTEM on 06-02-2025 Thyroglobulin Ab IA Qn 29 unit/mL Normal 15 - 60 unit/mL AH ADM SS TPO Ab IA Qn 36 unit/mL Normal 0 - 60 unit/mL AH ADM S S THYABon 06-02-2025 anti-Thyroid Peroxidase 36 units/ml Normal 0-60 [facility] Comment on above: Performed By: #### T HYAB #### [address] [address] Thyroglobulin Ab 29 units/ml Normal 15-60 [facility] Comment on above: Performed By: #### T HYAB #### [address] [address] .GFRon 05-29-2025 Estimated Glomerular Filtration Rate 84 ml/min/1.73sqm Normal [facility] Comment on above: Result Comment: Stages of Chronic Kidney Disease (CKD) Stage Description eGFR(ml/min/1.73 sq.m.) CKD 1 Normal kidney function or >=90 normal kindney function with possible kidney damage (ex. Proteinuria) CKD 2 Kidney damage with mild loss 60-89 of kidney function CKD 3a Mild to moderate loss of kidney 45-59 function CKD 3b Moderate to severe loss of 30-44 of kindey function CKD 4 Severe loss of kidney function 15-29 CKD 5 Kidney failure <15 Note: (go live 2024) the eGFR calculation was updated to the 2020 CKD-EPI creatinine equation without a race factor to calculate the eGFR results. Performed By: #### G FR, FT3, CRP, FT4, TSH, CMP #### [address] [address] CMPon 05-29-2025 Albumin Level 3.6 G/dL Normal 3.4-4.8 [facility] Comment on above: Performed By: #### G FR, FT3, CRP, FT4, TSH, CMP #### [address] [address] Albumin/Globulin [Mass ratio] 0.9 {ratio} Low 1.1-2.5 [facility] Comment on above: Performed By: #### G FR, FT3, CRP, FT4, TSH, CMP #### [address] [address] ALP [Catalytic activity/Vol] 105 U/L Normal 40-135 [facility] Comment on above: Performed By: #### G FR, FT3, CRP, FT4, TSH, CMP #### [address] [address] ALT [Catalytic activity/Vol] 25 U/L Normal 14-59 [facility] Comment on above: Performed By: #### G FR, FT3, CRP, FT4, TSH, CMP #### [address] [address] AST [Catalytic activity/Vol] 18 U/L Normal 10-40 [facility] Comment on above: Performed By: #### G FR, FT3, CRP, FT4, TSH, CMP #### [address] [address] Bili Total 1.4 mg/dL High 0.2-1.0 [facility] Comment on above: Result Comment: Use of this assay is not recommended for patients undergoing treatment with eltrombopag due to the potential for falsely elevated results. Performed By: #### G FR, FT3, CRP, FT4, TSH, CMP #### [address] [address] BUN/Creatinine Ratio 16 ratio Normal 7-27 [facility] Comment on above: Performed By: #### G FR, FT3, CRP, FT4, TSH, CMP #### [address] [address] Calcium [Mass/Vol] 10.3 mg/dL High 8.4-10.2 [facility] Comment on above: Performed By: #### G FR, FT3, CRP, FT4, TSH, CMP #### [place] [address] Chloride [Moles/Vol] 105 mmol/L Normal 98-107 [facility] Comment on above: Performed By: #### G FR, FT3, CRP, FT4, TSH, CMP #### [place] [address] CO2 [Moles/Vol] 30 mmol/L Normal 23-31 [facility] Comment on above: Performed By: #### G FR, FT3, CRP, FT4, TSH, CMP #### [place] [address] Creatinine [Mass/Vol] 0.79 mg/dL Normal 0.51-0.95 [facility] Comment on above: Performed By: #### G FR, FT3, CRP, FT4, TSH, CMP #### [place] [address] Electrolyte Balance 5.0 mEq/L Normal 4.0-15.0 [facility] Comment on above: Performed By: #### G FR, FT3, CRP, FT4, TSH, CMP #### [place] [address] Globulin 3.8 G/dL Normal 2.7-4.4 [facility] Comment on above: Performed By: #### G FR, FT3, CRP, FT4, TSH, CMP #### [address] [address] Glucose [Mass/Vol] 139 mg/dL High 80-115 [facility] Comment on above: Performed By: #### G FR, FT3, CRP, FT4, TSH, CMP #### [address] [address] Potassium [Moles/Vol] 4.0 mmol/L Normal 3.5-5.1 [facility] Comment on above: Performed By: #### G FR, FT3, CRP, FT4, TSH, CMP #### [address] [address] Sodium [Moles/Vol] 140 mmol/L Normal 136-145 [facility] Comment on above: Performed By: #### G FR, FT3, CRP, FT4, TSH, CMP #### [address] [address] Total Protein 7.4 G/dL Normal 6.4-8.2 [facility] Comment on above: Performed By: #### G FR, FT3, CRP, FT4, TSH, CMP #### [address] [address] Urea nitrogen [Mass/Vol] 13 mg/dL Normal 7-18 [facility] Comment on above: Performed By: #### G FR, FT3, CRP, FT4, TSH, CMP #### [address] [address] CRPon 05-29-2025 C-Reactive Protein 1.2 mg/dL High 0.0-0.3 [facility] Comment on above: Performed By: #### G FR, FT3, CRP, FT4, TSH, CMP #### [address] [address] FT3on 05-29-2025 Free T3 [Mass/Vol] 2.78 pg/mL Normal 2.30-4.00 [facility] Comment on above: Performed By: #### G FR, FT3, CRP, FT4, TSH, CMP #### [place] [address] [place], [place] [address] FT4on 05-29-2025 Free T4 [Mass/Vol] 1.28 ng/dL Normal 0.76-1.46 [facility] Comment on above: Performed By: #### G FR, FT3, CRP, FT4, TSH, CMP #### [place] [address] [place], [place] [address] LABORATORYOrdered By: SYSTEM SYSTEM on 05-29-2025 Albumin BCP dye [Mass/Vol] 3.6 G/dL Normal 3.4 - 4.8 G/dL AO ADM SS Albumin/Globulin [Mass ratio] 0.9 {ratio} Low 1.1 - 2.5 ratio AO ADM SS ALP [Catalytic activity/Vol] 105 U/L Normal 40 - 135 U/L AO ADM SS ALT With P-5'-P [Catalytic activity/Vol] 25 U/L Normal 14 - 59 U/L AO ADM SS AST With P-5'-P [Catalytic activity/Vol] 18 U/L Normal 10 - 40 U/L AO ADM SS Bilirubin [Mass/Vol] 1.4 mg/dL High 0.2 - 1 .0 mg/dL AO ADM SS Comment on above: Interpretive Data: U se of this assay is not recommended for patients undergoing treatment with eltrombopag due to the potential for falsely elevated results. Calcium [Mass/Vol] 10.3 mg/dL High 8.4 - 10. 2 mg/dL AO ADM SS Chloride [Moles/Vol] 105 mmol/L Normal 98 - 10 7 mmol/L AO ADM SS CO2 [Moles/Vol] 30 mmol/L Normal 23 - 31 mmol/L AO AD M SS Creatinine [Mass/Vol] 0.79 mg/dL Normal 0.51 - 0.95 mg/dL AO ADM SS CRP [Mass/Vol] 1.2 mg/dL High 0.0 - 0.3 mg/dL AO ADM SS Electrolyte Balance 5.0 mEq/L Normal 4.0 - 15 .0 mEq/L AO ADM SS Free T3 [Mass/Vol] 2.78 pg/mL Normal 2.30 - 4. 00 pg/mL AO ADM SS Free T4 [Mass/Vol] 1.28 ng/dL Normal 0.76 - 1. 46 ng/dL AO ADM SS Globulin 3.8 G/dL Normal 2.7 - 4.4 G/dL AO ADM SS GLOMERULAR FILTRATION RATE/1.73 SQ M.PREDICTED:ARVRAT:PT :SER/PLAS/BLD:QN:CREA TININE-BASED FORMULA (CKD-EPI 2020) 84 ml/min/1.73sqm Invalid Interpretation Code AO Chemistry S Comment on above: Interpretive Data: Stages of Chronic Kidney Disease (CKD) Stage Description eGFR(ml/min/1.73 sq.m.) CKD 1 Normal kidney function or >=90 normal kindney function with possible kidney damage (ex. Proteinuria) CKD 2 Kidney damage with mild loss 60-89 of kidney function CKD 3a Mild to moderate loss of kidney 45-59 function CKD 3b Moderate to severe loss of 30-44 of kindey function CKD 4 Severe loss of kidney function 15-29 CKD 5 Kidney failure <15 Note: (go live 2024) the eGFR calculation was updated to the 2020 CKD-EPI creatinine equation without a race factor to calculate the eGFR results. Glucose [Mass/Vol] 139 mg/dL High 80 - 115 mg/dL AO ADM SS Potassium [Moles/Vol] 4.0 mmol/L Normal 3.5 - 5.1 mmol/L AO ADM SS Protein [Mass/Vol] 7.4 G/dL Normal 6.4 - 8.2 G/dL AO ADM SS Sodium [Moles/Vol] 140 mmol/L Normal 136 - 145 mmol/L AO ADM SS TSH Qn 0.07 m[IU]/L Low 0.36 - 3.74 mcIU/mL AO ADM SS Urea nitrogen [Mass/Vol] 13 mg/dL Normal 7 - 18 mg/dL AO ADM SS Urea nitrogen/Creatinine [Mass ratio] 16 ratio Normal 7 - 27 ratio AO ADM SS TSHon 05-29-2025 TSH Qn 0.07 m[IU]/L Low 0.36-3.74 [facility] Comment on above: Performed By: #### G FR, FT3, CRP, FT4, TSH, CMP #### [place] [address] [place], [place] [address] ANCAon 05-10-2025 Atypical pANCA <1:20 Normal Neg:<1:20 [facility] Comment on above: Result Comment: The atypical pANCA pattern has been observed in a significant percentage of patients with ulcerative colitis, primary sclerosing cholangitis and autoimmune hepatitis. Performed At: [address] [id number] Pritesh Sidhu PhD Ph:[phone] Performed By: #### G FR, FT3, CRP, FT4, TSH, CMP #### [address] [address] Cytoplasmic (C-ANCA) <1:20 Normal Neg:<1:20 [facility] Comment on above: Performed By: #### G FR, FT3, CRP, FT4, TSH, CMP #### [place] [id number] Perinuclear (P-ANCA) <1:20 Normal Neg:<1:20 [facility] Comment on above: Result Comment: The presence of positive fluorescence exhibiting P-ANCA or C-ANCA patterns alone is not specific for the diagnosis of Judah's Granulomatosis (WG) or microscopic polyangiitis. Decisions about treatment should not be based solely on ANCA IFA results. The [employer] ANCA [employer] Consensus recommends follow up testing of positive sera with both IA- 3 and MPO-ANCA enzyme immunoassays. As many as 5% serum samples are positive only by EIA. Ref. AM J Clin Pathol 1999;111:507-513. Performed By: #### G FR, FT3, CRP, FT4, TSH, CMP #### [address] [address] .Auto Diffon 05-07-2025 Basophil, Absolute 0.1 10 3/mcL Normal 0.0-0.3 [facility] Comment on above: Performed By: #### G FR, FT3, CRP, FT4, TSH, CMP #### [address] [address] Basophils/100 WBC (Bld) 0.6 % Normal 0.0-2.5 [facility] Comment on above: Performed By: #### G FR, FT3, CRP, FT4, TSH, CMP #### [address] [address] Eosinophil, Absolute 0.3 10 3/mcL Normal 0.0-0.7 [facility] Comment on above: Performed By: #### G FR, FT3, CRP, FT4, TSH, CMP #### [address] [address] Eosinophils/100 WBC (Bld) 3.4 % Normal 0.0-6.0 [facility] Comment on above: Performed By: #### G FR, FT3, CRP, FT4, TSH, CMP #### [address] [address] Lymphocyte, Absolute 2.9 10 3/mcL Normal 0.9-4.3 [facility] Comment on above: Performed By: #### G FR, FT3, CRP, FT4, TSH, CMP #### [address] [address] Lymphocytes/100 WBC (Bld) 35.7 % Normal 20.0-40.0 [facility] Comment on above: Performed By: #### G FR, FT3, CRP, FT4, TSH, CMP #### [address] [address] Monocyte, Absolute 0.7 10 3/mcL Normal 0.1-1.4 [facility] Comment on above: Performed By: #### G FR, FT3, CRP, FT4, TSH, CMP #### [address] [address] Monocytes/100 WBC (Bld) 8.7 % Normal 2.0-13.0 [facility] Comment on above: Performed By: #### G FR, FT3, CRP, FT4, TSH, CMP #### [address] [address] Neutrophils/100 WBC (Bld) 51.6 % Normal 50.0-75.0 [facility] Comment on above: Performed By: #### G FR, FT3, CRP, FT4, TSH, CMP #### [address] [address] .GFRon 05-07-2025 Estimated Glomerular Filtration Rate 78 ml/min/1.73sqm Normal [facility] Comment on above: Result Comment: Stages of Chronic Kidney Disease (CKD) Stage Description eGFR(ml/min/1.73 sq.m.) CKD 1 Normal kidney function or >=90 normal kindney function with possible kidney damage (ex. Proteinuria) CKD 2 Kidney damage with mild loss 60-89 of kidney function CKD 3a Mild to moderate loss of kidney 45-59 function CKD 3b Moderate to severe loss of 30-44 of kindey function CKD 4 Severe loss of kidney function 15-29 CKD 5 Kidney failure <15 Note: (go live 2024) the eGFR calculation was updated to the 2020 CKD-EPI creatinine equation without a race factor to calculate the eGFR results. Performed By: #### G FR, FT3, CRP, FT4, TSH, CMP #### [address] [address] .NEUABSon 05-07-2025 Neutrophil, Absolute 4.2 10 3/mcL Normal 2.3-8.1 [facility] Comment on above: Performed By: #### G FR, FT3, CRP, FT4, TSH, CMP #### [address] [address] A1Con 05-07-2025 Glucose [Mass/Vol] 148 mg/dL Normal [facility] Comment on above: Result Comment: Beth mated Average Glucose calculated by equation ((28.7xA1C)-46.7) Estimated average glucose (eAG) is a calculated value from Hemoglobin A1C and is sales support representative of the average blood glucose level in the last 2-3 month period. Normal range: less than 114 mg/dL Performed By: #### G FR, FT3, CRP, FT4, TSH, CMP #### [address] [address] HbA1c (Bld) [Mass fraction] 6.8 % High 4.3-6.4 [facility] Comment on above: Performed By: #### G FR, FT3, CRP, FT4, TSH, CMP #### [address] [address] CBCon 05-07-2025 Erythrocyte distribution width (RBC) [Ratio] 13.4 % Normal 11.5-15.5 [facility] Comment on above: Performed By: #### A CRISTY, ADIFF, A1C, CMP, TSH, [id number], CRP, CBC, GFR, LIPID #### [address] [address] #### JOON #### [address] [address] Hematocrit (Bld) [Volume fraction] 38.4 % Normal 34.0-46.0 [facility] Comment on above: Performed By: #### A CRISTY, ADIFF, A1C, CMP, TSH, [id number], CRP, CBC, GFR, LIPID #### [address] [address] #### JOON #### [place] [address] Hgb 13.3 G/dL Normal 12.0-16.0 [facility] Comment on above: Performed By: #### A CRISTY, ADIFF, A1C, CMP, TSH, 872144, CRP, CBC, GFR, LIPID #### [address] [address] #### JOON #### [address] [address] MCH (RBC) [Entitic mass] 31.9 pg Normal 27.0-33.0 [facility] Comment on above: Performed By: #### A CRISTY, ADIFF, A1C, CMP, TSH, 698015, CRP, CBC, GFR, LIPID #### [address] [address] #### JOON #### [place] [address] MCHC 34.5 G/dL Normal 32.0-36.0 [facility] Comment on above: Performed By: #### A CRISTY, ADIFF, A1C, CMP, TSH, 828129, CRP, CBC, GFR, LIPID #### [address] [address] #### JOON #### [place] [address] MCV (RBC) [Entitic vol] 92.6 fL Normal 80.0-99.0 [facility] Comment on above: Performed By: #### A CRISTY, ADIFF, A1C, CMP, TSH, [id number], CRP, CBC, GFR, LIPID #### [place] [address] #### JOON #### [place] [address] Platelet 306 10 3/mcL Normal 150-450 [facility] Comment on above: Performed By: #### A CRISTY, ADIFF, A1C, CMP, TSH, [id number], CRP, CBC, GFR, LIPID #### [place] [address] #### JOON #### [place] [address] Platelet mean volume (Bld) [Entitic vol] 7.8 fL Normal 6.6-10.5 [facility] Comment on above: Performed By: #### A CRISTY, ADIFF, A1C, CMP, TSH, [id number], CRP, CBC, GFR, LIPID #### [address] [address] #### JOON #### [place] [address] RBC 4.15 10 6/mcL Normal 4.10-5.30 [facility] Comment on above: Performed By: #### A CRISTY, ADIFF, A1C, CMP, TSH, 910105, CRP, CBC, GFR, LIPID #### [place] [address] #### JOON #### [place] [address] WBC 8.1 10 3/mcL Normal 4.5-10.8 [facility] Comment on above: Performed By: #### A CRISTY, ADIFF, A1C, CMP, TSH, [id number], CRP, CBC, GFR, LIPID #### [address] [address] #### JOON #### [address] [id number] Albumin Level 3.5 G/dL Normal 3.4-4.8 [facility] Comment on above: Performed By: #### G FR, FT3, CRP, FT4, TSH, CMP #### [address] [address] Albumin/Globulin [Mass ratio] 0.9 {ratio} Low 1.1-2.5 [facility] Comment on above: Performed By: #### G FR, FT3, CRP, FT4, TSH, CMP #### [address] [address] ALP [Catalytic activity/Vol] 106 U/L Normal 40-135 [facility] Comment on above: Performed By: #### G FR, FT3, CRP, FT4, TSH, CMP #### [address] [address] ALT [Catalytic activity/Vol] 33 U/L Normal 14-59 [facility] Comment on above: Performed By: #### G FR, FT3, CRP, FT4, TSH, CMP #### [address] [address] AST [Catalytic activity/Vol] 15 U/L Normal 10-40 [facility] Comment on above: Performed By: #### G FR, FT3, CRP, FT4, TSH, CMP #### [address] [address] Bili Total 1.3 mg/dL High 0.2-1.0 [facility] Comment on above: Result Comment: Use of this assay is not recommended for patients undergoing treatment with eltrombopag due to the potential for falsely elevated results. Performed By: #### G FR, FT3, CRP, FT4, TSH, CMP #### [address] [address] BUN/Creatinine Ratio 17 ratio Normal 7-27 [facility] Comment on above: Performed By: #### G FR, FT3, CRP, FT4, TSH, CMP #### [address] [address] Calcium [Mass/Vol] 10.1 mg/dL Normal 8.4-10.2 [facility] Comment on above: Performed By: #### G FR, FT3, CRP, FT4, TSH, CMP #### [address] [address] Chloride [Moles/Vol] 101 mmol/L Normal 98-107 [facility] Comment on above: Performed By: #### G FR, FT3, CRP, FT4, TSH, CMP #### [address] [address] CO2 [Moles/Vol] 27 mmol/L Normal 23-31 [facility] Comment on above: Performed By: #### G FR, FT3, CRP, FT4, TSH, CMP #### [address] [address] Creatinine [Mass/Vol] 0.84 mg/dL Normal 0.51-0.95 [facility] Comment on above: Performed By: #### G FR, FT3, CRP, FT4, TSH, CMP #### [address] [address] Electrolyte Balance 9.0 mEq/L Normal 4.0-15.0 [facility] Comment on above: Performed By: #### G FR, FT3, CRP, FT4, TSH, CMP #### [address] [address] Globulin 3.9 G/dL Normal 2.7-4.4 [facility] Comment on above: Performed By: #### G FR, FT3, CRP, FT4, TSH, CMP #### [address] [address] Glucose [Mass/Vol] 133 mg/dL High 80-115 [facility] Comment on above: Performed By: #### G FR, FT3, CRP, FT4, TSH, CMP #### [place] [address] Potassium [Moles/Vol] 4.0 mmol/L Normal 3.5-5.1 [facility] Comment on above: Performed By: #### G FR, FT3, CRP, FT4, TSH, CMP #### [place] [address] Sodium [Moles/Vol] 137 mmol/L Normal 136-145 [facility] Comment on above: Performed By: #### G FR, FT3, CRP, FT4, TSH, CMP #### [place] [address] Total Protein 7.4 G/dL Normal 6.4-8.2 [facility] Comment on above: Performed By: #### G FR, FT3, CRP, FT4, TSH, CMP #### [place] [address] Urea nitrogen [Mass/Vol] 14 mg/dL Normal 7-18 [facility] Comment on above: Performed By: #### G FR, FT3, CRP, FT4, TSH, CMP #### [place] [address] CORTon 05-07-2025 Cortisol Level 12.6 mcg/dL Normal [facility] Comment on above: Result Comment: Joon isol AM Reference Range 6.5-26.0 mcg/dL Cortisol PM Reference Range 3.5-15.0 mcg/dL Performed By: #### G FR, FT3, CRP, FT4, TSH, CMP #### [place] [address] CRPon 05-07-2025 C-Reactive Protein 1.0 mg/dL High 0.0-0.3 [facility] Comment on above: Performed By: #### G FR, FT3, CRP, FT4, TSH, CMP #### [place] [address] LABORATORYOrdered By: Shane Basurto on 05-07-2025 Albumin DL <= 20 mg/L (U) [Mass/Vol] 9.2 mg/L Invalid Interpretation Code AO ADM SS Albumin/Creatinine DL <= 20 mg/L (U) [Mass ratio] 7 mg/G Normal 0 - 30 mg/G AO Chemistry S Protein (U) [Mass/Vol] 14 mg/dL Invalid Interpretation Code AO ADM SS U Ratio Prot/Creat 0.1 ratio Invalid Interpretation Code AO Chemistry S Cholesterol [Mass/Vol] 242 mg/dL High 0 - 200 mg/dL AO ADM SS Comment on above: Interpretive Data: C holesterol Reference Interval: Less than 200 Desirable 200-239 Borderline high risk 240 and above High risk Cholesterol in HDL [Mass/Vol] 36 mg/dL Low 40 - 60 mg/dL AO ADM SS Cholesterol in LDL [Mass/Vol] 165 mg/dL High 0 - 130 mg/dL AO ADM SS Triglyceride [Mass/Vol] 203 mg/dL High 0 - 150 mg/dL AO ADM SS Comment on above: Interpretive Data: T riglyceride Reference Interval: Less than 150 Normal 150-199 Borderline high risk 200-499 High risk 500 or higher Very high risk LABORATORYOrdered By: SYSTEM SYSTEM on 05-07-2025 Albumin BCP dye [Mass/Vol] 3.5 G/dL Normal 3.4 - 4.8 G/dL AO ADM SS Albumin/Globulin [Mass ratio] 0.9 {ratio} Low 1.1 - 2.5 ratio AO ADM SS ALP [Catalytic activity/Vol] 106 U/L Normal 40 - 135 U/L AO ADM SS ALT With P-5'-P [Catalytic activity/Vol] 33 U/L Normal 14 - 59 U/L AO ADM SS AST With P-5'-P [Catalytic activity/Vol] 15 U/L Normal 10 - 40 U/L AO ADM SS Basophils (Bld) [#/Vol] 0.1 103/mcL Normal 0.0 - 0.3 10^3/mcL AO Workflow SS Basophils/100 WBC (Bld) 0.6 % Normal 0.0 - 2.5 % AO Workflow SS Bilirubin [Mass/Vol] 1.3 mg/dL High 0.2 - 1 .0 mg/dL AO ADM SS Comment on above: Interpretive Data: U se of this assay is not recommended for patients undergoing treatment with eltrombopag due to the potential for falsely elevated results. Calcium [Mass/Vol] 10.1 mg/dL Normal 8.4 - 10. 2 mg/dL AO ADM SS Chloride [Moles/Vol] 101 mmol/L Normal 98 - 10 7 mmol/L AO ADM SS CO2 [Moles/Vol] 27 mmol/L Normal 23 - 31 mmol/L AO AD M SS Cortisol [Mass/Vol] 12.6 ug/dL Invalid Interpretation Code AH ADM SS Comment on above: Interpretive Data: C ortisol AM Reference Range 6.5-26.0 mcg/dL Cortisol PM Reference Range 3.5-15.0 mcg/dL Creatinine [Mass/Vol] 0.84 mg/dL Normal 0.51 - 0.95 mg/dL AO ADM SS CRP [Mass/Vol] 1.0 mg/dL High 0.0 - 0.3 mg/dL AO ADM SS Electrolyte Balance 9.0 mEq/L Normal 4.0 - 15 .0 mEq/L AO ADM SS Eosinophil, Absolute 0.3 103/mcL Normal 0.0 - 0 .7 10^3/mcL AO Workflow SS Eosinophils/100 WBC (Bld) 3.4 % Normal 0.0 - 6.0 % AO Workflow SS Erythrocyte distribution width (RBC) [Ratio] 13.4 % Normal 11.5 - 15.5 % AO Workflow SS Estimated Glomerular Filtration Rate 78 ml/min/1.73sqm Invalid Interpretation Code AO Chemistry S Comment on above: Interpretive Data: Stages of Chronic Kidney Disease (CKD) Stage Description eGFR(ml/min/1.73 sq.m.) CKD 1 Normal kidney function or >=90 normal kindney function with possible kidney damage (ex. Proteinuria) CKD 2 Kidney damage with mild loss 60-89 of kidney function CKD 3a Mild to moderate loss of kidney 45-59 function CKD 3b Moderate to severe loss of 30-44 of kindey function CKD 4 Severe loss of kidney function 15-29 CKD 5 Kidney failure <15 Note: (go live 2024) the eGFR calculation was updated to the 2020 CKD-EPI creatinine equation without a race factor to calculate the eGFR results. Globulin 3.9 G/dL Normal 2.7 - 4.4 G/dL AO ADM SS Glucose [Mass/Vol] 148 mg/dL Invalid Interpretation Code AO Chemistry S Comment on above: Interpretive Data: E stimated average glucose (eAG) is a calculated value from Hemoglobin A1C and is sales support representative of the average blood glucose level in the last 2-3 month period. Normal range: less than 114 mg/dL Glucose [Mass/Vol] 133 mg/dL High 80 - 115 mg/dL AO ADM SS HbA1c (Bld) [Mass fraction] 6.8 % High 4.3 - 6.4 % AO ADM SS Hematocrit (Bld) [Volume fraction] 38.4 % Normal 34.0 - 46.0 % AO Workflow SS Hemoglobin (Bld) [Mass/Vol] 13.3 G/dL Normal 12.0 - 16.0 G/dL AO Workflow SS Lymphocytes (Bld) [#/Vol] 2.9 103/mcL Normal 0.9 - 4.3 10^3/mcL AO Workflow SS Lymphocytes/100 WBC (Bld) 35.7 % Normal 20.0 - 40.0 % AO Workflow SS MCH (RBC) [Entitic mass] 31.9 pg Normal 27.0 - 33.0 pg AO Workflow SS MCHC 34.5 G/dL Normal 32.0 - 36.0 G/dL AO Workflow SS MCV (RBC) [Entitic vol] 92.6 fL Normal 80.0 - 99.0 fL AO Workflow SS Monocytes (Bld) [#/Vol] 0.7 103/mcL Normal 0.1 - 1.4 10^3/mcL AO Workflow SS Monocytes/100 WBC (Bld) 8.7 % Normal 2.0 - 13.0 % AO Workflow SS Neutrophils (Bld) [#/Vol] 4.2 103/mcL Normal 2.3 - 8.1 10^3/mcL AO Workflow SS Neutrophils/100 WBC (Bld) 51.6 % Normal 50.0 - 75.0 % AO Workflow SS Platelet mean volume (Bld) [Entitic vol] 7.8 fL Normal 6.6 - 10.5 fL AO Workflow SS Platelets (Bld) [#/Vol] 306 103/mcL Normal 150 - 450 10^3/mcL AO Workflow SS Potassium [Moles/Vol] 4.0 mmol/L Normal 3.5 - 5.1 mmol/L AO ADM SS Protein [Mass/Vol] 7.4 G/dL Normal 6.4 - 8.2 G/dL AO ADM SS RBC (Bld) [#/Vol] 4.15 106/mcL Normal 4.10 - 5.3 0 10^6/mcL AO Workflow SS Sodium [Moles/Vol] 137 mmol/L Normal 136 - 145 mmol/L AO ADM SS TSH Qn 0.54 m[IU]/L Normal 0.36 - 3.74 mcIU/mL AO ADM SS Urea nitrogen [Mass/Vol] 14 mg/dL Normal 7 - 18 mg/dL AO ADM SS Urea nitrogen/Creatinine [Mass ratio] 17 ratio Normal 7 - 27 ratio AO ADM SS WBC (Bld) [#/Vol] 8.1 103/mcL Normal 4.5 - 10.8 10^3/mcL AO Workflow SS LIPIDon 05-07-2025 Cholesterol [Mass/Vol] 242 mg/dL High 0-200 [facility] Comment on above: Result Comment: Chol esterol Reference Interval: Less than 200 Desirable 200-239 Borderline high risk 240 and above High risk Performed By: #### G FR, FT3, CRP, FT4, TSH, CMP #### [address] [address] Cholesterol in HDL [Mass/Vol] 36 mg/dL Low 40-60 [facility] Comment on above: Performed By: #### G FR, FT3, CRP, FT4, TSH, CMP #### [place] [address] [place], [place] [address] Cholesterol in LDL [Mass/Vol] 165 mg/dL High 0-130 [facility] Comment on above: Performed By: #### G FR, FT3, CRP, FT4, TSH, CMP #### [address] [address] Triglyceride [Mass/Vol] 203 mg/dL High 0-150 [facility] Comment on above: Result Comment: Trig lyceride Reference Interval: Less than 150 Normal 150-199 Borderline high risk 200-499 High risk 500 or higher Very high risk Performed By: #### G FR, FT3, CRP, FT4, TSH, CMP #### [place] [address] [place], [place] [address] Laboratory - Chemistry and C hemistry - challengeOrdered By: Macarena Basurto on 05-07-2025 Creatinine (U) [Mass/Vol] 123.6 mg/dL Invalid Interpretation Code AO ADM SS MALBRon 05-07-2025 U Creatinine 123.6 mg/dL Normal [facility] Comment on above: Performed By: #### R JACOB, MALBR #### [address] [address] U Microalb 9.2 mg/L Normal [facility] Comment on above: Performed By: #### R JACOB, MALBR #### [address] [address] U Ratio Alb/Cre 7 mg/G Normal 0-30 [facility] Comment on above: Performed By: #### R JACOB, MALBR #### [address] [address] RPCURon 05-07-2025 U Protein 14 mg/dL Normal [facility] Comment on above: Performed By: #### R JACOB, MALBR #### [address] [address] U Ratio Prot/Creat 0.1 ratio Normal [facility] Comment on above: Performed By: #### R JACOB, MALBR #### [address] [address] TSHon 05-07-2025 TSH Qn 0.54 m[IU]/L Normal 0.36-3.74 [facility] Comment on above: Performed By: #### G FR, FT3, CRP, FT4, TSH, CMP #### [address] [address] Brain/Head without Contrasto n 05-05-2025 Brain/Head without Contrast [facility] [address] [place] [address] Brain/Head without Contrast MR#: [id number] Acct: [id number] Name: RICHY RODRIGUEZ Rep #: [id number] : 1960 F 64 From: Kamaljit Degroot MD PCP: Dr. July Rees MD Status: REG CLI Study: Brain/Head without Contrast Date of Exam: 05/21 Exam# [id number] Ordering Dr: Nan Stewart NP EFFICIENCY MANAGER-C PROCEDURE: CT BRAIN/HEAD WITHOUT CONTRAST 05/05/2025 REASON FOR EXAM: DIZZINESS TECHNIQUE: Procedure Code: CTBR Modality: CT Procedure: BRAIN/HEAD WITHOUT CONTRAST Coronal and Sagittal reconstruction series were provided. One or more dose reduction techniques were used (e.g., Automated exposure control, adjustment of the mA and/or kV according to patient size, use of iterative reconstruction technique. RADIATION DOSE SUMMARY: CTDlvol: 44.99 mGy DLP: 812.98 mGycm COMPARISON: None available. FINDINGS: No acute intracranial hemorrhage, extra-axial collection, mass effect or evidence of acute infarct. Ventricles and subarachnoid spaces are normal in size. Orbital contents are unremarkable. Intact skull base and calvarium. Clear paranasal sinuses and mastoid air cells. CT/Brain/Head without Contrast IMPRESSION: No acute intracranial abnormality. Reading Location: [facility] CC: EFFICIENCY MANAGER-C Nan Stewart; Dr. July Rees MD Process Technician: Signed Normal [facility] CBC W/ Manual Differentialon 09-24-2024 PATH REV Reviewed Normal [facility] Comment on above: Result Comment: Efren Patrick M.D. 09/24/24 AMENDED REPORT 09/24/24 1425 PATH REV previously reported as: December Performed By: #### L 501.080 #### [facility] [address] [place], [address] Comprehensive Metabolic Prof ilon 09-23-2024 Albumin [Mass/Vol] 3.7 g/dL Normal 3.2-5.0 [facility] Comment on above: Order Comment: Order Date: 09/18/24Order Info: 0786-1 - CMPOrder Info: 3016-3 - TSH Performed By: #### L 501.080 #### [facility] [address] [place], [address] Albumin/Globulin [Mass ratio] 0.9 {ratio} Normal 0.9-2.4 [facility] Comment on above: Order Comment: Order Date: 09/18/24Order Info: 0786-1 - CMPOrder Info: 3015-3 - TSH Performed By: #### L 501.080 #### [facility] [address] [place], [address] ALK P 97 U/L Normal 45-117 [facility] Comment on above: Order Comment: Order Date: 09/18/24Order Info: 07- - CMPOrder Info: 3015-10 - TSH Performed By: #### L 501.080 #### [facility] [address] [place], [address] ALT [Catalytic activity/Vol] 33 U/L Normal 13-56 [facility] Comment on above: Order Comment: Order Date: 09/18/24Order Info: 0786- - CMPOrder Info: 3015-10 - TSH Performed By: #### L 501.080 #### [facility] [address] [place], [address] AST [Catalytic activity/Vol] 16 U/L Normal 15-37 [facility] Comment on above: Order Comment: Order Date: 09/18/24Order Info: 0786- - CMPOrder Info: 3015- - TSH Performed By: #### L 501.080 #### [facility] [address] [place], [address] Bilirubin [Mass/Vol] 1.10 mg/dL High 0.20-1.00 [facility] Comment on above: Order Comment: Order Date: 09/18/24Order Info: 0786-1 - CMPOrder Info: 3015-3 - TSH Result Comment: For patients on eltrombopag therapy, use of Dimension [place] TBIL is not recommended. Performed By: #### L 501.080 #### [facility] [address] [place], [address] BUN/CRE 20.3 RATIO High 10-20 [facility] Comment on above: Order Comment: Order Date: 09/18/24Order Info: 0786-1 - CMPOrder Info: 3015-3 - TSH Performed By: #### L 501.080 #### [facility] [address] [place], [address] CA,Total 10.5 mg/dL High 8.5-10.1 [facility] Comment on above: Order Comment: Order Date: 09/18/24Order Info: 86-1 - CMPOrder Info: 3 - TSH Performed By: #### L 501.080 #### [facility] [address] [place], [address] Chloride [Moles/Vol] 104 mmol/L Normal 98-107 [facility] Comment on above: Order Comment: Order Date: 09/18/24Order Info: 0786-1 - CMPOrder Info: 3015-10 - TSH Performed By: #### L 501.080 #### [facility] [address] [place], [address] CO2 [Moles/Vol] 27.0 mmol/L Normal 21.0-32.0 [facility] Comment on above: Order Comment: Order Date: 09/18/24Order Info: 0786-1 - CMPOrder Info: 3015-3 - TSH Performed By: #### L 501.080 #### [facility] [address] [place], [address] Creatinine [Mass/Vol] 0.99 mg/dL Normal 0.55-1.[address] [facility] Comment on above: Order Comment: Order Date: 09/18/24Order Info: 0786-1 - CMPOrder Info: 6-3 - TSH Result Comment: The validity of the calculated GFR GFRAA in patients over 70 years has not been determined. Clinical correlation is essential. Performed By: #### L 501.080 #### [facility] [address] [place], [id number] EST GFR - AA 73 mL/min Normal >60 [facility] Comment on above: Order Comment: Order Date: 09/18/24Order Info: 0786-1 - CMPOrder Info: 6-3 - TSH Result Comment: Afri can [place]e GFR Calc Performed By: #### L 501.080 #### [facility] [address] [place], [address] GAP 7 Normal 5-15 [facility] Comment on above: Order Comment: Order Date: 09/18/24Order Info: 86-1 - CMPOrder Info: 3015-3 - TSH Performed By: #### L 501.080 #### [facility] [address] [place], [id number] GFR/1.73 sq M.predicted among non-blacks MDRD (S/P/Bld) [Vol rate/Area] 61 mL/min/{1.73_m2} Normal >60 [facility] Comment on above: Order Comment: Order Date: 09/18/24Order Info: 0786-1 - CMPOrder Info: 3015-3 - TSH Result Comment: Non- GFR Calc Performed By: #### L 501.080 #### [facility] [address] [place], [id number] Globulin (S) [Mass/Vol] 4.3 g/dL High 2.2-4.2 [facility] Comment on above: Order Comment: Order Date: 09/18/24Order Info: 0786-1 - CMPOrder Info: 3015-3 - TSH Performed By: #### L 501.080 #### [facility] [address] [place], [address] Glucose [Mass/Vol] 114 mg/dL High 74-106 [facility] Comment on above: Order Comment: Order Date: 09/18/24Order Info: 0786-1 - CMPOrder Info: 3016-3 - TSH Result Comment: Fast ing Glucose result from 100 to 125 mg/dL suggests IMPAIRED HOMEOSTASIS per A.D.A. criteria. Performed By: #### L 501.080 #### [facility] [address] [place], [address] Potassium [Moles/Vol] 3.6 mmol/L Normal 3.5-5.[address] [facility] Comment on above: Order Comment: Order Date: 09/18/24Order Info: 0786-1 - CMPOrder Info: 3 - TSH Performed By: #### L 501.080 #### [facility] [address] [place], [address] Sodium [Moles/Vol] 138 mmol/L Normal 136-145 [facility] Comment on above: Order Comment: Order Date: 09/18/24Order Info: 0786-1 - CMPOrder Info: 3015-10 - TSH Performed By: #### L 501.080 #### [facility] [address] [place], [address] T PROT 8.0 g/dL Normal 6.4-8.2 [facility] Comment on above: Order Comment: Order Date: 09/18/24Order Info: 0786-1 - CMPOrder Info: 3015-10 - TSH Performed By: #### L 501.080 #### [facility] [address] [place], [address] Urea nitrogen [Mass/Vol] 20 mg/dL High 7-18 [facility] Comment on above: Order Comment: Order Date: 09/18/24Order Info: 0786-1 - CMPOrder Info: 3 - TSH Performed By: #### L 501.080 #### [facility] [address] [place], [address] Creatinine, Urine (random)on 09-23-2024 UR CREAT 20.40 mg/dL Normal NO RANGE EST. [facility] Comment on above: Order Comment: Order Date: 09/18/24 Order Info: 2161-8 - CREATU Order Info: [id number] - ALBU Performed By: #### L 502.0500, L501.1200 #### [facility] [address] [place], [address] Microalbumin,Random Urineon 09-23-2024 MICROALBUMIN,UR < 5.0 Normal NO RANGE EST. [facility] Comment on above: Order Comment: Order Date: 09/18/24Order Info: 216-8 - CREATUOrder Info: 13120-8 - ALBU Performed By: #### L 100.0500, L500.2500 #### [facility] [address] [place], [address] Thyroid Stim Hormone (TSH)on 09-23-2024 TSH 1.140 uIU/mL Normal 0.358-3.740 [facility] Comment on above: Order Comment: Order Date: 09/18/24Order Info: 0786-1 - CMPOrder Info: 3016-3 - TSH Performed By: #### L 501.080 #### [facility] [address] [place], [address] Basophil percentageOrdered B y: July Rees on 11-16-2023 Bilirubin [Mass/Vol] 1.30 mg/dL 0.20-1.00 [facility] Comment on above: For patients on eltr ombopag therapy, use of Dimension [place] TBIL is not recommended. Chloride [Moles/Vol] 108 mmol/L 98-107 [facility] Cholesterol [Mass/Vol] 223 mg/dL <200 [facility] Comment on above: <200 mg/dL Desirable 200-240 mg/dL Borderline >240 mg/dL High Risk Glucose [Mass/Vol] 203 mg/dL 74-106 [facility] Comment on above: Glucose result great er than or equal to 200 mg/dLsuggests DIABETES MELLITUS per A.D.A. criteria. Potassium [Moles/Vol] 4.2 mmol/L 3.5-5.[address] [facility] Protein [Mass/Vol] 7.7 g/dL 6.4-8.2 [facility] Sodium [Moles/Vol] 141 mmol/L 136-145 [facility] Triglyceride [Mass/Vol] 334 mg/dL <199 [facility] Comment on above: The drugs N-Acetylcy steine and Metamizole may falsely depress this assay.Serum Triglycerides Reference Interval Normal <150 mg/dL Borderline high 150 - 199 mg/dL High 200 - 499 mg/dL Very High > or = 500 mg/dL Laboratory - Chemistry and C hemistry - challengeOrdered By: July Rees on 11-16-2023 Albumin/Globulin [Mass ratio] 1.0 {ratio} 0.9-2.4 [facility] ALP [Catalytic activity/Vol] 131 U/L 45-117 [facility] ALT [Catalytic activity/Vol] 81 U/L 13-56 [facility] [facility] Cholesterol in HDL [Mass/Vol] 36 mg/dL >40 [facility] Comment on above: The drugs N-Acetylcy steine and Metamizole may falsely depress this assay. Reference Range HDL <40 mg/dL Low HDL Cholesterol HDL >or= 60 mg/dL High HDL Cholesterol Cholesterol in LDL [Mass/Vol] 120 mg/dL 0-130 [facility] CO2 [Moles/Vol] 26.0 mmol/L 21.0-32.0 [facility] Globulin (S) [Mass/Vol] 3.8 g/dL 2.2-4.2 [facility] Urea nitrogen/Creatinine [Mass ratio] 15.9 mg/mg 10-20 [facility] No Panel InformationOrdered By: July Rees on 11-16-2023 Estimated GFR (MDRD) Amer 83 mL/min >60 [facility] Comment on above: GFR Calc Estimated GFR (MDRD) Non-Af Amer 69 mL/min >60 [facility] Comment on above: Non- GFR Calc Urine Microalbumin/Creatini ne Ratio 8.7 mg/g CRE <30 [facility] VLDL Cholesterol 67 mg/dL 5-40 [facility] Serum or plasma calcium gold urement (mass/volume)Ordered By: July Rees on 11-16-2023 Calcium [Mass/Vol] 10.0 mg/dL 8.5-10.1 [facility] Serum or plasma creatinine m easurement (mass/volume)Ordered By: July Rees on 11-16-2023 Creatinine [Mass/Vol] 0.88 mg/dL 0.55-1.[address] [facility] Comment on above: The validity of the calculated GFR & GFRAA in patients over 70 years has not been determined. Clinical correlation is essential. Serum or plasma thyroid stim ulating hormone (TSH) measurement (units/volume)Ordered By: July Rees on 11-16-2023 TSH Qn 0.79 uIU/mL 0.358-3.74 [facility] Serum or plasma urea nitroge n measurement (mass/volume)Ordered By: July Rees on 11-16-2023 Urea nitrogen [Mass/Vol] 14 mg/dL 7-18 [facility] Thin prep Papanicolaou smear with manual screeningOrdered By: July Rees on 11-16-2023 Thin prep Papanicolaou smear with manual screening 3.9 g/dL 3.2-5.0 [facility] Thin prep Papanicolaou smear with manual screening 50 U/L 15-37 [facility] Thin prep Papanicolaou smear with manual screening 7 5-15 [facility] Thin prep Papanicolaou smear with manual screening 14.1 mg/L NO RANGE EST. [facility] Urine creatinine measurement (mass/volume)Ordered By: July Rees on 11-16-2023 Creatinine (U) [Mass/Vol] 162.00 mg/dL NO RANGE EST. [facility] Final Surgical Pathology Rep gonzalo 11-22-2022 Final Surgical Pathology Report . Pathology Reports Accession: Collected Date/Time: Received Date/Time: Pathologist: [id number] 11/20/2022 09:04 EDT 11/21/2022 10:52 EDT SHAYNE VILLAGOMEZ MD Final Surgical Pathology Report DIAGNOSIS: ILEOCECAL VALVE BIOPSY: - COLONIC MUCOSA WITHOUT SIGNIFICANT MICROSCOPIC PATHOLOGY COMMENT: [facility] - [id number] CLINICAL INFORMATION: Procedure: COLONOSCOPY WITH BIOPSY Preoperative diagnosis: HX OF COLON POLYPS Postoperative diagnosis: SAME SPECIMEN: A ILEOCECAL VALVE BIOPSY GROSS DESCRIPTION: All parts labelled with patient name and [id number] Received in formalin labelled "ileocecal valve biopsy" are two fragments of nagy tissue each measuring 0.2 and 0.3 cm. TS-1 Roxi Hurtado, Grossing Belt Measurer/ Dr. Shayne Villagomez, Pathologist Dictated by Roxi Hurtado MICROSCOPIC DESCRIPTION: The microscopic examination is performed, except in the case of Gross Only. Electronically Signed by Pathology Report verified by [facility] SHAYNE VILLAGOMEZ Sign out Date: 11/22/2022 14:57 Performing Lab: [facility], [address] [place] [address] Pathology Dept Normal [facility] ([place]) MRI SHOULDER W/O CONTRAST LE FTon 08-18-2022 MRI SHOULDER W/O CONTRAST LEFT ORIGINAL EXAMINATION: MRI OF THE LEFT SHOULDER WITHOUT CONTRAST 08/16/2022 3:48 pm TECHNIQUE: Multiplanar multisequence MRI of the left shoulder was performed without the administration of intravenous contrast. COMPARISON: None. HISTORY: ORDERING SYSTEM PROVIDED HISTORY: Reason for Exam: CALCIFIC TENDINITIS OF LEFT SHOULDER, IMPINGEMENT SYNDROME LEFT SHOULDER. Left shoulder pain radiating to arm for 4 months. FINDINGS: ROTATOR CUFF: A T1 and T2 hypointense presumed calcification measuring at least 1.2 cm in length is present at the bursal surface of the supraspinatus tendon. Associated mildly increased intrasubstance signal of the surrounding supraspinatus and the infraspinatus tendons. No gross supraspinatus or infraspinatus tear identified. Intact subscapularis and teres minor tendons. No significant muscle edema or atrophy. BICEPS TENDON: Intact vertical and horizontal portions of the long head of the biceps tendon. LABRUM: Absence of the posterosuperior labrum is concerning for a tear. Irregularity and increased signal in the anterior labrum suggesting degeneration. Grossly normal biceps labrum complex. No paralabral cyst. GLENOHUMERAL JOINT: Physiologic amount of joint fluid. No evidence of high-grade cartilage loss. Normal alignment. AC JOINT AND ACROMIOCLAVICULAR ARCH: No significant acromial downsloping or subacromial spur. Moderate degenerative changes. Intact acromioclavicular and coracoclavicular ligaments. Small amount of fluid in the subacromial/subdeltoi d bursa. BONE MARROW: No evidence of fracture. Normal marrow signal. OUTLET SPACES: Normal MRI appearance of the quadrilateral space. No significant narrowing of the supraspinatus outlet. IMPRESSION: Supraspinatus calcific tendinitis and associated supraspinatus and infraspinatus tendinopathy. No gross rotator cuff tear. Mild subacromial/subdeltoi d bursitis. Suspect Posterosuperior glenoid labral tear and degeneration of the anterior labrum. I have personally reviewed the images of this examination and agree with the resident's findings and interpretation. Interpreted by: Curry Simeon MD Preliminary Report By: Juanpablo Ruano Electronically signed By Curry Simeon MD Dictated Date: 08/17/2022 9:45:30 AM Prelim Date: 08/18/2022 9:23:55 AM Sign Date: 08/18/2022 9:23:55 AM Ordering Provider: OLIVIER BROWN [facility] ([place]) XR FINGER 3RD DIGIT 3 VIEWS LEFTon 02-09-2022 XR FINGER 3RD DIGIT 3 VIEWS LEFT ORIGINAL EXAMINATION: XR left hand 3rd digit three views COMPARISON: None HISTORY: ORDERING SYSTEM PROVIDED HISTORY: Reason for Exam: pain in left hand, ganglion, left hand, FINDINGS: No acute fracture, dislocation, lytic process or periosteal reaction is seen in the visualized bones and joints of the 3rd digit. No erosive type of arthritis. No periarticular soft tissue calcification. There is mild osteoarthritis in the PIP and D IP joints. IMPRESSION: No acute skeletal abnormality is seen. . Mild osteoarthritis. Interpreted by: Curry Simeon MD Preliminary Report By: Curry Simeon MD Electronically signed By Curry Simeon MD Dictated Date: 02/09/2022 1:15:10 AM Prelim Date: 02/09/2022 1:15:50 AM Sign Date: 02/09/2022 1:15:50 AM Ordering Provider: OLIVIER BROWN [facility] ([place]) Basophil percentageon 2021 Bilirubin [Mass/Vol] 0.90 mg/dL 0.20-1.00 [facility] Work Phone: Comment on above: For patients on eltr ombopag therapy, use of Dimension [place] TBIL is not recommended. Chloride [Moles/Vol] 106 mmol/L 98-107 [facility] Work Phone: Glucose [Mass/Vol] 189 mg/dL 74-106 [facility] Work Phone: Comment on above: Fasting Glucose resu lt greater than or equal to 126 mg/dL suggests DIABETES MELLITUS per A.D.A. criteria. Potassium [Moles/Vol] 3.6 mmol/L 3.5-5.[address] [facility] Work Phone: [phone] Protein [Mass/Vol] 7.3 g/dL 6.4-8.2 [facility] Work Phone: [phone] Sodium [Moles/Vol] 139 mmol/L 136-145 [facility] Work Phone: Laboratory - Chemistry and C hemistry - challengeon 01-10-2022 ALP [Catalytic activity/Vol] 95 U/L 45-117 [facility] Work Phone: ALT [Catalytic activity/Vol] 75 U/L 13-56 [facility] Work Phone: CO2 [Moles/Vol] 26.0 mmol/L 21.0-32.0 [facility] Work Phone: Free T4 [Mass/Vol] 0.84 ng/dL 0.76-1.46 [facility] Work Phone: [phone] Globulin (S) [Mass/Vol] 3.6 g/dL 2.2-4.2 [facility] Work Phone: Urea nitrogen/Creatinine [Mass ratio] 14.6 mg/mg 10-20 [facility] Work Phone: No Panel Informationon 01-10 Thyroglobulin Antibody < 1.0 IU/mL [facility] Work Phone: Comment on above: Thyroglobulin Antibo dy measured by Kale [employer] Thyroglobulin Level 24.5 ng/mL [facility] Work Phone: [phone] Comment on above: According to the [facility] [employer],the reference interval for Thyroglobulin (TG) should berelated to euthyroid patients and not for patients whounderwent thyroidectomy. TG reference intervals for thesepatients depend on the residual mass of the thyroid tissueleft after surgery. Establishing a post-operative baselineis recommended. The assay limit of quantitation is 0.1ng/mLThyroglobulin measured by Kale [place] [employer] Estimated GFR (MDRD) Amer 77 mL/min >60 [facility] Work Phone: Comment on above: GFR Calc Estimated GFR (MDRD) Non-Af Amer 63 mL/min >60 [facility] Work Phone: Comment on above: Non- GFR Calc Free Triiodothyronine (T3) pg/dL 2.3 pg/mL 2.18-3.98 [facility] Work Phone: [phone] Thyroid Stimulating Hormone (TSH) 0.63 uIU/mL 0.358-3.74 [facility] Work Phone: [phone] Urine Microalbumin/Creatini ne Ratio 8.6 mg/g CRE <30 [facility] Work Phone: Serum or plasma albumin gold urement (mass/volume)on 01-10-2022 Albumin [Mass/Vol] 3.7 g/dL 3.2-5.0 [facility] Work Phone: [phone] Serum or plasma albumin/glob ulin mass ratioon 01-10-2022 Albumin/Globulin [Mass ratio] 1.0 {ratio} 0.9-2.4 [facility] Work Phone: [phone] Serum or plasma calcium gold urement (mass/volume)on 01-10-2022 Calcium [Mass/Vol] 9.9 mg/dL 8.5-10.1 [facility] Work Phone: [phone] Serum or plasma creatinine m easurement (mass/volume)on 01-10-2022 Creatinine [Mass/Vol] 0.96 mg/dL 0.55-1.[address] [facility] Work Phone: Comment on above: The validity of the calculated GFR & GFRAA in patients over 70 years has not been determined. Clinical correlation is essential. Serum or plasma thyroperoxid ase antibody assay (units/volume)on 01-10-2022 TPO Ab Qn [IU]/mL [facility] Work Phone: Comment on above: Performed at: [address] [id number] Director: Nahum Jonas PhD, Phone: [phone] Serum or plasma urea nitroge n measurement (mass/volume)on 01-10-2022 Urea nitrogen [Mass/Vol] 14 mg/dL 7-18 [facility] Work Phone: Thin prep Papanicolaou smear with manual screeningon 01-10-2022 Thin prep Papanicolaou smear with manual screening 33 U/L 15-37 [facility] Work Phone: Thin prep Papanicolaou smear with manual screening 7 5-15 [facility] Work Phone: [phone] Thin prep Papanicolaou smear with manual screening 7.0 mg/L NO RANGE EST. [facility] Work Phone: Urine creatinine measurement (mass/volume)on 01-10-2022 Creatinine (U) [Mass/Vol] 81.90 mg/dL NO RANGE EST. [facility] Work Phone: Basophil percentageon 2021 Bilirubin [Mass/Vol] 1.00 mg/dL 0.20-1.00 [facility] Work Phone: Comment on above: For patients on eltr ombopag therapy, use of Dimension [place] TBIL is not recommended. Chloride [Moles/Vol] 107 mmol/L 98-107 [facility] Work Phone: Cholesterol [Mass/Vol] 188 mg/dL <200 [facility] Work Phone: [phone] Comment on above: <200 mg/dL Desirable 200-240 mg/dL Borderline >240 mg/dL High Risk Glucose [Mass/Vol] 109 mg/dL 74-106 [facility] Work Phone: Comment on above: Fasting Glucose resu lt from 100 to 125 mg/dL suggests IMPAIRED HOMEOSTASIS per A.D.A. criteria. Potassium [Moles/Vol] 3.9 mmol/L 3.5-5.1 [facility] ster [facility] Work Phone: Protein [Mass/Vol] 7.6 g/dL 6.4-8.2 [facility] Work Phone: [phone] Sodium [Moles/Vol] 139 mmol/L 136-145 [facility] Work Phone: [phone] Triglyceride [Mass/Vol] 204 mg/dL [facility] Work Phone: [phone] Comment on above: The drugs N-Acetylcy steine and Metamizole may falsely depress this assay.Serum Triglycerides Reference Interval Normal <150 mg/dL Borderline high 150 - 199 mg/dL High 200 - 499 mg/dL Very High > or = 500 mg/dL Laboratory - Chemistry and C hemistry - challengeon 10-07-2021 ALP [Catalytic activity/Vol] 99 U/L 45-117 [facility] Work Phone: ALT [Catalytic activity/Vol] 45 U/L 13-56 [facility] Work Phone: CO2 [Moles/Vol] 24.0 mmol/L 21.0-32.0 [facility] Work Phone: Globulin (S) [Mass/Vol] 3.9 g/dL 2.2-4.2 [facility] Work Phone: Urea nitrogen/Creatinine [Mass ratio] 17.4 mg/mg 10-20 [facility] Work Phone: No Panel Informationon 10-07 Estimated GFR (MDRD) Amer 80 mL/min >60 [facility] Work Phone: Comment on above: GFR Calc Estimated GFR (MDRD) Non-Af Amer 66 mL/min >60 [facility] Work Phone: [phone] Comment on above: Non- GFR Calc Thyroid Stimulating Hormone (TSH) 0.31 uIU/mL 0.358-3.74 [facility] Work Phone: [phone] Serum or plasma albumin gold urement (mass/volume)on 10-07-2021 Albumin [Mass/Vol] 3.7 g/dL 3.2-5.0 [facility] Work Phone: Serum or plasma albumin/glob ulin mass ratioon 10-07-2021 Albumin/Globulin [Mass ratio] 0.9 {ratio} 0.9-2.4 [facility] Work Phone: Serum or plasma calcium gold urement (mass/volume)on 10-07-2021 Calcium [Mass/Vol] 9.8 mg/dL 8.5-10.1 [facility] Work Phone: Serum or plasma cholesterol in HDL measurement (mass/volume)on 10-07-2021 Cholesterol in HDL [Mass/Vol] 39 mg/dL [facility] Work Phone: Comment on above: The drugs N-Acetylcy steine and Metamizole may falsely depress this assay. Reference Range HDL <40 mg/dL Low HDL Cholesterol HDL >or= 60 mg/dL High HDL Cholesterol Serum or plasma cholesterol in VLDL measurement (mass/volume)on 10-07-2021 Cholesterol in VLDL [Mass/Vol] 41 mg/dL 5-40 [facility] Work Phone: Serum or plasma creatinine m easurement (mass/volume)on 10-07-2021 Creatinine [Mass/Vol] 0.92 mg/dL 0.55-1.[address] [facility] Work Phone: Comment on above: The validity of the calculated GFR & GFRAA in patients over 70 years has not been determined. Clinical correlation is essential. Serum or plasma low density lipoprotein (LDL) cholesterol measurement (mass/volume)on 10-07-2021 Cholesterol in LDL [Mass/Vol] 108 mg/dL 0-130 [facility] Work Phone: Serum or plasma urea nitroge n measurement (mass/volume)on 10-07-2021 Urea nitrogen [Mass/Vol] 16 mg/dL 7-18 [facility] Work Phone: Thin prep Papanicolaou smear with manual screeningon 10-07-2021 Thin prep Papanicolaou smear with manual screening 20 U/L 15-37 [facility] Work Phone: Thin prep Papanicolaou smear with manual screening 8 5-15 [facility] Work Phone: Whole blood hemoglobin A1c/t otal hemoglobin ratio (mass fraction)on 10-07-2021 HbA1c (Bld) [Mass fraction] 6.0 % 3.8-5.6 [facility] Work Phone: Comment on above: Normal < 5.7 % Predi abetic 5.7 - 6.4 % Diabetic >or= 6.5 % Please note range changes. MA MAMMOGRAM DIAGNOSTIC LEFT W/TOMOon 03-08-2017 MA MAMMOGRAM DIAGNOSTIC LEFT W/MILES ORIGINALFROM:[address] [address]Ozzfw: [phone] PROCEDURE FOR:RICHY RODRIGUEZ[address] [place], [place] [address]Sqxk: [phone]#: [id number]#: [id number]#: [id number]: 1Age: 56 TO:MURALI LEIVA EFFICIENCY MANAGER-[address] [place], [place] [address] #[id number] LEFT DIGITAL DIAGNOSTIC MAMMOGRAM 3D/2D WITH CAD WITH MEDIOLATERAL MEDIOLATERAL OBLIQUE CRANIOCAUDAL SPOT COMPRESSION: 03/08/2017CLINICAL: CALCIFICATIONS LEFT BREAST. Comparison is made to exams dated: 08/30/2016 mammogram, 08/08/2016 mammogram, and 12/07/2014 mammogram - [facility]. There are scattered fibroglandular elements in the left breast. Current study was also evaluated with a Computer Aided Detection (CAD) system. Scattered benign appearing calcifications are present in the left breast. There is a 2 mm area of grouped calcifications in the left breast at 1 o'clock posterior depth. These are not significantly changed. No other significant masses or calcifications are seen in the breast. IMPRESSION: PROBABLY BENIGNThe 2 mm area of grouped calcifications in the left breast appear probably benign. A follow-up mammogram in 6 months is recommended to demonstrate stability. The patient will be due for her bilateral mammogram at that time as well. DESTINEY MENDES MD cm/:03/09/2017 17:28:23 Air Traffic Control Manager: SUELLEN PATEL RT(R)(M)(CT) [facility]letter sent: Probably Benign BI-RADS 3 Mammogram BI-RADS: 3 Probably benign Normal [facility] Free T4on 03-07-2017 Thyroxine (T4) free 1.2 ng/mL Normal 0.6-1.7 [facility] Comment on above: Performed By: #### F T4 ####[address] [address] T4on 03-07-2017 T4 11.8 mcg/dL Normal 4.8-13.9 [facility] Comment on above: Performed By: #### T 4 ####[address] [address] Total T3on 03-07-2017 Total T3 123.9 ng/dL Normal 60.0-181.0 [facility] Comment on above: Performed By: #### T 3 ####[address] [address] A1C Hgbon 03-03-2017 Hemoglobin A1c/Hemoglobin.total mass fraction (Bld) 6.2 % High 4.8-5.9 [facility] Comment on above: Performed By: #### A 1C ####[address] [address] Comp. Metabolic Panelon Aspartate aminotransferase (AST) 40 U/L Normal 10-40 [facility] Comment on above: Performed By: #### C MP ####[address] [address] Alanine aminotransferase (ALT) 59 U/L High 10-35 [facility] Comment on above: Performed By: #### C MP ####[address] [address] Alk. Phosphatase 80 IU/L Normal 40-135 [facility] Comment on above: Performed By: #### C MP ####[address] [address] Glucose mass conc 120 mg/dL High 70-105 [facility] Comment on above: Performed By: #### C MP ####[address] [address] Albumin/Globulin Ratio 1.6 {ratio} Normal 1.1-2.5 [facility] Comment on above: Performed By: #### C MP ####[address] [address] Bilirubin (direct) 1.1 mg/dL High 0.2-1.0 [facility] Comment on above: Performed By: #### C MP ####[place] [id number] Globulin 2.8 G/dL Normal [facility] Comment on above: Performed By: #### C MP ####[place] [id number] T. Protein 7.3 G/dL Normal 6.0-8.3 [facility] Comment on above: Performed By: #### C MP ####[place] [id number] BUN/Creatinine Ratio 16 mg/mg Normal 7-27 [facility] Comment on above: Performed By: #### C MP ####[address] [address] Creatinine 0.9 mg/dL Normal 0.6-1.2 [facility] Comment on above: Performed By: #### C MP ####[address] [address] Albumin 4.5 G/dL Normal 3.5-5.0 [facility] Comment on above: Performed By: #### C MP ####[address] [address] Calcium 10.2 mg/dL Normal 8.4-10.2 [facility] Comment on above: Performed By: #### C MP ####[address] [address] CO2 21 mmol/L Low 22-29 [facility] Comment on above: Performed By: #### C MP ####[address] [address] Electrolyte Balance 12.0 mEq/L Normal [facility] Comment on above: Performed By: #### C MP ####[address] [address] Chloride 107 mmol/L Normal 98-107 [facility] Comment on above: Performed By: #### C MP ####[address] [address] Potassium molar conc 4.9 mmol/L Normal 3.5-5.1 [facility] Comment on above: Performed By: #### C MP ####[address] [address] Sodium 140 mmol/L Normal 136-146 [facility] Comment on above: Performed By: #### C MP ####[address] [address] Urea nitrogen 14 mg/dL Normal 7-18 [facility] Comment on above: Performed By: #### C MP ####[address] [address] Glomerular Filtration Rate E stimateon 03-03-2017 eGFR (non-black) mL/min/{1.73_m2} Normal [facility] Comment on above: Performed By: #### G FR ####[address] [address] Result Comment: [place] m[place] mean GFR = 93 mL/min/1.73 sq.m. for ages 50-59 years. Chronic Kidney Disease: Less than 60 mL/min/1.73 square metersEnd Stage Renal Disease: Less than 15 mL/min/1.73 square meters HDL Cholesterol Profileon Cholesterol 211 mg/dL High 131-200 [facility] Comment on above: Result Comment: Chol esterol Reference Interval: Less than 200 Desirable 200-239 Borderline high risk 240 and above High risk ---- Performed By: #### L IPID ####Jared [address] [address] HDL Cholesterol 33 mg/dL Low 35-90 [facility] Comment on above: Result Comment: HDL Reference Interval: Less than 40 Low - high risk 60 or above Optimal/lowers risk ---- Performed By: #### L IPID ####[address] [address] LDL Cholesterol 124 mg/dL Normal 0-130 [facility] Comment on above: Result Comment: LDL is a calculated result and requires a 12- hr fast. LDL Reference Interval: Less than 100 Optimal 100-129 Near or above optimal 130-159 Borderline high risk 160-189 High risk 190 and above Very high risk ----- Performed By: #### L IPID ####Jared [place], [address] [place] [id number] Triglyceride 268 mg/dL High 40-150 [facility] Comment on above: Result Comment: Trig lyceride Reference Interval: Less than 150 Normal 150-199 Borderline high risk 200-499 High risk 500 or higher Very high risk ---- Performed By: #### L IPID ####Jared [address] [address] TSHon 03-03-2017 Thyroid stimulating hormone (TSH) 0.17 mcIU/mL Low 0.27-4.20 [facility] Comment on above: Performed By: #### T SH ####Jared [address] [address] Vital Signs Date Time Vital Sign Value Performing Clinician Faci litza 06-24-2025 08:30-[address] Blood Pressure Cuff Size DR ROSAURA COLORADO MD [address] [place] [address] 06-24-2025 08:30-[address] ROSAURA COLORADO MD [address] [place] [address] 06-24-2025 08:30-[address] ROSAURA COLORADO MD [address] [place] [address] 06-24-2025 08:30-0400 Body temperature 97.52 [degF] DR ROSAURA COLORADO MD [address] [place] [address] 06-24-2025 08:30-0400 Diastolic Blood Pressure Non-Invasive 78 mm[Hg] DR ROSAURA COLORADO MD [address] [place] [address] 06-24-2025 08:30-0400 Heart rate 76 /min DR ROSAURA COLORADO MD [address] [place] [address] 06-24-2025 08:30-0400 Reason For Taking VItal Signs DR ROSAURA COLORADO MD [address] [place] [address] 06-24-2025 08:30-0400 Respiratory rate 18 /min DR ROSAURA COLORADO MD [address] [place] [address] 06-24-2025 08:30-0400 Systolic Blood Pressure Non-Invasive 124 mm[Hg] DR ROSAURA COLORADO MD [address] [place] [address] 06-23-2025 23:21-0400 Body temperature 98.24 [degF] DR ROSAURA COLORADO MD [address] 06-23-2025 23:21-0400 Diastolic Blood Pressure Non-Invasive 81 mm[Hg] DR ROSAURA COLORADO MD [address] [place] [address] 06-23-2025 23:21-0400 Heart rate 66 /min DR ROSAURA COLORADO MD [address] [place] [address] 06-23-2025 23:21-0400 Respiratory rate 16 /min DR ROSAURA COLORADO MD [address] [place] [address] 06-23-2025 23:21-0400 Systolic Blood Pressure Non-Invasive 128 mm[Hg] DR ROSAURA COLORADO MD [address] [place] [address] 06-23-2025 16:27-0400 Blood Pressure Cuff Size DR ROSAURA COLORADO MD [address] [place] [address] 06-23-2025 16:27-[address] ROSAURA COLORADO MD [address] [place] [address] 06-23-2025 16:27-[address] ROSAURA COLORADO MD [address] [place] [address] 06-23-2025 16:27-0400 Body temperature 98.24 [degF] DR ROSAURA COLORADO MD [address] [place] [address] 06-23-2025 16:27-0400 Diastolic Blood Pressure Non-Invasive 84 mm[Hg] DR ROSAURA COLORADO MD [address] 06-23-2025 16:27-0400 Heart rate 69 /min DR ROSAURA COLORADO MD [address] 06-23-2025 16:27-0400 Reason For Taking VItal Signs DR ROSAURA COLORADO MD [address] [place] [address] 06-23-2025 16:27-0400 Respiratory rate 18 /min DR ROSAURA COLORADO MD [address] [place] [address] 06-23-2025 16:27-0400 Systolic Blood Pressure Non-Invasive 126 mm[Hg] DR ROSAURA COLORADO MD [address] [place] [address] 06-23-2025 08:20-0400 Heart rate 72 /min DR ROSAURA COLORADO MD [address] [place] [address] 06-23-2025 08:19-0400 Heart rate 7 /min DR ROSAURA COLORADO MD [address] [place] [address] 06-23-2025 07:01-0400 Blood Pressure Cuff Size DR ROSAURA COLORADO MD [address] [place] [address] 06-23-2025 07:01-[address] ROSAURA COLORADO MD [address] [place] [address] 06-23-2025 07:01-[address] ROSAURA COLORADO MD [address] [place] [address] 06-23-2025 07:01-0400 Heart rate 68 /min DR ROSAURA COLORADO MD [address] [place] [address] 06-23-2025 07:01-0400 Reason For Taking VItal Signs DR ROSAURA COLORADO MD [address] [place] [address] 06-22-2025 23:19-0400 Heart rate 72 /min DR ROSAURA COLORADO MD [address] [place] [address] 06-22-2025 19:13-0400 Heart rate 73 /min DR ROSAURA COLORADO MD [address] [place] [address] 06-22-2025 16:55-0400 Heart rate 63 /min DR ROSAURA COLORADO MD [address] [place] [address] 06-21-2025 17:34-0400 Body height 162.[address] ROSAURA COLORADO MD [address] [place] [address] 06-21-2025 17:34-0400 Body weight 104.[address] ROSAURA COLORADO MD [address] [place] [address] 06-21-2025 17:34-0400 Body weight 39.53 kg/m2 DR ROSAURA COLORADO MD [facility] 06-21-2025 04:11-0400 Mean blood pressure 88 mm[Hg] DR ROSAURA COLORADO MD [facility] 06-21-2025 00:23-0400 Mean blood pressure 89 mm[Hg] DR ROSAURA COLORADO MD [facility] 06-20-2025 18:34-0400 SaO2% (BldA) [Mass fraction] 84.8 % DR ROSAURA COLORADO MD [facility] 11-20-2022 09:45-0400 Diastolic Blood Pressure Non-Invasive [address] NAHUM HEWITT MD [facility] 11-20-2022 09:45-0400 Heart rate 91 /min DR NAHUM HEWITT MD [facility] 11-20-2022 09:45-0400 Respiratory rate 16 /min DR NAHUM HEWITT MD [facility] 11-20-2022 09:45-0400 Systolic Blood Pressure Non-Invasive [address] NAHUM HEWITT MD [facility] 11-20-2022 09:26-0400 Diastolic Blood Pressure Non-Invasive [address] NAHUM HEWITT MD [facility] 11-20-2022 09:26-0400 Heart rate 87 /min DR NAHUM HEWITT MD [facility] 11-20-2022 09:26-0400 Respiratory rate 17 /min DR NAHUM HEWITT MD [facility] 11-20-2022 09:26-0400 Systolic Blood Pressure Non-Invasive [address] NAHUM HEWITT MD [facility] 11-20-2022 09:15-0400 Diastolic Blood Pressure Non-Invasive [address] NAHUM HEWITT MD [facility] 11-20-2022 09:15-0400 Heart rate 85 /min DR NAHUM HEWITT MD [facility] 11-20-2022 09:15-0400 Respiratory rate 18 /min DR NAHUM HEWITT MD [facility] 11-20-2022 09:15-0400 Systolic Blood Pressure Non-Invasive [address] NAHUM HEWITT MD [facility] 11-20-2022 09:05-0400 Body temperature 98.06 [degF] DR NAHUM HEWITT MD [facility] 11-20-2022 08:55-0400 Respiratory Rate - Anes 20 br/min DR NAHUM HEWITT MD [facility] 11-20-2022 08:50-0400 Respiratory Rate - Anes 14 br/min DR NAHUM HEWITT MD [facility] 11-20-2022 07:55-0400 Body temperature 97.7 [degF] DR NAHUM HEWITT MD [facility] 11-20-2022 07:55-0400 Heart rate 115 /min DR NAHUM HEWITT MD [facility] 11-20-2022 07:51-0400 Body temperature 97.7 [degF] DR NAHUM HEWITT MD [facility] 11-20-2022 07:49-0400 Body height 162.[address] NAHUM HEWITT MD [facility] 11-20-2022 07:49-0400 Body weight [address] NAHUM HEWITT MD [facility] 11-20-2022 07:49-0400 Body weight 37.84 kg/m2 DR NAHUM HEWITT MD [facility] 11-20-2022 07:48-0400 Body height 162.[address] NAHUM HEWITT MD [facility] Encounters Encounter Date Encounter Type Care Provider Facility Start: 06-24-2025 ambulatory Suyapa Temlpeton [facility] Start: 06-24-2025 Evaluation and management of inpatient Suyapa Templeton Facility:[facility] Start: 06-19-2025 End: 06-24-2025 Evaluation and management of inpatient DR ROSAURA COLORADO MD [facility] Start: 06-19-2025 End: 06-19-2025 Emergency department patient visit Andres Serrano Facility:[facility] Start: 06-16-2025 End: 06-16-2025 ambulatory July Rees Facility:[facility] Start: 06-10-2025 End: 06-10-2025 ambulatory July Rees Facility:[facility] Start: 06-04-2025 End: 06-04-2025 ambulatory July Rees Facility:[facility] Start: 06-02-2025 End: 06-02-2025 ambulatory JULY REES MD [facility] Start: 06-02-2025 End: 06-02-2025 Patient encounter procedure JULY REES MD [facility] Start: 05-29-2025 End: 05-29-2025 ambulatory JULY REES MD [facility] Start: 05-29-2025 End: 05-29-2025 Patient encounter procedure JULY REES MD [facility] Start: 05-26-2025 End: 05-26-2025 ambulatory JUANPABLO PATEL Facility:[facility] Start: 05-26-2025 End: 05-26-2025 Patient encounter procedure JUANPABLO PATEL MD [facility] Start: 05-11-2025 End: 06-26-2025 ambulatory JULY REES MD Facility:[facility] Start: 05-07-2025 End: 05-07-2025 ambulatory JULY REES MD Facility:[facility] Start: 05-07-2025 End: 05-07-2025 Patient encounter procedure JULY REES MD [facility] Start: 05-05-2025 End: 05-05-[address] July Rees MD Work Phone: -[facility] Start: 05-05-2025 End: 05-05-2025 Patient encounter procedure Nan Stewart EFFICIENCY MANAGER-C -[facility] Work Phone: Start: 05-05-2025 End: 05-05-2025 ambulatory July Rees Facility:[facility] Start: 09-23-2024 End: 09-23-2024 ambulatory July Rees Facility:[facility] Start: 11-16-2023 End: 11-16-2023 ambulatory [facility] Work Phone: Start: 11-16-2023 End: 11-16-2023 Patient encounter procedure [facility] Work Phone: Start: 11-20-2022 End: 11-20-2022 ambulatory NAHUM HEWITT Facility:[facility] Start: 11-20-2022 End: 11-20-[address] NAHUM HEWITT MD [facility] Start: 09-08-2022 End: 10-31-2022 ambulatory OLIVIER BROWN DO Facility:[facility] Start: 09-08-2022 End: 10-31-2022 Physical therapy management OLIVIER SPITTLE DO [facility] Start: 08-16-2022 End: 08-17-2022 ambulatory OLIVIER SPITTLE DO Facility:[facility] Start: 08-16-2022 End: 08-16-2022 Patient encounter procedure OLIVIER SPITTLE DO [facility] Start: 05-19-2022 End: 09-05-2022 ambulatory OLIVIER SPITTLE DO Facility:[facility] Start: 05-19-2022 End: 09-05-2022 Physical therapy management OLIVIER SPITTLE DO [facility] Start: 02-07-2022 End: 02-08-2022 ambulatory OLIVIER SPITTLE DO Facility:[facility] Start: 02-07-2022 End: 02-07-2022 Patient encounter procedure OLIVIER SPITTLE DO [facility] Start: 01-17-2022 End: 01-17-2022 Patient encounter procedure [facility] Start: 01-10-2022 End: 01-10-2022 Patient encounter procedure [facility] Start: 10-07-2021 End: 10-07-2021 Patient encounter procedure [facility] Start: 03-08-2017 Ambulatory PHY WO ID REFERRING Fac ility:[facility] Start: 03-03-2017 End: 03-04-2017 Ambulatory PHY WO ID REFERRING Facility:[facility] Procedures Date Procedure Procedure Detail Performing Clinician Start: 05-05-2025 CT of head without contrast Dr. July Rees MD Work Phone: Start: 01-17-2022 Screening mammography Start: 11-26-2018 Colonoscopy and biop sy of colon OLIVIER SHARMALE DO Start: 03-03-1991 Appendectomy OLIVIER TONEY DO Cholecystectomy OLIVIER STEWART TTKEANU DO Excision of bunion OLIVIER BROWN DO H/O: hysterectomy OLIVIER TONEY DO Spinal arthrodesis OLIVIER BROWN DO Comment on above: cervical with plate and rods Immunizations Immunization Date Immunization Notes Care Provider Fa cili 09-19-2018 influenza virus vaccine, unspecified formulation OLIVIER STEWARTTTLE DO [facility] 06-28-2015 influenza virus vaccine, unspecified formulation OLIVIER SPITTLE DO [facility] 07-14-2014 influenza virus vaccine, unspecified formulation OLIVIER SPITTLE DO [facility] 05-12-2013 influenza virus vaccine, unspecified formulation OLIVIER SPITTLE DO [facility] 06-17-2012 influenza virus vaccine, unspecified formulation OLIVIER SPITTLE DO [facility] 05-01-2008 hepatitis A and hepatitis B vaccine OLIVIER SPITTLE DO [facility] 03-24-2008 hepatitis A and hepatitis B vaccine OLIVIER SPITTLE DO [facility] Payers Date Payer Category Payer Private Health Insurance [id number] 2024 Self-pay [id number] 2022 Unknown [id number] 2016 Unknown [id number] 1960 Unknown [id number] 2.16.8 40.1.008768.3.579.2.627 1961 Unknown [id number] 2.16.8 40.1.386486.3.579.2.7 1960 Unknown [id number] 2.16.8 40.1.566997.3.579.2. 1961 Unknown [id number] 2.16.8 40.1.290544.3.579.2.627 1961 Unknown [id number] 2.16.8 40.1.455325.3.579.2.7 1961 Unknown [id number] 2.16. 840.1.424413.3.579.2.627 1961 Unknown [id number] 2.16. 840.1.434685.3.579.2.7 1961 Unknown [id number] 2.16. 840.1.601795.3.579.2.627 1961 Unknown [id number] 2.16. 840.1.760235.3.579.2.627 1961 Unknown [id number] 2.16. 840.1.022474.3.579.2.627 1960 Unknown [id number] 2.16. 840.1.873474.3.579.2.62 Unknown [id number] 2.16.8 40.1.637902.3.579.2.462 Unknown [id number] 2.16.8 40.1.673720.3.579.2.462 Unknown [id number] 2.16.8 40.1.063583.3.579.2.462 Unknown [id number] 2.16.8 40.1.682979.3.579.2.462 Unknown [id number] 2.16.8 40.1.574670.3.579.2.462 Unknown [id number] 2.16.8 40.1.645636.3.579.2.462 Unknown [id number] 2.16.8 40.1.140203.3.579.2.462 Unknown [id number] 2.16.8 40.1.701054.3.579.2.462 Unknown [id number] 2.16.8 40.1.253163.3.579.2.462 Unknown [id number] 2.16.8 40.1.429291.3.579.2.462 Unknown [id number] 2.16.8 40.1.460148.3.579.2.462 Unknown [id number] 2.16.8 40.1.907209.3.579.2.462 Unknown [id number] 2.16.8 40.1.567196.3.579.2.462 Unknown [id number] 2.16.8 40.1.325399.3.579.2.462 Unknown [id number] 2.16.8 40.1.554675.3.579.2.462 Unknown [id number] 2.16.8 40.1.298317.3.579.2.462 Social History Date Type Detail Facility [facility] Work Phone: Start: 1960 Sex Assigned At Female [facility] Work Phone: Start: 09-08-2019 Tobacco smoking status Never s moked tobacco (finding) [facility] Sexual O[facility] Start: 02-19-2019 Sex Female (finding) [facility] if ever smoked [facility] Work Phone: Sex Female [facility] Social / personal history observable (observable entity) [facility] Start: 06-22-2025 [facility] Start: 06-21-2025 No, per patient [facility] Start: 06-21-2025 End: 06-21-2026 Future intention Reported No desire to become (finding) [facility] Functional Status Date Assessment Result Facility 06-24-2025 Functional Status Supervised [facility] 06-24-2025 [facility] 06-24-2025 Functional Status Identified as high risk, Room located near nursing station, Bed alert on, Door open, Bathroom light on, Room check performed [facility] 06-24-2025 Functional Status [facility] 06-24-2025 Functional Status [facility] 06-23-2025 Functional Status [facility] 06-23-2025 Functional Status [facility] 06-23-2025 Functional Status [facility] 06-23-2025 Functional Status [facility] 06-23-2025 [facility] Functional Status [facility] 06-23-2025 Functional Status [facility] 06-23-2025 [facility] 06-22-2025 Functional Status [facility] 06-22-2025 [facility] 06-22-2025 Functional Status None [facility] 06-22-2025 Functional Status Single level home [facility] 06-22-2025 Functional Status Independent [facility] 06-22-2025 Functional Status [facility] 06-22-2025 Functional Status [facility] 06-21-2025 Functional Status Done [facility] 06-21-2025 [facility] Status [facility] 06-20-2025 Functional Status [facility] 06-20-2025 [facility] Status Hospital bed [facility] 06-20-2025 [facility] 06-19-2025 Functional Status Preventative D ressing Intervention Other: [facility] 11-20-2022 Functional Status Awake [facility] 11-20-2022 Functional Status Maintained [facility] 05-19-2022 Functional Status Home Living Ad ditional Information Objective Vitals: HR: 67 BP: 130/90 SpO2%: 95% ROM/ Strength: See chart for shoulder Cervical AROM: not tested Palpation: denies tenderness to palpation proximal biceps region, mild tenderness to palpation L lateral upper arm in deltoid region / no observable muscle or joint abnormalities, deformities Reflexes: Biceps: 1+ Triceps: 1+ Special Tests: Infraspinatus: - Painful arc: + Drop ARM: - ER lag sign: - [facility] Mental Status Date Assessment Result Facility 06-24-2025 Mental Status Orientation Oriented x 4 [facility] 06-23-[address] [facility] 06-23-[address] [facility] 06-23-[address] [facility] 06-22-[address] [facility] 06-22-2025 [facility] 06-22-[address] [facility] 06-22-2025 [facility] 06-21-[address] [facility] 06-21-2025 [facility] 11-20-2022 Mental Status Oriented x 4 [facility] 11-20-2022 Mental Status [facility] 05-19-2022 Mental Status Orientation Asse ssment Oriented x 4 [facility] Clinical Notes 11-20-2022 to 06-24-2025 Note Date & Type Note Facility 06-24-2025 Note [facility] Medical Records Department [address] [place] [address] History Physical Exam 06/24/25 1455 MR#: [id number] Acct: [id number] Name: RICHY RODRIGUEZ Rep #: [id number] : 1960 64 From: Fanny Matthews PCP: Dr. July Rees MD Status:ADM IN Location: [place] [address] Documented by User: OMER Perea 06/25/25 12:42 HPI - General General Date of Admission: 06/24/25 Date of Service: 06/24/25 Chief Complaint: Ataxia with debility HPI Narrative RICHY RODRIGUEZ, is a 64 F who has history of hypertension, dyslipidemia, type 2 diabetes who is being admitted to inpatient rehab following presentation to the ED at [facility] on 06/19/25 for AMS and Ataxia. She was reportedly experiencing progressive confusion and forgetfulness over "several weeks" She had a complaint of dizziness/lightheadedness with intermittent blurred vision. She had been, reportedly, experiencing unstady gait. She denied any focal weakness, numbness or paresthesia. There was an MRI of the brain with and without contrast as well as an MRA of the head and neck available. These were assessed by the ED physician which demonstrated scattered T2 flair, hyperintensities within the periventricular white matter right greater than left they were fairly mild in severity. There was no definite enhancement of contrast but the MRI was limited by artifact motion. There was no suggestion of recent infarct or hemorrhage. Family was concerned about MS, which runs in the family. Pt was then transferred to [facility] for continued workup. At [place], the pt did receive a repeat MRI did show some white matter disease present on previous MRI. No enhancing lesions. She did have an elevated Ammonia in which she received Lactulose. Neurology was consulted and felt that demyelinating was less likely. They did recommend an EMG/NCS as an outpatient, given her ataxia and gait instability. On assessment, pt states that she feels "hazy" She is aao x 3. During her NIH assessment, I did note her to have some ataxia in bilateral upper arms. She does acknowledge some "forgetfulness" and does take notes frequently. . Although pt was able to follow all instructions, I did note a slight delay in completion of tasks or answering questions. [facility] Medical History (Updated 06/25/25 @ 16:[address] Suyapa Templeton, DO) Encephalopathy Hemorrhoids Obesity Diabetes mellitus Hyperlipidemia Hypertension Home Medications ???Medication ???Instructions ???Recorded ???Last Taken ???Type amlodipine 5 mg tablet 5 mg PO QHS blood pressure 5 Unknown History losartan 50 mg tablet 50 mg PO DAILY blood pressure 05/2806/24/25 History metoprolol succinate 50 mg 50 mg PO DAILY blood pressure 05/2806/24/25 History tablet,extended release 24 hr rosuvastatin 10 mg tablet 10 mg PO QHS cholesterol 06/19/25 06/23/25 History metformin 750 mg tablet 750 mg PO DAILY DM 06/24/25 History Allergy/AdvReac Type Severity Reaction Status Date / Time No Known Allergies Allergy Verified 06/19/25 12:44 Family History unable to obtain Social History household members: none Smoking Status: Never smoker ROS Review of Systems ROS Unobtainable: Denies due to encephalopathy, due to endotracheal tube, due to mental condition or due to mental status Constitutional Constitutional: Reports systems reviewed and no addt'l complaints, except as documented; Denies anorexia, change in weight, chills, fatigue, fever(s), night sweats or weakness Eyes Eyes: Reports blurry vision bilateral (Intermittent) and change in vision bilateral (Intermittent); Denies eye pain or loss of vision ENT HEENT: Reports other Details: Feeling of "fogginess" ; Denies abnormal hearing, dysphagia, headache(s), hearing loss, nasal congestion or sore throat Cardiovascular Cardiovascular: Reports systems reviewed and no addt'l complaints, except as documented; Denies chest pain, dyspnea on exertion, edema, lightheadedness, orthopnea, palpitations, paroxysmal nocturnal dyspnea or syncope Respiratory/Chest Respiratory/Chest: Reports systems reviewed and no addt'l complaints, except as documented; Denies cough, dyspnea, shortness of breath at rest, shortness of breath with exertion or wheezing Gastrointestinal Gastrointestinal: Reports systems reviewed and no addt'l complaints, except as documented; Denies abdominal pain, constipation, diarrhea, dyspepsia, hematemesis, hematochezia, nausea or vomiting Genitourinary Genitourinary: Reports systems reviewed and no addt'l complaints, except as documented; Denies dysuria, hematuria, nocturia, urinary frequency, urinary hesitancy, urinary incontinence or urinary urgency Musculoskeletal Mus (more content not included)... [facility] 06-24-2025 Hospital Discharge instructions Patient Education 06/24/2025 11:32:14 Toxic Metabolic Encephalopathy Toxic Metabolic Encephalopathy Toxic metabolic encephalopathy (TME) is a type of brain disorder caused by a change in brain chemistry. This condition may result from illnesses or conditions that cause an imbalance of fluid, minerals (electrolytes), and other substances in the body that affect the way the brain functions. It is not caused by brain damage or brain disease. TME can cause confusion and other mental disturbances, which are generally referred to as delirium. Untreated delirium may lead to permanent mental changes or worsening medical conditions. Untreated delirium is a life-threatening condition that may need to be treated in the hospital. What are the causes? Possible causes of TME that can lead to delirium include: Short-term (acute) or long-term (chronic) disease of the kidney or liver. Not having enough fluid in the body (dehydration). Changes in the acid level (pH) of the blood. High or low levels of any of the following substances in the blood: ?Calcium. ?Salt (sodium). ?Sugar (glucose). ?Magnesium. ?Phosphate. High body temperature. Not having enough oxygen in the blood. Low levels of B vitamins. This can result from alcohol abuse. Certain medicines, such as steroids and medicines that reduce the activity of the immune system (immunosuppressants). Certain infections. What increases the risk? You may have a higher risk for TME if you: Are elderly. Have dementia. Are in the hospital, especially in intensive care. Live in a residential. Had recent surgery. Have liver or kidney disease. Have poorly controlled diabetes. Have chronic medical problems, especially heart or lung disease. Are not getting enough fluids. Have poor nutrition. Abuse alcohol. What are the signs or symptoms? Symptoms of TME may include: Muscle stiffness or jerking (spasticity). Shaking (tremors). Flapping of the hands. Weakness. Clumsiness. Slowed breathing. Jerky movements that you cannot control (seizures). Not being able to stay awake (drowsiness). Not being able to pay attention. Loss of consciousness (coma). Symptoms of delirium caused by TME include: Confusion. Difficulty focusing or concentrating, or inability to focus or concentrate. Not knowing where you are (disorientation). Seeing or hearing things that are not real (hallucinations). Fearfulness. False beliefs (delusions). Changes in mood or personality. Changes in speech, such as saying things that do not make sense. Memory loss. Irritability. Avoiding other people (withdrawal). Depression. Poor judgment. Changes in eating and sleeping patterns. Hyperactivity. Decreased alertness. General mistrust of others (paranoia). Delirium may come and go. Symptoms of delirium may start suddenly or gradually, and they often get worse at night. How is this diagnosed? This condition is diagnosed based on: Your symptoms and behavior. An exam to check how you are thinking, feeling, and behaving (mental status exam). To diagnose delirium, the mental status exam must rule out other possible causes of TME, and must show: ?Changes in attention and awareness. ?Changes that develop over a short period of time and tend to come and go (fluctuate). ?Changes in memory, language, and thinking that were not present before. A physical exam. Imaging tests, such as: ?MRI. ?CT scan. Blood tests to: ?Measure liver and kidney function. ?Check for a lack (deficiency) of vitamin B. ?Check for changes in acid levels (pH) and changes in calcium, sodium, or magnesium levels in the blood. ?Measure your blood sugar (glucose). ?Measure your blood oxygen level. How is this treated? Treatment for TME depends on the cause, and it may include. Getting fluids through an IV tube. Regulating calcium, sodium, glucose, or magnesium levels in the body. Getting oxygen. Improving nutrition. Treating liver or kidney disease. Adjusting certain medicines. Treating infections. If the cause is found and treated, delirium usually improves. Managing delirium may include: Keeping the room well-lit and quiet. Using calendars, pictures, and clocks to prevent disorientation. Having frequent checks from nursing staff and visits from caregivers. Wearing eyeglasses or a hearing aid, if needed. Physical therapy. Medicine to treat agitation, anxiety, hallucinations, or delusions. Follow these instructions at home: Drink enough fluid to keep your urine clear or pale yellow. Take port-qot-fzbuumx and prescription medicines only as told by your health care provider. Return to your normal activities as told by your health care provider. Ask your health care provider what activities are safe for you. Follow a healthy diet. Do not skip meals. Do not drink alcohol. Go to bed at the same time every night. Keep all follow-up visits as told by your health care provider. This is important. Contact a health care provider if: You are unable to feed yourself or hydrate yourself. You need help at home. You start to feel clumsy. You start to have tremors or weakness. Get help right away if: You have a seizure. You lose consciousness. You have trouble breathing. You do not feel able to care for yourself at home. You have a fever. You become disoriented at home. This information is not intended to replace advice given to you by your health care provider. Make sure you discuss any questions you have with your health care provider. Document Released: 01/19/2017 Document Revised: 07/26/2018 Document Reviewed: 01/19/2017 [employer] Patient Education 2020 [employer]. 06/24/2025 11:31:35 Fall Prevention in the Home, Adult, Kkgl-ju-Dpok Fall Prevention in the Home, Adult Falls can cause injuries. They can happen to people of all ages. There are many things you can do to make your home safe and to help prevent falls. Ask for help when making these changes, if needed. What actions can I take to prevent falls? General Instructions Use good lighting in all rooms. Replace any light bulbs that burn out. Turn on the lights when you go into a dark area. Use night-lights. Keep items that you use often in urdm-kr-uqjzg places. Lower the shelves around your home if necessary. Set up your furniture so you have a clear path. Avoid moving your furniture around. Do not have throw rugs and other things on the floor that can make you trip. Avoid walking on wet floors. If any of your floors are uneven, fix them. Add color or contrast paint or tape to clearly sudeep and help you see: ?Any grab bars or handrails. ?First and last steps of stairways. ?Where the edge of each step is. If you use a stepladder: ?Make sure that it is fully opened. Do not climb a closed stepladder. ?Make sure that both sides of the stepladder are locked into place. ?Ask someone to hold the stepladder for you while you use it. If there are any pets around you, be aware of where they are. What can I do in the bathroom? Keep the floor dry. Clean up any water that spills onto the floor as soon as it happens. Remove soap buildup in the tub or shower regularly. Use non-skid mats or decals on the floor of the tub or shower. Attach bath mats securely with double-sided, non-slip rug tape. If you need to sit down in the shower, use a plastic, non-slip stool. Install grab bars by the toilet and in the tub and shower. Do not use towel bars as grab bars. What can I do in the bedroom? Make sure that you have a light by your bed that is easy to reach. Do not use any sheets or blankets that are too big for your bed. They should not hang down onto the floor. Have a firm chair that has side arms. You can use this for support while you get dressed. What can I do in the kitchen? Clean up any spills right away. If you need to reach something above you, use a strong step stool that has a grab bar. Keep electrical cords out of the way. Do not use floor comoran or wax that makes floors slippery. If you must use wax, use non-skid floor wax. What can I do with my stairs? Do not leave any items on the stairs. Make sure that you have a light switch at the top of the stairs and the bottom of the stairs. If you do not have them, ask someone to add them for you. Make sure that there are handrails on both sides of the stairs, and use them. Fix handrails that are broken or loose. Make sure that handrails are as long as the stairways. Install non-slip stair treads on all stairs in your home. Avoid having throw rugs at the top or bottom of the stairs. If you do have throw rugs, attach them to the floor with carpet tape. Choose a carpet that does not hide the edge of the steps on the stairway. Check any carpeting to make sure that it is firmly attached to the stairs. Fix any carpet that is loose or worn. What can I do on the outside of my home? Use bright outdoor lighting. Regularly fix the edges of walkways and driveways and fix any cracks. Remove anything that might make you trip as you walk through a door, such as a raised step or threshold. Trim any bushes or trees on the path to your home. Regularly check to see if handrails are loose or broken. Make sure that both sides of any steps have handrails. Install guardrails along the edges of any raised decks and porches. Clear walking paths of anything that might make someone trip, such as tools or rocks. Have any leaves, snow, or ice cleared regularly. Use sand or salt on walking paths during winter. Clean up any spills in your garage right away. This includes grease or oil spills. What other actions can I take? Wear shoes that: ?Have a low heel. Do not wear high heels. ?Have rubber bottoms. ?Are comfortable and fit you well. ?Are closed at the toe. Do not wear open-toe sandals. Use tools that help you move around (mobility aids) if they are needed. These include: ?Canes. ?Walkers. ?Scooters. ?Crutches. Review your medicines with your doctor. Some medicines can make you feel dizzy. This can increase your chance of falling. Ask your doctor what other things you can do to help prevent falls. Where to find more information Centers for Disease Control and PreventionLINDSEY: https://cdc.gov National [place] on Aging: https://ld6odyx.karen.nih.gov Contact a doctor if: You are afraid of falling at home. You feel weak, drowsy, or dizzy at home. You fall at home. Summary There are many simple things that you can do to make your home safe and to help prevent falls. Ways to make your home safe include removing tripping hazards and installing grab bars in the bathroom. Ask for help when making these changes in your home. This information is not intended to replace advice given to you by your health care provider. Make sure you discuss any questions you have with your health care provider. Document Released: 06/09/2010 Document Revised: 12/04/2019 Document Reviewed: 03/28/2018 [employer] Patient Education 2020 [employer] Follow Up Care 06/19/2025 17:22:01 With:[facility] [phone] Address:Unknown When:1-2 days With:JOSE FRANCIS Address: [address] [place] [address]- [phone] Business (1) When:1-2 days Comments:follow up for elevated calcium levels, abnormal thyroid studies With:DARIEN BUSTILLOS Address: [address] [facility] [address] [place] [address] [phone] Business (1) When:1-2 days Comments:follow up for cervical stenosis With:Please follow up with the [facility] for further work-up Address:Unknown When:1-2 days With:[facility] Address: [address] [place] [address]- Business (1) When:1-2 days Comments:follow up within 3-4 weeks With:JULY REES MD Address: [facility] [address] [place] [address]- When:1-2 days Comments:Please call the office to schedule your hospital follow up appointment . [facility] 06-24-2025 Note Discharge Instructions Thank you for allowing [facility] to assist you with your healthcare needs. The following is important discharge information regarding your hospital visit. Your Care Team JULY REES MD Your Diagnosis Foot-drop What to do next Follow Up Appointments Follow Up with JOSE FRANCIS When:Within 1-2 days Where:[address] [place] [address]- [phone] Business (1) Additional Information: follow up for elevated calcium levels, abnormal thyroid studies Follow Up with DARIEN BUSTILLOS When:Within 1-2 days Where:[address] [facility] [address] [place] [address] [phone] Business (1) Additional Information: follow up for cervical stenosis Follow Up with Please follow up with the [facility] for further work-up When:Within 1-2 days Follow Up with [facility] When:Within 1-2 days Where:[address] [place] [address]- Business (1) Additional Information: follow up within 3-4 weeks Follow Up with JULY REES MD When:Within 1-2 days Where:[facility] [address] [place] [address]- Additional Information: Please call the office to schedule your hospital follow up appointment . The Following Activity and Diet Have Been Ordered for You Transfer of Care Activity - Ordered -- As instructed by therapy, 06/24/25 10:18:00 EDT Transfer of Care Diet - Ordered -- Type of Diet: Regular Diet, 06/24/25 10:18:00 EDT The Following Equipment Has Been Ordered for You No qualifying data available. The Following Treatments Have Been Ordered for You Discharge Labs No qualifying data available. Discharge Radiology No qualifying data available. Other Therapies Transfer of Care OT - Ordered -- Reason for therapy: weakness, 06/24/25 10:18:00 EDT Transfer of Care PT - Ordered -- Reason for therapy: weakness, 06/24/25 10:18:00 EDT Post Acute Orders Transfer of Care Admission Level of Care - Ordered -- Level of Care Acute Rehab, 06/24/25 10:18:29 EDT Transfer of Care Code Status - Ordered -- Full Code, Constant Order Transfer of Care Communication Order - Ordered -- Expect less than 30 day stay., 06/24/25 10:18:29 EDT Transfer of Care Orders Electronically Signed By - Ordered -- 06/24/25 10:18:00 EDT, ANGY PATEL DO Transfer of Care Prognosis - Ordered -- Fair, Patient Aware: Yes Transfer of Care Rehab Potential - Ordered -- Rehab potential fair, 06/24/25 10:18:29 EDT Someone Will Contact You Regarding These Home Health Referrals No home referrals have been ordered for you. No one will call you. Allergies NKA Medications Please ask your primary doctor or pharmacist before taking any other medication not listed, including over the counter drugs, herbal medications, vitamins and or supplements as they may interact with your home medications. What How Much When Instructions Last Dose Unchanged losartan (losartan 25 mg oral tablet) See instructions TAKE 1 TABLET BY MOUTH EVERY DAY Unchanged metFORMIN (metFORMIN 750 mg oral tablet, extended release) 1 tab(s) by mouth Once a day Unchanged metoprolol (Metoprolol Succinate ER 50 mg oral tablet, extended release) See instructions TAKE 1 TABLET BY MOUTH EVERY DAY Please take this list to your next doctor s visit. Bring all medications you take, including over the counter medications, herbals and other supplements with you to your doctor s visit. Patients and families are reminded to discard old lists and to update any records with all medication providers or retail pharmacies. Education Materials Toxic Metabolic Encephalopathy Toxic metabolic encephalopathy (TME) is a type of brain disorder caused by a change in brain chemistry. This condition may result from illnesses or conditions that cause an imbalance of fluid, minerals (electrolytes), and other substances in the body that affect the way the brain functions. It is not caused by brain damage or brain disease. TME can cause confusion and other mental disturbances, which are generally referred to as delirium. Untreated delirium may lead to permanent mental changes or worsening medical conditions. Untreated delirium is a life-threatening condition that may need to be treated in the hospital. What are the causes? Possible causes of TME that can lead to delirium include: Short-term (acute) or long-term (chronic) disease of the kidney or liver. Not having enough fluid in the body (dehydration). Changes in the acid level (pH) of the blood. High or low levels of any of the following substances in the blood: ? Calcium. ? Salt (sodium). ? Sugar (glucose). ? Magnesium. ? Phosphate. High body temperature. Not having enough oxygen in the blood. Low levels of B vitamins. This can result from alcohol abuse. Certain medicines, such as steroids and medicines that reduce the activity of the immune system (immunosuppressants). Certain infections. What increases the risk? You may have a higher risk for TME if you: Are elderly. Have dementia. Are in the hospital, especially in intensive care. Live in a residential. Had recent surgery. Have liver or kidney disease. Have poorly controlled diabetes. Have chronic medical problems, especially heart or lung disease. Are not getting enough fluids. Have poor nutrition. Abuse alcohol. What are the signs or symptoms? Symptoms of TME may include: Muscle stiffness or jerking (spasticity). Shaking (tremors). Flapping of the hands. Weakness. Clumsiness. Slowed breathing. Jerky movements that you cannot control (seizures). Not being able to stay awake (drowsiness). Not being able to pay attention. Loss of consciousness (coma). Symptoms of delirium caused by TME include: Confusion. Difficulty focusing or concentrating, or inability to focus or concentrate. Not knowing where you are (disorientation). Seeing or hearing things that are not real (hallucinations). Fearfulness. False beliefs (delusions). Changes in mood or personality. Changes in speech, such as saying things that do not make sense. Memory loss. Irritability. Avoiding other people (withdrawal). Depression. Poor judgment. Changes in eating and sleeping patterns. Hyperactivity. Decreased alertness. General mistrust of others (paranoia). Delirium may come and go. Symptoms of delirium may start suddenly or gradually, and they often get worse at night. How is this diagnosed? This condition is diagnosed based on: Your symptoms and behavior. An exam to check how you are thinking, feeling, and behaving (mental status exam). To diagnose delirium, the mental status exam must rule out other possible causes of TME, and must show: ? Changes in attention and awareness. ? Changes that develop over a short period of time and tend to come and go (fluctuate). ? Changes in memory, language, and thinking that were not present before. A physical exam. Imaging tests, such as: ? MRI. ? CT scan. Blood tests to: ? Measure liver and kidney function. ? Check for a lack (deficiency) of vitamin B. ? Check for changes in acid levels (pH) and changes in calcium, sodium, or magnesium levels in the blood. ? Measure your blood sugar (glucose). ? Measure your blood oxygen level. How is this treated? Treatment for TME depends on the cause, and it may include. Getting fluids through an IV tube. Regulating calcium, sodium, glucose, or magnesium levels in the body. Getting oxygen. Improving nutrition. Treating liver or kidney disease. Adjusting certain medicines. Treating infections. If the cause is found and treated, delirium usually improves. Managing delirium may include: Keeping the room well-lit and quiet. Using calendars, pictures, and clocks to prevent disorientation. Having frequent checks from nursing staff and visits from caregivers. Wearing eyeglasses or a hearing aid, if needed. Physical therapy. Medicine to treat agitation, anxiety, hallucinations, or delusions. Follow these instructions at home: Drink enough fluid to keep your urine clear or pale yellow. Take xihg-eon-ekmnyns and prescription medicines only as told by your health care provider. Return to your normal activities as told by your health care provider. Ask your health care provider what activities are safe for you. Follow a healthy diet. Do not skip meals. Do not drink alcohol. Go to bed at the same time every night. Keep all follow-up visits as told by your health care provider. This is important. Contact a health care provider if: You are unable to feed yourself or hydrate yourself. You need help at home. You start to feel clumsy. You start to have tremors or weakness. Get help right away if: You have a seizure. You lose consciousness. You have trouble breathing. You do not feel able to care for yourself at home. You have a fever. You become disoriented at home. This information is not intended to replace advice given to you by your health care provider. Make sure you discuss any questions you have with your health care provider. Document Released: 01/19/2017 Document Revised: 07/26/2018 Document Reviewed: 01/19/2017 [employer] Patient Education 2020 [employer] Fall Prevention in the Home, Adult Falls can cause injuries. They can happen to people of all ages. There are many things you can do to make your home safe and to help prevent falls. Ask for help when making these changes, if needed. What actions can I take to prevent falls? General Instructions Use good lighting in all rooms. Replace any light bulbs that burn out. Turn on the lights when you go into a dark area. Use night-lights. Keep items that you use often in dmjy-zj-yrshv places. Lower the shelves around your home if necessary. Set up your furniture so you have a clear path. Avoid moving your furniture around. Do not have throw rugs and other things on the floor that can make you trip. Avoid walking on wet floors. If any of your floors are uneven, fix them. Add color or contrast paint or tape to clearly sudeep and help you see: ? Any grab bars or handrails. ? First and last steps of stairways. ? Where the edge of each step is. If you use a stepladder: ? Make sure that it is fully opened. Do not climb a closed stepladder. ? Make sure that both sides of the stepladder are locked into place. ? Ask someone to hold the stepladder for you while you use it. If there are any pets around you, be aware of where they are. What can I do in the bathroom? Keep the floor dry. Clean up any water that spills onto the floor as soon as it happens. Remove soap buildup in the tub or shower regularly. Use non-skid mats or decals on the floor of the tub or shower. Attach bath mats securely with double-sided, non-slip rug tape. If you need to sit down in the shower, use a plastic, non-slip stool. Install grab bars by the toilet and in the tub and shower. Do not use towel bars as grab bars. What can I do in the bedroom? Make sure that you have a light by your bed that is easy to reach. Do not use any sheets or blankets that are too big for your bed. They should not hang down onto the floor. Have a firm chair that has side arms. You can use this for support while you get dressed. What can I do in the kitchen? Clean up any spills right away. If you need to reach something above you, use a strong step stool that has a grab bar. Keep electrical cords out of the way. Do not use floor comoran or wax that makes floors slippery. If you must use wax, use non-skid floor wax. What can I do with my stairs? Do not leave any items on the stairs. Make sure that you have a light switch at the top of the stairs and the bottom of the stairs. If you do not have them, ask someone to add them for you. Make sure that there are handrails on both sides of the stairs, and use them. Fix handrails that are broken or loose. Make sure that handrails are as long as the stairways. Install non-slip stair treads on all stairs in your home. Avoid having throw rugs at the top or bottom of the stairs. If you do have throw rugs, attach them to the floor with carpet tape. Choose a carpet that does not hide the edge of the steps on the stairway. Check any carpeting to make sure that it is firmly attached to the stairs. Fix any carpet that is loose or worn. What can I do on the outside of my home? Use bright outdoor lighting. Regularly fix the edges of walkways and driveways and fix any cracks. Remove anything that might make you trip as you walk through a door, such as a raised step or threshold. Trim any bushes or trees on the path to your home. Regularly check to see if handrails are loose or broken. Make sure that both sides of any steps have handrails. Install guardrails along the edges of any raised decks and porches. Clear walking paths of anything that might make someone trip, such as tools or rocks. Have any leaves, snow, or ice cleared regularly. Use sand or salt on walking paths during winter. Clean up any spills in your garage right away. This includes grease or oil spills. What other actions can I take? Wear shoes that: ? Have a low heel. Do not wear high heels. ? Have rubber bottoms. ? Are comfortable and fit you well. ? Are closed at the toe. Do not wear open-toe sandals. Use tools that help you move around (mobility aids) if they are needed. These include: ? Canes. ? Walkers. ? Scooters. ? Crutches. Review your medicines with your doctor. Some medicines can make you feel dizzy. This can increase your chance of falling. Ask your doctor what other things you can do to help prevent falls. Where to find more information Centers for Disease Control and PreventionLINDSEY: https://cdc.gov National [employer] on Aging: https://og3gspk.karen.nih.gov Contact a doctor if: You are afraid of falling at home. You feel weak, drowsy, or dizzy at home. You fall at home. Summary There are many simple things that you can do to make your home safe and to help prevent falls. Ways to make your home safe include removing tripping hazards and installing grab bars in the bathroom. Ask for help when making these changes in your home. This information is not intended to replace advice given to you by your health care provider. Make sure you discuss any questions you have with your health care provider. Document Released: 06/09/2010 Document Revised: 12/04/2019 Document Reviewed: 03/28/2018 Elsevier Patient Education 2020 [employer] Additional Information VACCINATE! IT SAVES LIVES! Members of the community who have not yet received the COVID-19 vaccine and would like to receive it can visit one of [facility] vaccine clinics. There are many vaccine clinic locations within the [facility]. For locations and available times, please visit [email or web address] It is important to note that some COVID mobile vaccine clinics are held outdoors and may be canceled in rainy or stormy conditions. To learn more about pediatric vaccinations (ages 5-11), we invite you to visit the [facility] webpage. [email or web address] [email or web address] To learn more about the COVID-19 vaccine, we invite you to visit the CDC website for a list of frequently asked questions.https://www.cdc.gov/fair virus/2019-ncov/vaccines/faq.html [facility] Patient Portal Access Instructions: Stay connected with your healthcare team and access your personal medical information anytime with the [facility] Patient Portal. Please follow the directions below to create your [facility] account: 1.Access the email account you provided upon registration to the hospital/physician office.2.Look for an invitation email from [facility].3.Open the email and access the invitation link: Accept Invitation to [facility].4.Fill in the required cook to create your account. To access your account, visit [employer] or scan the QR code above. Click the blue button labeled "Access Patient Portal" and then log in with the username and password that you created in the steps above. You will be able to view your test results, lab results, a summary of your visits, upcoming appointments and more. There is also a convenient messaging option where you can send secure messages to your provider. In addition, you will have the ability to download any documents or summaries to your computer and/or send the information securely to a physician. Remember that your healthcare information is confidential, so carefully consider who you will allow to register on the [facility] for access to your information. You can also access the [facility] on the [place] [facility] lyndsay. Simply click on "Patient Portal" and then log into your account. If you would like to receive a full copy of your medical records, please contact the [facility] Medical Records Department by calling [phone], Sunday through Sunday between 8 a.m. and 4:30 p.m. HOW TO SAFELY DISPOSE OF PRESCRIPTION MEDICATIONS Please use one of the following methods to safely dispose of your unused medications. 1.Use a drug disposal kit: the drug disposal pouch allows you to safely discard your old and unused drugs. Ask your nurse to give you one when you are discharged.2.Visit a local take-back location: Many local pharmacies and police departments have programs that collect old and unwanted prescription drugs. Call your local pharmacy or go to http://[employer]/3J9Ka1l to find one close to you.3.Make use of household items: Use cat litter or old coffee grounds to dispose medications if other options are not available. Mix your drugs with these household products, seal them in an airtight container and throw it into the garbage. Call [facility]: [phone] to be sure your drugs can be disposed of in this way. Some medicines may require a different approach.4.Never flush your medications down the toilet. IF YOU HAVE BEEN PRESCRIBED AN OPIOID FOR PAIN If you have been prescribed an opioid (such as hydrocodone, oxycodone or morphine), it is critical to understand the possible side effects and risks of opioid pain medications. Even when taken as directed, opioids can have several side effects including: Tolerance, meaning you might need to take more of a medication for the same pain relief. Nausea, vomiting and/or constipation. Sleepiness, dizziness, dry mouth, confusion, depression or itching. Physical dependence, meaning you have withdrawal symptoms when a medication is stopped, can develop within a few days. KNOW YOUR RESPONSIBILITIES It is important to know exactly how much and how often to take the opioid pain medications you are prescribed. Never take opioids in higher amounts or more often than prescribed. Do not combine opioids with alcohol or other drugs that cause drowsiness, such as benzodiazepines, also known as benzos, including diazepam and alprazolam, muscle relaxants or sleep aids. Never sell or share prescription opioids. This is illegal. Store opioids in a secure place and out of reach of others (including children, family, friends and visitors). The last page of this document has been signed and retained as a CHART COPY. Signatures Patient Education Materials Toxic Metabolic Encephalopathy Fall Prevention in the Home, Adult, Gati[employer] Medication Leaflets My discharge plan and instructions have been reviewed and explained to me and I,RICHY RODRIGUEZ understand my current condition and have read and understand these discharge instructions. I have received a written copy of the plan/instructions. If I have questions, I am aware that I should contact my doctor. 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 Patient presented to [facility] on 06/19/2025 with complaints of memory deficits as well as right foot drop. Patient has been undergoing a neurologic workup in the outpatient setting, she underwent MRI of the brain noting periventricular, subcortical white matter changes that are nonspecific demyelinating disease was not excluded, chronic lacunar infarct of right basal ganglia was noted. Patient was therefore admitted to [facility] on 06/19/2025 for further workup. Lab work on admission was unremarkable. Vital signs were hemodynamically stable, afebrile on room air. Neurology was consulted. Patient underwent repeat MRI of the brain on 06/21/2025 that showed no change in the colossal/pericallosal white matter disease, presumably related to known demyelinating disorder. No enhancing lesions. Patient underwent MRI of the cervical spine that showed multilevel degenerative changes with up to mild canal stenosis and moderate left foraminal stenosis of C4 and C5. No abnormal cord intensity, intramedullary or leptomeningeal enhancement. EEG showed no evidence of seizure activity. Ultrasound of abdomen showed fatty liver. Neurology followed, recommend patient follow-up with the open clinic for any future procedures such as a lumbar puncture. Patient will also need close follow-up with [facility] for send out labs which are pending Including anti-NMDAR, protein electrophoresis, T3 reverse and thiamine level. Additionally, patient was found to have persistent hypercalcemia. PTH was found to be 75 indicating a primary hypercalcemia. She was also found to have a suppressed TSH with a normal free T3 and free T4. Recommend the patient establish with endocrinology for further treatment as she may benefit from thyroid or parathyroid imaging. PT/OT recommending inpatient rehab facility. The patient is medically stable for discharge to [facility]. Updated multiple family members. Case discussed with Dr. Patel. Allergies NKA Consults Consult to Physician - Ordered -- 06/19/25 23:54:00 EDT, PORSCHE UGARTE MD, Routine, AMS, ?MS flare Imaging Results and Diagnostics MRI Spine Cervical w/ + w/o Contrast Result Date: June 23, 2025 Verified By: NENA LANDAVERDE MD CLINICAL STATEMENT: IMPRESSION: Multilevel degenerative changes with up to mild canal stenosis and moderateleft foraminal stenosis at C4-C5 level. No abnormal cord signal intensity, intramedullary or leptomeningealenhancement. I have personally reviewed the images of this examination and agree with theresident's findings and interpretation. MRI Brain w/ + w/o Contrast Result Date: June 21, 2025 Verified By: KIN GARCIA MD CLINICAL STATEMENT: IMPRESSION: No change in the callosal/pericallosal white matter disease, presumablyrelated to the known demyelinating disorder. No enhancing lesions. US Abdomen/Elastography/Doppler Abdomen Result Date: June 21, 2025 Verified By: GIL BEAVER DO CLINICAL STATEMENT: IMPRESSION: []1. Fatty replacement of liver by grayscale imaging. Hepatic median velocityquantification felt to correlate with normal to mild risk of clinicallysignificant liver fibrosis. 40% probability Metavir stage F1 byelastography.2. Limited assessment pancreas and portions of liver.Reference: 1.35-1.66 m/sec (5.48 kPa - 8.29 kPa) normal to mild risk of clinicallysignificant liver fibrosis. 40% probability Metavir stage F1 byelastography. 1.66-1.77 m/sec (kP 8.29 a-k 9.40 Pa) mild to moderate risk of clinicallysignificant liver fibrosis. 30% probability Metavir stage F2 byelastography. 1.77-1.99 m/sec (9.4 kPa-11.9 kPa) moderate to severe risk of clinicallysignificant liver fibrosis. 40% probability Metavir stage F3 byelastography. >1.99 m/sec (11.9 kPa) advanced fibrosis and/or cirrhosis. >90% probabilityMetavir stage F4 by elastography. RSNA vol 276, No 3 Elastography Assessment of Liver Fibrosis: Society ofRadiologists in Ultrasound Consensus Conference 2015. Physical Exam Vitals and Measurements T: 36.4 C (Oral) TMIN: 36.4 C (Oral) TMAX: 36.8 C (Oral) HR: 76 (Apical) RR: 18 BP: 124/78 SpO2: 94% Weight Dosing Weight: 104.5 kg (06/21/25) General: No acute distress. Alert and Appropriate Skin: No rash. Warm, Dry HEENT: Head is normocephalic and atraumatic. No lesions. Pupils equal in size. Extraocular movements within normal limits. Nose: No septal deviation. Mouth: Oropharynx mucosa is without lesion. Lungs: Bilaterally clear/diminished breath sounds with no crepitation or wheeze. Unlabored on room air Cardiovascular: Heart is regular rhythm, S1S2, No extra-audible heart tones Abdomen: Abdomen is soft, nontender. Bowel sounds positive all four quadrants. Extremities: No clubbing, cyanosis or edema. Peripheral and distal pulses palpable. No calf tenderness. Adequate peripheral circulation. Neurological: The patient is awake, oriented to time, people and place. Following simple commands, moving all extremities. Code Status Code Status - Ordered -- 06/19/25 23:51:00 EDT, Full Code, Constant Order Admission Date 06/19/25 Discharge Date 06/24/25 Medications Unchanged losartan (losartan 25 mg oral tablet)TAKE 1 TABLET BY MOUTH EVERY DAY. Refills: 5. metFORMIN (metFORMIN 750 mg oral tablet, extended release)1 tab(s) by mouth once a day. metoprolol (Metoprolol Succinate ER 50 mg oral tablet, extended release)TAKE 1 TABLET BY MOUTH EVERY DAY. Refills: 11. Follow Up Follow Up with JOSE FRANCIS When:Within 1-2 days Where:[address] [place] [address]- [phone] Business (1) Additional Information: follow up for elevated calcium levels, abnormal thyroid studies Follow Up with DARIEN BUSTILLOS When:Within 1-2 days Where:[address] [facility] [address] [facility] [place] [address]- [phone] Business (1) Additional Information: follow up for cervical stenosis Follow Up with Please follow up with the [facility] for further work-up When:Within 1-2 days [facility] When:Within 1-2 days Where:[address] [place] [address]- Business (1) Additional Information: follow up within 3-4 weeks Follow Up with JULY REES MD When:Within 1-2 days Where:[facility] [address] [place] [address]- Additional Information: Please call the office to schedule your hospital follow up appointment . Follow Up Appointments Transfer of Care OT - Ordered -- Reason for therapy: weakness, 06/24/25 10:18:00 EDT Transfer of Care PT - Ordered -- Reason for therapy: weakness, 06/24/25 10:18:00 EDT Follow Up Labs/Studies Discharge Labs No Follow-up Labs Discharge Studies No Follow-up Studies Discharge Diet Transfer of Care Diet - Ordered -- Type of Diet: Regular Diet, 06/24/25 10:18:00 EDT Discharge Activity Transfer of Care Activity - Ordered -- As instructed by therapy, 06/24/25 10:18:00 EDT Condition on Discharge Stable Discharge Disposition [facility] Information Provided To Patient Family updated Time Spent 32 minutes Digitally Signed by KARL MACE on 06/24/2025 10:26 AM Digitally Signed by ANGY PATEL DO on 06/24/2025 11:36 AM [facility] 06-23-2025 Note Date of Service 06/23/25 Chief Complaint ams Subjective 64-year-old female with past medical history of hypertension, hyperlipidemia, type 2 diabetes mellitus, hemorrhoids and obesity. Patient presented to [facility] on 06/19/2025 with complaints of memory deficits as well as right foot drop. Patient has been undergoing a neurologic workup in the outpatient setting, she underwent MRI of the brain noting periventricular, subcortical white matter changes that are nonspecific demyelinating disease was not excluded, chronic lacunar infarct of right basal ganglia was noted. Patient was therefore admitted to [facility] on 06/19/2025 for further workup. Lab work on admission was unremarkable. Vital signs were hemodynamically stable, afebrile on room air. Neurology was consulted. Patient underwent repeat MRI of the brain on 06/21/2025 that showed no change in the colossal/pericallosal white matter disease, presumably related to known demyelinating disorder. No enhancing lesions. EEG showed no evidence of seizure activity. Ultrasound of abdomen showed fatty liver. MRI of the cervical spine is pending. PT/OT recommending inpatient rehab facility. Patient seen today sitting in the chair. She states she is having forgetfulness and feels her brain feels foggy. She actually told me she thought she had some blurred vision in her left eye however that resolved once she put her glasses on. She denies chest pain or breathing trouble. No abdominal pain, nausea or vomiting. Objective Vitals and Measurements T: 36.8 C (Oral) TMIN: 36.6 C (Oral) TMAX: 37.0 C (Oral) HR: 72 (Apical) RR: 18 BP: 123/75 SpO2: 95% Intake and Output Last 24 hours Intake Medication 1000.00 Oral Intake 510.00 Output Stool Count 0.00 Urine Count 5.00 Total Summary Total Intake 1510.00 Total Output 0.00 Fluid Balance 1510.00 Physical Exam General: No acute distress. Alert and Appropriate Skin: No rash. Warm, Dry HEENT: Head is normocephalic and atraumatic. No lesions. Pupils equal in size. Extraocular movements within normal limits. Nose: No septal deviation. Mouth: Oropharynx mucosa is without lesion. Lungs: Bilaterally clear/diminished breath sounds with no crepitation or wheeze. Unlabored on room air Cardiovascular: Heart is regular rhythm, S1S2, No extra-audible heart tones Abdomen: Abdomen is soft, nontender. Bowel sounds positive all four quadrants. Extremities: No clubbing, cyanosis or edema. Peripheral and distal pulses palpable. No calf tenderness. Adequate peripheral circulation. Neurological: The patient is awake, oriented to time, people and place. Following simple commands, moving all extremities. Weight Dosing Weight: 104.5 kg (06/21/25) Medications Medications (11) Active Scheduled: (4) heparin 5,000 units/mL (1 mL) vial 5,000 unit(s) 1 mL, Subcutaneous, q12h insulin lispro 100 units/mL Soln (3 mL) Give 0-5 units/dose, Subcutaneous, TIDAC losartan 25 mg tablet 25 mg 1 tab(s), Oral, qDay metoprolol succinate 50 mg ER tablet 50 mg 1 tab(s), Oral, qDayM Continuous: (0) PRN: (7) acetaminophen 325 mg Tablet 650 mg 2 tab(s), Oral, q4h dextrose 50% Solution Disp syringe 50 mL 25 gram(s) 50 mL, IV Push, AsDirected LORAZEPam 2 mg/mL 1 mL vial 0.5 mg 0.25 mL, IV Push, Once melatonin 3 mg tablet 3 mg 1 tab(s), Oral, qHS melatonin 3 mg tablet 3 mg 1 tab(s), Oral, qHS ondansetron 2 mg/ 1 mL 2 mL INJ 4 mg 2 mL, IV Push, q4h polyethylene glycol 3350 - UD packet 17 gram(s) 15 mL, Oral, qDay Lab Results 06/23 07:07 WBC: 7.0 Hgb: 12.4 Hct: 37.3 Platelet: 262 Neutrophil %: 47.3 L Glucose Level: 119 H Sodium Level: 141 Potassium Level: 4.5 BUN: 9.0 Creatinine Lvl (s): 0.76 06/22 06:03 WBC: 6.4 Hgb: 12.4 Hct: 37.4 Platelet: 246 Neutrophil %: 44.5 L Glucose Level: 117 H Sodium Level: 140 Potassium Level: 3.9 BUN: 10.0 Creatinine Lvl (s): 0.71 Imaging Results and Diagnostics MRI Brain w/ + w/o Contrast Result Date: June 21, 2025 Verified By: KIN GARCIA MD CLINICAL STATEMENT: IMPRESSION: No change in the callosal/pericallosal white matter disease, presumablyrelated to the known demyelinating disorder. No enhancing lesions. US Abdomen/Elastography/Doppler Abdomen Result Date: June 21, 2025 Verified By: GIL BEAVER DO CLINICAL STATEMENT: IMPRESSION: []1. Fatty replacement of liver by grayscale imaging. Hepatic median velocityquantification felt to correlate with normal to mild risk of clinicallysignificant liver fibrosis. 40% probability Metavir stage F1 byelastography.2. Limited assessment pancreas and portions of liver.Reference: 1.35-1.66 m/sec (5.48 kPa - 8.29 kPa) normal to mild risk of clinicallysignificant liver fibrosis. 40% probability Metavir stage F1 byelastography. 1.66-1.77 m/sec (kP 8.29 a-k 9.40 Pa) mild to moderate risk of clinicallysignificant liver fibrosis. 30% probability Metavir stage F2 byelastography. 1.77-1.99 m/sec (9.4 kPa-11.9 kPa) moderate to severe risk of clinicallysignificant liver fibrosis. 40% probability Metavir stage F3 byelastography. >1.99 m/sec (11.9 kPa) advanced fibrosis and/or cirrhosis. >90% probabilityMetavir stage F4 by elastography. RSNA vol 276, No 3 Elastography Assessment of Liver Fibrosis: Society ofRadiologists in Ultrasound Consensus Conference 2015. EKG No qualifying data available. Assessment/Plan Acute metabolic toxic encephalopathy Abnormal MRI of the brain Right foot drop Abnormal TSH Hyperammonemia T2DM- A1c 6.4 Other history HTN, HLD, hemorrhoids, obesity Plan Neurology following, low suspicion for MS. MRI or C spine pending Neurology felt LP can be completed in the OP setting with close follow up with [facility] Additional labs in-transit will need followed up with [facility]. Also recommended EMG/NCS OP Calcium level 11, Vit D level 40.4 WNL, PTH WNL 75. Will give a bolus of NS. TSH noted to be low at 0.022, free T4 normal at 1.55, free T3 also normal at 3.51. To repeat thyroid studies in 6-8 weeks. Ammonia level normalized, status post 1 dose of lactulose Blood sugars reviewed and are stable, continue current regimen Continue remainder of home chronic medications PT/OT recommending inpatient rehab facility, planning for [facility] Level of Care Indication: _Regular Floor DVT Prophylaxis: _Heparin SQ Maintenance IVF Indication: _NA / No maintenance IVF Indwelling Urinary Catheter Indication: _NA - No indwelling catheter Anticipated Timeline of Discharge: __24 hours Anticipated DC Disposition: __Inpatient Rehab Facility Plan discussed with patient. Family was updated on plan Case discussed with Dr. Patel Digitally Signed by KARL MACE on 06/23/2025 11:25 AM [facility] 06-23-2025 Note Date of Service 06/23/25 Chief Complaint ams Subjective 64-year-old female with past medical history of hypertension, hyperlipidemia, type 2 diabetes mellitus, hemorrhoids and obesity. Patient presented to [facility] on 06/19/2025 with complaints of memory deficits as well as right foot drop. Patient has been undergoing a neurologic workup in the outpatient setting, she underwent MRI of the brain noting periventricular, subcortical white matter changes that are nonspecific demyelinating disease was not excluded, chronic lacunar infarct of right basal ganglia was noted. Patient was therefore admitted to [facility] on 06/19/2025 for further workup. Lab work on admission was unremarkable. Vital signs were hemodynamically stable, afebrile on room air. Neurology was consulted. Patient underwent repeat MRI of the brain on 06/21/2025 that showed no change in the colossal/pericallosal white matter disease, presumably related to known demyelinating disorder. No enhancing lesions. EEG showed no evidence of seizure activity. Ultrasound of abdomen showed fatty liver. MRI of the cervical spine is pending. PT/OT recommending inpatient rehab facility. Patient seen today sitting in the chair. She states she is having forgetfulness and feels her brain feels foggy. She actually told me she thought she had some blurred vision in her left eye however that resolved once she put her glasses on. She denies chest pain or breathing trouble. No abdominal pain, nausea or vomiting. Objective Vitals and Measurements T: 36.8 C (Oral) TMIN: 36.6 C (Oral) TMAX: 37.0 C (Oral) HR: 72 (Apical) RR: 18 BP: 123/75 SpO2: 95% Intake and Output Last 24 hours Intake Medication 1000.00 Oral Intake 510.00 Output Stool Count 0.00 Urine Count 5.00 Total Summary Total Intake 1510.00 Total Output 0.00 Fluid Balance 1510.00 Physical Exam General: No acute distress. Alert and Appropriate Skin: No rash. Warm, Dry HEENT: Head is normocephalic and atraumatic. No lesions. Pupils equal in size. Extraocular movements within normal limits. Nose: No septal deviation. Mouth: Oropharynx mucosa is without lesion. Lungs: Bilaterally clear/diminished breath sounds with no crepitation or wheeze. Unlabored on room air Cardiovascular: Heart is regular rhythm, S1S2, No extra-audible heart tones Abdomen: Abdomen is soft, nontender. Bowel sounds positive all four quadrants. Extremities: No clubbing, cyanosis or edema. Peripheral and distal pulses palpable. No calf tenderness. Adequate peripheral circulation. Neurological: The patient is awake, oriented to time, people and place. Following simple commands, moving all extremities. Weight Dosing Weight: 104.5 kg (06/21/25) Medications Medications (11) Active Scheduled: (4) heparin 5,000 units/mL (1 mL) vial 5,000 unit(s) 1 mL, Subcutaneous, q12h insulin lispro 100 units/mL Soln (3 mL) Give 0-5 units/dose, Subcutaneous, TIDAC losartan 25 mg tablet 25 mg 1 tab(s), Oral, qDay metoprolol succinate 50 mg ER tablet 50 mg 1 tab(s), Oral, qDayM Continuous: (0) PRN: (7) acetaminophen 325 mg Tablet 650 mg 2 tab(s), Oral, q4h dextrose 50% Solution Disp syringe 50 mL 25 gram(s) 50 mL, IV Push, AsDirected LORAZEPam 2 mg/mL 1 mL vial 0.5 mg 0.25 mL, IV Push, Once melatonin 3 mg tablet 3 mg 1 tab(s), Oral, qHS melatonin 3 mg tablet 3 mg 1 tab(s), Oral, qHS ondansetron 2 mg/ 1 mL 2 mL INJ 4 mg 2 mL, IV Push, q4h polyethylene glycol 3350 - UD packet 17 gram(s) 15 mL, Oral, qDay Lab Results 10/28 07:07 WBC: 7.0 Hgb: 12.4 Hct: 37.3 Platelet: 262 Neutrophil %: 47.3 L Glucose Level: 119 H Sodium Level: 141 Potassium Level: 4.5 BUN: 9.0 Creatinine Lvl (s): 0.76 06/22 06:03 WBC: 6.4 Hgb: 12.4 Hct: 37.4 Platelet: 246 Neutrophil %: 44.5 L Glucose Level: 117 H Sodium Level: 140 Potassium Level: 3.9 BUN: 10.0 Creatinine Lvl (s): 0.71 Imaging Results and Diagnostics MRI Brain w/ + w/o Contrast Result Date: June 21, 2025 Verified By: KIN GARCIA MD CLINICAL STATEMENT: IMPRESSION: No change in the callosal/pericallosal white matter disease, presumablyrelated to the known demyelinating disorder. No enhancing lesions. US Abdomen/Elastography/Doppler Abdomen Result Date: June 21, 2025 Verified By: GIL BEAVER DO CLINICAL STATEMENT: IMPRESSION: []1. Fatty replacement of liver by grayscale imaging. Hepatic median velocityquantification felt to correlate with normal to mild risk of clinicallysignificant liver fibrosis. 40% probability Metavir stage F1 byelastography.2. Limited assessment pancreas and portions of liver.Reference: 1.35-1.66 m/sec (5.48 kPa - 8.29 kPa) normal to mild risk of clinicallysignificant liver fibrosis. 40% probability Metavir stage F1 byelastography. 1.66-1.77 m/sec (kP 8.29 a-k 9.40 Pa) mild to moderate risk of clinicallysignificant liver fibrosis. 30% probability Metavir stage F2 byelastography. 1.77-1.99 m/sec (9.4 kPa-11.9 kPa) moderate to severe risk of clinicallysignificant liver fibrosis. 40% probability Metavir stage F3 byelastography. >1.99 m/sec (11.9 kPa) advanced fibrosis and/or cirrhosis. >90% probabilityMetavir stage F4 by elastography. RSNA vol 276, No 3 Elastography Assessment of Liver Fibrosis: Society ofRadiologists in Ultrasound Consensus Conference 2015. EKG No qualifying data available. Assessment/Plan Acute metabolic toxic encephalopathy Abnormal MRI of the brain Right foot drop Abnormal TSH Hyperammonemia T2DM- A1c 6.4 Other history HTN, HLD, hemorrhoids, obesity Plan Neurology following, low suspicion for MS. MRI or C spine pending Neurology felt LP can be completed in the OP setting with close follow up with [facility] Additional labs in-transit will need followed up with [facility]. Also recommended EMG/NCS OP Calcium level 11, Vit D level 40.4 WNL, PTH WNL 75. Will give a bolus of NS. TSH noted to be low at 0.022, free T4 normal at 1.55, free T3 also normal at 3.51. To repeat thyroid studies in 6-8 weeks. Ammonia level normalized, status post 1 dose of lactulose Blood sugars reviewed and are stable, continue current regimen Continue remainder of home chronic medications PT/OT recommending inpatient rehab facility, planning for [facility] Level of Care Indication: _Regular Floor DVT Prophylaxis: _Heparin SQ Maintenance IVF Indication: _NA / No maintenance IVF Indwelling Urinary Catheter Indication: _NA - No indwelling catheter Anticipated Timeline of Discharge: __24 hours Anticipated DC Disposition: __Inpatient Rehab Facility Plan discussed with patient. Family was updated on plan Case discussed with Dr. Patel Digitally Signed by KARL MACE on 06/23/2025 11:25 AM [facility] 06-23-2025 Note Exam Date Time Procedure Performing Provider Status 06/23/25 3:27 PM MRI Spine Cervical w / + w/o Contrast NENA LANDAVERDE MD; Auth (Verified) [id number] ORIGINAL EXAMINATION: MRI OF THE CERVICAL SPINE WITHOUT AND WITH CONTRAST 06/23/2025 3:34 pm HISTORY: ORDERING SYSTEM PROVIDED HISTORY: Reason for Exam: GAIT INSTABILITY TECHNIQUE: Multiplanar multisequence MRI of the cervical spine was performed without and with the administration of intravenous contrast. COMPARISON: X-ray cervical spine 06/14/2006 FINDINGS: Motion artifact limits evaluation. Alignment: No acute malalignment. Mild anterolisthesis of C7 on T1 vertebra likely on a degenerative basis. Vertebrae: No fracture, vertebral body height loss, or destructive bone lesion. ACDF changes at C6-C7 vertebral body with osseous fusion. Spinal cord: No abnormal cord signal intensity. No abnormal intramedullary or leptomeningeal enhancement. Limited assessment due to motion artifact. C2-C3: The central canal and foramina are adequately patent. C3-C4: The central canal and foramina are adequately patent. C4-C5: Diffuse disc bulge, facet arthropathy and uncovertebral hypertrophy causing moderate left foraminal stenosis and mild canal stenosis. No severe right foraminal stenosis. C5-C6 : Diffuse disc bulge, uncovertebral hypertrophy and facet arthropathy with effacement of ventral thecal sac and mild canal stenosis. No severe foraminal stenosis. C6-C7: The central canal and foramina are adequately patent. C7-T1 : Diffuse disc bulge, uncovertebral hypertrophy and facet arthropathy. No severe canal or foraminal stenosis Paraspinal soft tissues: Normal. Visualized posterior fossa: Normal. Visualized neck: Normal. IMPRESSION: Multilevel degenerative changes with up to mild canal stenosis and moderate left foraminal stenosis at C4-C5 level. No abnormal cord signal intensity, intramedullary or leptomeningeal enhancement. I have personally reviewed the images of this examination and agree with the resident's findings and interpretation. Interpreted by: Nena Landaverde MD Preliminary Report By: Arnoldo Levin Electronically signed By Nena Landaverde MD Dictated Date: 06/23/2025 4:02:40 PM Prelim Date: 06/23/2025 4:50:33 PM Sign Date: 06/23/2025 4:50:33 PM Ordering Provider: SERENITY MURRAY RP [id number] Note Date of Service 06/23/25 Chief Complaint ams Subjective 64-year-old female with past medical history of hypertension, hyperlipidemia, type 2 diabetes mellitus, hemorrhoids and obesity. Patient presented to [facility] on 06/19/2025 with complaints ofmemory deficits as well as right foot drop. Patient has been undergoing a neurologic workup in the outpatient setting, she underwent MRI of the brain noting periventricular, subcortical white matter changes that are nonspecific demyelinating disease was not excluded, chronic lacunar infarct of right basal ganglia was noted. Patient was therefore admitted to [facility] on 06/19/2025 for further workup. Lab work on admission was unremarkable. Vital signs were hemodynamically stable, afebrile on room air. Neurology was consulted. Patient underwent repeat MRI of the brain on 06/21/2025 thatshowed no change in the colossal/pericallosal white matter disease, presumably related to known demyelinating disorder. No enhancing lesions. EEG showed no evidence of seizure activity. Ultrasound ofabdomen showed fatty liver. MRI of the cervical spine is pending. PT/OT recommending inpatient rehab facility. Patient seen today sitting in the chair. She states she is having forgetfulness and feels her brainfeels foggy. She actually told me she thought she had some blurred vision in her left eye however that resolved once she put her glasses on. She denies chest pain or breathing trouble. No abdominal pain, nausea or vomiting. Objective Vitals and Measurements T: 36.8 C (Oral) TMIN: 36.6 C (Oral) TMAX: 37.0 C (Oral) HR: 72 (Apical) RR: 18 BP: 123/75 SpO2: 95% Intake and Output Last 24 hours Intake Medication 1000.00 Oral Intake 510.00 Output Stool Count 0.00 Urine Count 5.00 Total Summary Total Intake 1510.00 Total Output 0.00 Fluid Balance 1510.00 Physical Exam General: No acute distress. Alert and Appropriate Skin: No rash. Warm, Dry HEENT: Head is normocephalic and atraumatic. No lesions. Pupils equal in size. Extraocular movements within normal limits. Nose: No septal deviation. Mouth: Oropharynx mucosa is without lesion. Lungs: Bilaterally clear/diminished breath sounds with no crepitation or wheeze. Unlabored on room air Cardiovascular: Heart is regular rhythm, S1S2, No extra-audible heart tones Abdomen: Abdomen is soft, nontender. Bowel sounds positive all four quadrants. Extremities: No clubbing, cyanosis or edema. Peripheral and distal pulses palpable. No calf tenderness. Adequate peripheral circulation. Neurological: The patient is awake, oriented to time, people and place. Following simple commands, moving all extremities. Weight Dosing Weight: 104.5 kg (06/21/25) Medications Medications (11) Active Scheduled: (4) heparin 5,000 units/mL (1 mL) vial 5,000 unit(s) 1 mL, Subcutaneous, q12h insulin lispro 100 units/mL Soln (3 mL) Give 0-5 units/dose, Subcutaneous, TIDAC losartan 25 mg tablet 25 mg 1 tab(s), Oral, qDay metoprolol succinate 50 mg ER tablet 50 mg 1 tab(s), Oral, qDayM Continuous: (0) PRN: (7) acetaminophen 325 mg Tablet 650 mg 2 tab(s), Oral, q4h dextrose 50% Solution Disp syringe 50 mL 25 gram(s) 50 mL, IV Push, AsDirected LORAZEPam 2 mg/mL 1 mL vial 0.5 mg 0.25 mL, IV Push, Once melatonin 3 mg tablet 3 mg 1 tab(s), Oral, qHS melatonin 3 mg tablet 3 mg 1 tab(s), Oral, qHS ondansetron 2 mg/ 1 mL 2 mL INJ 4 mg 2 mL, IV Push, q4h polyethylene glycol 3350 - UD packet 17 gram(s) 15 mL, Oral, qDay Lab Results 06/23 07:07 WBC: 7.0 Hgb: 12.4 Hct: 37.3 Platelet: 262 Neutrophil %: 47.3 L Glucose Level: 119 H Sodium Level: 141 Potassium Level: 4.5 BUN: 9.0 Creatinine Lvl (s): 0.76 06/22 06:03 WBC: 6.4 Hgb: 12.4 Hct: 37.4 Platelet: 246 Neutrophil %: 44.5 L Glucose Level: 117 H Sodium Level: 140 Potassium Level: 3.9 BUN: 10.0 Creatinine Lvl (s): 0.71 Imaging Results and Diagnostics MRI Brain w/ + w/o Contrast Result Date: June 21, 2025 Verified By: JENI KEE, KIN Haines CLINICAL STATEMENT: IMPRESSION: No change in the callosal/pericallosal white matter disease, presumablyrelated to the known demyelinating disorder. No enhancing lesions. US Abdomen/Elastography/Doppler Abdomen Result Date: June 21, 2025 Verified By: GIL BEAVER DO CLINICAL STATEMENT: IMPRESSION: []1. Fatty replacement of liver by grayscale imaging. Hepatic median velocityquantification felt to correlate with normal to mild risk of clinicallysignificant liver fibrosis. 40% probability Metavir stage F1 byelastography.2. Limited assessment pancreas and portions of liver.Reference: 1.35-1.66 m/sec (5.48 kPa - 8.29 kPa) normal to mild risk of clinicallysignificant liver fibrosis. 40% probability Metavir stage F1 byelastography. 1.66-1.77 m/sec (kP 8.29 a-k 9.40 Pa) mild to moderate risk of clinicallysignificant liver fibrosis. 30% probability Metavir stage F2 byelastography. 1.77-1.99 m/sec (9.4 kPa-11.9 kPa) moderate to severe risk of clinicallysignificant liver fibrosis. 40% probability Metavir stage F3 byelastography. >1.99 m/sec (11.9 kPa) advanced fibrosis and/or cirrhosis. >90% probabilityMetavir stage F4 by elastography. RSNA vol 276, No 3 Elastography Assessment of Liver Fibrosis: Society ofRadiologists in Ultrasound Consensus Conference 2015. EKG No qualifying data available. Assessment/Plan Acute metabolic toxic encephalopathy Abnormal MRI of the brain Right foot drop Abnormal TSH Hyperammonemia T2DM- A1c 6.4 Other history HTN, HLD, hemorrhoids, obesity Plan Neurology following, low suspicion for MS. MRI or C spine pending Neurology felt LP can be completed in the OP setting with close follow up with [facility] Additional labs in-transit will need followed up with [facility]. Also recommended EMG/NCS OP Calcium level 11, Vit D level 40.4 WNL, PTH WNL 75. Will give a bolus of NS. TSH noted to be low at 0.022, free T4 normal at 1.55, free T3 also normal at 3.51. To repeat thyroid studies in 6-8 weeks. Ammonia level normalized, status post 1 dose of lactulose Blood sugars reviewed and are stable, continue current regimen Continue remainder of home chronic medications PT/OT recommending inpatient rehab facility, planning for [facility] Level of Care Indication: _Regular Floor DVT Prophylaxis: _Heparin SQ Maintenance IVF Indication: _NA / No maintenance IVF Indwelling Urinary Catheter Indication: _NA - No indwelling catheter Anticipated Timeline of Discharge: __24 hours Anticipated DC Disposition: __Inpatient Rehab Facility Plan discussed with patient. Family was updated on plan Case discussed with Dr. Patel Digitally Signed by KARL MACE on 06/23/2025 11:25 AM [id number] Neu[facility] Progress note Date of Service 06/22/25 Chief Complaint Gait instability Subjective Patient examined with no family present. Patient is alert able to state her name, that she is at the hospital, the month is May. Did observe her ambulate with PT in which her gait was unsteady. She denies any dizziness complaints, vision disturbance. Has no focal neuro findings on exam. Does con tinue to display ataxia of her right side, has ataxic gait when walking to her chair from bed. Reports no sensory loss in extremities but at baseline has neuropathy in her feet. Objective Vitals and Measurements T: 36.6 C (Oral) TMIN: 36.5 C (Oral) TMAX: 36.8 C (Oral) HR: 6 (Apical) HR: 68 (Monitored) RR: 16 BP: 118/75 SpO2: 94% HT: 162.6 cm WT: 104.5 kg BMI: 39.53 Intake and Output Last 24 hours Intake Oral Intake 320.00 Output Stool Count 1.00 Urine Count 5.00 Total Summary Total Intake 320.00 Total Output 0.00 Fluid Balance 320.00 Physical Exam Neurologic Exam Mental Status: Orientation: Oriented to person, [facility], and [facility] Language: Normal fluency, normal simple comprehension psycogenic slowing present Speech: Non-dysarthric Cranial Nerves: Pupils: 4mm -> 2mm bilaterally Visual Cook: full to confrontation bilaterally CN III, IV, : EOMI. No nystagmus CN V: Intact sensation to light touch and temp CN VII: face symmetric at rest. Facial muscle strength intact CN VIII: auditory acuity intact to bedside testing Sensation: Light touch: intact in all 4 extremities Motor: Involuntary movements: none Strength: LUE: 5/5 proximally, 5/5 distally RUE: 5/5 proximally, 5/5 distally no pronator drift present any further LLE: 5/5 proximally, 5/5 distally RLE: 5/5 proximally, 5/5 distally Coordination: Bjetfl-[id number]-[id number] movements: ataxic on the right normal on the left Chin test: Ataxic on the right normal on the left Reflexes: R: L B 1 1 BR 1 1 P 1 1 Toes mute Weight Dosing Weight: 104.5 kg (06/21/25) Medications Medications (10) Active Scheduled: (4) heparin 5,000 units/mL (1 mL) vial 5,000 unit(s) 1 mL, Subcutaneous, q12h insulin lispro 100 units/mL Soln (3 mL) Give 0-5 units/dose, Subcutaneous, TIDAC losartan 25 mg tablet 25 mg 1 tab(s), Oral, qDay metoprolol succinate 50 mg ER tablet 50 mg 1 tab(s), Oral, qDayM Continuous: (0) PRN: (6) acetaminophen 325 mg Tablet 650 mg 2 tab(s), Oral, q4h dextrose 50% Solution Disp syringe 50 mL 25 gram(s) 50 mL, IV Push, AsDirected melatonin 3 mg tablet 3 mg 1 tab(s), Oral, qHS melatonin 3 mg tablet 3 mg 1 tab(s), Oral, qHS ondansetron 2 mg/ 1 mL 2 mL INJ 4 mg 2 mL, IV Push, q4h polyethylene glycol 3350 - UD packet 17 gram(s) 15 mL, Oral, qDay Lab Results 06/22 06:03 WBC: 6.4 Hgb: 12.4 Hct: 37.4 Platelet: 246 Neutrophil %: 44.5 L Glucose Level: 117 H Sodium Level: 140 Potassium Level: 3.9 BUN: 10.0 Creatinine Lvl (s): 0.71 06/21 05:54 WBC: 7.2 Hgb: 12.5 Hct: 37.0 Platelet: 251 Neutrophil %: 50.8 Glucose Level: 127 H Sodium Level: 139 Potassium Level: 4.0 BUN: 7.0 L Creatinine Lvl (s): 0.74 Imaging Results and Diagnostics MRI Brain w/ + w/o Contrast Result Date: June 21, 2025 Verified By: JENI KEE, KIN Haines CLINICAL STATEMENT: IMPRESSION: No change in the callosal/pericallosal white matter disease, presumablyrelated to the known demyelinating disorder. No enhancing lesions. US Abdomen/Elastography/Doppler Abdomen Result Date: June 21, 2025 Verified By: GIL BEAVER DO CLINICAL STATEMENT: IMPRESSION: []1. Fatty replacement of liver by grayscale imaging. Hepatic median velocityquantification felt to correlate with normal to mild risk of clinicallysignificant liver fibrosis. 40% probability Metavir stage F1 byelastography.2. Limited assessment pancreas and portions of liver.Reference: 1.35-1.66 m/sec (5.48 kPa - 8.29 kPa) normal to mild risk of clinicallysignificant liver fibrosis. 40% probability Metavir stage F1 byelastography. 1.66-1.77 m/sec (kP 8.29 a-k 9.40 Pa) mild to moderate risk of clinicallysignificant liver fibrosis. 30% probability Metavir stage F2 byelastography. 1.77-1.99 m/sec (9.4 kPa-11.9 kPa) moderate to severe risk of clinicallysignificant liver fibrosis. 40% probability Metavir stage F3 byelastography. >1.99 m/sec (11.9 kPa) advanced fibrosis and/or cirrhosis. >90% probabilityMetavir stage F4 by elastography. RSNA vol 276, No 3 Elastography Assessment of Liver Fibrosis: Society ofRadiologists in Ultrasound Consensus Conference 2015. Assessment/Plan IMPRESSION Encephalopathy, resolved Gait instability Ataxia Pt is a This is a 64-year-old woman with a PMH as noted including HTN, dyslipidemia, T2DM who presents for evaluation of encephalopathy. Reportedly the pt has been progressively more confused and forgetful over the last several weeks, she complained of dizziness, intermittently blurry but denied diplopia or visual loss, she has been unsteady on her feet and reported she felt as though she is on aship which is rocking with the waves. Chronically reported neuropathy in her feet. On review of MRI of brain, it is not strongly suggestive of multiple sclerosis and it would be quite unusual to diagnose MS at the age of 64. EEG added as a precaution to rule out seizure although felt to be less likely. Pt does report alcohol use frequently stating she drinks 1 alcoholic beverage a week a mixed drink or glass of wine, is adamant she only drinks once a week on average but sometimes may skip a week from time to time. Pending labs to evaluate abnormalities to explain symptoms. Mentation improved. Pt continued to have gait instability, noted right side hemiataxia with ataxic gait that is uncoordinated, unsteady, and wide-based walking pattern, had much difficulty turning to sit in her chair with PT. PLAN: -MRI of brain w/wo contrast noted pericallosal white matter disease changes, demyelinating felt to be less likely, no enhancing lesions. -MRI of cervical w/wo contrast added -Labs reviewed today. LFTs WNL, hemoglobin A1c 6.4%, folate 17.88, vitamin D 42.6, B12 450, TSH 0.022, syphilis negative. Pending anti NMDAR, B1, protein electrophoresis panel, reverse T3, TR AB, comprehensive autoimmune panel, rapid plasma reagin. Pending labs after discharge to be followed up with PCP/[facility]. -Recommend EMG/NCS as an outpatient will be useful in evaluating her given ataxia/gait instability/neurocognitive testing outpatient/patient should follow- up with [facility] for further evaluation/testing of MS OP such as a LP. -Patient counseled not to drive would need clearance from outpatient neurologist prior to driving. -GI/DVT prophylaxis -PT/OT/ST per recommendations -Fall precautions -Further medical management per medical team -Case discussed with hospitalist -Patient counseled the risks and health hazards of smoking, excessive alcohol intake, marijuana/cocaine/drug abuse and patient counseled not to smoke cigarettes, drink excessive alcohol as well as not to smoke marijuana. Patient understands the same. -Follow up with Neurology in 2-4 weeks as outpatient Discussed plan with collaborator who agrees with plan Independently spent 50 minutes with patient Will sign off, please reach out if MRI of cervical is abnormal for further recommendations. Please call with questions if any. Thank you for allowing us to participate in patients care and management. All questions were answered Digitally Signed by SERENITY MURRAY on 06/22/2025 03:02 PM [id number] Note Date of Service 06/22/25 Chief Complaint abnormal MRI Subjective 64-year-old female with past medical history of hypertension, hyperlipidemia, type 2 diabetes mellitus, hemorrhoids and obesity. Patient presented to [facility] on 06/19/2025 with complaints of memory deficits as well as right foot drop. Patient has been undergoing a neurologic workup in theoutpatient setting, she underwent MRI of the brain noting periventricular, subcortical white matter changes that are nonspecific demyelinating disease was not excluded, chronic lacunar infarct of right basal ganglia was noted. Patient was therefore admitted to [facility] on 06/19/2025 for further workup. Lab work on admission was unremarkable. Vital signs were hemodynamically stable, afebrile on room air. Neurology was consulted. Patient underwent repeat MRI of the brain on 06/21/2025 that showed no change in the colossal/pericallosal white matter disease, presumably related to known demyelinating disorder. No enhancing lesions. EEG showed no evidence of seizure activity. Ultrasound of abdomen showed fatty liver. MRI of the cervical spine is pending. PT/OT recommending inpatient rehab facility. Patient seen today sitting in the chair. She complains of feeling fuzziness to her brain. She feelsher speech is sometimes abnormal and she feels she is slow to respond. She denied any headache, dizziness or lightheadedness currently. No vision abnormalities. No chest pain or shortness of breath. No abdominal pain, nausea or vomiting. She states she ate lunch without difficulties. Sister and brother in law were bedside. Objective Vitals and Measurements T: 36.6 C (Oral) TMIN: 36.5 C (Oral) TMAX: 36.8 C (Oral) HR: 6 (Apical) HR: 68 (Monitored) RR: 16 BP: 118/75 SpO2: 94% HT: 162.6 cm WT: 104.5 kg BMI: 39.53 Intake and Output Last 24 hours Intake Oral Intake 320.00 Output Stool Count 1.00 Urine Count 5.00 Total Summary Total Intake 320.00 Total Output 0.00 Fluid Balance 320.00 Physical Exam Physical Exam General: No acute distress. Alert and Appropriate Skin: No rash. Warm, Dry HEENT: Head is normocephalic and atraumatic. No lesions. Pupils equal in size. Extraocular movements within normal limits. Nose: No septal deviation. Mouth: Oropharynx mucosa is without lesion. Lungs: Bilaterally clear/diminished breath sounds with no crepitation or wheeze. Unlabored on room air Cardiovascular: Heart is regular rhythm, S1S2, No extra-audible heart tones Abdomen: Abdomen is soft, nontender. Bowel sounds positive all four quadrants. Extremities: No clubbing, cyanosis or edema. Peripheral and distal pulses palpable. No calf tenderness. Adequate peripheral circulation. Neurological: The patient is awake, oriented to time, people and place. Following simple commands, moving all extremities. Weight Dosing Weight: 104.5 kg (06/21/25) Medications Medications (10) Active Scheduled: (4) heparin 5,000 units/mL (1 mL) vial 5,000 unit(s) 1 mL, Subcutaneous, q12h insulin lispro 100 units/mL Soln (3 mL) Give 0-5 units/dose, Subcutaneous, TIDAC losartan 25 mg tablet 25 mg 1 tab(s), Oral, qDay metoprolol succinate 50 mg ER tablet 50 mg 1 tab(s), Oral, qDayM Continuous: (0) PRN: (6) acetaminophen 325 mg Tablet 650 mg 2 tab(s), Oral, q4h dextrose 50% Solution Disp syringe 50 mL 25 gram(s) 50 mL, IV Push, AsDirected melatonin 3 mg tablet 3 mg 1 tab(s), Oral, qHS melatonin 3 mg tablet 3 mg 1 tab(s), Oral, qHS ondansetron 2 mg/ 1 mL 2 mL INJ 4 mg 2 mL, IV Push, q4h polyethylene glycol 3350 - UD packet 17 gram(s) 15 mL, Oral, qDay Lab Results 06/22 06:03 WBC: 6.4 Hgb: 12.4 Hct: 37.4 Platelet: 246 Neutrophil %: 44.5 L Glucose Level: 117 H Sodium Level: 140 Potassium Level: 3.9 BUN: 10.0 Creatinine Lvl (s): 0.71 06/21 05:54 WBC: 7.2 Hgb: 12.5 Hct: 37.0 Platelet: 251 Neutrophil %: 50.8 Glucose Level: 127 H Sodium Level: 139 Potassium Level: 4.0 BUN: 7.0 L Creatinine Lvl (s): 0.74 Imaging Results and Diagnostics MRI Brain w/ + w/o Contrast Result Date: June 21, 2025 Verified By: JENI KEE, KIN Haines CLINICAL STATEMENT: IMPRESSION: No change in the callosal/pericallosal white matter disease, presumablyrelated to the known demyelinating disorder. No enhancing lesions. US Abdomen/Elastography/Doppler Abdomen Result Date: June 21, 2025 Verified By: GIL BEAVER DO CLINICAL STATEMENT: IMPRESSION: []1. Fatty replacement of liver by grayscale imaging. Hepatic median velocityquantification felt to correlate with normal to mild risk of clinicallysignificant liver fibrosis. 40% probability Metavir stage F1 byelastography.2. Limited assessment pancreas and portions of liver.Reference: 1.35-1.66 m/sec (5.48 kPa - 8.29 kPa) normal to mild risk of clinicallysignificant liver fibrosis. 40% probability Metavir stage F1 byelastography. 1.66-1.77 m/sec (kP 8.29 a-k 9.40 Pa) mild to moderate risk of clinicallysignificant liver fibrosis. 30% probability Metavir stage F2 byelastography. 1.77-1.99 m/sec (9.4 kPa-11.9 kPa) moderate to severe risk of clinicallysignificant liver fibrosis. 40% probability Metavir stage F3 byelastography. >1.99 m/sec (11.9 kPa) advanced fibrosis and/or cirrhosis. >90% probabilityMetavir stage F4 by elastography. RSNA vol 276, No 3 Elastography Assessment of Liver Fibrosis: Society ofRadiologists in Ultrasound Consensus Conference 2015. EKG No qualifying data available. Assessment/Plan Acute metabolic toxic encephalopathy Abnormal MRI of the brain Right foot drop Hyperammonemia T2DM- A1c 6.4 Other history HTN, HLD, hemorrhoids, obesity Plan Mentation appears at baseline. She reports brain fog and speech abnormalities at times Discussed with neurology team- felt MS was less likely MRI of C spine pending Neurology felt LP can be completed in the OP setting with close follow up with [facility] Ammonia level normalized, status post 1 dose of lactulose Blood sugars reviewed and are stable, continue current regimen Continue remainder of home chronic medications PT/OT recommending inpatient rehab facility, Referral made to [facility] Level of Care Indication: _Regular Floor DVT Prophylaxis: _Heparin SQ Maintenance IVF Indication: _NA / No maintenance IVF Indwelling Urinary Catheter Indication: _NA - No indwelling catheter Anticipated Timeline of Discharge: __24 hours Anticipated DC Disposition: __Inpatient Rehab Facility Plan discussed with patient and sister and [id number] at bedside. Case discussed with Dr. Nowak Digitally Signed by KARL MACE on 06/22/2025 02:13 PM [id number] Note Date of Service 06/22/2025 Date Read 06/22/2025 EEG Report Indication Assess for epileptiform activity. EEG Description EEG with 10-20 lead placement system. Photic stimulation was performed. The posterior dominant rhythm was 9 Hz synchronous, symmetric, reactive. Photic stimulation produced no unexpected EEG changes. Drowsiness was identified. There is no abnormal background slowing noted. No interictal epileptiform discharges or electrographic seizures noted during the record. Artefact noted during the entire record, study limited by the same. Impression This is a normal awake and drowsy EEG. No interictal epileptiform discharges or electrographic seizures noted during the record. The lack of epileptiform activity does not conclusively rule out a seizure disorder. If clinically indicated, a repeat study with prolonged sampling may have higher sensitivity for detecting interictal discharges. Digitally Signed by PORSCHE UGARTE MD on 06/22/2025 12:51 PM [id number] Note Date of Service 06/21/2025 Chief Complaint Change in mental status Subjective 64-year-old female with a history of hypertension, hyperlipidemia, diabetes, hemorrhoids, obesity presents with memory deficits as well as right foot drop. Patient has been undergoing a neurologic workup as an outpatient went for MRI of the brain noting periventricular, subcortical white matter changes that are nonspecific demyelinating disease was not excluded, chronic lacunar infarct of right basal ganglia was noted. Patient was transferred for further neurologic workup. CBC and metabolic panel unremarkable admission. Patient was afebrile hemodynamically stable. Neurology consulted. Patienthas been ordered for neurologic workup. repeat MRI did show some white matter disease present on pre vious MRI. No enhancing lesions. EEG still pending. Patient was seen and examined Patient does still have memory/cognitive defect Patient with a friend at bedside Discussed treatment plan with patient at bedside and son over the phone answered all questions. Objective Vitals and Measurements T: 36.5 C (Oral) TMIN: 36.5 C (Oral) TMAX: 37.2 C (Oral) HR: 68 (Monitored) RR: 16 BP: 135/88 SpO2:94% Intake and Output Last 24 hours Intake Medication 120.25 Oral Intake 940.00 Output Stool Count 1.00 Urine Count 4.00 Total Summary Total Intake 1060.25 Total Output 0.00 Fluid Balance 1060.25 Physical Exam Weight Dosing Weight: 104.5 kg (06/19/25) Medications Medications (10) Active Scheduled: (4) heparin 5,000 units/mL (1 mL) vial 5,000 unit(s) 1 mL, Subcutaneous, q12h insulin lispro 100 units/mL Soln (3 mL) Give 0-5 units/dose, Subcutaneous, TIDAC losartan 25 mg tablet 25 mg 1 tab(s), Oral, qDay metoprolol succinate 50 mg ER tablet 50 mg 1 tab(s), Oral, qDayM Continuous: (0) PRN: (6) acetaminophen 325 mg Tablet 650 mg 2 tab(s), Oral, q4h dextrose 50% Solution Disp syringe 50 mL 25 gram(s) 50 mL, IV Push, AsDirected melatonin 3 mg tablet 3 mg 1 tab(s), Oral, qHS melatonin 3 mg tablet 3 mg 1 tab(s), Oral, qHS ondansetron 2 mg/ 1 mL 2 mL INJ 4 mg 2 mL, IV Push, q4h polyethylene glycol 3350 - UD packet 17 gram(s) 15 mL, Oral, qDay Lab Results 06/21 05:54 WBC: 7.2 Hgb: 12.5 Hct: 37.0 Platelet: 251 Neutrophil %: 50.8 Glucose Level: 127 H Sodium Level: 139 Potassium Level: 4.0 BUN: 7.0 L Creatinine Lvl (s): 0.74 06/20 07:45 WBC: 7.1 Hgb: 13.3 Hct: 39.0 Platelet: 274 Neutrophil %: 46.0 L Glucose Level: 122 H Sodium Level: 139 Potassium Level: 4.1 BUN: 8.0 Creatinine Lvl (s): 0.75 EKG No qualifying data available. Assessment/Plan Foot-drop Acute neurocognitive decline, foot drop Abnormal MRI Hypertension Yrt-kxsmvck-hvinctgcr diabetes Obesity Elevated ammonia level Plan Patient presents with neurocognitive decline and foot drop found to have subtle abnormalities on MRI brain. Encephalopathy workup has been sent. Ammonia level is slightly elevated liver ultrasound was obtained noting fatty liver disease. EEG pending. If encephalopathy workup is not revealing patient may need LP. Level of Care Indication: _SD monitor (other: specify in note) DVT Prophylaxis: _Heparin SQSCDs Maintenance IVF Indication: _NA / No maintenance IVF Indwelling Urinary Catheter Indication: _NA - No indwelling catheter Anticipated Timeline of Discharge: __48 hours Anticipated DC Disposition: __Home without services Orders: heparin(heparin 5000 units/mL injection), 5000 unit(s)= 1 mL, Subcutaneous, q12h Digitally Signed by KAREN NOWAK MD on 06/21/2025 04:33 PM [id number] Note* Exam Date Time Procedure Performing Provider Status 06/21/25 11:31 AM MRI Brain w/ + w/o Contrast KIN GARCIA MD; Auth (Verified) [id number] ORIGINAL EXAMINATION: MRI OF THE BRAIN WITHOUT AND WITH CONTRAST 06/21/2025 11:39 am TECHNIQUE: Multiplanar multisequence MRI of the head/brain was performed without and with the administration of intravenous contrast. COMPARISON: 06/16/2025 HISTORY: ORDERING SYSTEM PROVIDED HISTORY: Reason for Exam: Demyelinating disease ; Multiple sclerosis (MS) FINDINGS: Foci of T2 prolongation are seen in the periventricular/pericallosal white matter. Lesion near the right side of the anterior corpus callosum is similar to the prior study. No definite new areas of T2 prolongation visible. Restricted diffusions seen. Ventricular caliber is normal. No enhancing lesions visible. No mass effect or midline shift. Flow voids appear patent. No significant fluid seen in the sinuses or mastoids. No gross abnormality seen of the orbits. IMPRESSION: No change in the callosal/pericallosal white matter disease, presumably related to the known demyelinating disorder. No enhancing lesions. Interpreted by: Kin Garcia MD Preliminary Report By: Kin Garcia MD Electronically signed By Kin Garcia MD Dictated Date: 06/21/2025 11:59:02 AM Prelim Date: 06/21/2025 12:07:11 PM Sign Date: 06/21/2025 12:07:11 PM Ordering Provider: ELVIS NEGRON RP [id number] Note* Exam Date Time Procedure Performing Provider Status 06/21/25 8:29 AM US Abdomen/Elastogra phy/Doppler Abdomen GIL BEAVER DO; Auth (Verified) [id number] ORIGINAL EXAMINATION: Exam Title:US ELASTOGRAPHY Completed Time: 06/21/2025 8:30 am Procedure Description:US ELASTOGRAPHY RAC COMPARISON: No direct comparison available HISTORY: ORDERING SYSTEM PROVIDED HISTORY: Reason for Exam: Possible hepatic encephalopathy TECHNIQUE: Real-time grayscale, color, and color imaging ultrasound was performed. Standard random multi segment B mode hepatic measurements obtained. Permanently stored images reviewed. FINDINGS: Cholecystectomy. Portions of liver obscured. Included portions liver demonstrate moderate hyperechoic granular echogenicity. Hepatic color flow demonstrated. Hepatopetal portal vein flow. Common bile duct measures 6.2 mm. Pancreas mostly obscured. Included portions aorta normal in caliber. Spleen normal in size. Mild bilateral renal cortical thinning. No hydronephrosis. Renal color flow demonstrated. No free fluid. ELASTOGRAPHY: Median Velocity : 1.68 m/s IQR: 0.14 m/s IQR/median ratio: 0.08 (ratio should be ? 0.3 for kPa and ? 0.15 for m/s suggestive of a quality data set) Additional information: In the setting of elevated liver function tests, nonfasting, congestive heart failure, etc., the degree of liver fibrosis may be over-estimated. IMPRESSION: [] 1. Fatty replacement of liver by grayscale imaging. Hepatic median velocity quantification felt to correlate with normal to mild risk of clinically significant liver fibrosis. 40% probability Metavir stage F1 by elastography. 2. Limited assessment pancreas and portions of liver. Reference: 1.35-1.66 m/sec (5.48 kPa - 8.29 kPa) normal to mild risk of clinically significant liver fibrosis. 40% probability Metavir stage F1 by elastography. 1.66-1.77 m/sec (kP 8.29 a-k 9.40 Pa) mild to moderate risk of clinically significant liver fibrosis. 30% probability Metavir stage F2 by elastography. 1.77-1.99 m/sec (9.4 kPa-11.9 kPa) moderate to severe risk of clinically significant liver fibrosis. 40% probability Metavir stage F3 by elastography. >1.99 m/sec (11.9 kPa) advanced fibrosis and/or cirrhosis. >90% probability Metavir stage F4 by elastography. RSNA vol 276, No 3 Elastography Assessment of Liver Fibrosis: Society of Radiologists in Ultrasound Consensus Conference 2015. Interpreted by: Gil Beaver DO Preliminary Report By: Gil Beaver DO Electronically signed By Gil Beaver DO Dictated Date: 06/21/2025 8:55:49 AM Prelim Date: 06/21/2025 8:58:29 AM Sign Date: 06/21/2025 8:58:29 AM Ordering Provider: KAREN NOWAK RP [id number] Neurology Consult note Date of Service 06/20/2025 Reason for Consultation Ataxia, altered mental status Referring Physician Stanislav History of Present Illness This is a 64-year-old woman with a past medical history as noted including hypertension, dyslipidemia, type 2 diabetes who presents for evaluation of encephalopathy. Patient is a suboptimal historianand the majority of the history is obtained from the shared electronic medical record and the family at bedside. Reportedly the patient has been progressively more confused and forgetful over the last several weeks, she complains of dizziness which appears to be more lightheadedness rather than vertigo per se, she states her vision is intermittently blurry but denies diplopia or patchy visual loss, she has been unsteady on her feet and feels as though she is on a ship which is rocking with the waves. Denies tinnitus or hearing loss. She is not aware of any focal weakness, focal numbness or paresthesias. She did go to her physician who ordered numerous blood tests though these are not available to me for review. An MRI of the brain with and without contrast as well as MRA of head and neck were done, I was able to look at these personally and this does demonstrate some scattered T2 FLAIR hyperintensities within the periventricular white matter right greater than left, these are actuallyfairly mild in severity, I do not appreciate any definite enhancement with gadolinium contrast however the MRI is significantly limited by motion artifact. I do not see anything on the diffusion/ADC to suggest recent infarct, my review of gradient echo suggests no stigmata of prior hemorrhage. My review of the MRA suggests normal cervical and intracranial arterial supply. It is unclear exactly what the family was told, but they are under the impression that these findings could be suggestive of multiple sclerosis, which apparently runs in the family, so they decided to seek medical attention at the ED in [place]. The patient was subsequently transferred to [place] for further workup. Review of Systems As per HPI. The patient denies specific complaints on comprehensive multisystem review. Physical Exam Vitals and Measurements T: 37.1 C (Oral) TMIN: 36.4 C (Oral) TMAX: 37.1 C (Oral) HR: 74 (Monitored) RR: 18 BP: 119/73 SpO2:93% HT: 162.6 cm WT: 104.5 kg BMI: 39.53 Weight Dosing Weight: 104.5 kg (06/19/25) Neuro: The patient is awake, initially somewhat lethargic. There is marked psychomotor slowing and delayed responses to questions and commands. She is oriented to the hospital, states it is April(it is May), cannot tell me much about the reason she is here. She can name common objects, canspell 5 letter words forward not backward, can repeat 5 word phrases without error, there is no neglect or apraxia, she can follow cross commands without left-right confusion. Short-term memory is impaired. Mental calculations are impaired. Pupils are symmetric and reactive bilaterally. Visual cook are grossly full to confrontation bilaterally. Extraocular movements are intact and conjugate in a ll planes however with significant saccadic dysmetria and impaired smooth pursuit. There is mild flattening of the right nasolabial fold with symmetric smile. Light touch sensations intact in V1 through V3 distributions bilaterally. Tongue protrudes at midline. Head turn and shoulder shrug are symmetric. Motor testing demonstrates 5 out of 5 strength in all 4 extremities though there is a subtle right upper extremity pronator drift. Light touch sensation is preserved throughout. Mild dysmetria seen on finger-nose and aiyb-hb-yvnf bilaterally though worse on the right upper and lower extremities. Reflexes are 1+ in the bilateral upper extremities, trace in the bilateral patellae, absent medial hamstring and Achilles, toes are mute. Gait is deferred. Lab Results 06/20 07:45 WBC: 7.1 Hgb: 13.3 Hct: 39.0 Platelet: 274 Neutrophil %: 46.0 L Glucose Level: 122 H Sodium Level: 139 Potassium Level: 4.1 BUN: 8.0 Creatinine Lvl (s): 0.75 Imaging Results and Diagnostics MRI of the brain with and without contrast and MRA of the head and neck with and without contrast done 06/16/2025 reviewed personally, results as per HPI. No formal read from radiology is available. Assessment/Plan Orders: A1C Hemoglobin(Hemoglobin A1C), 06/20/25 13:41:00 EDT, Routine, Blood, Once, Stop date 06/20/25 14:00:00 EDT Ammonia Level, 06/20/25 13:45:00 EDT, Routine, Blood, Once, Stop date 06/20/25 14:00:00 EDT Anti-NMDAR, Serum, 06/20/25 13:44:00 EDT, Routine, Blood, Once, Stop date 06/20/25 14:00:00 EDT C-Reactive Protein(CRP), 06/20/25 13:44:00 EDT, Routine, Blood, Once, Stop date 06/20/25 14:00:00 EDT Comprehensive Autoimmune Panel, 06/20/25 13:44:00 EDT, Routine, Blood, Once, Stop date 06/20/25 13:44:00 EDT EEG Routine, 06/20/25 13:45:00 EDT, Routine, AMS, ME4N, 06/20/25 13:45:00 EDT Folate Level, 06/20/25 13:42:00 EDT, Routine, Blood, Once, Stop date 06/20/25 14:00:00 EDT Free T4(T4 Free), 06/20/25 13:41:00 EDT, Routine, Blood, Once, Stop date 06/20/25 14:00:00 EDT MRI Brain w/ + w/o Contrast, 06/20/25 7:58:00 EDT, 06/20/25 7:58:00 EDT, Routine, Demyelinating disease ; Multiple sclerosis (MS), Wt k.5, Prior Valve Replacement: No, ME4N Protein Electrophoresis Panel, 06/20/25 13:42:00 EDT, Routine, Blood, Once, Stop date 06/20/25 14:00:00 EDT Reverse T3, Serum, 06/20/25 13:41:00 EDT, Routine, Blood, Once, Stop date 06/20/25 14:00:00 EDT Sedimentation Rate Automated(ESR), 06/20/25 13:43:00 EDT, Routine, Blood, Once, Stop date 06/20/25 14:00:00 EDT Thyroid Antibodies, 06/20/25 13:41:00 EDT, Routine, Blood, Once, Stop date 06/20/25 14:00:00 EDT Thyroid Stimulating Hormone(TSH), 06/20/25 13:40:00 EDT, Routine, Blood, Once, Stop date 06/20/25 14:00:00 EDT Thyrotropin Receptor Ab, Serum, 06/20/25 13:43:00 EDT, Routine, Blood, Once, Stop date 06/20/25 14:00:00 EDT Vitamin B1 (Thiamine), Blood, 06/20/25 13:42:00 EDT, Routine, Blood, Once, Stop date 06/20/25 14:00:00 EDT Vitamin B12 Level(B12 Level), 06/20/25 13:42:00 EDT, Routine, Blood, Once, Stop date 06/20/25 14:00:00 EDT Vitamin D Level, 06/20/25 13:44:00 EDT, Routine, Blood, Once, Stop date 06/20/25 14:00:00 EDT Encephalopathy, gait instability, ataxia: The differential diagnosis is broad. On my own review of MRI, it is not strongly suggestive of multiple sclerosis and it would be quite unusual to diagnose MS at the age of 64. It is not the highest quality MRI however, and it should be repeated. Exam is suggestive of either a diffuse or multifocal cause of encephalopathy, and there are subtle signs of right hemiparesis and hemiataxia. I have sent an encephalopathy panel as above to include TSH, free T4, reverse T3, hemoglobin A1c, vitamin D level, vitamin B12, thiamine and folate, anti-TPOand antithyroglobulin antibodies, anti-NMDA receptor antibodies, serum protein electrophoresis, comprehensive autoimmune panel, serum ammonia and treponemal serology. I have also ordered a routine EEG to assess for subclinical/nonconvulsive seizures. Once the MRI of the brain with and without contrast has been repeated, depending on results she mayneed a lumbar puncture. I would NOT however give her steroids empirically as this will skew the results of both the MRI and the CSF analysis, and there is no convincing evidence at this point of active neuroinflammation or demyelinating disease, though they do remain in the differential at this time . Further recommendations to follow depending on the results of the workup as ordered. We will continue to follow. Please call at any time with questions or if new issues arise. Time spent: 60 minutes, greater than 50% devoted to counseling and coordination of care. Problem List/Past Medical History Ongoing DM2 (diabetes mellitus, type 2) Hemorrhoids HTN (hypertension) Mixed hyperlipidemia Procedure/Surgical History Colonoscopy and biopsy of colon: 07/22/18 Appendectomy: 03/03/91 H/O: hysterectomy Cholecystectomy Bunionectomy Spinal fusion Medications Inpatient Ativan, 0.25 mg= 0.13 mL, IV Push, Once, PRN Dextrose 50% IV Push, 25 gram(s)= 50 mL, IV Push, AsDirected, PRN HumaLOG 100 units/mL subcutaneous solution, Give 0-5 units/dose, Subcutaneous, TIDAC losartan, 25 mg= 1 tab(s), Oral, qDay melatonin, 3 mg= 1 tab(s), Oral, qHS, PRN melatonin, 3 mg= 1 tab(s), Oral, qHS, PRN metoprolol succinate 50 mg oral TABLET extended release, 50 mg= 1 tab(s), Oral, qDayM Miralax Powder Packet, 17 gram(s)= 15 mL, Oral, qDay, PRN Tylenol, 650 mg= 2 tab(s), Oral, q4h, PRN Zofran, 4 mg= 2 mL, IV Push, q4h, PRN Home losartan 25 mg oral tablet, See Instructions, 5 refills metFORMIN 750 mg oral tablet, extended release, 750 mg= 1 tab(s), Oral, qDay Metoprolol Succinate ER 50 mg oral tablet, extended release, See Instructions, 11 refills Allergies NKA Social History Alcohol Use: Current. 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 Cancer: Mother. Diabetes mellitus: Father. HTN - Hypertension: Mother. Health Status Family Member(s) Immunizations hepatitis A-hepatitis B vaccine: 0 unknown unit (05/01/08) hepatitis A-hepatitis B vaccine: 0 unknown unit (03/24/08) Digitally Signed by ELVIS NEGRON MD on 06/20/2025 02:15 PM [id number] History and physical note Date of Service 06/19/2025 Chief Complaint Concern for multiple sclerosis History of Present Illness 64-year-old female with a history of hypertension, hyperlipidemia, diabetes, hemorrhoids, obesity presents with her right foot dragging. For the last 2 weeks the patient has felt progressively weak and observed by her family to be slow to respond and more confused she has also had trouble walking and has noticed that her foot has been dragging she has no prior episodes there is no family history of multiple sclerosis or myasthenia gravis she had a recent outpatient MRI and MRA of the head records unavailable but there was concern for multiple sclerosis she had a serum electrophoresis which showed a faint band in the gamma region suspicion for mono global immunoglobulin so she went to the emergency department at [place] In the emergency department CBC WBC of 8.5 H&H 13/40 platelets 325 BMP Glucose 255 sodium 138 potassium 3.9 chloride 101 CO2 25 creatinine 0.9 BUN 11 LFTs alk phos 81 AST 23 ALT 25 UA no nitrites no leuk esterase TSH low at 0.019 but free T4 and free T3 were in the normal range at free T4 1.5 Free T3 3.6 Reprocess[address] well my colleague Dr. Kaplan Upon arrival to floor patient was seen and examined at the bedside in the presence of her nurse She is slow to respond she is alert and oriented x 3 Review of Systems All pertinent positive and negative review of systems as per HPI, all other review of systems reviewed and negative Physical Exam Vitals and Measurements No qualifying data available. GENERAL: No acute distress ASSISTIVE DEVICES: None PSYCHIATRIC: appropriate HEENT moist mucous membranes extraocular muscles intact CARDIOVASCULAR: Regular rate, regular rhythm, no murmurs noted. Notrace lower extremity pitting edema. No lymphedema. Dorsalis Pedis pulses+2/4 blaterally . Posterior Tibialis pulses+2/4 bilaterally . RESPIRATORY: Regular rate and depth; no distress, RIGHT lungclear ; LEFT lungclear . Breath soundsnormal . ABDOMEN soft, no guarding, nontender, nondistended, positive bowel sounds, NEURO: ANO x 3 alert though slow to respond DERM: no acute rash Lab Results No 36 Hour Lab Data Assessment/Plan Concern for new onset multiple sclerosis flare will send the record release for her MRI and MRA, will consult neurology to see if she would benefit from steroid burst versus further workup as myasthenia gravis is also on the differential, when she is medically optimized by neurology consult PT OT Hypertension chronic stable Hyperlipidemia chronic stable Diabetes sliding scale insulin as needed Hemorrhoids chronic stable Obesity increases risk morbidity mortality DVT prophylaxis SCDs in the event that she undergoes a lumbar puncture Full code Patient was admitted for the above Patient is expected to require at least 2 midnights hospitalization including care rated by the emergency room for concern of MS flare Problem List/Past Medical History Ongoing DM2 (diabetes mellitus, type 2) Hemorrhoids HTN (hypertension) Mixed hyperlipidemia Procedure/Surgical History Colonoscopy and biopsy of colon: 07/22/18 Appendectomy: 03/03/91 H/O: hysterectomy Cholecystectomy Bunionectomy Spinal fusion Medications Home Medications (3) Active losartan 25 mg oral tablet See Instructions metFORMIN 750 mg oral tablet, extended release 750 mg = 1 tab(s), Oral, qDay Metoprolol Succinate ER 50 mg oral tablet, extended release See Instructions Allergies NKA Social History Alcohol Use: Current. 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 Cancer: Mother. Diabetes mellitus: Father. HTN - Hypertension: Mother. Health Status Family Member(s) Immunizations hepatitis A-hepatitis B vaccine: 0 unknown unit (05/01/08) hepatitis A-hepatitis B vaccine: 0 unknown unit (03/24/08) Code Status No qualifying data available. Digitally Signed by YVETTE HIGH MD on 06/20/2025 04:28 AM [id number] Evaluation + Plan noteExtracted from: Title:History and Physical Author:YVETTE HIGH Date:06/19/25 Concern for new onset multiple sclerosis flare will send the record release for her MRI and MRA, will consult neurology to see if she would benefit from steroid burst versus further workup as myasthenia gravis is also on the differential, when she is medically optimized by neurology consult PT OT Hypertension chronic stable Hyperlipidemia chronic stable Diabetes sliding scale insulin as needed Hemorrhoids chronic stable Obesity increases risk morbidity mortality DVT prophylaxis SCDs in the event that she undergoes a lumbar puncture Full code Patient was admitted for the above Patient is expected to require at least 2 midnights hospitalization including care rated by the emergency room for concern of MS flare Diagnostic Tests Pending * Reverse T3, Serum 06/20/25 * Vitamin B1 (Thiamine), Blood 06/20/25 [facility] 09-09-2025 Radiology Diagnostic study note [facility] [address], [place] [id number] Brain/Head without Contrast MR#: [id number] Acct: [id number] Name: RICHY RODRIGUEZ Rep #: [id number] : 1960 F 64 From: Colt Degroot MD PCP: Dr. July Rees MD Status: REG CLI Study:Brain/Head without Contrast Date of Exa m: 05/05/25 Exam# [id number] Ordering Dr: Darline Stewart NP EFFICIENCY MANAGER-C PROCEDURE: CT BRAIN/HEAD WITHOUT CONTRAST 05/05/2025 REASON FOR EXAM: DIZZINESS TECHNIQUE: Procedure Code: CTBR Modality: CT Procedure: BRAIN/HEAD WITHOUT CONTRAST Coronal and Sagittal reconstruction series were provided. One or more dose reduction techniques were used (e.g., Automated exposure control, adjustment of the mA and/or kV according to patient size, use of iterative reconstruction technique. RADIATION DOSE SUMMARY: CTDlvol: 44.99 mGy DLP: 812.98 mGycm COMPARISON: None available. FINDINGS: No acute intracranial hemorrhage, extra-axial collection, mass effect or evidence of acute infarct. Ventricles and subarachnoid spaces are normal in size. Orbital contents are unremarkable. Intact skull base and calvarium. Clear paranasal sinuses and mastoid air cells. CT/Brain/Head without Contrast IMPRESSION: No acute intracranial abnormality. Reading Location: [facility] CC: ALIVIA-C Nan Stewart; Dr. July Rees MD ~ Process Technician: Signed [facility]03-27-2023 Evaluation + Plan noteExtracted from: Title:Clinical Document Author:NAHUM HEWITT Zaki Hercules Date:11/20/22 [place] ADMISSION HISTORY AN D PHYSICIAL CHIEF COMPLAINT: HISTORY OF PRESENT ILLNESS: REVIEW OF SYSTEMS: ACTIVE PROBLEMS: (4) DM2 (diabetes mellitus, type 2) (624998606) Hemorrhoids (955805970) HTN (hypertension) (8979498577) Mixed hyperlipidemia (670549251) MEDICATIONS: Active Inpt Meds: None Active PRN Meds: None One Time Meds: None Active IV Meds: Lactated Ringers Infusion 1,000 mL (LR 1,000 mL) Start: 11/20/22 7:30:00 EDT, Rate: 50 mL/hr, 11/20/22 7:30:00 EDT ALLERGIES: (1) NKA FAMILY HISTORY: SOCIAL HISTORY: PHYSICAL EXAM: VITALS: WttwksHumwTBFfqobEVKhV2HLJ6TrlxFl(kg) 11/20 07:5536.5--115------96337.0 11/20 07:5136.5--0820438GX 24 Hr Tmax: 36.5 at 11/20 07:55 36 Hr Tmax: 36.5 at 11/20 07:55 Vital Signs are the last 5 in the past 48 hours. Weights display the last 5 within 7 days. Initial Wt: 11/20 100.0 kg 220 lb Current Wt: 11/20 100.0 kg 220 lb GENERAL: HEENT: CARDIOVASCULAR: RESPIRATORY: ABDOMEN: EXREMETIES: NEUROLOGICAL: PSYCHIATRIC: LABS: No 36hr Lab Data DIAGNOSTICS: IMPRESSION: PLAN: History and Physical Update I have examined the patient; reviewed the H&P and there are no changes to the H&P unless noted below. [facility] 03-27-2023 Hospital Discharge instructions Patient Education 11/20/2022 09:21:56 Nausea and Vomiting, Adult, Klcu-ba-Unsd Nausea and Vomiting, Adult Nausea is feeling sick to your stomach or feeling that you are about to throw up (vomit). Vomiting is when food in your stomach is thrown up and out of the mouth. Throwing up can make you feel weak. It can also make you lose too much water in your body (get dehydrated). If you lose too much water in your body, you may: Feel tired. Feel thirsty. Have a dry mouth. Have cracked lips. Go pee (urinate) less often. Older adults and people with other diseases or a weak body defense system (immune system) are at higher risk for losing too much water in the body. If you feel sick to your stomach and you throw up, it is important to follow instructions from your doctor about how to take care of yourself. Follow these instructions at home: Watch your symptoms for any changes. Tell your doctor about them. Follow these instructions to carefor yourself at home. Eating and drinking Take an ORS (oral rehydration solution). This is a drink that is sold at pharmacies and stores. Drink clear fluids in small amounts as you are able, such as: ?Water. ?Ice chips. ?Fruit juice that has water added (diluted fruit juice). ?Low-calorie sports drinks. Eat bland, ahcr-ia-xwruzg foods in small amounts as you are able, such as: ?Bananas. ?Applesauce. ?Rice. ?Low-fat (lean) meats. ?Nooksack. ?Crackers. Avoid drinking fluids that have a lot of sugar or caffeine in them. This includes energy drinks, sports drinks, and soda. Avoid alcohol. Avoid spicy or fatty foods. General instructions Take fvru-bcv-wrkavkd and prescription medicines only as told by your doctor. Drink enough fluid to keep your pee (urine) pale yellow. Wash your hands often with soap and water. If you cannot use soap and water, use hand life science technician. Make sure that all people in your home wash their hands well and often. Rest at home while you get better. Watch your condition for any changes. Take slow and deep breaths when you feel sick to your stomach. Keep all follow-up visits as told by your doctor. This is important. Contact a doctor if: Your symptoms get worse. You have new symptoms. You have a fever. You cannot drink fluids without throwing up. You feel sick to your stomach for more than 2 days. You feel light-headed or dizzy. You have a headache. You have muscle cramps. You have a rash. You have pain while peeing. Get help right away if: You have pain in your chest, neck, arm, or jaw. You feel very weak or you pass out (faint). You throw up again and again. You have throw up that is bright red or looks like black coffee grounds. You have bloody or black poop (stools) or poop that looks like tar. You have a very bad headache, a stiff neck, or both. You have very bad pain, cramping, or bloating in your belly (abdomen). You have trouble breathing. You are breathing very quickly. Your heart is beating very quickly. Your skin feels cold and clammy. You feel confused. You have signs of losing too much water in your body, such as: ?Dark pee, very little pee, or no pee. ?Cracked lips. ?Dry mouth. ?Sunken eyes. ?Sleepiness. ?Weakness. These symptoms may be an emergency. Do not wait to see if the symptoms will go away. Get medical help right away. Call your local emergency services (911 in the [place] Do not drive yourself to the hospital. Summary Nausea is feeling sick to your stomach or feeling that you are about to throw up (vomit). Vomiting is when food in your stomach is thrown up and out of the mouth. Follow instructions from your doctor about eating and drinking to keep from losing too much water in your body. Take mcoq-lwu-vraexrc and prescription medicines only as told by your doctor. Contact your doctor if your symptoms get worse or you have new symptoms. Keep all follow-up visits as told by your doctor. This is important. This information is not intended to replace advice given to you by your health care provider. Make sure you discuss any questions you have with your health care provider. Document Released: 01/29/2009 Document Revised: 12/05/2019 Document Reviewed: 01/21/2019 [employer] Patient Education 2020 [employer]. 11/20/2022 09:21:48 Monitored Anesthesia Care, Care After Monitored Anesthesia Care, Care After These instructions provide you with information about caring for yourself after your procedure. Your health care provider may also give you more specific instructions. Your treatment has been plannedaccording to current medical practices, but problems sometimes occur. Call your health care provider if you have any problems or questions after your procedure. What can I expect after the procedure? After your procedure, you may: Feel sleepy for several hours. Feel clumsy and have poor balance for several hours. Feel forgetful about what happened after the procedure. Have poor judgment for several hours. Feel nauseous or vomit. Have a sore throat if you had a breathing tube during the procedure. Follow these instructions at home: For at least 24 hours after the procedure: Have a responsible adult stay with you. It is important to have someone help care for you until youare awake and alert. Rest as needed. Do not: ?Participate in activities in which you could fall or become injured. ?Drive. ?Use heavy machinery. ?Drink alcohol. ?Take sleeping pills or medicines that cause drowsiness. ?Make important decisions or sign legal documents. ?Take care of children on your own. Eating and drinking Follow the diet that is recommended by your health care provider. If you vomit, drink water, juice, or soup when you can drink without vomiting. Make sure you have little or no nausea before eating solid foods. General instructions Take nkmv-fbh-lmrrafg and prescription medicines only as told by your health care provider. If you have sleep apnea, surgery and certain medicines can increase your risk for breathing problems. Follow instructions from your health care provider about wearing your sleep device: ?Anytime you are sleeping, including during daytime naps. ?While taking prescription pain medicines, sleeping medicines, or medicines that make you drowsy. If you smoke, do not smoke without supervision. Keep all follow-up visits as told by your health care provider. This is important. Contact a health care provider if: You keep feeling nauseous or you keep vomiting. You feel light-headed. You develop a rash. You have a fever. Get help right away if: You have trouble breathing. Summary For several hours after your procedure, you may feel sleepy and have poor judgment. Have a responsible adult stay with you for at least 24 hours or until you are awake and alert. This information is not intended to replace advice given to you by your health care provider. Make sure you discuss any questions you have with your health care provider. Document Released: 12/03/2016 Document Revised: 11/11/2018 Document Reviewed: 12/03/2016 [employer] Patient Education 2020 [employer]. 11/20/2022 09:21:45 Colonoscopy, Adult, Care After Colonoscopy, Adult, Care After This sheet gives you information about how to care for yourself after your procedure. Your health care provider may also give you more specific instructions. If you have problems or questions, contact your health care provider. What can I expect after the procedure? After the procedure, it is common to have: A small amount of blood in your stool for 24 hours after the procedure. Some gas. Mild abdominal cramping or bloating. Follow these instructions at home: General instructions For the first 24 hours after the procedure: ?Do not drive or use machinery. ?Do not sign important documents. ?Do not drink alcohol. ?Do your regular daily activities at a slower pace than normal. ?Eat soft, bhhk-se-izmezs foods. Take acri-cus-bunvlko or prescription medicines only as told by your health care provider. Relieving cramping and bloating Try walking around when you have cramps or feel bloated. Apply heat to your abdomen as told by your health care provider. Use a heat source that your healthcare provider recommends, such as a moist heat pack or a heating pad. ?Place a towel between your skin and the heat source. ?Leave the heat on for 20 30 minutes. ?Remove the heat if your skin turns bright red. This is especially important if you are unable to feel pain, heat, or cold. You may have a greater risk of getting burned. Eating and drinking Drink enough fluid to keep your urine pale yellow. Resume your normal diet as instructed by your health care provider. Avoid heavy or fried foods thatare hard to digest. Avoid drinking alcohol for as long as instructed by your health care provider. Contact a health care provider if: You have blood in your stool 2 3 days after the procedure. Get help right away if: You have more than a small spotting of blood in your stool. You pass large blood clots in your stool. Your abdomen is swollen. You have nausea or vomiting. You have a fever. You have increasing abdominal pain that is not relieved with medicine. Summary After the procedure, it is common to have a small amount of blood in your stool. You may also have mild abdominal cramping and bloating. For the first 24 hours after the procedure, do not drive or use machinery, sign important documents, or drink alcohol. Contact your health care provider if you have a lot of blood in your stool, nausea or vomiting, a fever, or increased abdominal pain. This information is not intended to replace advice given to you by your health care provider. Make sure you discuss any questions you have with your health care provider. Document Released: 03/27/2005 Document Revised: 06/05/2018 Document Reviewed: 10/24/2016 [employer] Patient Education 2020 [employer]. Follow Up Care 10/30/2022 10:54:58 With:NAHUM HEWITT MD Address: [address] [phone] When:Within 10 Year(s) Comments:FOLLOW UP IN 3-[address] HEWITT. CALL OFFICE FOR ANY QUESTIONS OR CONCERNS. GO TO EMERGENCY ROOM FOR ANY MEDICAL EMERGENCIES. [facility] 03-27-2023 Summary of episode note Discharge Instructions Thank you for allowing [facility] to assist you with your healthcare needs. The following is importantdischarge information regarding your hospital visit. Your Care Team JULY REES MD, DR What to do next Follow Up Appointments Follow Up with NAHUM HEWITT MD When In 10 years Why: FOLLOW UP IN 3-[address] HEWITT. CALL OFFICE FOR ANY QUESTIONS OR CONCERNS. GO TO EMERGENCY ROOM FOR ANY MEDICAL EMERGENCIES. Where: [address] [facility] [address] [place] [address] [phone] Medications Please ask your primary doctor or pharmacist before taking any other medication not listed, including over the counter drugs, herbal medications, vitamins and or supplements as they may interact withyour home medications. What How Much When Instructions Last Dose Unchanged losartan (losartan 25 mg oral tablet) See instructions TAKE 1 TABLET BY MOUTH EVERY DAY Unchanged metFORMIN (metFORMIN 750 mg oral tablet, extended release) 1 tab(s) by mouth Once a day Unchanged metoprolol (Metoprolol Succinate ER 50 mg oral tablet, extended release) See instructions TAKE 1 TABLET BY MOUTH EVERY DAY Please take this list to your next doctor s visit. Bring all medications you take, including over the counter medications, herbals and other supplements with you to your doctor s visit. Patients and families are reminded to discard old lists and to update any records with all medication providers or retail pharmacies. Education Materials Nausea and Vomiting, Adult Nausea is feeling sick to your stomach or feeling that you are about to throw up (vomit). Vomiting is when food in your stomach is thrown up and out of the mouth. Throwing up can make you feel weak. It can also make you lose too much water in your body (get dehydrated). If you lose too much water in your body, you may: Feel tired. Feel thirsty. Have a dry mouth. Have cracked lips. Go pee (urinate) less often. Older adults and people with other diseases or a weak body defense system (immune system) are at higher risk for losing too much water in the body. If you feel sick to your stomach and you throw up, it is important to follow instructions from your doctor about how to take care of yourself. Follow these instructions at home: Watch your symptoms for any changes. Tell your doctor about them. Follow these instructions to carefor yourself at home. Eating and drinking Take an ORS (oral rehydration solution). This is a drink that is sold at pharmacies and stores. Drink clear fluids in small amounts as you are able, such as: ? Water. ? Ice chips. ? Fruit juice that has water added (diluted fruit juice). ? Low-calorie sports drinks. Eat bland, vlmp-rq-plbzxq foods in small amounts as you are able, such as: ? Bananas. ? Applesauce. ? Rice. ? Low-fat (lean) meats. ? N[place]sack. ? Crackers. Avoid drinking fluids that have a lot of sugar or caffeine in them. This includes energy drinks, sports drinks, and soda. Avoid alcohol. Avoid spicy or fatty foods. General instructions Take dlmo-nkd-yqibzeh and prescription medicines only as told by your doctor. Drink enough fluid to keep your pee (urine) pale yellow. Wash your hands often with soap and water. If you cannot use soap and water, use hand life science technician. Make sure that all people in your home wash their hands well and often. Rest at home while you get better. Watch your condition for any changes. Take slow and deep breaths when you feel sick to your stomach. Keep all follow-up visits as told by your doctor. This is important. Contact a doctor if: Your symptoms get worse. You have new symptoms. You have a fever. You cannot drink fluids without throwing up. You feel sick to your stomach for more than 2 days. You feel light-headed or dizzy. You have a headache. You have muscle cramps. You have a rash. You have pain while peeing. Get help right away if: You have pain in your chest, neck, arm, or jaw. You feel very weak or you pass out (faint). You throw up again and again. You have throw up that is bright red or looks like black coffee grounds. You have bloody or black poop (stools) or poop that looks like tar. You have a very bad headache, a stiff neck, or both. You have very bad pain, cramping, or bloating in your belly (abdomen). You have trouble breathing. You are breathing very quickly. Your heart is beating very quickly. Your skin feels cold and clammy. You feel confused. You have signs of losing too much water in your body, such as: ? Dark pee, very little pee, or no pee. ? Cracked lips. ? Dry mouth. ? Sunken eyes. ? Sleepiness. ? Weakness. These symptoms may be an emergency. Do not wait to see if the symptoms will go away. Get medical help right away. Call your local emergency services (911 in the [place] Do not drive yourself to the hospital. Summary Nausea is feeling sick to your stomach or feeling that you are about to throw up (vomit). Vomiting is when food in your stomach is thrown up and out of the mouth. Follow instructions from your doctor about eating and drinking to keep from losing too much water in your body. Take bgcv-jyh-jxqkxqm and prescription medicines only as told by your doctor. Contact your doctor if your symptoms get worse or you have new symptoms. Keep all follow-up visits as told by your doctor. This is important. This information is not intended to replace advice given to you by your health care provider. Make sure you discuss any questions you have with your health care provider. Document Released: 01/29/2009 Document Revised: 12/05/2019 Document Reviewed: 01/21/2019 [employer] Patient Education 2020 [employer]. Monitored Anesthesia Care, Care After These instructions provide you with information about caring for yourself after your procedure. Your health care provider may also give you more specific instructions. Your treatment has been plannedaccording to current medical practices, but problems sometimes occur. Call your health care provider if you have any problems or questions after your procedure. What can I expect after the procedure? After your procedure, you may: Feel sleepy for several hours. Feel clumsy and have poor balance for several hours. Feel forgetful about what happened after the procedure. Have poor judgment for several hours. Feel nauseous or vomit. Have a sore throat if you had a breathing tube during the procedure. Follow these instructions at home: For at least 24 hours after the procedure: Have a responsible adult stay with you. It is important to have someone help care for you until youare awake and alert. Rest as needed. Do not: ? Participate in activities in which you could fall or become injured. ? Drive. ? Use heavy machinery. ? Drink alcohol. ? Take sleeping pills or medicines that cause drowsiness. ? Make important decisions or sign legal documents. ? Take care of children on your own. Eating and drinking Follow the diet that is recommended by your health care provider. If you vomit, drink water, juice, or soup when you can drink without vomiting. Make sure you have little or no nausea before eating solid foods. General instructions Take tnne-sis-oadoxot and prescription medicines only as told by your health care provider. If you have sleep apnea, surgery and certain medicines can increase your risk for breathing problems. Follow instructions from your health care provider about wearing your sleep device: ? Anytime you are sleeping, including during daytime naps. ? While taking prescription pain medicines, sleeping medicines, or medicines that make you drowsy. If you smoke, do not smoke without supervision. Keep all follow-up visits as told by your health care provider. This is important. Contact a health care provider if: You keep feeling nauseous or you keep vomiting. You feel light-headed. You develop a rash. You have a fever. Get help right away if: You have trouble breathing. Summary For several hours after your procedure, you may feel sleepy and have poor judgment. Have a responsible adult stay with you for at least 24 hours or until you are awake and alert. This information is not intended to replace advice given to you by your health care provider. Make sure you discuss any questions you have with your health care provider. Document Released: 12/03/2016 Document Revised: 11/11/2018 Document Reviewed: 12/03/2016 [employer] Patient Education 2020 [employer] Colonoscopy, Adult, Care After This sheet gives you information about how to care for yourself after your procedure. Your health care provider may also give you more specific instructions. If you have problems or questions, contact your health care provider. What can I expect after the procedure? After the procedure, it is common to have: A small amount of blood in your stool for 24 hours after the procedure. Some gas. Mild abdominal cramping or bloating. Follow these instructions at home: General instructions For the first 24 hours after the procedure: ? Do not drive or use machinery. ? Do not sign important documents. ? Do not drink alcohol. ? Do your regular daily activities at a slower pace than normal. ? Eat soft, ckbt-xl-iozokp foods. Take fdie-aao-vluugfh or prescription medicines only as told by your health care provider. Relieving cramping and bloating Try walking around when you have cramps or feel bloated. Apply heat to your abdomen as told by your health care provider. Use a heat source that your healthcare provider recommends, such as a moist heat pack or a heating pad. ? Place a towel between your skin and the heat source. ? Leave the heat on for 20 30 minutes. ? Remove the heat if your skin turns bright red. This is especially important if you are unable to feel pain, heat, or cold. You may have a greater risk of getting burned. Eating and drinking Drink enough fluid to keep your urine pale yellow. Resume your normal diet as instructed by your health care provider. Avoid heavy or fried foods thatare hard to digest. Avoid drinking alcohol for as long as instructed by your health care provider. Contact a health care provider if: You have blood in your stool 2 3 days after the procedure. Get help right away if: You have more than a small spotting of blood in your stool. You pass large blood clots in your stool. Your abdomen is swollen. You have nausea or vomiting. You have a fever. You have increasing abdominal pain that is not relieved with medicine. Summary After the procedure, it is common to have a small amount of blood in your stool. You may also have mild abdominal cramping and bloating. For the first 24 hours after the procedure, do not drive or use machinery, sign important documents, or drink alcohol. Contact your health care provider if you have a lot of blood in your stool, nausea or vomiting, a fever, or increased abdominal pain. This information is not intended to replace advice given to you by your health care provider. Make sure you discuss any questions you have with your health care provider. Document Released: 03/27/2005 Document Revised: 06/05/2018 Document Reviewed: 10/24/2016 [employer] Patient Education 2020 HotLink. Additional Information VACCINATE! IT SAVES LIVES! Members of the community who have not yet received the COVID-19 vaccine and would like to receive it can visit one of [facility] vaccine clinics. There are many vaccine clinic locations within the [facility]. For locations and available times, please visit [email or web address].[place].[email or web address] It is important to note that some COVID mobile vaccine clinics are held outdoors and may be canceled in rainy or stormy conditions. To learn more about pediatric vaccinations (ages 5-11), we invite you to visit the [facility] webpage. [email or web address].[email or web address]/[email or web address]-[email or web address]-[email or web address] [email or web address] learn more about the COVID-19 vaccine, we invite you to visit the CDC website for a list of frequently asked questions. https://www.cdc.gov/coronavirus/2019-ncov/vaccines/faq.html [employer] [employer] Patient Portal Access Instructions: Stay connected with your healthcare team and access your personal medical information anytime with the [facility] Patient Portal.If you would like a full copy of your medical records, please contact the [facility] Medical Records Department, Sunday through Sunday between 8a.m. and 4:30p.m. Please follow the directions below to access the portal: 1.Access the email account you provided upon registration to the hospital.2.Look for an invitation email from [facility].3.Open the email and access the invitation link: Accept Invitation to [facility]4.Fill in the required cook to create your account. Sign into www.[employer] with your username and password that you created in the above steps to stay up to date. You can then view a summary of results, a summary of your visits, and the ability to download your summaries to your computer or send the information securely to a physician. Remember that your healthcare information is confidential, so carefully consider who you will allow to register on the [facility] Patient Portal for access to your information. You can also access the [employer] Patient Portal on the [employer]. Simply click on "Health Records" under "HealthData" and then click on the [employer] logo. HOW TO SAFELY DISPOSE OF PRESCRIPTION MEDICATIONS Please use one of the following methods to safely dispose of your unused medications. 1.Use a drug disposal kit: the drug disposal pouch allows you to safely discard your old and unuseddrugs. Ask your nurse to give you one when you are discharged.2.Visit a local take-back location: Many local pharmacies and police departments have programs that collect old and unwanted prescriptiondrugs. Call your local pharmacy or go to http://bit.StyleFactory/6R5Xz3q to find one close to you.3.Make use of household items: Use cat litter or old coffee grounds to dispose medications if other options arenot available. Mix your drugs with these household products, seal them in an airtight container andthrow it into the garbage. Call [facility]: [phone] to be sure your drugs can be disposed of in this way. Some medicines may require a different approach.4.Never flush your medications down the toilet. IF YOU HAVE BEEN PRESCRIBED AN OPIOID FOR PAIN If you have been prescribed an opioid (such as hydrocodone, oxycodone or morphine), it is critical to understand the possible side effects and risks of opioid pain medications. Even when taken as directed, opioids can have several side effects including: Tolerance, meaning you might need to take more of a medication for the same pain relief. Nausea, vomiting and/or constipation. Sleepiness, dizziness, dry mouth, confusion, depression or itching. Physical dependence, meaning you have withdrawal symptoms when a medication is stopped, can develop within a few days. KNOW YOUR RESPONSIBILITIES It is important to know exactly how much and how often to take the opioid pain medications you are prescribed. Never take opioids in higher amounts or more often than prescribed. Do not combine opioids with alcohol or other drugs that cause drowsiness, such as benzodiazepines, also known as benzos, including diazepam and alprazolam, muscle relaxants or sleep aids. Never sell or share prescription opioids. This is illegal. Store opioids in a secure place and out of reach of others (including children, family, friends and visitors). The last page of this document has been signed and retained as a CHART COPY. Signatures Patient Education Materials Nausea and Vomiting, Adult, Mhfo-wz-Wnwa Monitored Anesthesia Care, Care After Colonoscopy, Adult, Care After Medication Leaflets My discharge plan and instructions have been reviewed and explained to me and I,RICHY RODRIGUEZ understand my current condition and have read and understand these discharge instructions. I have received a written copy of the plan/instructions. If I have questions, I am aware that I should contactmy doctor. 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: Date/Time: Relationship to Patient: Witness Name/Signature: Date/Time: [facility]03-27-2023 Anesthesiology Consult note Patient: RICHY RODRIGUEZ Age: 62 years Sex: Female : 1960 Associated Diagnoses: None Author: DREW DOE Assessment Postanesthesia assessment Vitals: Vital signs from flowsheet : Vital Signs 11/20/2022 9:00 EDT Heart Rate Monitored 88 bpm bpm Respiratory Rate - Anes 20 br/min br/min Systolic Blood Pressure Non-Invasive 114 mmHg mmHg Diastolic Blood Pressure Non-Invasive 73 mmHg mmHg 11/20/2022 8:55 EDT Heart Rate Monitored 106 bpm bpm Respiratory Rate - Anes 20 br/min br/min Systolic Blood Pressure Non-Invasive 136 mmHg mmHg Diastolic Blood Pressure Non-Invasive 70 mmHg mmHg 11/20/2022 8:50 EDT Heart Rate Monitored 109 bpm bpm Respiratory Rate - Anes 14 br/min br/min Systolic Blood Pressure Non-Invasive 163 mmHg mmHg Diastolic Blood Pressure Non-Invasive 89 mmHg mmHg 11/20/2022 7:55 EDT Temperature Temporal Artery 36.5 DegC Peripheral Pulse Rate 115 bpm HI Systolic Blood Pressure Non-Invasive 155 mmHg HI Diastolic Blood Pressure Non-Invasive 103 mmHg >HHI 11/20/2022 7:51 EDT Temperature Axillary 36.5 DegC Heart Rate Monitored 115 bpm HI Respiratory Rate 18 br/min Systolic Blood Pressure Non-Invasive 141 mmHg HI Diastolic Blood Pressure Non-Invasive 97 mmHg HI , Measurements from flowsheet . Mental status: alert & oriented x 4. Respiratory function: respirations are non-labored. Respiratory support: none. CV function: Normal rate. Cardiovascular support: none. Pain. Nausea status: see nursing documentation of medications. Postoperative hydration status: within normal limits. Digitally Signed by DREW DOE on 11/20/2022 09:06 AM [facility]03-27-2023 Anesthesiology Consult note Patient: RICHY RODRIGUEZ Age: 62 years Sex: Female : 1960 Associated Diagnoses: None Author: DREW DOE Preoperative Information Time of last solid food intake: 11/20/2022 00:00:00 Time of last clear liquid intake: 11/20/2022 07:00:00 Anesthesia history Patient's history: negative. Family's history: negative. Health Status Allergies: Allergic Reactions (Selected) NKA, Allergies (1) ActiveReaction NKANone Documented Current medications: (Selected) Inpatient Medications Ordered LR 1,000 mL: 50 mL/hr, Intravenous Prescriptions Prescribed Metoprolol Succinate ER 50 mg oral tablet, extended release: See Instructions, TAKE 1 TABLET BY MOUTH EVERY DAY, 30 tab(s), 11 Refill(s) losartan 25 mg oral tablet: See Instructions, TAKE 1 TABLET BY MOUTH EVERY DAY, 60 tab(s), 5 Refill(s) Documented Medications Documented metFORMIN 750 mg oral tablet, extended release: 750 mg, 1 tab(s), Oral, qDay, 90 tab(s), 0 Refill(s), Medications (1) Active Scheduled: (0) Continuous: (1) Lactated Ringers 1,000 mL 1,000 mL, Intravenous, 50 mL/hr PRN: (0) Problem list: Medical Hemorrhoids / SNOMED CT 446645586 / Confirmed HTN (hypertension) / SNOMED CT 5657297162 / Confirmed Mixed hyperlipidemia / SNOMED CT 057178281 / Confirmed DM2 (diabetes mellitus, type 2) / SNOMED CT 641663967 / Confirmed, Active Problems (4) DM2 (diabetes mellitus, type 2) Hemorrhoids HTN (hypertension) Mixed hyperlipidemia Histories Past Medical History: Active Hemorrhoids ([id number]) Family History: Diabetes mellitus Father Breast cancer Mother Cancer Mother HTN - Hypertension Mother Procedure history: Colonoscopy and biopsy of colon ([id number]) on 07/22/2018 at 57 Years. Appendectomy ([id number]) on 03/03/1991 at 30 Years. H/O: hysterectomy (504635455). Spinal fusion (76448105). Comments: 07/22/2018 8:07 ANTON Collier cervical with plate and rods Cholecystectomy (26795470). Bunionectomy (07860004). 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 Physical Examination Vital Signs 11/20/2022 9:00 EDT Heart Rate Monitored 88 bpm bpm Respiratory Rate - Anes 20 br/min br/min Systolic Blood Pressure Non-Invasive 114 mmHg mmHg Diastolic Blood Pressure Non-Invasive 73 mmHg mmHg 11/20/2022 8:55 EDT Heart Rate Monitored 106 bpm bpm Respiratory Rate - Anes 20 br/min br/min Systolic Blood Pressure Non-Invasive 136 mmHg mmHg Diastolic Blood Pressure Non-Invasive 70 mmHg mmHg 11/20/2022 8:50 EDT Heart Rate Monitored 109 bpm bpm Respiratory Rate - Anes 14 br/min br/min Systolic Blood Pressure Non-Invasive 163 mmHg mmHg Diastolic Blood Pressure Non-Invasive 89 mmHg mmHg 11/20/2022 7:55 EDT Temperature Temporal Artery 36.5 DegC Peripheral Pulse Rate 115 bpm HI Systolic Blood Pressure Non-Invasive 155 mmHg HI Diastolic Blood Pressure Non-Invasive 103 mmHg >HHI 11/20/2022 7:51 EDT Temperature Axillary 36.5 DegC Heart Rate Monitored 115 bpm HI Respiratory Rate 18 br/min Systolic Blood Pressure Non-Invasive 141 mmHg HI Diastolic Blood Pressure Non-Invasive 97 mmHg HI Vital Signs(last 24 hrs) Last Charted Temp Lirjixqk46.5 DegC (NOV 20 07:51) Heart Rate Xfuyvlwqq43 bpm (NOV 20 09:00) Resp Rate 18 br/min (NOV 20 07:51) STE066 mmHg (NOV 20 09:00) DBP73 mmHg (NOV 20 09:00) BMI37.84 (NOV 20 07:49) Measurements from flowsheet : Measurements 11/20/2022 7:49 EDT Height 162.56 cm Admission Weight 100 kg Weight Method Stated [place] Body Weight 54.70 kg BSA Admission 2.04 Body Mass Index 37.84 kg/m2 11/20/2022 7:48 EDT Height 162.56 cm [place] Body Weight 54.70 kg Pain assessment: Pain Assessment 11/20/2022 7:51 EDT Primary Pain Intensity 0 Pain Scale Type 0-10 Pain scale . General: Alert and oriented. Airway: Normal temporomandibular joint mobility, Normal mouth, Normal neck range of motion. Mallampati classification: III (soft palate, base of uvula visible). Dentition Evaluation: Denies loose/chipped teeth. Respiratory: Respirations are non-labored. Cardiovascular: Normal rate. Neurologic: Alert, Oriented. Review / Management Results review: No qualifying data available , Lab results 11/20/2022 9:04 EDT SN - CTm - Anesthesia Stop Time Anesthesia Stop Anesthesia Final Record 11/20/2022 9:04 EDT Lactated Ringers Injection 700 mL mL 11/20/2022 9:01 EDT propofol 50 mg mg 11/20/2022 9:00 EDT SN - Proc - Actual Procedure COLONOSCOPY WITH BIOPSY (Modified) 11/20/2022 9:00 EDT SN - Cul - Culture Type Tissue in Formalin SN - Cul - Kind Specimen 11/20/2022 9:00 EDT Heart Rate Monitored 88 bpm bpm Respiratory Rate - Anes 20 br/min br/min Systolic Blood Pressure Non-Invasive 114 mmHg mmHg Diastolic Blood Pressure Non-Invasive 73 mmHg mmHg Oxygen Saturation 97.7 % % 11/20/2022 8:57 EDT propofol 70 mg mg 11/20/2022 8:55 EDT Heart Rate Monitored 106 bpm bpm Respiratory Rate - Anes 20 br/min br/min Systolic Blood Pressure Non-Invasive 136 mmHg mmHg Diastolic Blood Pressure Non-Invasive 70 mmHg mmHg Oxygen Saturation 100 % % 11/20/2022 8:54 EDT SN - GCD - ASA Class 3 11/20/2022 8:54 EDT lidocaine 40 mg mg propofol 130 mg mg 11/20/2022 8:50 EDT SN - CTm - Anesthesia Start Time Anesthesia Start 11/20/2022 8:50 EDT Heart Rate Monitored 109 bpm bpm Respiratory Rate - Anes 14 br/min br/min Systolic Blood Pressure Non-Invasive 163 mmHg mmHg Diastolic Blood Pressure Non-Invasive 89 mmHg mmHg Oxygen Saturation 99.8 % % Lactated Ringers Injection Begin Bag 1,000 mL mL 11/20/2022 8:49 EDT [place] History and Physical 11/20/2022 8:26 EDT Lactated Ringers Injection Begin Bag 1,000 mL mL 11/20/2022 8:17 EDT SN - Proc - Anesthesia Type MAC SN - Proc - EBL 0 mL 11/20/2022 8:15 EDT SN - PP - Body Position Lateral Right Side-up Standard Intra-op 11/20/2022 8:14 EDT SN - GCD - Post-operative Diagnosis HISTORY OF POLYPS SN - GCD - Case Level OPD Level 3 11/20/2022 8:13 EDT SN - CAt - Case Attendee SN - CAt - Case Attendee SN - CAt - Case Attendee SN - CAt - Case Attendee SN - CAt - Case Attendee SN - CAt - Case Attendee SN - CAt - Case Attendee SN - CAt - Case Attendee SN - CAt - Role Performed CHIEF DIGITAL OFFICER SN - CAt - Role Performed Procedure Nurse SN - CAt - Role Performed Hoop Driving Machine Operator Helper SN - CAt - Role Performed Primary Surgeon 11/20/2022 7:55 EDT Temperature Temporal Artery 36.5 DegC Peripheral Pulse Rate 115 bpm HI Systolic Blood Pressure Non-Invasive 155 mmHg HI Diastolic Blood Pressure Non-Invasive 103 mmHg >HHI Monitor Alarms On and Limits Checked Heart Rhythm Regular Belongings At Bedside Glasses, Pants, Shirt, Shoes 11/20/2022 7:51 EDT Temperature Axillary 36.5 DegC Heart Rate Monitored 115 bpm HI Respiratory Rate 18 br/min Systolic Blood Pressure Non-Invasive 141 mmHg HI Diastolic Blood Pressure Non-Invasive 97 mmHg HI Primary Pain Intensity 0 Pain Scale Type 0-10 Pain scale Heart Rhythm Regular Cardiac Rhythm Sinus rhythm Oxygen Therapy Room air Oxygen Saturation 98 % Abdomen Description Non-distended, Soft Bowel Continence Continent Bowel Sounds All Quadrants Present Urinary Elimination Voiding, no difficulties Skin Temperature Warm Skin Description [place], Normal for ethnicity, Dry Skin Integrity Intact IV Present Present Continuous IV Infusions LR Hand Left 11/20/2022 22 gauge Peripheral IV Activity: Insert new site Peripheral IV Dressing Condition: Clean, Dry, Intact Peripheral IV Dressing Activity: Applied Peripheral IV Line Status/Patency: Continuous infusion Peripheral IV Line Care: Secured with tape Peripheral IV Site Condition: No complications Peripheral IV Equipment: Extension set Peripheral IV Number of Attempts: 1 Neurological Symptoms Patient denies Extremity Movement Equal Characteristics of Speech Clear Level of Consciousness Alert SUSIE Yes Strength All Extremities Strong Tone All Extremities Normal Sensation All Extremities Intact Affect/Behavior Appropriate, Calm, Cooperative Orientation Oriented x 4 Ambulation Ambulation in [place] Allergies Yes Communications Controller On Yes Colon Prep Results Excellent Consent Form Signed Yes Patient Dressed In Hospital gown History & Physical Update On Chart Yes History & Physical On Chart Yes Bowel Prep Completed Yes Obstructive Sleep Apnea Assess Completed Yes Arrival Mode Ambulatory Glasses Yes Dentures N/A Orientation Assessment Oriented x 4 Activity Status ADL Ambulating in [place], Ambulating in room, Awake NPO Status Maintained Standard Safety ID band on, Call device within reach, Bed in low position, Wheels locked, Phone within reach, personal items within reach Allergy Band on and Verified Yes Patient ID Band on and Verified Yes Implants Verified Yes Pacemaker/AICD Verified Yes Anesthesia Consent Signed Yes Last Fluid Intake 11/20/2022 5:00 Last Food Intake 11/19/2022 12:00 Last Void 11/20/2022 7:58 11/20/2022 7:49 EDT Designated Person #1 We May Share PHI REBECCA RODRIGUEZ [phone] Designated Person #1 Relationship Family member Privacy Restrictions Requested None Height 162.56 cm Admission Weight 100 kg Weight Method Stated [place] Body Weight 54.70 kg BSA Admission 2.04 Body Mass Index 37.84 kg/m2 Status No, per patient Sensory Deficits None Advanced Directives No - refuses information Infectious Disease Symptoms Patient states no symptoms Infectious Disease Recent Exposure No Alcohol and Drug Use No Employee of Institutional Living No Health Care Employee No History of Exposure to TB No History of Positive Chest X-Ray for TB No History of Positive TB Skin Test No Homeless No Known Immunosuppression No Recent Immigrant No Resident of Institutional Living No Bloody Sputum No Fatigue No Fever No Loss of Appetite No Night Sweats No Persistent Cough > 3 Weeks No Weight Loss No Barriers to Learning None evident Teaching Method Electronic, Explanation Preferred Written Language Thai Preferred Spoken Language Thai Information Given by Patient Patient's Current Physicians Patient's Current Physicians Discharge To, Anticipated Home independently Prev Test Positive/Diagnosis w/COVID-19 Yes Previous COVID-19 Positive 2019 Current Quarantine/Isolated any Illness No Any Contact with Sick Animals/Birds No Traveled Anywhere in Last 30 Days No No Personal Devices, Patient Valuables None Admission Note-Nursing Procedure/Therapy Intake 11/20/2022 7:48 EDT Designated Person #1 We May Share JONATHAN RODRIGUEZ [phone] Designated Person #1 Relationship Family member Privacy Restrictions Requested None Height 162.56 cm [place] Body Weight 54.70 kg Status No, per patient Infectious Disease Symptoms Patient states no symptoms Infectious Disease Recent Exposure No Alcohol and Drug Use No Employee of Institutional Living No Health Care Employee No History of Exposure to TB No History of Positive Chest X-Ray for TB No History of Positive TB Skin Test No Homeless No Known Immunosuppression No Recent Immigrant No Resident of Institutional Living No Bloody Sputum No Fatigue No Fever No Loss of Appetite No Night Sweats No Persistent Cough > 3 Weeks No Weight Loss No Preferred Written Language Thai Preferred Spoken Language Thai Information Given by Patient Patient's Current Physicians Patient's Current Physicians Prev Test Positive/Diagnosis w/COVID-19 Yes Previous COVID-19 Positive Date 2019 Current Quarantine/Isolated any Illness No Any Contact with Sick Animals/Birds No Traveled Anywhere in Last 30 Days No Admission Note-Nursing Procedure/Therapy Intake 11/20/2022 7:40 EDT Designated Person #1 We May Share JONATHAN RODRIGUEZ [phone] Designated Person #1 Relationship Family member Privacy Restrictions Requested None Status No, per patient Sensory Deficits None Sleep Apnea Snore No Sleep Apnea Tired No Sleep Apnea Obstruction No Sleep Apnea Pressure No Sleep Apnea BMI No Sleep Apnea Age Yes Sleep Apnea Neck No Sleep Apnea Gender No Sleep Apnea Score 1 High Risk for Sleep Apnea No Diagnosed With Sleep Apnea No Advanced Directives No - refuses information Infectious Disease Symptoms Patient states no symptoms Infectious Disease Recent Exposure No Alcohol and Drug Use No Employee of Institutional Living No Health Care Employee No History of Exposure to TB No History of Positive Chest X-Ray for TB No History of Positive TB Skin Test No Homeless No Known Immunosuppression No Recent Immigrant No Resident of Institutional Living No Bloody Sputum No Fatigue No Fever No Loss of Appetite No Night Sweats No Persistent Cough > 3 Weeks No Weight Loss No Safety Brochure Information Reviewed Yes [employer] Video Viewed No Barriers to Learning None evident Teaching Method Electronic, Explanation Teaching Evaluation Verbalizes/Nonverbally indicates understanding Preferred Written Language Thai Preferred Spoken Language Thai Information Given by Patient Patient's Current Physicians Patient's Current Physicians Discharge To, Anticipated Home independently Prev Test Positive/Diagnosis w/COVID-19 Yes Previous COVID-19 Positive Date 2019 Current Quarantine/Isolated any Illness No Any Contact with Sick Animals/Birds No Traveled Anywhere in Last 30 Days No Lost Weight Unintentionally Recently No Eat Poorly Due to Decreased Appetite No Total MST Score 0 No Personal Devices, Patient Valuables None Anesthesia/Transfusions None Admission Note-Nursing Same Day Patient History . Assessment and Plan [place] [employer] of Anesthesiologists (ASA) physical status classification: Class III. Anesthetic Preoperative Plan Anesthetic technique: MAC. Informed consent: signed by patient. Digitally Signed by DREW DOE on 11/20/2022 09:06 AM [facility]03-27-2023 Note [place] ADMISSION HISTORY AND PHYSICIAL CHIEF COMPLAINT: HISTORY OF PRESENT ILLNESS: REVIEW OF SYSTEMS: ACTIVE PROBLEMS: (4) DM2 (diabetes mellitus, type 2) (892916730) Hemorrhoids (964409052) HTN (hypertension) (2869739997) Mixed hyperlipidemia (194814704) MEDICATIONS: Active Inpt Meds: None Active PRN Meds: None One Time Meds: None Active IV Meds: Lactated Ringers Infusion 1,000 mL (LR 1,000 mL) Start: 11/20/22 7:30:00 EDT, Rate: 50 mL/hr, 11/20/22 7:30:00 EDT ALLERGIES: (1) NKA FAMILY HISTORY: SOCIAL HISTORY: PHYSICAL EXAM: VITALS: DnhjdwGvqvVGGptafFTQcJ1ORK2OjazUr(kg) 11/20 07:5536.5--115------00.0 11/20 07:5136.5--1439621EG 24 Hr Tmax: 36.5 at 11/20 07:55 36 Hr Tmax: 36.5 at 11/20 07:55 Vital Signs are the last 5 in the past 48 hours. Weights display the last 5 within 7 days. Initial Wt: 11/20 100.0 kg 220 lb Current Wt: 11/20 100.0 kg 220 lb GENERAL: HEENT: CARDIOVASCULAR: RESPIRATORY: ABDOMEN: EXREMETIES: NEUROLOGICAL: PSYCHIATRIC: LABS: No 36hr Lab Data DIAGNOSTICS: IMPRESSION: PLAN: History and Physical Update I have examined the patient; reviewed the H&P and there are no changes to the H&P unless noted below. Digitally Signed by NAHUM HEWITT MD on 11/20/2022 08:53 AM [facility] No data available for this section [facility] Evaluation + Plan note Future Appointments Appointment Date:09/08/2022 07:00:00 AM Scheduled Provider: Location:[facility] Appointment Type:PT Outpatient Evaluation [facility] Evaluation + Plan note Future Appointments [facility] Evaluation + Plan note Future Appointments Appointment Date:05/11/2025 03:30:00 PM Scheduled Provider: Location:[facility] Appointment Type:PT Outpatient Evaluation Diagnostic Tests Pending * Antineutrophil Cytoplasmic Ab 05/07/25 [facility] Evaluation noteNo assessment information available [facility] Work Phone: Hospital Discharge instructions No data available for this section [facility] Progress note No data available for this section [facility] Reason for referral (narrative)No reason for referral information availableW[facility] Work Phone: Summary Purpose Family History No Family History Records FoundNo Family History Records Found No data available for this section No data available for this section No data available for this section No data available for this section No data available for this section No Family History Records FoundNo Family History Records FoundNo Family History Records Found Advance Directives No Advanced Directives Records FoundNo Advanced Directives Records FoundNo Advanced Directives Records FoundNo Advanced Directives Records FoundNo Advanced Directives Records Found Chief Complaint and Reason for Visit Chief Complaint SCREENING Chief Complaint Admit Date DIZZINESS May 05, 2025 3:54pm Additional Source Comments INFORMATION SOURCE (unrecogn ized section and content) DATE CREATED AUTHOR 02/20/2018 [facility] oundation DATE CREATED AUTHOR AUTHOR'S ORGANIZ ATION 11/29/2022 [facility] ([place]) DATE CREATED AUTHOR AUTHOR'S ORGANIZ ATION 07/02/2025 [facility] DATE CREATED AUTHOR AUTHOR'S ORGANIZ ATION 07/02/2025 [facility] DATE CREATED AUTHOR AUTHOR'S ORGANIZ ATION 07/09/2025 [facility] Goals (unrecognized section and content) Goals may be documented in a n alternate sectionGoals may be documented in an alternate section No data available for this section No data available for this section No data available for this section No data available for this section No data available for this sectionGoals may be documented in an alternate section No data available for this section No data available for this sectionGoals may be documented in an alternate section No data available for this section No data available for this section No data available for this section Care Team (unrecognized sect ion and content) Team Status: Active Member Role Status Dates Dr. Conor Dooley MD Family Provider Active Dr. July Rees MD Primary Care Provider Active Team Status: Inactive Member Role Status Dates Dr. July Rees MD Primary Care Provide r, Attending Provider, Referring Provider Active Team Status: Active Member Role/Relationship Status Dates Dr. July Rees MD Primary care physician Active Team Status: Inactive Member Role/Relationship Status Dates Dr. July Rees MD Primary care physician Active Start: May 05, 2025 End: May 05, 2025 Nan Stewart EFFICIENCY MANAGER, EFFICIENCY MANAGER-C Attending physician Active Start: May 05, 2025 End: May 05, 2025 Nan Stewart EFFICIENCY MANAGER, EFFICIENCY MANAGER-C Referring Provider Active S tart: May 05, 2025 End: May 05, 2025 Care Team (unrecognized sect ion and content) Care Team Personnel Name: JULY REES MD Member Role: Primary Care Physician Address: Address: [address] [place] [address]- Care Team Related Persons Name: RAE RODRIGUEZ Address: Home [address] [place], [place] [id number] Address: [facility] [address] [place], [place] [id number] Name: REBECCA RODRIGUEZ Care Team Personnel Name: JULY REES MD Member Role: Primary Care Physician Address: Address: [place] [address] [place] [address]- Care Team Related Persons Name: RAE RODRIGUEZ Address: Home [address] [place], [place] [id number] [place] Address: Temporary [address] [place], [place] [id number] Name: REBECCA RODRIGUEZ Care Team Personnel Name: JULY REES MD Member Role: Primary Care Physician Address: Address: [facility] [address] [place] [address]- Care Team Related Persons Name: RAE RODRIGUEZ Address: Home [address] [place], [place] [id number] Address: Temporary [address] [place], [place] [id number] Name: REBECCA RODRIGUEZ FOR RECORDS PERTAINING TO PATIENTS WHO ARE OR HAVE BEEN ENROLLED IN A CHEMICAL DEPENDENCY/SUBSTANCEABUSE PROGRAM, SOME INFORMATION MAY BE OMITTED. This clinical summary was aggregated from multiple sources. Caution should be exercised in using it in the provision of clinical care. This summary normalizes information from multiple sources, and as a consequence, information in this document may materially change the coding, format and clinical context of patient data. In addition, data may be omitted in some cases. CLINICAL DECISIONS SHOULD BE BASED ON THE PRIMARY CLINICAL RECORDS. [employer] [facility]. provides no warranty or guarantee of the accuracy or completeness of information in this document.
[2025-07-24 07:26] LABS: Hematocrit 38.0 % (37-47); Hemoglobin 13.0 g/dL (12.0-15.0); Mean Corp Hgb Conc 34.2 g/dL (32-36); Mean Corpuscular Volume 93.8 fL (81-99); Mean Platelet Vol. 9.5 fl (6.2-12.0); Platelet Count 251 K/mm3 (150-450); RBC Distribution Width CV 13.0 % (11.6-14.6); RBC Distribution Width SD 44.6 fl (35.1-43.9); Red Blood Count 4.05 M/mm3 (4.2-5.4); White Blood Count 11.8 K/mm3 (4.4-11.0)
[2025-07-24 07:42] LABS: Anion Gap 9 (5-15); BUN 15 mg/dL (4-19); BUN/Creat Ratio 18.0 RATIO (10-20); Calcium,Total 9.4 mg/dL (7.6-11.0); Carbon Dioxide 24.3 mmol/L (21.0-32.0); Chloride 102 mmol/L (98-108); Glucose 153 mg/dL (70-99); Potassium 4.2 mmol/L (3.3-5.1)
== END ==
LOC: OLS.SW 06:32
PROVIDERS: PCP Family Medicine; Visit Provider Internal Medicine
DX: Z02.2 Encounter for examination for admission to residential institution (principal)
CPT/HCPCS: 36415; 80048; 85027

== ENCOUNTER → 2025-07-28 05:00 | Outpatient (REF) | payer OTHER, SELFPAY ==
--- OUTSIDE RECORDS SUMMARY | 2025-07-28 03:15 | XMS RPT_ITS | CCD ---
Author Organization [facility] Care Team Providers Care Wood Getter Name Role Phone REFERRING, PHY WO ID Unavailable Unavailable MURALI LEIVA Unavailable Unavailable MURALI LEIVA Unavailable Unavailable REFERRING, PHY WO ID Unavailable Unavailable MURALI LEIVA Unavailable Unavailable MURALI LEIVA Unavailable Unavailable CALI JOINERY FACTORY WORKER-CULINARY ARTS TEACHER, MURALI S Primary Care Physicia n JULY REES MD Primary Care Physician OLIVIER BROWN DO Attending Unavailable CALI JOINERY FACTORY WORKER-CULINARY ARTS TEACHERMURALI Primary Care Unava ilable OLIVIER BROWN DO Attending Unavailable JULY REES MD Primary Care Unavailable OLIVIER BROWN DO Attending Unavailable JULY REES MD Primary Care Unavailable OLIVIER BROWN DO Attending Unavailable JULY REES MD Primary Care Unavailable OLIVIER BROWN DO Referring Unavailable NAHUM HEWITT Attending Unavailable JULY REES MD Primary Care Unavailable Dr. July Rees MD Primary Care Physician Pat CLINICAL BIOCHEMIST-CNan Attending Physician Pat CLINICAL BIOCHEMIST-C, Nan Referring Provider TORITO KEE, FAAN, CHAS [...] JULY Amezquita Primary Care Unavailable MOISE KEE, JUYL Amezquita Primary Care Unavailable JULY REES MD [...] Unavailraad Rees, July Primary Care Unavailable Pat CLINICAL BIOCHEMIST, Nan Referring Unavailable Pat CLINICAL BIOCHEMIST, Nan Attending Unavailable Moise, July Primary Care [...] TAKE 1 TABLET BY MOUTH EVERY DAY, [facility]/pharmacy #[id number] Start Date: 07/09/19 Status: Ordered Medication Dispense [...] TAKE 1 TABLET BY MOUTH EVERY DAY, [facility]/pharmacy #[id number] Start Date: 06/10/19 Status: Ordered Medication Dispense [...] 07-08-2025 FINGERSTICK GLU 133 mg/dL High 74-106 [facility] Comment on above: Result Comment: KATYA GEMENT OF PATIENT CARE PER NURSING PROTOCOL Performed By: #### L 501.080 #### [facility] [address] [place], [address] Ammoniaon 07-07-2025 Ammonia (P) [Moles/Vol] 19.0 umol/L Normal [facility] Comment on above: Performed By: #### L 503.5510 #### [facility] [address] [place], [address] Bedside Glucoseon 07-07-2025 FINGERSTICK GLU 128 mg/dL High 74-106 [facility] Comment on above: Result Comment: KATYA GEMENT OF PATIENT CARE PER NURSING PROTOCOL Performed By: #### L 501.080 #### [facility] [address] [place], [address] FINGERSTICK GLU 133 mg/dL High 74-106 [facility] Comment on above: Result Comment: KATYA GEMENT OF PATIENT CARE PER NURSING PROTOCOL Performed By: #### L 501.080 #### [facility] [address] [place], [address] Urinalysis, Completeon 07-07 CA OX CRYSTAL 1+ /hpf Normal [facility] Comment on above: Order Comment: ANGELA TER SPECIMEN Performed By: #### L 400.0001 #### [facility] [address] [place], [address] CAST,HYALINE 0-5 SEEN Normal 0-5 [facility] Comment on above: Order Comment: ANGELA TER SPECIMEN Performed By: #### L 400.0001 #### [facility] [address] [place], [address] BACTERIA RARE Normal None Seen [facility] Comment on above: Order Comment: ANGELA TER SPECIMEN Performed By: #### L 400.0001 #### [facility] [address] [place], [address] EPI,SQUAMOUS 0-5 SEEN Normal 5-10 [facility] Comment on above: Order Comment: ANGELA TER SPECIMEN Performed By: #### L 400.0001 #### [facility] [address] [place], [address] Mucus Ql (Urine sed) 1+ /hpf Normal [facility] Comment on above: Order Comment: ANGELA TER SPECIMEN Performed By: #### L 400.0001 #### [facility] [address] [place], [address] RBC 0-5 SEEN Normal 0-5 [facility] Comment on above: Order Comment: ANGELA TER SPECIMEN Performed By: #### L 400.0001 #### [facility] [address] [place], [address] WBC 0-5 SEEN Normal 0-5 [facility] Comment on above: Order Comment: ANGELA TER SPECIMEN Performed By: #### L 400.0001 #### [facility] [address] [place], [address] Basic Metabolic Profile (BMP )on 07-06-2025 BUN/CRE 16.3 RATIO Normal 10-20 [facility] Comment on above: Performed By: #### L 100.0500, L500.2500 #### [facility] [address] [place], [address] Calcium [Mass/Vol] 10.5 mg/dL Normal 7.6-11.0 [facility] Comment on above: Performed By: #### L 100.0500, L500.2500 #### [facility] [address] [place], [address] Chloride [Moles/Vol] 105 mmol/L Normal 98-108 [facility] Comment on above: Performed By: #### L 100.0500, L500.2500 #### [facility] [address] [place], [address] CO2 [Moles/Vol] 20.7 mmol/L Low 21.0-32.0 [facility] Comment on above: Performed By: #### L 100.0500, L500.2500 #### [facility] [address] [place], [address] Creatinine [Mass/Vol] 0.76 mg/dL Normal 0.70-1.20 [facility] Comment on above: Performed By: #### L 100.0500, L500.2500 #### [facility] [address] [place], [address] ECRCL 90.93 ml/min Normal 50-250 [facility] Comment on above: Performed By: #### L 100.0500, L500.2500 #### [facility] [address] [place], [address] GAP 12 Normal 5-15 [facility] Comment on above: Performed By: #### L 100.0500, L500.2500 #### [facility] [address] [place], [address] GFR/1.73 sq M.predicted among non-blacks MDRD (S/P/Bld) [Vol rate/Area] 88 mL/min/{1.73_m2} Normal >60 [facility] Comment on above: Result Comment: mL/m in/1.73m2 CKD-EPI Creatinine Equation (2020) Performed By: #### L 100.0500, L500.2500 #### [facility] [address] [place], [address] Glucose [Mass/Vol] 149 mg/dL High 70-99 [facility] Comment on above: Performed By: #### L 100.0500, L500.2500 #### [facility] [address] [place], [address] Potassium [Moles/Vol] 3.8 mmol/L Normal 3.3-5.1 [facility] Comment on above: Performed By: #### L 100.0500, L500.2500 #### [facility] [address] [place], [address] Sodium [Moles/Vol] 138 mmol/L Normal 133-145 [facility] Comment on above: Performed By: #### L 100.0500, L500.2500 #### [facility] [address] [place], [address] Urea nitrogen [Mass/Vol] 12 mg/dL Normal 4-19 [facility] Comment on above: Performed By: #### L 100.0500, L500.2500 #### [facility] [address] [place], [address] Bedside Glucoseon 07-06-2025 FINGERSTICK GLU 156 mg/dL High 74-106 [facility] Comment on above: Result Comment: KATYA SAINI OF PATIENT CARE PER NURSING PROTOCOL Performed By: #### L 501.080 #### [facility] [address] [place], [address] CBC-Complete Blood Cnt No Di ffon 07-06-2025 Erythrocyte distribution width (RBC) [Ratio] 13.0 % Normal 11.6-14.6 [facility] Comment on above: Performed By: #### L 100.0500, L500.2500 #### [facility] [address] [place], [address] Hematocrit (Bld) [Volume fraction] 37.9 % Normal 37-47 [facility] Comment on above: Performed By: #### L 100.0500, L500.2500 #### [facility] [address] [place], [address] Hemoglobin (Bld) [Mass/Vol] 12.6 g/dL Normal 12.0-15.0 [facility] Comment on above: Performed By: #### L 100.0500, L500.2500 #### [facility] [address] [place], [address] MCH (RBC) [Entitic mass] 31.7 pg Normal 27.0-32.0 [facility] Comment on above: Performed By: #### L 100.0500, L500.2500 #### [facility] [address] [place], [address] MCHC (RBC) [Mass/Vol] 33.2 g/dL Normal 32-36 [facility] Comment on above: Performed By: #### L 100.0500, L500.2500 #### [facility] [address] [place], [address] MCV (RBC) [Entitic vol] 95.2 fL Normal 81-99 [facility] Comment on above: Performed By: #### L 100.0500, L500.2500 #### [facility] [address] [place], [address] Platelet mean volume (Bld) [Entitic vol] 9.7 fL Normal 6.2-12.0 [facility] Comment on above: Performed By: #### L 100.0500, L500.2500 #### [facility] [address] [place], [address] Platelets (Bld) [#/Vol] 287 10*3/uL Normal 150-450 [facility] Comment on above: Performed By: #### L 100.0500, L500.2500 #### [facility] [address] [place], [address] RBC (Bld) [#/Vol] 3.98 10*6/uL Low 4.2-5.4 [facility] Comment on above: Performed By: #### L 100.0500, L500.2500 #### [facility] [address] [place], [address] RDW SD 45.5 fl High 35.1-43.9 [facility] Comment on above: Performed By: #### L 100.0500, L500.2500 #### [facility] [address] [place], [address] WBC (Bld) [#/Vol] 10.3 10*3/uL Normal 4.4-11.0 [facility] Comment on above: Performed By: #### L 100.0500, L500.2500 #### [facility] [address] [place], [address] Bedside Glucoseon 07-02-2025 FINGERSTICK GLU 127 mg/dL High 74-106 [facility] Comment on above: Result Comment: KATYA GEMENT OF PATIENT CARE PER NURSING PROTOCOL Performed By: #### L 501.080 #### [facility] [address] [place], [address] Bedside Glucoseon 07-01-2025 FINGERSTICK GLU 134 mg/dL High 74-106 [facility] Comment on above: Result Comment: KATYA GEMENT OF PATIENT CARE PER NURSING PROTOCOL Performed By: #### L 501.080 #### [facility] [address] [place], [address] FINGERSTICK GLU 149 mg/dL High 74-106 [facility] Comment on above: Result Comment: KATYA GEMENT OF PATIENT CARE PER NURSING PROTOCOL Performed By: #### L 501.080 #### [facility] [address] [place], [address] B1WBon 06-30-2025 Vitamin B1 Whl Bld 97.1 nmol/L Normal 66.5-200.0 [facility] Comment on above: Result Comment: This test was developed and its performance characteristics determined by [facility]. It has not been cleared or approved by the Food and Drug Administration. Performed At: [facility] [id number] Bob Cohen MD Ph:[phone] Performed By: #### P #### [facility] [address] [place] [address] Bedside Glucoseon 06-30-2025 FINGERSTICK GLU 132 mg/dL High 74-106 [facility] Comment on above: Result Comment: KATYA GEMENT OF PATIENT CARE PER NURSING PROTOCOL Performed By: #### L 400.0001 #### [facility] [address] [place], [address] Bedside Glucoseon 06-29-2025 FINGERSTICK GLU 153 mg/dL High 74-106 [facility] Comment on above: Result Comment: KATYA GEMENT OF PATIENT CARE PER NURSING PROTOCOL Performed By: #### L 400.0001 #### [facility] [address] [place], [address] Bedside Glucoseon 06-28-2025 FINGERSTICK GLU 187 mg/dL High 74-106 [facility] Comment on above: Result Comment: KATYA GEMENT OF PATIENT CARE PER NURSING PROTOCOL Performed By: #### L 501.080 #### [facility] [address] [place], [address] FINGERSTICK GLU 158 mg/dL High -106 [facility] Comment on above: Result Comment: KATYA GEMENT OF PATIENT CARE PER NURSING PROTOCOL Performed By: #### L 100.0500, L500.2500 #### [facility] [address] [place], [address] FINGERSTICK GLU 139 mg/dL High 74-106 [facility] Comment on above: Result Comment: KATYA GEMENT OF PATIENT CARE PER NURSING PROTOCOL Performed By: #### L 501.080 #### [facility] [address] [place], [address] FINGERSTICK GLU 135 mg/dL High [address] [place] [address] Comment on above: Result Comment: KATYA GEMENT OF PATIENT CARE PER NURSING PROTOCOL Performed By: #### L 400.0001 #### [facility] [address] [facility] [address] Bedside Glucoseon 06-27-2025 FINGERSTICK GLU 187 mg/dL High [address] [place] [address] Comment on above: Result Comment: KATYA GEMENT OF PATIENT CARE PER NURSING PROTOCOL Performed By: #### L 100.0500, L500.2500 #### [facility] [address] [facility] [address] FINGERSTICK GLU 120 mg/dL High -106 [facility] Comment on above: Result Comment: KATYA GEMENT OF PATIENT CARE PER NURSING PROTOCOL Performed By: #### L 100.0500, L500.2500 #### [facility] [address] [facility] [address] FINGERSTICK GLU 146 mg/dL High [address] [place] [address] Comment on above: Result Comment: KATYA GEMENT OF PATIENT CARE PER NURSING PROTOCOL Performed By: #### L 100.0500, L500.2500 #### [facility] [address] [facility] [address] FINGERSTICK GLU 126 mg/dL High [facility]106 [facility] Comment on above: Result Comment: KATYA GEMENT OF PATIENT CARE PER NURSING PROTOCOL Performed By: #### L 100.0500, L500.2500 #### [facility] [address] [place], [address] Bedside Glucoseon 06-26-2025 FINGERSTICK GLU 156 mg/dL High -106 [facility] Comment on above: Result Comment: KATYA GEMENT OF PATIENT CARE PER NURSING PROTOCOL Performed By: #### L 100.0500, L500.2500 #### [facility] [address] [place], [address] FINGERSTICK GLU 155 mg/dL High 74-106 [facility] Comment on above: Result Comment: KATYA GEMENT OF PATIENT CARE PER NURSING PROTOCOL Performed By: #### L 501.080 #### [facility] [address] [place], [address] FINGERSTICK GLU 136 mg/dL High 74-106 [facility] Comment on above: Result Comment: KATYA GEMENT OF PATIENT CARE PER NURSING PROTOCOL Performed By: #### L 100.0500, L500.2500 #### [facility] [address] [place], [address] FINGERSTICK GLU 125 mg/dL High 74-106 [facility] Comment on above: Result Comment: KATYA GEMENT OF PATIENT CARE PER NURSING PROTOCOL Performed By: #### L 400.0001 #### [facility] [address] [place], [address] CPK Total, Creatine Kinaseon 06-26-2025 CPK TOTAL 35 U/L Normal 24-195 [facility] Comment on above: Order Comment: Comme nts: OK to use blood from yesterday Performed By: #### L 501.080 #### [facility] [address] [place], [address] Free T3on 06-26-2025 Free T3 [Mass/Vol] 3.0 pg/mL Normal 2.18-3.98 [facility] Comment on above: Performed By: #### L 400.0001 #### [facility] [address] [place], [address] SDFI3mt 06-26-2025 Reverse T3 23.1 ng/dL Normal 9.2-24.1 [facility] Comment on above: Result Comment: This test was developed and its performance characteristics determined by [facility]. It has not been cleared or approved by the Food and Drug Administration. Performed At: [facility] [id number] Bob Cohen MD Ph:[phone] Performed By: #### P TH #### [facility] [address] [place] [address] T4 Free Directon 06-26-2025 T4 FREE DIRECT 1.30 ng/dL Normal 0.76-1.46 [facility] Comment on above: Performed By: #### L 400.0001 #### [facility] [address] [place], [address] Thyroid Stim Hormone (TSH)on 06-26-2025 TSH 0.028 uIU/mL Low 0.300-4.200 [facility] Comment on above: Performed By: #### L 400.0001 #### [facility] [address] [place], [address] Bedside Glucoseon 06-25-2025 FINGERSTICK GLU 151 mg/dL High 74-106 [facility] Comment on above: Result Comment: KATYA GEMENT OF PATIENT CARE PER NURSING PROTOCOL Performed By: #### L 400.0001 #### [facility] [address] [place], [address] FINGERSTICK GLU 136 mg/dL High 74-106 [facility] Comment on above: Result Comment: KATYA GEMENT OF PATIENT CARE PER NURSING PROTOCOL Performed By: #### L 400.0001 #### [facility] [address] [place], [address] FINGERSTICK GLU 118 mg/dL High 74-106 [facility] Comment on above: Result Comment: KATYA GEMENT OF PATIENT CARE PER NURSING PROTOCOL Performed By: #### L 100.0500, L500.2500 #### [facility] [address] [place], [address] FINGERSTICK GLU 126 mg/dL High 74-106 [facility] Comment on above: Result Comment: KATYA SAINI OF PATIENT CARE PER NURSING PROTOCOL Performed By: #### L 501.080 #### [facility] [address] [place], [address] CBC W/Diff, Automatedon 10-3 0-2024 Absolute Lymph 2.55 X10 3/uL Normal 0.83-4.51 [facility] Comment on above: Performed By: #### L 100.0500, L500.2500 #### [facility] [address] [place], [address] Absolute Neut 4.1 X10 3/uL Normal 2.0-7.7 [facility] Comment on above: Performed By: #### L 100.0500, L500.2500 #### [facility] [address] [place], [address] Basophils/100 WBC (Bld) 0.8 % Normal 0-1 [facility] Comment on above: Performed By: #### L 100.0500, L500.2500 #### [facility] [address] [place], [address] Eosinophils/100 WBC (Bld) 2.9 % Normal 0-5 [facility] Comment on above: Performed By: #### L 100.0500, L500.2500 #### [facility] [address] [place], [address] Erythrocyte distribution width (RBC) [Ratio] 13.2 % Normal 11.6-14.6 [facility] Comment on above: Performed By: #### L 100.0500, L500.2500 #### [facility] [address] [place], [address] Hematocrit (Bld) [Volume fraction] 36.5 % Low 37-47 [facility] Comment on above: Performed By: #### L 100.0500, L500.2500 #### [facility] [address] [place], [address] Hemoglobin (Bld) [Mass/Vol] 12.1 g/dL Normal 12.0-15.0 [facility] Comment on above: Performed By: #### L 100.0500, L500.2500 #### [facility] [address] [place], [address] IG% 0.400 Normal 0.0-0.9 [facility] Comment on above: Result Comment: IG% - Immature Granulocytes (promyelocytes, myelocytes and metamyelocytes) > 1% indicates that a LEFT SHIFT is Present. Performed By: #### L 100.0500, L500.2500 #### [facility] [address] [place], [address] Lymphocytes/100 WBC (Bld) 32.7 % Normal 19-41 [facility] Comment on above: Performed By: #### L 100.0500, L500.2500 #### [facility] [address] [place], [address] MCH (RBC) [Entitic mass] 31.4 pg Normal 27.0-32.0 [facility] Comment on above: Performed By: #### L 100.0500, L500.2500 #### [facility] [address] [place], [address] MCHC (RBC) [Mass/Vol] 33.2 g/dL Normal 32-36 [facility] Comment on above: Performed By: #### L 100.0500, L500.2500 #### [facility] [address] [place], [address] MCV (RBC) [Entitic vol] 94.8 fL Normal 81-99 [facility] Comment on above: Performed By: #### L 100.0500, L500.2500 #### [facility] [address] [place], [address] Monocytes/100 WBC (Bld) 10.4 % High 0-10 [facility] Comment on above: Performed By: #### L 100.0500, L500.2500 #### [facility] [address] [place], [address] Neutrophils/100 WBC (Bld) 52.8 % Normal 47-70 [facility] Comment on above: Performed By: #### L 100.0500, L500.2500 #### [facility] [address] [place], [address] Nucleated RBC (Bld) [#/Vol] 0 10*3/uL Normal 0-5 [facility] Comment on above: Performed By: #### L 100.0500, L500.2500 #### [facility] [address] [place], [address] Platelet mean volume (Bld) [Entitic vol] 9.6 fL Normal 6.2-12.0 [facility] Comment on above: Performed By: #### L 100.0500, L500.2500 #### [facility] [address] [place], [address] Platelets (Bld) [#/Vol] 263 10*3/uL Normal 150-450 [facility] Comment on above: Performed By: #### L 100.0500, L500.2500 #### [facility] [address] [place], [address] RBC (Bld) [#/Vol] 3.85 10*6/uL Low 4.2-5.4 [facility] Comment on above: Performed By: #### L 100.0500, L500.2500 #### [facility] [address] [place], [address] RDW SD 45.0 fl High 35.1-43.9 [facility] Comment on above: Performed By: #### L 100.0500, L500.2500 #### [facility] [address] [place], [address] WBC (Bld) [#/Vol] 7.8 10*3/uL Normal 4.4-11.0 [facility] Comment on above: Performed By: #### L 100.0500, L500.2500 #### [facility] [address] [place], [address] Comprehensive Metabolic Prof ilon 06-25-2025 Albumin [Mass/Vol] 3.8 g/dL Normal 3.4-4.8 [facility] Comment on above: Performed By: #### L 100.0500, L500.2500 #### [facility] [address] [place], [address] Albumin/Globulin [Mass ratio] 1.4 {ratio} Normal 0.9-2.4 [facility] Comment on above: Performed By: #### L 100.0500, L500.2500 #### [facility] [address] [place], [address] ALK PHOS 77 U/L Normal 35-104 [facility] Comment on above: Performed By: #### L 100.0500, L500.2500 #### [facility] [address] [place], [address] ALT [Catalytic activity/Vol] 27 U/L Normal <=34 [facility] Comment on above: Performed By: #### L 100.0500, L500.2500 #### [facility] [address] [place], [address] AST [Catalytic activity/Vol] 26 U/L Normal <=31 [facility] Comment on above: Performed By: #### L 100.0500, L500.2500 #### [facility] [address] [place], [address] Bilirubin [Mass/Vol] 1.27 mg/dL Normal 0.00-1.30 [facility] Comment on above: Performed By: #### L 100.0500, L500.2500 #### [facility] [address] [place], [address] BUN/CRE 16.1 RATIO Normal 10-20 [facility] Comment on above: Performed By: #### L 100.0500, L500.2500 #### [facility] [address] [place], [address] Calcium [Mass/Vol] 10.4 mg/dL Normal 7.6-11.0 [facility] Comment on above: Performed By: #### L 100.0500, L500.2500 #### [facility] [address] [place], [address] Chloride [Moles/Vol] 104 mmol/L Normal 98-108 [facility] Comment on above: Performed By: #### L 100.0500, L500.2500 #### [facility] [address] [place], [address] CO2 [Moles/Vol] 21.9 mmol/L Normal 21.0-32.0 [facility] Comment on above: Performed By: #### L 100.0500, L500.2500 #### [facility] [address] [place], [address] Creatinine [Mass/Vol] 0.81 mg/dL Normal 0.70-1.20 [facility] Comment on above: Performed By: #### L 100.0500, L500.2500 #### [facility] [address] [place], [address] ECRCL 84.06 ml/min Normal 50-250 [facility] Comment on above: Performed By: #### L 100.0500, L500.2500 #### [facility] [address] [place], [address] GAP 12 Normal 5-15 [facility] Comment on above: Performed By: #### L 100.0500, L500.2500 #### [facility] [address] [place], [address] GFR/1.73 sq M.predicted among non-blacks MDRD (S/P/Bld) [Vol rate/Area] 82 mL/min/{1.73_m2} Normal >60 [facility] Comment on above: Result Comment: mL/m in/1.73m2 CKD-EPI Creatinine Equation (2020) Performed By: #### L 100.0500, L500.2500 #### [facility] [address] [place], [address] Globulin (S) [Mass/Vol] 2.6 g/dL Normal 2.2-4.2 [facility] Comment on above: Performed By: #### L 100.0500, L500.2500 #### [facility] [address] [place], [address] Glucose [Mass/Vol] 132 mg/dL High 70-99 [facility] Comment on above: Performed By: #### L 100.0500, L500.2500 #### [facility] [address] [place], [address] Potassium [Moles/Vol] 4.3 mmol/L Normal 3.3-5.1 [facility] Comment on above: Performed By: #### L 100.0500, L500.2500 #### [facility] [address] [place], [address] Sodium [Moles/Vol] 138 mmol/L Normal 133-145 [facility] Comment on above: Performed By: #### L 100.0500, L500.2500 #### [facility] [address] [place], [address] T PROT 6.4 g/dL Normal 5.9-8.4 [facility] Comment on above: Performed By: #### L 100.0500, L500.2500 #### [facility] [address] [place], [address] Urea nitrogen [Mass/Vol] 13 mg/dL Normal 4-19 [facility] Comment on above: Performed By: #### L 100.0500, L500.2500 #### [facility] [address] [place], [address] Magnesiumon 06-25-2025 Magnesium [Mass/Vol] 2.2 mg/dL Normal 1.5-2.2 [facility] Comment on above: Performed By: #### L 100.0500, L500.2500 #### [facility] [address] [place], [address] Phosphoruson 06-25-2025 Phosphate [Mass/Vol] 3.9 mg/dL Normal 2.7-4.5 [facility] Comment on above: Performed By: #### L 100.0500, L500.2500 #### [facility] [address] [place], [address] .Auto Diffon 06-24-2025 Basophil, Absolute 0.0 10 3/mcL Normal 0.0-0.3 [facility] Comment on above: Performed By: #### C BC, ADIFF, ANEU, BMP, GFR #### [address] [address] Basophils/100 WBC (Bld) 0.7 % Normal 0.0-2.5 [facility] Comment on above: Performed By: #### C BC, ADIFF, ANEU, BMP, GFR #### [address] [address] Eosinophil, Absolute 0.2 10 3/mcL Normal 0.0-0.7 [facility] Comment on above: Performed By: #### C BC, ADIFF, ANEU, BMP, GFR #### [address] [address] Eosinophils/100 WBC (Bld) 3.0 % Normal 0.0-6.0 [facility] Comment on above: Performed By: #### C BC, ADIFF, ANEU, BMP, GFR #### [address] [address] Lymphocyte, Absolute 2.6 10 3/mcL Normal 0.9-4.3 [facility] Comment on above: Performed By: #### C BC, ADIFF, ANEU, BMP, GFR #### [address] [address] Lymphocytes/100 WBC (Bld) 38.6 % Normal 20.0-40.0 [facility] Comment on above: Performed By: #### C BC, ADIFF, ANEU, BMP, GFR #### [address] [address] Monocyte, Absolute 0.6 10 3/mcL Normal 0.1-1.4 [facility] Comment on above: Performed By: #### C BC, ADIFF, ANEU, BMP, GFR #### [address] [address] Monocytes/100 WBC (Bld) 9.6 % Normal 2.0-13.0 [facility] Comment on above: Performed By: #### C BC, ADIFF, ANEU, BMP, GFR #### [address] [address] Neutrophils/100 WBC (Bld) 48.1 % Low 50.0-75.0 [facility] Comment on above: Performed By: #### C BC, ADIFF, ANEU, BMP, GFR #### [address] [address] .GFRon 06-24-2025 Estimated Glomerular Filtration Rate 99 ml/min/1.73sqm Normal [facility] Comment on above: Result Comment: Stages [...] C BC, ADIFF, ANEU, BMP, GFR #### [address] [address] .NEUABSon 06-24-2025 Neutrophil, Absolute 3.2 10 3/mcL Normal 2.3-8.1 [facility] Comment on above: Performed By: #### C BC, ADIFF, ANEU, BMP, GFR #### [place] [id number] [facility] BUN/Creatinine Ratio 12.5 ratio Normal 10.0-22.0 [facility] Comment on above: Performed By: #### C BC, ADIFF, ANEU, BMP, GFR #### [place] [address] Calcium [Mass/Vol] 11.0 mg/dL High 8.7-10.4 [facility] Comment on above: Performed By: #### C BC, ADIFF, ANEU, BMP, GFR #### [place] [address] Chloride [Moles/Vol] 107 mmol/L Normal 98-110 [facility] Comment on above: Performed By: #### C BC, ADIFF, ANEU, BMP, GFR #### [place] [address] CO2 [Moles/Vol] 25 mmol/L Normal 22-32 [facility] Comment on above: Performed By: #### C BC, ADIFF, ANEU, BMP, GFR #### [place] [id number] Creatinine [Mass/Vol] 0.64 mg/dL Normal 0.50-1.20 [facility] Comment on above: Result Comment: Test ing performed on [employer] analyzer using enzymatic creatinine methodology. Performed By: #### C BC, ADIFF, ANEU, BMP, GFR #### [address] [address] Electrolyte Balance 8.0 mEq/L Normal 4.0-15.0 [facility] Comment on above: Performed By: #### C BC, ADIFF, ANEU, BMP, GFR #### [address] [address] Glucose [Mass/Vol] 116 mg/dL High 82-115 [facility] Comment on above: Performed By: #### C BC, ADIFF, ANEU, BMP, GFR #### [address] [address] Potassium [Moles/Vol] 4.4 mmol/L Normal 3.5-5.0 [facility] Comment on above: Result Comment: Spec imen slightly hemolyzed. Performed By: #### C BC, ADIFF, ANEU, BMP, GFR #### [address] [address] Sodium [Moles/Vol] 140 mmol/L Normal 136-145 [facility] Comment on above: Performed By: #### C BC, ADIFF, ANEU, BMP, GFR #### [address] [address] Urea nitrogen [Mass/Vol] 8.0 mg/dL Normal 8.0-22.0 [facility] Comment on above: Performed By: #### C BC, ADIFF, ANEU, BMP, GFR #### [address] [address] Bedside Glucoseon 06-24-2025 FINGERSTICK GLU 175 mg/dL High 74-106 [facility] Comment on above: Result Comment: KATYA GEMENT OF PATIENT CARE PER NURSING PROTOCOL Performed By: #### L 100.0500, L500.2500 #### [facility] [address] [place], [place], [address] FINGERSTICK GLU 114 mg/dL High 74-106 [facility] Comment on above: Result Comment: KATYA GEMENT OF PATIENT CARE PER NURSING PROTOCOL Performed By: #### L 100.0500, L500.2500 #### [facility] [address] [place], [address] CBCon 06-24-2025 Erythrocyte distribution width (RBC) [Ratio] 13.4 % Normal 11.5-15.5 [facility] Comment on above: Performed By: #### C BC, ADIFF, ANEU, BMP, GFR #### [place] [phone] Hematocrit (Bld) [Volume fraction] 35.9 % Normal 34.0-46.0 [facility] Comment on above: Performed By: #### C BC, ADIFF, ANEU, BMP, GFR #### [place] [id number] Hgb 12.1 G/dL Normal 12.0-16.0 [facility] Comment on above: Performed By: #### C BC, ADIFF, ANEU, BMP, GFR #### [place] [phone] MCH (RBC) [Entitic mass] 32.3 pg Normal 27.0-33.0 [facility] Comment on above: Performed By: #### C BC, ADIFF, ANEU, BMP, GFR #### [place] [id number] MCHC 33.8 G/dL Normal 32.0-36.0 [facility] Comment on above: Performed By: #### C BC, ADIFF, ANEU, BMP, GFR #### [place] [phone] MCV (RBC) [Entitic vol] 95.4 fL Normal 80.0-99.0 [facility] Comment on above: Performed By: #### C BC, ADIFF, ANEU, BMP, GFR #### [place] [id number] Platelet 236 10 3/mcL Normal 150-450 [facility] Comment on above: Performed By: #### C BC, ADIFF, ANEU, BMP, GFR #### [place] [phone] Platelet mean volume (Bld) [Entitic vol] 7.7 fL Normal 6.6-10.5 [facility] Comment on above: Performed By: #### C BC, ADIFF, ANEU, BMP, GFR #### [address] [address] RBC 3.77 10 6/mcL Low 4.10-5.30 [facility] Comment on above: Performed By: #### C BC, ADIFF, ANEU, BMP, GFR #### [address] [address] WBC 6.7 10 3/mcL Normal 4.5-10.8 [facility] Comment on above: Performed By: #### C BC, ADIFF, ANEU, BMP, GFR #### [address] [address] LABORATORYOrdered By: Cliff Frias on 06-24-2025 Glucose [Mass/Vol] 164 mg/dL High 82 - 115 mg/dL [facility] Work Phone: LABORATORYOrdered By: Karl Burgess on 06-24-2025 Blood Glucose Testing Reason Routine (06/24/25 7:47 AM) [facility] Work Phone: Glucose [Mass/Vol] 125 mg/dL High 82 - 115 mg/dL [facility] Work Phone: LABORATORYOrdered By: SYSTEM SYSTEM [...] above: Interpretive Data: T esting performed on [employer] analyzer using enzymatic creatinine methodology. Electrolyte Balance [...] NMDAR Antibody, Cell-based IFA Negative Normal Negative [facility] Comment on above: Result Comment: This test was developed and its performance characteristics determined by [facility]. It has not been cleared or approved by the Food and Drug Administration. The NIH-sponsored ExTINGUISH Trial (activity and safety of Inebilizumab in anti-NMDAR encephalitis) is actively recruiting patients. You may consider enrolling your patient in the clinical trial if the result of this test is positive. To learn more, or to refer your patient, call [phone] ([phone], study hotline) or see ClinicalTrials.gov (study ID, [id number]). Performed At: [facility] [address] [id number] Bob Cohen MD Ph:[phone] Performed By: #### P TH #### [place] [address] SPEon 06-24-2025 SPE Interpretation Normal serum protein electrophoresis pattern. No abnormality detected. Normal [facility] Comment on above: Result Comment: Elec tronically Signed by: SHAYNE VILLAGOMEZ 06/24/2025 13:07 EDT Performed By: #### P TH #### [place] [address] Albumin 3.8 G/dL Normal 3.3-5.0 [facility] Comment on above: Performed By: #### P TH #### [place] [address] Alpha 1 0.2 G/dL Normal 0.1-0.4 [facility] Comment on above: Performed By: #### P TH #### [place] [address] Alpha 2 0.9 G/dL Normal 0.6-1.2 [facility] Comment on above: Performed By: #### P TH #### [place] [address] Beta 1.2 G/dL Normal 0.6-1.3 [facility] Comment on above: Performed By: #### P TH #### [place] [address] Gamma 0.8 G/dL Normal 0.7-1.6 [facility] Comment on above: Performed By: #### P TH #### [place] [address] TRABon 06-24-2025 TSH Receptor Ab <1.10 Normal 0.00-1.75 [facility] Comment on above: Result Comment: Perf ormed At: [facility] [place] [address] [place] [address] [id number] Bob Cohen MD Ph:[phone] Performed By: #### P TH #### [place] [address] .Auto Diffon 06-23-2025 Basophil, Absolute 0.1 10 3/mcL Normal 0.0-0.3 [facility] Comment on above: Performed By: #### B MP, GFR, CBC, ADIFF, ANEU ####[address] [address] Basophils/100 WBC (Bld) 0.9 % Normal 0.0-2.5 [facility] Comment on above: Performed By: #### B MP, GFR, CBC, ADIFF, ANEU ####[address] [address] Eosinophil, Absolute 0.2 10 3/mcL Normal 0.0-0.7 [facility] Comment on above: Performed By: #### B MP, GFR, CBC, ADIFF, ANEU ####[address] [address] Eosinophils/100 WBC (Bld) 3.1 % Normal 0.0-6.0 [facility] Comment on above: Performed By: #### B MP, GFR, CBC, ADIFF, ANEU ####[address] [address] Lymphocyte, Absolute 2.7 10 3/mcL Normal 0.9-4.3 [facility] Comment on above: Performed By: #### B MP, GFR, CBC, ADIFF, ANEU ####[address] [address] Lymphocytes/100 WBC (Bld) 38.1 % Normal 20.0-40.0 [facility] Comment on above: Performed By: #### B MP, GFR, CBC, ADIFF, ANEU ####[address] [address] Monocyte, Absolute 0.7 10 3/mcL Normal 0.1-1.4 [facility] Comment on above: Performed By: #### B MP, GFR, CBC, ADIFF, ANEU ####[address] [address] Monocytes/100 WBC (Bld) 10.6 % Normal 2.0-13.0 [facility] Comment on above: Performed By: #### B MP, GFR, CBC, ADIFF, ANEU ####[address] [address] Neutrophils/100 WBC (Bld) 47.3 % Low 50.0-75.0 [facility] Comment on above: Performed By: #### B MP, GFR, CBC, ADIFF, ANEU ####[address] [address] .GFRon 06-23-2025 Estimated Glomerular Filtration Rate 88 ml/min/1.73sqm Normal [facility] Comment on above: Result Comment: Stages [...] #### B MP, GFR, CBC, ADIFF, ANEU ####[address] [address] .NEUABSon 06-23-2025 Neutrophil, Absolute 3.3 10 3/mcL Normal 2.3-8.1 [facility] Comment on above: Performed By: #### B MP, GFR, CBC, ADIFF, ANEU ####[address] [address] ANAIFSon 06-23-2025 Antinuclear Ab Screen Negative Normal Negative [facility] Comment on above: Result Comment: Anti -nuclear antibody test is used as an aid in diagnosis of systemic autoimmune diseases. Where positive and clinically warranted, follow-up using disease-specific testing is recommended. Low positive titers are not uncommon with advanced age, certain chronic infections, and malignancies among others. Test methodology: Indirect fluorescence immunoassay (IFA) using HEp-2 cells. Performed By: [facility] [address] [place] [address] Manager Of Administration: Kasi Hatch III#: [id number] Performed By: #### P TH #### [address] [address] BMPon 06-23-2025 BUN/Creatinine Ratio 11.8 ratio Normal 10.0-22.0 [facility] Comment on above: Performed By: #### B MP, GFR, CBC, ADIFF, ANEU #### [place] [address] Calcium [Mass/Vol] 11.0 mg/dL High 8.7-10.4 [facility] Comment on above: Performed By: #### B MP, GFR, CBC, ADIFF, ANEU #### [place] [address] Chloride [Moles/Vol] 106 mmol/L Normal 98-110 [facility] Comment on above: Performed By: #### B MP, GFR, CBC, ADIFF, ANEU #### [place] [address] CO2 [Moles/Vol] 28 mmol/L Normal 22-32 [facility] Comment on above: Performed By: #### B MP, GFR, CBC, ADIFF, ANEU #### [place] [id number] Creatinine [Mass/Vol] 0.76 mg/dL Normal 0.50-1.20 [facility] Comment on above: Result Comment: Test ing performed on [employer] analyzer using enzymatic creatinine methodology. Performed By: #### B MP, GFR, CBC, ADIFF, ANEU #### [place] [id number] Electrolyte Balance 7.0 mEq/L Normal 4.0-15.0 [facility] Comment on above: Performed By: #### B MP, GFR, CBC, ADIFF, ANEU #### [place] [id number] Glucose [Mass/Vol] 119 mg/dL High 82-115 [facility] Comment on above: Performed By: #### B MP, GFR, CBC, ADIFF, ANEU #### [address] [address] Potassium [Moles/Vol] 4.5 mmol/L Normal 3.5-5.0 [facility] Comment on above: Performed By: #### B MP, GFR, CBC, ADIFF, ANEU #### [address] [address] Sodium [Moles/Vol] 141 mmol/L Normal 136-145 [facility] Comment on above: Performed By: #### B MP, GFR, CBC, ADIFF, ANEU #### [place] [address] Urea nitrogen [Mass/Vol] 9.0 mg/dL Normal 8.0-22.0 [facility] Comment on above: Performed By: #### B MP, GFR, CBC, ADIFF, ANEU #### [place] [address] CBCon 06-23-2025 Erythrocyte distribution width (RBC) [Ratio] 13.1 % Normal 11.5-15.5 [facility] Comment on above: Performed By: #### B MP, GFR, CBC, ADIFF, ANEU ####[place] [address] Hematocrit (Bld) [Volume fraction] 37.3 % Normal 34.0-46.0 [facility] Comment on above: Performed By: #### B MP, GFR, CBC, ADIFF, ANEU ####[place] [address] Hgb 12.4 G/dL Normal 12.0-16.0 [facility] Comment on above: Performed By: #### B MP, GFR, CBC, ADIFF, ANEU ####[place] [address] MCH (RBC) [Entitic mass] 31.9 pg Normal 27.0-33.0 [facility] Comment on above: Performed By: #### B MP, GFR, CBC, ADIFF, ANEU ####[place] [address] MCHC 33.3 G/dL Normal 32.0-36.0 [facility] Comment on above: Performed By: #### B MP, GFR, CBC, ADIFF, ANEU ####[place] [address] MCV (RBC) [Entitic vol] 95.8 fL Normal 80.0-99.0 [facility] Comment on above: Performed By: #### B MP, GFR, CBC, ADIFF, ANEU ####[place] [address] Platelet 262 10 3/mcL Normal 150-450 [facility] Comment on above: Performed By: #### B MP, GFR, CBC, ADIFF, ANEU ####[place] [address] Platelet mean volume (Bld) [Entitic vol] 7.7 fL Normal 6.6-10.5 [facility] Comment on above: Performed By: #### B MP, GFR, CBC, ADIFF, ANEU ####[place] [address] RBC 3.89 10 6/mcL Low 4.10-5.30 [facility] Comment on above: Performed By: #### B MP, GFR, CBC, ADIFF, ANEU ####[place] [address] WBC 7.0 10 3/mcL Normal 4.5-10.8 [facility] Comment on above: Performed By: #### B MP, GFR, CBC, ADIFF, ANEU ####[place] [address] CCPon 06-23-2025 Anti-CCP Ab, IgG/IgA 10 units Normal 0-19 [facility] Comment on above: Result Comment: Nega tive <20 Weak positive 20 - 39 Moderate positive 40 - 59 Strong positive >59 Performed At: [facility] [address] [place], [place] [id number] Pritesh Sidhu PhD Ph:[phone] Performed By: #### 1 [address], 479348, 821906, 235387, ENA1, 334834, 253653, 237583, 813450, ANAIFS, 746378, SPE, 642617, 498155, ESR, AMM, CRP, C3C4A, TSH, FT4, FOL, B12, THYAB, VIDH, A1C ####[place] [address] DNAon 06-23-2025 Anti-dsDNA Antibodies <1 Normal 0-9 [facility] Comment on above: Result Comment: Nega tive <5 Equivocal 5 - 9 Positive >9 Performed At: [address] [id number] Pritesh Sidhu PhD Ph:[phone] Performed By: #### P TH #### [place] [address] ENA1on 06-23-2025 Centromere <0.2 Normal <1.0 [facility] Comment on above: Result Comment: Anti -centromere antibody is used as in aid in diagnosis of systemic sclerosis. Clinical correlation is required. Test Methodology: Multiplex flow immunoassay. Performed By: [facility] [place] [address] Manager Of Administration: Keith Bennett III, M.D. CLIA#: [id number] Performed By: #### 1 14055, 458197, 361958, 971203, ENA1, 523104, 389002, 538222, 539337, ANAIFS, 540418, SPE, 540754, 850031, ESR, AMM, CRP, C3C4A, TSH, FT4, FOL, B12, THYAB, VIDH, A1C ####[place] [address] Centromere Ab Qualitative Negative Normal Negative [facility] Comment on above: Result Comment: Perf ormed By: [facility] [place] [address] Manager Of Administration: Keith Bennett III, M.D. CLIA#: [id number] Performed By: #### 1 64585, 131746, 773714, 734839, ENA1, 888545, 982104, 482137, 864137, ANAIFS, 847853, SPE, 490835, 054105, ESR, AMM, CRP, C3C4A, TSH, FT4, FOL, B12, THYAB, VIDH, A1C ####[address] [address] Chromatin Ab Qualitative Negative Normal Negative [facility] Comment on above: Result Comment: Perf ormed By: [place] [address] Manager Of Administration: Keith Bennett III, M.D. CLIA#: [id number] Performed By: #### 1 59462, 806695, 080894, 631707, ENA1, 858558, 519661, 804565, 488808, ANAIFS, 009825, SPE, 594104, 371420, ESR, AMM, CRP, C3C4A, TSH, FT4, FOL, B12, THYAB, VIDH, A1C ####[address] [address] Chromatin Antibody <0.2 Normal <1.0 [facility] Comment on above: Result Comment: Test Methodology: Multiplex flow immunoassay. Anti-chromatin antibody is used as an aid in diagnosis of systemic lupus erythematosus. Clinical correlation is required. Test Methodology: Multiplex flow immunoassay. Performed By: [facility] [address] [place] [address] Manager Of Administration: Keith Bennett III, M.D. CLIA#: [id number] Performed By: #### 1 50884, 222491, 798265, 853649, ENA1, 209054, 999688, 957363, 172428, ANAIFS, 574303, SPE, 864904, 553687, ESR, AMM, CRP, C3C4A, TSH, FT4, FOL, B12, THYAB, VIDH, A1C ####[address] [address] TWAN 1 Antibody <0.2 Normal <1.0 [facility] Comment on above: Result Comment: Perf ormed By: [facility] [address] [place] [address] Manager Of Administration: Keith Bennett III, M.D. CLIA#: [id number] Performed By: #### 1 13193, 253173, 024693, 920095, ENA1, 541561, 947592, 266667, 082341, ANAIFS, 745564, SPE, 495681, 114464, ESR, AMM, CRP, C3C4A, TSH, FT4, FOL, B12, THYAB, VIDH, A1C ####[address] [address] TWAN 1 Antibody Qual Negative Normal Negative [facility] Comment on above: Result Comment: Anti -TWAN-1 antibody is used as an aid in diagnosis of polymyositis and dermatomyositis especially with pulmonary involvement. A negative result cannot rule out polymyositis or dermatomyositis. Clinical correlation is required. Test Methodology: Multiplex flow immunoassay. Performed By: [facility] [employer] [place] [address] Manager Of Administration: Keith Bennett III, M.D. CLIA#: [id number] Performed By: #### 1 39750, 002847, 587160, 121570, ENA1, 977558, 467725, 729786, 385137, ANAIFS, 386215, SPE, 458373, 835301, ESR, AMM, CRP, C3C4A, TSH, FT4, FOL, B12, THYAB, VIDH, A1C ####[place] [id number] Ribosomal WINE CELLAR WORKER <0.2 Normal <1.0 [facility] MAIN Comment on above: Result Comment: Perf ormed By: [facility] [address] [place] [address] Manager Of Administration: Keith Bennett III, M.D. CLIA#: [id number] Performed By: #### 1 49588, 801517, 811862, 955833, ENA1, 112356, 899176, 141991, 235412, ANAIFS, 437243, SPE, 963663, 883360, ESR, AMM, CRP, C3C4A, TSH, FT4, FOL, B12, THYAB, VIDH, A1C ####[address] [address] Ribosomal WINE CELL[employer] WORKER Qualitative Negative Normal Negative [facility] MA[facility] Comment on above: Result Comment: Anti -Ribosomal RNA (Ribosomal P) antibody is used as an aid in diagnosis of systemic autoimmune diseases especially systemic lupus erythematosus and mixed connective tissue disease. Cross-reactivity with Anti-rees antibody is not uncommon. Clinical correlation is required. Test Methodology: Multiplex flow immunoassay. Performed By: [facility] [address] [place] [address] Manager Of Administration: Keith Bennett III, M.D. CLIA#: [id number] Performed By: #### 1 98103, 067603, 005915, 470476, ENA1, 302489, 384292, 994118, 079395, ANAIFS, 858761, SPE, 133217, 995324, ESR, AMM, CRP, C3C4A, TSH, FT4, FOL, B12, THYAB, VIDH, A1C ####[address] [address] WINE CELLAR WORKER Antibody <0.2 Normal <1.0 [facility] Comment on above: Result Comment: Anti -WINE CELLAR WORKER antibody is used as an aid in diagnosis of systemic autoimmune diseases especially systemic lupus erythematosus and mixed connective tissue disease. Cross-reactivity with Anti-rees antibody is not uncommon. Clinical correlation is required. Test Methodology: Multiplex flow immunoassay. Performed By: [facility] [address] [place] [address] Manager Of Administration: Keith Bennett III, M.D. CLIA#: [id number] Performed By: #### 1 47193, 897297, 979818, 771060, ENA1, 915333, 025753, 323358, 742277, ANAIFS, 664154, SPE, 709015, 144998, ESR, AMM, CRP, C3C4A, TSH, FT4, FOL, B12, THYAB, VIDH, A1C ####[address] [address] WINE CELLAR WORKER Antibody Qualitative Negative Normal Negative [facility] MA[facility] Comment on above: Result Comment: Perf ormed By: [facility] [address] [place] [address] Manager Of Administration: Keith Bennett III, M.D. CLIA#: [id number] Performed By: #### 1 84069, 059745, 397194, 966637, ENA1, 346099, 893548, 560366, 744662, ANAIFS, 062721, SPE, 542638, 277163, ESR, AMM, CRP, C3C4A, TSH, FT4, FOL, B12, THYAB, VIDH, A1C ####[place] [address] Scleroderma Ab, IgG Qualitative Negative Normal Negative [facility] MA[facility] Comment on above: Result Comment: Perf ormed By: [place] [address] Manager Of Administration: Keith Bennett III, M.D. CLIA#: [id number] Performed By: #### 1 91857, 828838, 318278, 452934, ENA1, 253451, 333491, 286684, 277195, ANAIFS, 176199, SPE, 096548, 559176, ESR, AMM, CRP, C3C4A, TSH, FT4, FOL, B12, THYAB, VIDH, A1C ####[place] [address] Scleroderma IgG Ab <0.2 Normal <1.0 [facility] Comment on above: Result Comment: Scl- 70/Scleroderma antibody test is used as an aid in diagnosis of systemic sclerosis especially the diffuse cutaneous form. A negative result cannot rule out systemic sclerosis. The final interpretation should consider clinical picture and other test results such as anti-centromere antibody. Test Methodology: Multiplex flow immunoassay. Performed By: [facility] [address] [place] [address] Manager Of Administration: Keith Bennett III, M.D. CLIA#: [id number] Performed By: #### 1 30509, 043328, 633704, 294471, ENA1, 647936, 378162, 992253, 843350, ANAIFS, 349034, SPE, 292235, 053797, ESR, AMM, CRP, C3C4A, TSH, FT4, FOL, B12, THYAB, VIDH, A1C ####[place] [address] Sm Antibody <0.2 Normal <1.0 [facility] Comment on above: Result Comment: Perf ormed By: [facility] [address] [place] [address] Manager Of Administration: Keith Bennett III, M.D. CLIA#: [id number] Performed By: #### 1 33387, 214958, 643819, 619988, ENA1, 097311, 561313, 348301, 373751, ANAIFS, 833285, SPE, 091446, 594111, ESR, AMM, CRP, C3C4A, TSH, FT4, FOL, B12, THYAB, VIDH, A1C ####[address] [address] Sm Antibody Qual Negative Normal Negative [facility] Comment on above: Result Comment: Anti -Sm (Rees) antibody is used as an aid in diagnosis of systemic lupus erythematosus and its presence is associated with renal disease. A negative result cannot rule out systemic lupus erythematosus. Clinical correlation is required. Test Methodology: Multiplex flow immunoassay. Performed By: [facility] [address] [place] [address] Manager Of Administration: Keith Bennett III, M.D. CLIA#: [id number] Performed By: #### 1 61785, 213834, 376964, 689377, ENA1, 002999, 461682, 305865, 595419, ANAIFS, 419958, SPE, 021915, 691448, ESR, AMM, CRP, C3C4A, TSH, FT4, FOL, B12, THYAB, VIDH, A1C ####[address] [address] SS-A Antibody <0.2 Normal <1.0 [facility] Comment on above: Result Comment: Test Methodology: Multiplex flow immunoassay. Anti-SSA (anti-Ro) antibody is used as an aid in diagnosis of a variety of systemic autoimmune diseases, Sjogren's syndrome among others. Clinical correlation is required. Test Methodology: Multiplex flow immunoassay. Performed By: [facility] [address] [place] [address] Manager Of Administration: Keith Bennett III, M.D. CLIA#: [id number] Performed By: #### 1 15062, 680235, 483414, 563849, ENA1, 947878, 478642, 551325, 443692, ANAIFS, 553351, SPE, 464073, 909521, ESR, AMM, CRP, C3C4A, TSH, FT4, FOL, B12, THYAB, VIDH, A1C ####[place] [id number] SS-B Antibody <0.2 Normal <1.0 [facility] Comment on above: Result Comment: Anti -SSB (anti-La) antibody is used as an aid in diagnosis of a variety of systemic autoimmune diseases, especially for Sjogren's syndrome and systemic lupus erythematosus. Clinical correlation is required. Test Methodology: Multiplex flow immunoassay. Performed By: [facility] [address] [place] [address] Manager Of Administration: Keith Bennett III, M.D. CLIA#: [id number] Performed By: #### 1 48020, 022309, 512454, 048847, ENA1, 077419, 693986, 906468, 355954, ANAIFS, 566697, SPE, 080537, 986497, ESR, AMM, CRP, C3C4A, TSH, FT4, FOL, B12, THYAB, VIDH, A1C ####[place] [address] SSA Antibody Qualitative Negative Normal Negative [facility] Comment on above: Result Comment: Perf ormed By: [facility] [address] [place] [address] Manager Of Administration: Keith Bennett III, M.D. CLIA#: [id number] Performed By: #### 1 91365, 137311, 678246, 337249, ENA1, 932368, 310252, 613152, 415910, ANAIFS, 058995, SPE, 612130, 691216, ESR, AMM, CRP, C3C4A, TSH, FT4, FOL, B12, THYAB, VIDH, A1C ####[place] [id number] SSB Antibody Qualitative Negative Normal Negative [facility] Comment on above: Result Comment: Perf ormed By: [facility] [address] [place] [address] Manager Of Administration: Keith Bennett III, M.D. CLIA#: [id number] Performed By: #### 1 85818, 209501, 201974, 950067, ENA1, 045208, 118970, 499788, 536522, ANAIFS, 579591, SPE, 383726, 745385, ESR, AMM, CRP, C3C4A, TSH, FT4, FOL, B12, THYAB, VIDH, A1C ####[place] 022870 [address] [place] [address] FT3on 06-23-2025 Free T3 [Mass/Vol] 3.51 pg/mL Normal 2.30-4.20 [facility] Comment on above: Performed By: #### F T3 ####[address] [address] LABORATORYOrdered By: Bright Aguiar on 06-23-2025 Blood Glucose Testing Reason Routine (06/23/25 8:40 PM) [facility] Work Phone: Glucose [Mass/Vol] 217 mg/dL High 82 - 115 mg/dL [facility] Work Phone: Blood Glucose Testing Reason Routine (06/23/25 4:25 PM) [facility] Work Phone: LABORATORYOrdered By: SYSTEM SYSTEM [...] above: Interpretive Data: T esting performed on [employer] analyzer using enzymatic creatinine methodology. Electrolyte Balance [...] 06-23-2025 Mitochondrial (M2) Antibody <20.0 Normal 0.0-20.0 [facility] Comment on above: Result Comment: Nega tive 0.0 - 20.0 Equivocal 20.1 - 24.9 Positive >24.9 Mitochondrial (M2) Antibodies are found in 90-96% of patients with primary biliary cirrhosis. Performed At: [facility] [id number] Pritesh Sidhu PhD Ph:[phone] Performed By: #### P TH #### [place] [address] MRI SPINE CERVICAL W/ + W/O CONTRASTon [...] 4:50:33 PM Ordering Provider: [facility] MURRAY [facility] Antiparietal Cell Antibody 1.8 units Normal 0.0-20.0 [facility] Comment on above: Result Comment: Nega tive 0.0 - 20.0 Equivocal 20.1 - 24.9 Positive >24.9 Parietal Cell Antibodies are found in 90% of patients with pernicious anemia and 30% of first degree relatives with pernicious anemia. Performed At: [facility] [address] [id number] Pritesh Sidhu PhD Ph:[phone] Performed By: #### 1 07007, 370547, 278450, 417516, ENA1, 976683, 336288, 190136, 830828, ANAIFS, 611390, SPE, 958139, 423786, ESR, AMM, CRP, C3C4A, TSH, FT4, FOL, B12, THYAB, VIDH, A1C ####[address] [address] PTHon 06-23-2025 PTH, Intact 75.0 pg/mL Normal 18.5-88.0 [facility] MA[facility] Comment on above: Performed By: #### P TH #### [address] [address] RFon 06-23-2025 Rheumatoid Factor (RF) <10.0 Normal <14.0 [facility] MA[facility] Comment on above: Result Comment: Perf ormed At: [facility] [address] [id number] Pritesh Sidhu PhD Ph:[phone] Performed By: #### 1 26764, 991956, 387330, 025294, ENA1, 567447, 676399, 865792, 780130, ANAIFS, 695695, SPE, 373803, 082960, ESR, AMM, CRP, C3C4A, TSH, FT4, FOL, B12, THYAB, VIDH, A1C ####[place] [id number] RIBABon 06-23-2025 Antiribosomal P Abs <0.2 Normal 0.0-0.9 [facility] Comment on above: Result Comment: Perf ormed At: [address] [id number] Pritesh Sidhu PhD Ph:[phone] Performed By: #### P TH #### [place] [address] RPRon 06-23-2025 Reagin Ab RPR Ql (S) Non-Reactive Normal Non-Reactive [facility] MA[facility] Comment on above: Order Comment: add [...] C BC, ADIFF, ANEU, BMP, GFR #### [place] [id number] SMUSCon 06-23-2025 Actin (Smooth Muscle) Antibody 8 units Normal 0-19 [facility] MAIN Comment on above: Result Comment: Nega tive 0 - 19 Weak positive 20 - 30 Moderate to strong positive >30 Actin Antibodies are found in 52-85% of patients with autoimmune hepatitis or chronic active hepatitis and in 22% of patients with primary biliary cirrhosis. Performed At: [address] [id number] Pritesh Sidhu PhD Ph:[phone] Performed By: #### P TH #### [address] [address] VIDHon 06-23-2025 Vit. D 25-Hydroxy 40.4 ng/mL Normal [facility] MA[facility] Comment on above: Result Comment: Inte rpretive Values Based on Total 25(OH)D: Severe Deficiency <20 ng/mL Mild to Moderate Deficiency 20-30 ng/mL Optimum Levels 30-100 ng/mL Toxicity Possible >100 ng/mL Performed By: #### C BC, ADIFF, ANEU, BMP, GFR #### [address] [address] .Auto Diffon 06-22-2025 Basophil, Absolute 0.0 10 3/mcL Normal 0.0-0.3 [facility] Comment on above: Performed By: #### C BC, ADIFF, ANEU, BMP, GFR #### [address] [address] Basophils/100 WBC (Bld) 0.7 % Normal 0.0-2.5 [facility] Comment on above: Performed By: #### C BC, ADIFF, ANEU, BMP, GFR #### [address] [address] Eosinophil, Absolute 0.2 10 3/mcL Normal 0.0-0.7 [facility] Comment on above: Performed By: #### C BC, ADIFF, ANEU, BMP, GFR #### [address] [address] Eosinophils/100 WBC (Bld) 3.2 % Normal 0.0-6.0 [facility] Comment on above: Performed By: #### C BC, ADIFF, ANEU, BMP, GFR #### [address] [address] Lymphocyte, Absolute 2.7 10 3/mcL Normal 0.9-4.3 [facility] Comment on above: Performed By: #### C BC, ADIFF, ANEU, BMP, GFR #### [address] [address] Lymphocytes/100 WBC (Bld) 41.4 % High 20.0-40.0 [facility] Comment on above: Performed By: #### C BC, ADIFF, ANEU, BMP, GFR #### [address] [address] Monocyte, Absolute 0.7 10 3/mcL Normal 0.1-1.4 [facility] Comment on above: Performed By: #### C BC, ADIFF, ANEU, BMP, GFR #### [address] [address] Monocytes/100 WBC (Bld) 10.2 % Normal 2.0-13.0 [facility] Comment on above: Performed By: #### C BC, ADIFF, ANEU, BMP, GFR #### [address] [address] Neutrophils/100 WBC (Bld) 44.5 % Low 50.0-75.0 [facility] Comment on above: Performed By: #### C BC, ADIFF, ANEU, BMP, GFR #### [place] [address] .GFRon 06-22-2025 Estimated Glomerular Filtration Rate 95 ml/min/1.73sqm Normal [facility] Comment on above: Result Comment: Stages [...] C BC, ADIFF, ANEU, BMP, GFR #### [address] [address] .NEUABSon 06-22-2025 Neutrophil, Absolute 2.9 10 3/mcL Normal 2.3-8.1 [facility] Comment on above: Performed By: #### C BC, ADIFF, ANEU, BMP, GFR #### [place] [address] CBCon 06-22-2025 Erythrocyte distribution width (RBC) [Ratio] 13.4 % Normal 11.5-15.5 [facility] Comment on above: Performed By: #### C BC, ADIFF, ANEU, BMP, GFR #### [place] [address] Hematocrit (Bld) [Volume fraction] 37.4 % Normal 34.0-46.0 [facility] Comment on above: Performed By: #### C BC, ADIFF, ANEU, BMP, GFR #### [place] [address] Hgb 12.4 G/dL Normal 12.0-16.0 [facility] Comment on above: Performed By: #### C BC, ADIFF, ANEU, BMP, GFR #### [place] [address] MCH (RBC) [Entitic mass] 31.5 pg Normal 27.0-33.0 [facility] Comment on above: Performed By: #### C BC, ADIFF, ANEU, BMP, GFR #### [place] [address] MCHC 33.1 G/dL Normal 32.0-36.0 [facility] Comment on above: Performed By: #### C BC, ADIFF, ANEU, BMP, GFR #### [place] [address] MCV (RBC) [Entitic vol] 95.3 fL Normal 80.0-99.0 [facility] Comment on above: Performed By: #### C BC, ADIFF, ANEU, BMP, GFR #### [place] [address] Platelet 246 10 3/mcL Normal 150-450 [facility] MA[facility] Comment on above: Performed By: #### C BC, ADIFF, ANEU, BMP, GFR #### [place] [address] Platelet mean volume (Bld) [Entitic vol] 7.7 fL Normal 6.6-10.5 [facility] Comment on above: Performed By: #### C BC, ADIFF, ANEU, BMP, GFR #### [address] [address] RBC 3.92 10 6/mcL Low 4.10-5.30 [facility] Comment on above: Performed By: #### C BC, ADIFF, ANEU, BMP, GFR #### [place] [address] WBC 6.4 10 3/mcL Normal 4.5-10.8 [facility] Comment on above: Performed By: #### C BC, ADIFF, ANEU, BMP, GFR #### [address] [address] CMPon 06-22-2025 Albumin Level 3.5 G/dL Normal 3.2-4.8 [facility] Comment on above: Performed By: #### C BC, ADIFF, ANEU, BMP, GFR #### [place] [address] Albumin/Globulin [Mass ratio] 1.2 {ratio} Normal 0.9-1.6 [facility] Comment on above: Performed By: #### C BC, ADIFF, ANEU, BMP, GFR #### [address] [address] ALP [Catalytic activity/Vol] 75 U/L Normal 38-126 [facility] Comment on above: Performed By: #### C BC, ADIFF, ANEU, BMP, GFR #### [address] [address] ALT [Catalytic activity/Vol] 14 U/L Normal 10-49 [facility] Comment on above: Performed By: #### C BC, ADIFF, ANEU, BMP, GFR #### [place] [id number] AST [Catalytic activity/Vol] 17 U/L Normal 8-34 [facility] Comment on above: Performed By: #### C BC, ADIFF, ANEU, BMP, GFR #### [place] [id number] Bili Total 1.70 mg/dL High 0.20-1.20 [facility] Comment on above: Result Comment: Use of this assay is not recommended for patients undergoing treatment with eltrombopag due to the potential for falsely elevated results. Performed By: #### C BC, ADIFF, ANEU, BMP, GFR #### [place] [id number] BUN/Creatinine Ratio 14.1 ratio Normal 10.0-22.0 [facility] Comment on above: Performed By: #### C BC, ADIFF, ANEU, BMP, GFR #### [place] [id number] Calcium [Mass/Vol] 10.5 mg/dL High 8.7-10.4 [facility] Comment on above: Performed By: #### C BC, ADIFF, ANEU, BMP, GFR #### [place] [id number] Chloride [Moles/Vol] 107 mmol/L Normal 98-110 [facility] Comment on above: Performed By: #### C BC, ADIFF, ANEU, BMP, GFR #### [place] [id number] CO2 [Moles/Vol] 27 mmol/L Normal 22-32 [facility] Comment on above: Performed By: #### C BC, ADIFF, ANEU, BMP, GFR #### [place] [id number] Creatinine [Mass/Vol] 0.71 mg/dL Normal 0.50-1.20 [facility] Comment on above: Result Comment: Test ing performed on [employer] analyzer using enzymatic creatinine methodology. Performed By: #### C BC, ADIFF, ANEU, BMP, GFR #### [place] [id number] Electrolyte Balance 6.0 mEq/L Normal 4.0-15.0 [facility] Comment on above: Performed By: #### C BC, ADIFF, ANEU, BMP, GFR #### [place] [id number] Globulin 3.0 G/dL Normal 2.5-4.2 [facility] Comment on above: Performed By: #### C BC, ADIFF, ANEU, BMP, GFR #### [address] [address] Glucose [Mass/Vol] 117 mg/dL High 82-115 [facility] Comment on above: Performed By: #### C BC, ADIFF, ANEU, BMP, GFR #### [address] [address] Potassium [Moles/Vol] 3.9 mmol/L Normal 3.5-5.0 [facility] Comment on above: Performed By: #### C BC, ADIFF, ANEU, BMP, GFR #### [address] [address] Sodium [Moles/Vol] 140 mmol/L Normal 136-145 [facility] Comment on above: Performed By: #### C BC, ADIFF, ANEU, BMP, GFR #### [address] [address] Total Protein 6.5 G/dL Normal 5.7-8.2 [facility] Comment on above: Performed By: #### C BC, ADIFF, ANEU, BMP, GFR #### [address] [address] Urea nitrogen [Mass/Vol] 10.0 mg/dL Normal 8.0-22.0 [facility] Comment on above: Performed By: #### C BC, ADIFF, ANEU, BMP, GFR #### [address] [address] LABORATORYOrdered By: SYSTEM SYSTEM on 06-22-2025 Albumin [...] above: Interpretive Data: T esting performed on [employer] analyzer using enzymatic creatinine methodology. Electrolyte Balance [...] Basophil, Absolute 0.0 10 3/mcL Normal 0.0-0.3 [facility] Comment on above: Performed By: #### C BC, ADIFF, ANEU, BMP, GFR #### [address] [address] Basophils/100 WBC (Bld) 0.6 % Normal 0.0-2.5 [facility] Comment on above: Performed By: #### C BC, ADIFF, ANEU, BMP, GFR #### [address] [address] Eosinophil, Absolute 0.2 10 3/mcL Normal 0.0-0.7 [facility] Comment on above: Performed By: #### C BC, ADIFF, ANEU, BMP, GFR #### [address] [address] Eosinophils/100 WBC (Bld) 2.3 % Normal 0.0-6.0 [facility] Comment on above: Performed By: #### C BC, ADIFF, ANEU, BMP, GFR #### [address] [address] Lymphocyte, Absolute 2.6 10 3/mcL Normal 0.9-4.3 [facility] Comment on above: Performed By: #### C BC, ADIFF, ANEU, BMP, GFR #### [address] [address] Lymphocytes/100 WBC (Bld) 36.8 % Normal 20.0-40.0 [facility] Comment on above: Performed By: #### C BC, ADIFF, ANEU, BMP, GFR #### [address] [address] Monocyte, Absolute 0.7 10 3/mcL Normal 0.1-1.4 [facility] Comment on above: Performed By: #### C BC, ADIFF, ANEU, BMP, GFR #### [address] [address] Monocytes/100 WBC (Bld) 9.5 % Normal 2.0-13.0 [facility] Comment on above: Performed By: #### C BC, ADIFF, ANEU, BMP, GFR #### [address] [address] Neutrophils/100 WBC (Bld) 50.8 % Normal 50.0-75.0 [facility] Comment on above: Performed By: #### C BC, ADIFF, ANEU, BMP, GFR #### [place] [address] .GFRon 06-21-2025 Estimated Glomerular Filtration Rate 91 ml/min/1.73sqm Normal [facility] Comment on above: Result Comment: Stages [...] C BC, ADIFF, ANEU, BMP, GFR #### [address] [address] .NEUABSon 06-21-2025 Neutrophil, Absolute 3.6 10 3/mcL Normal 2.3-8.1 [facility] Comment on above: Performed By: #### C BC, ADIFF, ANEU, BMP, GFR #### [address] [address] Dilshad 06-21-2025 Ammonia 15 mcmol/l Normal 11-32 [facility] Comment on above: Performed By: #### C BC, ADIFF, ANEU, BMP, GFR #### [address] [address] CBCon 06-21-2025 Erythrocyte distribution width (RBC) [Ratio] 13.3 % Normal 11.5-15.5 [facility] Comment on above: Performed By: #### C BC, ADIFF, ANEU, BMP, GFR #### [place] [address] Hematocrit (Bld) [Volume fraction] 37.0 % Normal 34.0-46.0 [facility] Comment on above: Performed By: #### C BC, ADIFF, ANEU, BMP, GFR #### [place] [address] Hgb 12.5 G/dL Normal 12.0-16.0 [facility] Comment on above: Performed By: #### C BC, ADIFF, ANEU, BMP, GFR #### [place] [address] MCH (RBC) [Entitic mass] 32.4 pg Normal 27.0-33.0 [facility] Comment on above: Performed By: #### C BC, ADIFF, ANEU, BMP, GFR #### [place] [address] MCHC 33.9 G/dL Normal 32.0-36.0 [facility] Comment on above: Performed By: #### C BC, ADIFF, ANEU, BMP, GFR #### [place] [address] MCV (RBC) [Entitic vol] 95.5 fL Normal 80.0-99.0 [facility] Comment on above: Performed By: #### C BC, ADIFF, ANEU, BMP, GFR #### [place] [address] Platelet 251 10 3/mcL Normal 150-450 [facility] Comment on above: Performed By: #### C BC, ADIFF, ANEU, BMP, GFR #### [place] [address] Platelet mean volume (Bld) [Entitic vol] 7.6 fL Normal 6.6-10.5 [facility] Comment on above: Performed By: #### C BC, ADIFF, ANEU, BMP, GFR #### [place] [address] RBC 3.87 10 6/mcL Low 4.10-5.30 [facility] Comment on above: Performed By: #### C BC, ADIFF, ANEU, BMP, GFR #### [place] [address] WBC 7.2 10 3/mcL Normal 4.5-10.8 [facility] Comment on above: Performed By: #### C BC, ADIFF, ANEU, BMP, GFR #### [place] [address] CMPon 06-21-2025 Albumin Level 3.6 G/dL Normal 3.2-4.8 [facility] Comment on above: Performed By: #### C BC, ADIFF, ANEU, BMP, GFR #### [place] [id number] Albumin/Globulin [Mass ratio] 1.2 {ratio} Normal 0.9-1.6 [facility] Comment on above: Performed By: #### C BC, ADIFF, ANEU, BMP, GFR #### [place] [address] ALP [Catalytic activity/Vol] 74 U/L Normal 38-126 [facility] MAIN Comment on above: Performed By: #### C BC, ADIFF, ANEU, BMP, GFR #### [place] [address] ALT [Catalytic activity/Vol] 14 U/L Normal 10-49 [facility] MAIN Comment on above: Performed By: #### C BC, ADIFF, ANEU, BMP, GFR #### [place] [id number] AST [Catalytic activity/Vol] 16 U/L Normal 8-34 [facility] MAIN Comment on above: Performed By: #### C BC, ADIFF, ANEU, BMP, GFR #### [address] [address] Bili Total 1.80 mg/dL High 0.20-1.20 [facility] MAIN Comment on above: Result Comment: Use of this assay is not recommended for patients undergoing treatment with eltrombopag due to the potential for falsely elevated results. Performed By: #### C BC, ADIFF, ANEU, BMP, GFR #### [address] [address] BUN/Creatinine Ratio 9.5 ratio Low 10.0-22.0 [facility] MAIN Comment on above: Performed By: #### C BC, ADIFF, ANEU, BMP, GFR #### [address] [address] Calcium [Mass/Vol] 11.0 mg/dL High 8.7-10.4 [facility] MAIN Comment on above: Performed By: #### C BC, ADIFF, ANEU, BMP, GFR #### [address] [address] Chloride [Moles/Vol] 106 mmol/L Normal 98-110 [facility] MAIN Comment on above: Performed By: #### C BC, ADIFF, ANEU, BMP, GFR #### [address] [address] CO2 [Moles/Vol] 27 mmol/L Normal 22-32 [facility] MAIN Comment on above: Performed By: #### C BC, ADIFF, ANEU, BMP, GFR #### [address] [address] Creatinine [Mass/Vol] 0.74 mg/dL Normal 0.50-1.20 [facility] Comment on above: Result Comment: Test ing performed on [employer] analyzer using enzymatic creatinine methodology. Performed By: #### C BC, ADIFF, ANEU, BMP, GFR #### [address] [address] Electrolyte Balance 6.0 mEq/L Normal 4.0-15.0 [facility] MAIN Comment on above: Performed By: #### C BC, ADIFF, ANEU, BMP, GFR #### [address] [address] Globulin 2.9 G/dL Normal 2.5-4.2 [facility] MAIN Comment on above: Performed By: #### C BC, ADIFF, ANEU, BMP, GFR #### [address] [address] Glucose [Mass/Vol] 127 mg/dL High 82-115 [facility] MAIN Comment on above: Performed By: #### C BC, ADIFF, ANEU, BMP, GFR #### [address] [address] Potassium [Moles/Vol] 4.0 mmol/L Normal 3.5-5.0 [facility] Comment on above: Performed By: #### C BC, ADIFF, ANEU, BMP, GFR #### [address] [address] Sodium [Moles/Vol] 139 mmol/L Normal 136-145 [facility] MAIN Comment on above: Performed By: #### C BC, ADIFF, ANEU, BMP, GFR #### [address] [address] Total Protein 6.5 G/dL Normal 5.7-8.2 [facility] MAIN Comment on above: Performed By: #### C BC, ADIFF, ANEU, BMP, GFR #### [address] [address] Urea nitrogen [Mass/Vol] 7.0 mg/dL Low 8.0-22.0 [facility] MAIN Comment on above: Performed By: #### C BC, ADIFF, ANEU, BMP, GFR #### [address] [address] LABORATORYOrdered By: SYSTEM SYSTEM on 06-21-2025 Albumin [...] PM Ordering Provider: ELVIS NEGRON RP Normal [facility] MAIN US ABDOMEN/ELASTOGRAPHY/DOPP LER ABDOMENon 06-21-2025 US [...] AM Ordering Provider: KAREN NOWAK RP Normal [facility] .Auto Diffon 06-20-2025 Basophil, Absolute 0.1 10 3/mcL Normal 0.0-0.3 [facility] MAIN Comment on above: Performed By: #### C BC, ADIFF, ANEU, BMP, GFR #### [address] [address] Basophils/100 WBC (Bld) 1.0 % Normal 0.0-2.5 [facility] MAIN Comment on above: Performed By: #### C BC, ADIFF, ANEU, BMP, GFR #### [address] [address] Eosinophil, Absolute 0.2 10 3/mcL Normal 0.0-0.7 [facility] MAIN Comment on above: Performed By: #### C BC, ADIFF, ANEU, BMP, GFR #### [address] [address] Eosinophils/100 WBC (Bld) 2.2 % Normal 0.0-6.0 [facility] MAIN Comment on above: Performed By: #### C BC, ADIFF, ANEU, BMP, GFR #### [address] [address] Lymphocyte, Absolute 2.9 10 3/mcL Normal 0.9-4.3 [facility] MAIN Comment on above: Performed By: #### C BC, ADIFF, ANEU, BMP, GFR #### [address] [address] Lymphocytes/100 WBC (Bld) 41.1 % High 20.0-40.0 [facility] MAIN Comment on above: Performed By: #### C BC, ADIFF, ANEU, BMP, GFR #### [address] [address] Monocyte, Absolute 0.7 10 3/mcL Normal 0.1-1.4 [facility] MAIN Comment on above: Performed By: #### C BC, ADIFF, ANEU, BMP, GFR #### [address] [address] Monocytes/100 WBC (Bld) 9.7 % Normal 2.0-13.0 [facility] MAIN Comment on above: Performed By: #### C BC, ADIFF, ANEU, BMP, GFR #### [address] [address] Neutrophils/100 WBC (Bld) 46.0 % Low 50.0-75.0 [facility] MAIN Comment on above: Performed By: #### C BC, ADIFF, ANEU, BMP, GFR #### [address] [address] .GFRon 06-20-2025 Estimated Glomerular Filtration Rate 89 ml/min/1.73sqm Normal [facility] MAIN Comment on above: Result Comment: Stages [...] C BC, ADIFF, ANEU, BMP, GFR #### [address] [address] .NEUABSon 06-20-2025 Neutrophil, Absolute 3.3 10 3/mcL Normal 2.3-8.1 [facility] MAIN Comment on above: Performed By: #### C BC, ADIFF, ANEU, BMP, GFR #### [place] [address] [place] [address] A1Con 06-20-2025 Glucose [Mass/Vol] 137 mg/dL Normal [facility] MAIN Comment on above: Result Comment: Beth mated Average Glucose calculated by equation ((28.7xA1C)-46.7) Estimated average glucose (eAG) is a calculated value from Hemoglobin A1C and is provider relations representative of the average blood glucose level in the last 2-3 month period. Normal range: less than 114 mg/dL Performed By: #### 1 32947, 903205, 388638, 854250, ENA1, 346357, 433988, 894724, 950030, ANAIFS, 637019, SPE, 927346, 356285, ESR, AMM, CRP, C3C4A, TSH, FT4, FOL, B12, THYAB, VIDH, A1C ####[address] [address] HbA1c (Bld) [Mass fraction] 6.4 % High 4.0-6.0 [facility] MAIN Comment on above: Performed By: #### 1 52970, 018677, 124361, 332011, ENA1, 074513, 387842, 442383, 868160, ANAIFS, 358172, SPE, 693796, 694452, ESR, AMM, CRP, C3C4A, TSH, FT4, FOL, B12, THYAB, VIDH, A1C ####[address] [address] Dilshad 06-20-2025 Ammonia 25 mcmol/l Normal [address] [place] [address] MAIN Comment on above: Performed By: #### C BC, ADIFF, ANEU, BMP, GFR #### [address] [address] Ammonia 38 mcmol/l High [address] [place] [address] MAIN Comment on above: Performed By: #### 1 31962, 870328, 567818, 894673, ENA1, 939083, 941483, 157169, 728046, ANAIFS, 558085, SPE, 721864, 910547, ESR, AMM, CRP, C3C4A, TSH, FT4, FOL, B12, THYAB, VIDH, A1C ####[place] [address] [address] [place] [address] B12on 06-20-2025 Cobalamin (Vitamin B12) [Mass/Vol] 450 pg/mL Normal 211-911 [facility] MAIN Comment on above: Performed By: #### 1 75902, 142202, 963917, 712353, ENA1, 976201, 228553, 220117, 001132, ANAIFS, 194086, SPE, 900135, 349872, ESR, AMM, CRP, C3C4A, TSH, FT4, FOL, B12, THYAB, VIDH, A1C ####[address] [address] BMPon 06-20-2025 BUN/Creatinine Ratio 10.7 ratio Normal 10.0-22.0 [facility] MAIN Comment on above: Performed By: #### C BC, ADIFF, ANEU, BMP, GFR #### [address] [address] Calcium [Mass/Vol] 11.2 mg/dL High 8.7-10.4 [facility] MAIN Comment on above: Performed By: #### C BC, ADIFF, ANEU, BMP, GFR #### [address] [address] Chloride [Moles/Vol] 107 mmol/L Normal 98-110 [facility] MAIN Comment on above: Performed By: #### C BC, ADIFF, ANEU, BMP, GFR #### [address] [address] CO2 [Moles/Vol] 24 mmol/L Normal 22-32 [facility] MAIN Comment on above: Performed By: #### C BC, ADIFF, ANEU, BMP, GFR #### [address] [address] Creatinine [Mass/Vol] 0.75 mg/dL Normal 0.50-1.20 [facility] Comment on above: Result Comment: Test ing performed on [employer] analyzer using enzymatic creatinine methodology. Performed By: #### C BC, ADIFF, ANEU, BMP, GFR #### [address] [address] Electrolyte Balance 8.0 mEq/L Normal 4.0-15.0 [facility] MAIN Comment on above: Performed By: #### C BC, ADIFF, ANEU, BMP, GFR #### [address] [address] Glucose [Mass/Vol] 122 mg/dL High 82-115 [facility] MAIN Comment on above: Performed By: #### C BC, ADIFF, ANEU, BMP, GFR #### [address] [address] Potassium [Moles/Vol] 4.1 mmol/L Normal 3.5-5.0 [facility] Comment on above: Performed By: #### C BC, ADIFF, ANEU, BMP, GFR #### [address] [address] Sodium [Moles/Vol] 139 mmol/L Normal 136-145 [facility] MAIN Comment on above: Performed By: #### C BC, ADIFF, ANEU, BMP, GFR #### [address] [address] Urea nitrogen [Mass/Vol] 8.0 mg/dL Normal 8.0-22.0 [facility] MAIN Comment on above: Performed By: #### C BC, ADIFF, ANEU, BMP, GFR #### [address] [address] [id number] 06-20-2025 Complement C3A 188.0 mg/dL High 90.0-170.0 [facility] MAIN Comment on above: Performed By: #### 1 60619, 442649, 026898, 665639, ENA1, 265735, 265747, 353218, 761104, ANAIFS, 303959, SPE, 022748, 801285, ESR, AMM, CRP, C3C4A, TSH, FT4, FOL, B12, THYAB, VIDH, A1C ####[address] [address] Complement C4A 34.0 mg/dL Normal 16.0-38.0 [facility] MAIN Comment on above: Performed By: #### 1 27650, 948186, 380583, 893403, ENA1, 722294, 357648, 643333, 949195, ANAIFS, 617873, SPE, 257841, 153340, ESR, AMM, CRP, C3C4A, TSH, FT4, FOL, B12, THYAB, VIDH, A1C ####[place] [address] CBCon 06-20-2025 Erythrocyte distribution width (RBC) [Ratio] 13.4 % Normal 11.5-15.5 [facility] MAIN Comment on above: Performed By: #### C BC, ADIFF, ANEU, BMP, GFR #### [place] [address] Hematocrit (Bld) [Volume fraction] 39.0 % Normal 34.0-46.0 [facility] MAIN Comment on above: Performed By: #### C BC, ADIFF, ANEU, BMP, GFR #### [place] [address] Hgb 13.3 G/dL Normal 12.0-16.0 [facility] MAIN Comment on above: Performed By: #### C BC, ADIFF, ANEU, BMP, GFR #### [place] [address] MCH (RBC) [Entitic mass] 32.5 pg Normal 27.0-33.0 [facility] MAIN Comment on above: Performed By: #### C BC, ADIFF, ANEU, BMP, GFR #### [place] [address] MCHC 34.2 G/dL Normal 32.0-36.0 [facility] MAIN Comment on above: Performed By: #### C BC, ADIFF, ANEU, BMP, GFR #### [place] [address] MCV (RBC) [Entitic vol] 95.0 fL Normal 80.0-99.0 [facility] MAIN Comment on above: Performed By: #### C BC, ADIFF, ANEU, BMP, GFR #### [address] [address] Platelet 274 10 3/mcL Normal 150-450 [facility] MAIN Comment on above: Performed By: #### C BC, ADIFF, ANEU, BMP, GFR #### [facility] [address] [place] [address] Platelet mean volume (Bld) [Entitic vol] 7.8 fL Normal 6.6-10.5 [facility] MAIN Comment on above: Performed By: #### C BC, ADIFF, ANEU, BMP, GFR #### [address] [address] RBC 4.10 10 6/mcL Normal 4.10-5.30 [facility] MAIN Comment on above: Performed By: #### C BC, ADIFF, ANEU, BMP, GFR #### [address] [address] WBC 7.1 10 3/mcL Normal 4.5-10.8 [facility] MAIN Comment on above: Performed By: #### C BC, ADIFF, ANEU, BMP, GFR #### [address] [address] CRPon 06-20-2025 CRP [Mass/Vol] mg/L Normal 0.0-1.0 [facility] MAIN Comment on above: Performed By: #### 1 19743, 137464, 683559, 420860, ENA1, 233195, 012442, 374973, 824819, ANAIFS, 433577, SPE, 626453, 033729, ESR, AMM, CRP, C3C4A, TSH, FT4, FOL, B12, THYAB, VIDH, A1C ####[place] [address] [address] [place] [address] ESRon 06-20-2025 Erythrocyte Sed Rate 13 mm/hr Normal 0-30 [facility] MAIN Comment on above: Performed By: #### 1 59129, 716207, 979108, 076572, ENA1, 537791, 678469, 109218, 182565, ANAIFS, 635459, SPE, 199843, 917837, ESR, AMM, CRP, C3C4A, TSH, FT4, FOL, B12, THYAB, VIDH, A1C ####[facility] [place] [address] FOLon 06-20-2025 Folate 17.88 ng/mL Normal 5.38-24.00 [facility] MAIN Comment on above: Performed By: #### 1 27845, 119100, 646370, 378463, ENA1, 314452, 714211, 676333, 158864, ANAIFS, 247879, SPE, 340909, 751360, ESR, AMM, CRP, C3C4A, TSH, FT4, FOL, B12, THYAB, VIDH, A1C ####[place] [address] [place] [address] FT4on 06-20-2025 Free T4 [Mass/Vol] 1.55 ng/dL Normal 0.89-1.76 [facility] MAIN Comment on above: Result Comment: No te - New Reference Range in effect 20 Performed By: #### 1 67574, 226698, 580664, 467565, ENA1, 155248, 426244, 883834, 289369, ANAIFS, 658797, SPE, 985575, 115470, ESR, AMM, CRP, C3C4A, TSH, FT4, FOL, B12, THYAB, VIDH, A1C ####[place] [address] [place] [address] HFPon 06-20-2025 Bili Indirect 1.6 mg/dL Normal 0.1-10.0 [facility] MAIN Comment on above: Performed By: #### C BC, ADIFF, ANEU, BMP, GFR #### [address] [address] Albumin Level 3.9 G/dL Normal 3.2-4.8 [facility] MAIN Comment on above: Performed By: #### C BC, ADIFF, ANEU, BMP, GFR #### [address] [address] Albumin/Globulin [Mass ratio] 1.3 {ratio} Normal 0.9-1.6 [facility] MAIN Comment on above: Performed By: #### C BC, ADIFF, ANEU, BMP, GFR #### [place] [id number] ALP [Catalytic activity/Vol] 79 U/L Normal 38-126 [facility] MAIN Comment on above: Performed By: #### C BC, ADIFF, ANEU, BMP, GFR #### [place] [id number] ALT [Catalytic activity/Vol] 17 U/L Normal 10-49 [facility] MAIN Comment on above: Performed By: #### C BC, ADIFF, ANEU, BMP, GFR #### [place] [id number] AST [Catalytic activity/Vol] 21 U/L Normal 8-34 [facility] MAIN Comment on above: Performed By: #### C BC, ADIFF, ANEU, BMP, GFR #### [place] [address] Bili Direct 0.6 mg/dL High 0.0-0.4 [facility] MAIN Comment on above: Result Comment: Use of this assay is not recommended for patients undergoing treatment with eltrombopag due to the potential for falsely elevated results. Performed By: #### C BC, ADIFF, ANEU, BMP, GFR #### [place] [address] Bili Total 2.20 mg/dL High 0.20-1.20 [facility] MAIN Comment on above: Result Comment: Use of this assay is not recommended for patients undergoing treatment with eltrombopag due to the potential for falsely elevated results. Performed By: #### C BC, ADIFF, ANEU, BMP, GFR #### [place] [id number] Globulin 3.0 G/dL Normal 2.5-4.2 [facility] MAIN Comment on above: Performed By: #### C BC, ADIFF, ANEU, BMP, GFR #### [place] [address] Total Protein 6.9 G/dL Normal 5.7-8.2 [facility] MAIN Comment on above: Performed By: #### C BC, ADIFF, ANEU, BMP, GFR #### [place] [address] LABORATORYOrdered By: SYSTEM SYSTEM on 06-20-2025 Ammonia [...] calculated value from Hemoglobin A1C and is provider relations representative of the average blood glucose level [...] Normal Non-Reactive AH ADM SS LABORATORYOrdered By: [employer] P CONTRIBUTOR_SYSTEM on 06-20-2025 Actin (Smooth Muscle) Antibody (LC) 8 Units Invalid Interpretation Code 0-19 Sendouts Comment on above: Result Comment: Nega tive 0 - 19 Weak positive 20 - 30 Moderate to strong positive >30 Actin Antibodies are found in 52-85% of patients with autoimmune hepatitis or chronic active hepatitis and in 22% of patients with primary biliary cirrhosis. Performed At: [facility] [address] [place] [address] [id number] Pritesh Sidhu PhD Ph:[phone] Anti-CCP Ab, IgG/IgA (LC) 10 Units Invalid Interpretation Code 0-19 Sendouts SS Comment on above: Result Comment: Nega tive <20 Weak positive 20 - 39 Moderate positive 40 - 59 Strong positive >59 Performed At: [address] [id number] Pritesh Sidhu PhD Ph:[phone] Anti-dsDNA Antibodies (LC) Int unit/mL Invalid Interpretation Code 0-9 AH Sendouts Comment on above: Result Comment: Nega tive <5 Equivocal 5 - 9 Positive >9 Performed At: [address] [id number] Pritesh Sidhu PhD Ph:[phone] Antiparietal Cell Antibody (LC) 1.8 Units Invalid Interpretation Code 0.0-20.0 AH Sendouts Comment on above: Result Comment: Nega tive 0.0 - 20.0 Equivocal 20.1 - 24.9 Positive >24.9 Parietal Cell Antibodies are found in 90% of patients with pernicious anemia and 30% of first degree relatives with pernicious anemia. Performed At: [address] [id number] Pritesh Sidhu PhD Ph:[phone] Antiribosomal P Abs (LC) AI Invalid Interpretation Code 0.0-0.9 AH Sendouts Comment on above: Result Comment: Perf ormed At: [address] [id number] Pritesh Sidhu PhD Ph:[phone] Mitochondrial (M2) Antibody (LC) Units Invalid Interpretation Code 0.0-20.0 Sendouts Comment on above: Result Comment: Nega tive 0.0 - 20.0 Equivocal 20.1 - 24.9 Positive >24.9 Mitochondrial (M2) Antibodies are found in 90-96% of patients with primary biliary cirrhosis. Performed At: [address] [id number] Pritesh Sidhu PhD Ph:[phone] NMDAR Antibody, Cell-based IFA (LC) Negative Invalid Interpretation Code Negative AH Sendouts Comment on above: Result Comment: This test was developed and its performance characteristics determined by [employer]. It has not been cleared or approved by the Food and Drug Administration. The NIH-sponsored ExTINGUISH Trial (activity and safety of Inebilizumab in anti-NMDAR encephalitis) is actively recruiting patients. You may consider enrolling your patient in the clinical trial if the result of this test is positive. To learn more, or to refer your patient, call [phone]- [phone] ([phone], study hotline) or see ClinicalTrials.gov (study ID, [id number]). Performed At: [address] [id number] Bob Cohen MD Ph:[phone] Rheumatoid Factor (RF) (LC) Int unit/mL Invalid Interpretation Code <14.0 AH Sendouts SS Comment on above: Result Comment: Perf ormed At: [address] [id number] Pritesh Sidhu PhD Ph:[phone] TSH Receptor Ab (LC) [iU]/L Invalid Interpretation Code 0.00-1.75 AH Sendouts SS Comment on above: Result Comment: Perf ormed At: [address] [id number] Bob Cohen MD Ph:[phone] LABORATORYOrdered By: Chas Sweet on 06-20-2025 Albumin [...] immunoassay (IFA) using HEp-2 cells. Performed By: [address] [address] Manager Of Administration: Keith Bennett III, M.D. IA#: [id number] Centromere AI Invalid Interpretation Code <1.0 AH Sendouts SS Comment on above: Result Comment: Anti -centromere antibody is used as in aid in diagnosis of systemic sclerosis. Clinical correlation is required. Test Methodology: Multiplex flow immunoassay. Performed By: [place] [address] Manager Of Administration: Keith Bennett III, M.D. CLIA#: [id number] Centromere Ab Qualitative Negative Invalid Interpretation Code Negative AH Sendouts SS Comment on above: Result Comment: Perf ormed By: [place] [address] Manager Of Administration: Keith Bennett III, M.D. CLIA#: [id number] Chromatin Ab Qualitative Negative Invalid Interpretation Code Negative AH Sendouts SS Comment on above: Result Comment: Perf ormed By: [place] [address] Manager Of Administration: Keith Bennett III, M.D. CLIA#: [id number] Chromatin Antibody AI Invalid Interpretation Code <1.0 AH Sendouts SS Comment on above: Result Comment: Test Methodology: Multiplex flow immunoassay. Anti-chromatin antibody is used as an aid in diagnosis of systemic lupus erythematosus. Clinical correlation is required. Test Methodology: Multiplex flow immunoassay. Performed By: [place] [address] Manager Of Administration: Keith Bennett III, M.D. CLIA#: [id number] TWAN 1 Antibody AI Invalid Interpretation Code <1.0 AH Sendouts Comment on above: Result Comment: Perf ormed By: [place] [address] Manager Of Administration: Keith Bennett III, M.D. CLIA#: [id number] TWAN 1 Antibody Qual Negative Invalid Interpretation Code Negative AH Sendouts Comment on above: Result Comment: Anti -TWAN-1 antibody is used as an aid in diagnosis of polymyositis and dermatomyositis especially with pulmonary involvement. A negative result cannot rule out polymyositis or dermatomyositis. Clinical correlation is required. Test Methodology: Multiplex flow immunoassay. Performed By: [place] [address] Manager Of Administration: Keith Bennett III, M.D. CLIA#: [id number] Ribosomal WINE CELLAR WORKER AI Invalid Interpretation Code <1.0 Sendouts Comment on above: Result Comment: Perf ormed By: [facility] [address] [place] [address] Manager Of Administration: Keith Bennett III, M.D. CLIA#: [id number] Ribosomal WINE CELLAR WORKER Qualitative Negative Invalid Interpretation Code Negative Sendouts Comment on above: Result Comment: Anti -Ribosomal RNA (Ribosomal P) antibody is used as an aid in diagnosis of systemic autoimmune diseases especially systemic lupus erythematosus and mixed connective tissue disease. Cross-reactivity with Anti-rees antibody is not uncommon. Clinical correlation is required. Test Methodology: Multiplex flow immunoassay. Performed By: [facility] [place] [address] Manager Of Administration: Keith Bennett III, M.D. CLIA#: [id number] WINE CELLAR WORKER Antibody AI Invalid Interpretation Code <1.0 Sendouts Comment on above: Result Comment: Anti -WINE CELLAR WORKER antibody is used as an aid in diagnosis of systemic autoimmune diseases especially systemic lupus erythematosus and mixed connective tissue disease. Cross-reactivity with Anti-rees antibody is not uncommon. Clinical correlation is required. Test Methodology: Multiplex flow immunoassay. Performed By: [facility] [place] [address] Manager Of Administration: Keith Bennett III, M.D. CLIA#: [id number] WINE CELLAR WORKER Antibody Qualitative Negative Invalid Interpretation Code Negative Sendouts Comment on above: Result Comment: Perf ormed By: [facility] [address] [place] [address] Manager Of Administration: Keith Bennett III, M.D. CLIA#: [id number] Scleroderma Ab, IgG Qualitative Negative Invalid Interpretation Code Negative Sendouts Comment on above: Result Comment: Perf ormed By: [facility] [place] [address] Manager Of Administration: Keith Bennett III, M.D. CLIA#: [id number] Scleroderma IgG Ab AI Invalid Interpretation Code <1.0 Sendouts Comment on above: Result Comment: Scl- 70/Scleroderma antibody test is used as an aid in diagnosis of systemic sclerosis especially the diffuse cutaneous form. A negative result cannot rule out systemic sclerosis. The final interpretation should consider clinical picture and other test results such as anti-centromere antibody. Test Methodology: Multiplex flow immunoassay. Performed By: [place] [address] Manager Of Administration: Keith Bennett III, M.D. CLIA#: [id number] Sm Antibody AI Invalid Interpretation Code <1.0 Sendouts Comment on above: Result Comment: Perf ormed By: [place] [address] Manager Of Administration: Keith Bennett III, M.D. CLIA#: [id number] Sm Antibody Qual Negative Invalid Interpretation Code Negative Sendouts Comment on above: Result Comment: Anti -Sm (Rees) antibody is used as an aid in diagnosis of systemic lupus erythematosus and its presence is associated with renal disease. A negative result cannot rule out systemic lupus erythematosus. Clinical correlation is required. Test Methodology: Multiplex flow immunoassay. Performed By: [place] [address] Manager Of Administration: Keith Bennett III, M.D. CLIA#: [id number] SS-A Antibody AI Invalid Interpretation Code <1.0 Sendouts Comment on above: Result Comment: Test Methodology: Multiplex flow immunoassay. Anti-SSA (anti-Ro) antibody is used as an aid in diagnosis of a variety of systemic autoimmune diseases, Sjogren's syndrome among others. Clinical correlation is required. Test Methodology: Multiplex flow immunoassay. Performed By: [place] [address] Manager Of Administration: Keith Bennett III, M.D. CLIA#: [id number] SS-B Antibody AI Invalid Interpretation Code <1.0 Sendouts Comment on above: Result Comment: Anti -SSB (anti-La) antibody is used as an aid in diagnosis of a variety of systemic autoimmune diseases, especially for Sjogren's syndrome and systemic lupus erythematosus. Clinical correlation is required. Test Methodology: Multiplex flow immunoassay. Performed By: [place] [address] Manager Of Administration: Keith Bennett III, M.D. CLIA#: [id number] SSA Antibody Qualitative Negative Invalid Interpretation Code Negative Sendouts SS Comment on above: Result Comment: Perf ormed By: [facility] [address] [place] [address] Manager Of Administration: Keith Bennett III, M.D. CLIA#: [id number] SSB Antibody Qualitative Negative Invalid Interpretation Code Negative AH Sendouts SS Comment on above: Result Comment: Perf ormed By: [facility] [address] [place] [address] Manager Of Administration: Keith Bennett III, M.D. CLIA#: [id number] LABORATORYOrdered By: Makayla Araujo on 06-20-2025 ESR [...] Lactic Acid Lvl 1.8 mmol/L Normal 0.5-2.2 [facility] Comment on above: Performed By: #### C BC, ADIFF, ANEU, BMP, GFR #### [address] [address] LIPIDon 06-20-2025 Cholesterol [Mass/Vol] 108 mg/dL Normal 50-199 [facility] Comment on above: Result Comment: Chol esterol Reference Interval: Less than 200 Desirable 200-239 Borderline high risk 240 and above High risk Performed By: #### C BC, ADIFF, ANEU, BMP, GFR #### [address] [address] Cholesterol in HDL [Mass/Vol] 30 mg/dL Low 40-59 [facility] Comment on above: Performed By: #### C BC, ADIFF, ANEU, BMP, GFR #### [place] [id number] Cholesterol in LDL [Mass/Vol] 42 mg/dL Normal 0-129 [facility] Comment on above: Performed By: #### C BC, ADIFF, ANEU, BMP, GFR #### [address] [address] Triglyceride [Mass/Vol] 182 mg/dL High 3-149 [facility] Comment on above: Performed By: #### C BC, ADIFF, ANEU, BMP, GFR #### [place] [address] MGon 06-20-2025 Magnesium [Mass/Vol] 2.2 mg/dL Normal 1.6-2.4 [facility] Comment on above: Performed By: #### C BC, ADIFF, ANEU, BMP, GFR #### [place] [id number] SPEon 06-20-2025 Total Protein 6.8 G/dL Normal 5.7-8.2 [facility] Comment on above: Performed By: #### P TH #### [place] [id number] SYPHRon 06-20-2025 Syphilis Non-Reactive Normal Non-Reactive [facility] Comment on above: Performed By: #### C BC, ADIFF, ANEU, BMP, GFR #### [address] [address] Syphilis Interpretation See Interp [facility] Comment on above: Result Comment: Clinical Interpretation: Negative for syphilis T. pallidum antibody; cannot exclude early primary syphilis. If syphilis infection is strongly suspected, retest in one month. Performed By: #### C BC, ADIFF, ANEU, BMP, GFR #### [place] [id number] THYABon 06-20-2025 anti-Thyroid Peroxidase <28 Normal 0-60 [facility] Comment on above: Performed By: #### 1 81332, 441388, 884993, 195848, ENA1, 214617, 986580, 266784, 239281, ANAIFS, 425062, SPE, 297344, 874943, ESR, AMM, CRP, C3C4A, TSH, FT4, FOL, B12, THYAB, VIDH, A1C ####[address] [address] Thyroglobulin Ab 26 units/ml Normal 15-60 [facility] Comment on above: Performed By: #### 1 17867, 083040, 885651, 482184, ENA1, 757987, 663166, 120828, 629988, ANAIFS, 255069, SPE, 029945, 246128, ESR, AMM, CRP, C3C4A, TSH, FT4, FOL, B12, THYAB, VIDH, A1C ####[place] [id number] TSHon 06-20-2025 TSH 0.022 mIU/mL Low 0.550-4.780 [facility] Comment on above: Performed By: #### 1 40087, 610047, 074896, 460315, ENA1, 236314, 268513, 456453, 862847, ANAIFS, 497594, SPE, 406659, 300387, ESR, AMM, CRP, C3C4A, TSH, FT4, FOL, B12, THYAB, VIDH, A1C ####[place] [id number] VBGon 06-20-2025 BE Venous 0.2 mmol/L Normal -3.0-3.0 [facility] Comment on above: Performed By: #### C BC, ADIFF, ANEU, BMP, GFR #### [address] [address] CO2 [Moles/Vol] 27.9 mmol/L Normal 22.0-32.0 [facility] Comment on above: Performed By: #### C BC, ADIFF, ANEU, BMP, GFR #### [address] [address] HCO3 (Bld) [Moles/Vol] 26.4 mmol/L Normal 21.0-30.0 [facility] Comment on above: Performed By: #### C BC, ADIFF, ANEU, BMP, GFR #### [place] [address] Oxygen saturation in Blood 84.8 % High 70.0-75.0 [facility] Comment on above: Performed By: #### C BC, ADIFF, ANEU, BMP, GFR #### [place] [address] pCO2 Andre 49.1 mmHg Normal 41.0-51.0 [facility] Comment on above: Performed By: #### C BC, ADIFF, ANEU, BMP, GFR #### [place] [address] pH Venous 7.348 Low 7.380-7.460 [facility] Comment on above: Performed By: #### C BC, ADIFF, ANEU, BMP, GFR #### [place] [address] pO2 Andre 51.4 mmHg High 35.0-40.0 [facility] Comment on above: Performed By: #### C BC, ADIFF, ANEU, BMP, GFR #### [place] [address] VIDHon 06-20-2025 Vit. D 25-Hydroxy 42.6 ng/mL Normal [facility] Comment on above: Result Comment: Inte rpretive Values Based on Total 25(OH)D: Severe Deficiency <20 ng/mL Mild to Moderate Deficiency 20-30 ng/mL Optimum Levels 30-100 ng/mL Toxicity Possible >100 ng/mL Performed By: #### 1 26323, 998720, 128489, 640254, ENA1, 285060, 270068, 133567, 055859, ANAIFS, 709812, SPE, 485223, 608552, ESR, AMM, CRP, C3C4A, TSH, FT4, FOL, B12, THYAB, VIDH, A1C ####[place] [address] Alcohol, Blood (Medical)-Ser umon 06-19-2025 SERUM ETOH < 10.1 Normal <=10.0 [facility] Comment on above: Result Comment: This test is for medical purposes only. The legal definition of intoxication varies according to local law. Performed By: #### L 100.0500, L500.2500 #### [facility] [address] [place], [address] Ammoniaon 06-19-2025 Ammonia (P) [Moles/Vol] 17.5 umol/L Normal 11-51 [facility] Comment on above: Performed By: #### L 503.5510 #### [facility] [address] [place], [address] CBC W/Diff, Automatedon 05-28 Absolute Lymph 2.59 X10 3/uL Normal 0.83-4.51 [facility] Comment on above: Performed By: #### L 100.0500, L500.2500 #### [facility] [address] [place], [address] Absolute Neut 5.0 X10 3/uL Normal 2.0-7.7 [facility] Comment on above: Performed By: #### L 100.0500, L500.2500 #### [facility] [address] [place], [address] Basophils/100 WBC (Bld) 0.5 % Normal 0-1 [facility] Comment on above: Performed By: #### L 100.0500, L500.2500 #### [facility] [address] [place], [address] Eosinophils/100 WBC (Bld) 2.0 % Normal 0-5 [facility] Comment on above: Performed By: #### L 100.0500, L500.2500 #### [facility] [address] [place], [address] Erythrocyte distribution width (RBC) [Ratio] 13.1 % Normal 11.6-14.6 [facility] Comment on above: Performed By: #### L 100.0500, L500.2500 #### [facility] [address] [place], [address] Hematocrit (Bld) [Volume fraction] 40.1 % Normal 37-47 [facility] Comment on above: Performed By: #### L 100.0500, L500.2500 #### [facility] [address] [place], [address] Hemoglobin (Bld) [Mass/Vol] 13.2 g/dL Normal 12.0-15.0 [facility] Comment on above: Performed By: #### L 100.0500, L500.2500 #### [facility] [address] [place], [address] IG% 0.400 Normal 0.0-0.9 [facility] Comment on above: Result Comment: IG% - Immature Granulocytes (promyelocytes, myelocytes and metamyelocytes) > 1% indicates that a LEFT SHIFT is Present. Performed By: #### L 100.0500, L500.2500 #### [facility] [address] [place], [address] Lymphocytes/100 WBC (Bld) 30.7 % Normal 19-41 [facility] Comment on above: Performed By: #### L 100.0500, L500.2500 #### [facility] [address], [address] MCH (RBC) [Entitic mass] 31.5 pg Normal 27.0-32.0 [facility] Comment on above: Performed By: #### L 100.0500, L500.2500 #### [facility] [address] [place], [address] MCHC (RBC) [Mass/Vol] 32.9 g/dL Normal 32-36 [facility] Comment on above: Performed By: #### L 100.0500, L500.2500 #### [facility] [address] [place], [address] MCV (RBC) [Entitic vol] 95.7 fL Normal 81-99 [facility] Comment on above: Performed By: #### L 100.0500, L500.2500 #### [facility] [address] [place], [address] Monocytes/100 WBC (Bld) 7.6 % Normal 0-10 [facility] Comment on above: Performed By: #### L 100.0500, L500.2500 #### [facility] [address] [place], [address] Neutrophils/100 WBC (Bld) 58.8 % Normal 47-70 [facility] Comment on above: Performed By: #### L 100.0500, L500.2500 #### [facility] [address] [place], [address] Nucleated RBC (Bld) [#/Vol] 0 10*3/uL Normal 0-5 [facility] Comment on above: Performed By: #### L 100.0500, L500.2500 #### [facility] [address] [place], [address] Platelet mean volume (Bld) [Entitic vol] 9.9 fL Normal 6.2-12.0 [facility] Comment on above: Performed By: #### L 100.0500, L500.2500 #### [facility] [address] [place], [address] Platelets (Bld) [#/Vol] 325 10*3/uL Normal 150-450 [facility] Comment on above: Performed By: #### L 100.0500, L500.2500 #### [facility] [address] [place], [address] RBC (Bld) [#/Vol] 4.19 10*6/uL Low 4.2-5.4 [facility] Comment on above: Performed By: #### L 100.0500, L500.2500 #### [facility] [address] [place], [address] RDW SD 45.8 fl High 35.1-43.9 [facility] Comment on above: Performed By: #### L 100.0500, L500.2500 #### [facility] [address] [place], [address] WBC (Bld) [#/Vol] 8.5 10*3/uL Normal 4.4-11.0 [facility] Comment on above: Performed By: #### L 100.0500, L500.2500 #### [facility] [address] [place], [address] CRPon 06-19-2025 C-REACTIVE PROT 3.20 mg/L High 0.0-3.0 [facility] Comment on above: Performed By: #### L 503.5510 #### [facility] [address] [place], [address] Comprehensive Metabolic Prof ilon 06-19-2025 Albumin [Mass/Vol] 4.3 g/dL Normal 3.4-4.8 [facility] Comment on above: Performed By: #### L 100.0500, L500.2500 #### [facility] [address] [place], [address] Albumin/Globulin [Mass ratio] 1.5 {ratio} Normal 0.9-2.4 [facility] Comment on above: Performed By: #### L 100.0500, L500.2500 #### [facility] [address] [place], [address] ALK PHOS 81 U/L Normal 35-104 [facility] Comment on above: Performed By: #### L 100.0500, L500.2500 #### [facility] [address] [place], [address] ALT [Catalytic activity/Vol] 25 U/L Normal <=34 [facility] Comment on above: Performed By: #### L 100.0500, L500.2500 #### [facility] [address] [place], [address] AST [Catalytic activity/Vol] 23 U/L Normal <=31 [facility] Comment on above: Performed By: #### L 100.0500, L500.2500 #### [facility] [address] [place], [address] Bilirubin [Mass/Vol] 1.63 mg/dL High 0.00-1.30 [facility] Comment on above: Performed By: #### L 100.0500, L500.2500 #### [facility] [address] [place], [address] BUN/CRE 12.2 RATIO Normal 10-20 [facility] Comment on above: Performed By: #### L 100.0500, L500.2500 #### [facility] [address] [place], [address] Calcium [Mass/Vol] 10.5 mg/dL Normal 7.6-11.0 [facility] Comment on above: Performed By: #### L 100.0500, L500.2500 #### [facility] [address] [place], [address] Chloride [Moles/Vol] 101 mmol/L Normal 98-108 [facility] Comment on above: Performed By: #### L 100.0500, L500.2500 #### [facility] [address] [place], [address] CO2 [Moles/Vol] 25.5 mmol/L Normal 21.0-32.0 [facility] Comment on above: Performed By: #### L 100.0500, L500.2500 #### [facility] [address] [place], [address] Creatinine [Mass/Vol] 0.91 mg/dL Normal 0.70-1.20 [facility] Comment on above: Performed By: #### L 100.0500, L500.2500 #### [facility] [address] [place], [address] GAP 11 Normal 5-15 [facility] Comment on above: Performed By: #### L 100.0500, L500.2500 #### [facility] [address] [place], [address] GFR/1.73 sq M.predicted among non-blacks MDRD (S/P/Bld) [Vol rate/Area] 71 mL/min/{1.73_m2} Normal >60 [facility] Comment on above: Result Comment: mL/m in/1.73m2 CKD-EPI Creatinine Equation (2020) Performed By: #### L 100.0500, L500.2500 #### [facility] [address] [place], [address] Globulin (S) [Mass/Vol] 2.9 g/dL Normal 2.2-4.2 [facility] Comment on above: Performed By: #### L 100.0500, L500.2500 #### [facility] [address] [place], [address] Glucose [Mass/Vol] 255 mg/dL High 70-99 [facility] Comment on above: Performed By: #### L 100.0500, L500.2500 #### [facility] [address] [place], [address] Potassium [Moles/Vol] 3.9 mmol/L Normal 3.3-5.1 [facility] Comment on above: Performed By: #### L 100.0500, L500.2500 #### [facility] [address] [place], [address] Sodium [Moles/Vol] 138 mmol/L Normal 133-145 [facility] Comment on above: Performed By: #### L 100.0500, L500.2500 #### [facility] [address] [place] [place], [address] T PROT 7.2 g/dL Normal 5.9-8.4 [facility] Comment on above: Performed By: #### L 100.0500, L500.2500 #### [facility] [address] [place], [address] Urea nitrogen [Mass/Vol] 11 mg/dL Normal 4-19 [facility] Comment on above: Performed By: #### L 100.0500, L500.2500 #### [facility] [address] [place], [address] Emergency Department Summary on 06-19-2025 Emergency Department Summary [facility] Medical Records Department [address] [place] [address] Emergency Department Summary 06/19/25 MR#: [id number] Acct: [id number] Name: RICHY RODRIGUEZ Rep #: [id number] : 1960 64 From: Shayne Herring DO [...] limited t (more content not included)... Normal [facility] Erythrocyte Sed Rateon 06-19 SED RATE 18 mm/hr Normal 0-30 [facility] Comment on above: Performed By: #### L 400.0001 #### [facility] [address] [place], [address] Free T3on 06-19-2025 Free T3 [Mass/Vol] 3.6 pg/mL Normal 2.18-3.98 [facility] Comment on above: Performed By: #### L 501.080 #### [facility] [address] [place], [address] Magnesiumon 06-19-2025 Magnesium [Mass/Vol] 2.1 mg/dL Normal 1.5-2.2 [facility] Comment on above: Performed By: #### L 501.080 #### [facility] [address] [place], [address] T4 Free Directon 06-19-2025 T4 FREE DIRECT 1.50 ng/dL High 0.76-1.46 [facility] Comment on above: Performed By: #### L 501.080 #### [facility] [address] [place], [address] Thyroid Stim Hormone (TSH)on 06-19-2025 TSH 0.019 uIU/mL Low 0.300-4.200 [facility] Comment on above: Performed By: #### L 501.080 #### [facility] [address] [place], [address] Urinalysis, Completeon 06-19 BACTERIA 1+ /hpf Normal None Seen [facility] Comment on above: Order Comment: CLEAN CATCH Performed By: #### L 501.080 #### [facility] [address] [place], [address] EPI,SQUAMOUS 0-5 SEEN Normal - [facility] Comment on above: Order Comment: CLEAN CATCH Performed By: #### L 501.080 #### [facility] [address] [place], [address] Mucus Ql (Urine sed) 1+ /hpf Normal [facility] Comment on above: Order Comment: CLEAN CATCH Performed By: #### L 501.080 #### [facility] [address] [place], [address] RBC 0-5 SEEN Normal 0-5 [facility] Comment on above: Order Comment: CLEAN CATCH Performed By: #### L 501.080 #### [facility] [address] [place], [address] WBC 0 SEEN Normal 0-5 [facility] Comment on above: Order Comment: CLEAN CATCH Performed By: #### L 501.080 #### [facility] [address] [place], [address] Brain W/WO Contraston 2024 Brain W/WO Contrast [facility] [address] [place] [address] Brain W/WO Contrast MR#: [id number] Acct: [id number] Name: RICHY RODRIGUEZ Rep #: [id number] : 1960 F 64 From: João Hill MD PCP: Dr. July Rees MD Status: REG CLI Study: Brain W/WO Contrast Date of Exam: 06/16/25 Exam# [id number] Ordering Dr: July Rees MD PROCEDURE: BRAIN [...] 3. Other findings as noted. Reading Location: [place] [address] CC: Dr. July Rees MD Statement Request Clerk: Signed Normal [facility] MRA Head ONLY without Contra ston 06-16-2025 MRA Head ONLY without Contrast [facility] [address] [place], [place] [address] MRA Head ONLY without Contrast MR#: [id number] Acct: [id number] Name: RICHY RODRIGUEZ Rep #: [id number] : 1960 F 64 From: Chad Giang MD PCP: Dr. July Rees MD Status: REG CLI Study: MRA Head ONLY without Contrast Date of Exam: Exam# [id number] Ordering Dr: July Rees MD PROCEDURE: MRA [...] The basilar artery is unremarkable. The bilateral deep tissue massage therapist are unremarkable. The bilateral posterior communicating arteries are visualized and patent. NECK: The bilateral common carotid arteries, carotid bulbs, and cervical ICAs appear unremarkable. The cervical segments of the bilateral vertebral arteries appear unremarkable. MRI/MRA Head ONLY without Contrast IMPRESSION: No hemodynamically significant stenosis, major vessel occlusion/dissection, or aneurysm greater than 5 millimeters. Reading Location: [id number] CC: Dr. July Rees MD Statement Request Clerk: Signed Normal [facility] MRA Neck WITH and W/O Contra ston 06-16-2025 MRA Neck WITH and W/O Contrast [facility] [address] [place], [place] [address] MRA Neck WITH and W/O Contrast MR#: [id number] Acct: [id number] Name: RICHY RODRIGUEZ Rep #: [id number] : 1960 F 64 From: Chad Giang MD PCP: Dr. July Rees MD Status: REG CLI Study: MRA Neck WITH and W/O Contrast Date of Exam: Exam# [id number] Ordering Dr: July Rees MD PROCEDURE: MRA [...] The basilar artery is unremarkable. The bilateral deep tissue massage therapist are unremarkable. The bilateral posterior communicating arteries are visualized and patent. NECK: The bilateral common carotid arteries, carotid bulbs, and cervical ICAs appear unremarkable. The cervical segments of the bilateral vertebral arteries appear unremarkable. MRI/MRA Neck WITH and W/O Contrast IMPRESSION: No hemodynamically significant stenosis, major vessel occlusion/dissection, or aneurysm greater than 5 millimeters. Reading Location: [id number] CC: Dr. July Rees MD Statement Request Clerk: Signed Normal [facility] L3410.9992on 06-15-2025 [facility] Misc. COMMENT Normal . [facility] Comment on above: Order Comment: 23072 5AQUAPORIN AQP 4 RED SEUM RMT Result Comment: Test Ordered: [id number] Anti-Aquaporin (AQP4), Serum Test(s) 021264-LCN8 Antibody, Cell-based IFA was developed and its performance characteristics determined by [facility]. It has not been cleared or approved by the Food and Drug Administration. AQP4 Antibody, Cell-based IFA Negative Reference Range: Negative Performed at: [address] [id number] Manager Of Administration: Vicki Rojas MD, Phone: [phone] Performed at: [address] [id number] Manager Of Administration: Nahum Jonas PhD, Phone: [phone] Performed By: #### L [id number] #### [facility] [address] [place] [address]. [place], [place], [id number] L3410.9994on 06-15-2025 [facility] Misc. 2 COMMENT Normal . [facility] Comment on above: Order Comment: 51578 0MOG SERUM RED RMT Result Comment: Test Ordered: [id number] Anti-MOG, Serum Test(s) 033434-ASW Antibody, Cell-based IFA was developed and its performance characteristics determined by [facility]. It has not been cleared or approved by the Food and Drug Administration. MOG Antibody, Cell-based IFA Negative Reference Range: Negative Performed at: [address] [id number] Manager Of Administration: Vicki Rojas MD, Phone: [phone] Performed at: [address] [id number] Manager Of Administration: Nahum Jonas PhD, Phone: [phone] Performed By: #### L 503.5510 #### [facility] [address] [facility] [place], [address] Protein Electroph, Son 06-12 Albumin [Mass/Vol] 3.6 g/dL Normal 2.9-4.4 [facility] Comment on above: Performed By: #### L 503.5510 #### [facility] [address] [place], [address] Albumin/Globulin [Mass ratio] 1.2 {ratio} Normal 0.7-1.7 [facility] Comment on above: Performed By: #### L 503.5510 #### [facility] [address] [place], [address] ALPHA-1 GLOBUL 0.2 g/dL Normal 0.0-0.4 [facility] Comment on above: Performed By: #### L 503.5510 #### [facility] [address] [place], [address] ALPHA-2 GLOBUL 0.9 g/dL Normal 0.4-1.0 [facility] Comment on above: Performed By: #### L 503.5510 #### [facility] [address] [place], [address] BETA GLOBULIN 1.2 g/dL Normal 0.7-1.3 [facility] Comment on above: Performed By: #### L 503.5510 #### [facility] [address] [place], [address] GAMMA GLOBULIN 0.9 g/dL Normal 0.4-1.8 [facility] Comment on above: Performed By: #### L 503.5510 #### [facility] [address] [place], [address] Globulin (S) [Mass/Vol] 3.1 g/dL Normal 2.2-3.9 [facility] Comment on above: Performed By: #### L 503.5510 #### [facility] [address] [place], [address] INTERPRETATION Comment Normal . [facility] Comment on above: Result Comment: Prot ein electrophoresis scan will follow via computer, mail, or dry yard worker delivery. Performed By: #### L 503.4610 #### [facility] [address] [place], [address] M-SPIKE Comment: Normal Not Observed [facility] Comment on above: Result Comment: asym metrical gamma Performed By: #### L 503.5510 #### [facility] [address] [place], [place], [id number] NOTE: Comment Normal . [facility] Comment on above: Result Comment: Parth t band in gamma region suspicious for monoclonal immunoglobulin. This band may represent a benign spike as seen in older people or could be a paraprotein as seen in Multiple Myeloma, Waldenstrom's Macroglobulinemia or Lymphoma. Depending on clinical circumstances, further diagnostic studies may include serum immunofixation or serum free light chain quantitation. Performed at: [address] [id number] Manager Of Administration: Nahum Jonas PhD, Phone: [phone] Performed By: #### L 503.5510 #### [facility] [address] [place], [address] Protein [Mass/Vol] 6.7 g/dL Normal 6.0-8.5 [facility] Comment on above: Performed By: #### L 503.5510 #### [facility] [address] [place], [address] Comprehensive Metabolic Prof ilon 06-10-2025 Albumin [Mass/Vol] 4.3 g/dL Normal 3.4-4.8 [facility] Comment on above: Performed By: #### L 503.5510 #### [facility] [address] [place], [address] Albumin/Globulin [Mass ratio] 1.6 {ratio} Normal 0.9-2.4 [facility] Comment on above: Performed By: #### L 503.5510 #### [facility] [address] [place], [place], [address] (189 ALK PHOS 83 U/L Normal 35-104 [facility] Comment on above: Performed By: #### L 503.5510 #### [facility] [address] [place], [address] ALT [Catalytic activity/Vol] 24 U/L Normal <=34 [facility] Comment on above: Performed By: #### L 503.5510 #### [facility] [address] [place], [address] AST [Catalytic activity/Vol] 21 U/L Normal <=31 [facility] Comment on above: Performed By: #### L 503.5510 #### [facility] [address] [place], [address] Bilirubin [Mass/Vol] 1.25 mg/dL Normal 0.00-1.30 [facility] Comment on above: Performed By: #### L 503.5510 #### [facility] [address] [place], [address] BUN/CRE 15.9 RATIO Normal 10-20 [facility] Comment on above: Performed By: #### L 503.5510 #### [facility] [address] [place], [address] Calcium [Mass/Vol] 10.4 mg/dL Normal 7.6-11.0 [facility] Comment on above: Performed By: #### L 503.5510 #### [facility] [address] [place], [address] Chloride [Moles/Vol] 101 mmol/L Normal 98-108 [facility] Comment on above: Performed By: #### L 503.5510 #### [facility] [address] [place], [address] CO2 [Moles/Vol] 21.5 mmol/L Normal 21.0-32.0 [facility] Comment on above: Performed By: #### L 503.5510 #### [facility] [address] [place], [address] Creatinine [Mass/Vol] 0.77 mg/dL Normal 0.70-1.20 [facility] Comment on above: Performed By: #### L 503.5510 #### [facility] [address] [place], [address] GAP 13 Normal 5-15 [facility] Comment on above: Performed By: #### L 503.5510 #### [facility] [address] [place], [address] GFR/1.73 sq M.predicted among non-blacks MDRD (S/P/Bld) [Vol rate/Area] 87 mL/min/{1.73_m2} Normal >60 [facility] Comment on above: Result Comment: mL/m in/1.73m2 CKD-EPI Creatinine Equation (2020) Performed By: #### L 503.5510 #### [facility] [address] [place], [address] Globulin (S) [Mass/Vol] 2.8 g/dL Normal 2.2-4.2 [facility] Comment on above: Performed By: #### L 503.5510 #### [facility] [address] [place], [address] Glucose [Mass/Vol] 105 mg/dL High 70-99 [facility] Comment on above: Performed By: #### L 503.5510 #### [facility] [address] [place], [address] Potassium [Moles/Vol] 4.0 mmol/L Normal 3.3-5.1 [facility] Comment on above: Performed By: #### L 503.5510 #### [facility] [address] [place], [address] Sodium [Moles/Vol] 136 mmol/L Normal 133-145 [facility] Comment on above: Performed By: #### L 503.5510 #### [facility] [address] [place] [place], [address] T PROT 7.1 g/dL Normal 5.9-8.4 [facility] Comment on above: Performed By: #### L 503.5510 #### [facility] [address] [place], [address] Urea nitrogen [Mass/Vol] 12 mg/dL Normal 4-19 [facility] Comment on above: Performed By: #### L 503.5510 #### [facility] [address] [place] [place], [address] Syphilis Antibodieson 2024 Syphilis Abs Non-Reactive Normal Nonreactive [facility] Comment on above: Performed By: #### L 503.5510 #### [facility] [address] [place] [place], [address] Thyroid Stim Hormone (TSH)on 06-10-2025 TSH 0.065 uIU/mL Low 0.300-4.200 [facility] Comment on above: Performed By: #### L 503.5510 #### [facility] [address] [place] [place], [address] Thyroidon 06-04-2025 Thyroid [facility] [address] [place] [address] Thyroid MR#: [id number] Acct: [id number] Name: RICHY RODRIGUEZ BHAVYA Rep #: [id number] : 1960 F 64 From: João [place] MD PCP: Dr. July Rees MD Status: REG CLI Study: Thyroid Date of Exam: 06/04/25 Exam# [id number] Ordering Dr: July Rees MD PROCEDURE: THYROID [...] thyroid ultrasound in 1 year. Reading Location: [place] [address] CC: Dr. July Rees MD Statement Request Clerk: Signed [facility] LABORATORYOrdered By: SYSTEM SYSTEM on 06-02-2025 Thyroglobulin Ab IA Qn 29 unit/mL Normal 15 - 60 unit/mL AH ADM SS TPO Ab IA Qn 36 unit/mL Normal 0 - 60 unit/mL AH ADM S S THYABon 06-02-2025 anti-Thyroid Peroxidase 36 units/ml Normal 0-60 [facility] Comment on above: Performed By: #### T HYAB #### [address] [address] Thyroglobulin Ab 29 units/ml Normal 15-60 [facility] Comment on above: Performed By: #### T HYAB #### [address] [address] .GFRon 05-29-2025 Estimated Glomerular Filtration Rate 84 ml/min/1.73sqm Normal [facility] Comment on above: Result Comment: Stages [...] FR, FT3, CRP, FT4, TSH, CMP #### [address] [address] CMPon 05-29-2025 Albumin Level 3.6 G/dL Normal 3.4-4.8 [facility] Comment on above: Performed By: #### G FR, FT3, CRP, FT4, TSH, CMP #### [address] [address] Albumin/Globulin [Mass ratio] 0.9 {ratio} Low 1.1-2.5 [facility] Comment on above: Performed By: #### G FR, FT3, CRP, FT4, TSH, CMP #### [address] [address] ALP [Catalytic activity/Vol] 105 U/L Normal 40-135 [facility] Comment on above: Performed By: #### G FR, FT3, CRP, FT4, TSH, CMP #### [address] [address] ALT [Catalytic activity/Vol] 25 U/L Normal 14-59 [facility] Comment on above: Performed By: #### G FR, FT3, CRP, FT4, TSH, CMP #### [address] [address] AST [Catalytic activity/Vol] 18 U/L Normal 10-40 [facility] Comment on above: Performed By: #### G FR, FT3, CRP, FT4, TSH, CMP #### [address] [address] Bili Total 1.4 mg/dL High 0.2-1.0 [facility] Comment on above: Result Comment: Use of this assay is not recommended for patients undergoing treatment with eltrombopag due to the potential for falsely elevated results. Performed By: #### G FR, FT3, CRP, FT4, TSH, CMP #### [address] [address] BUN/Creatinine Ratio 16 ratio Normal 7-27 [facility] Comment on above: Performed By: #### G FR, FT3, CRP, FT4, TSH, CMP #### [address] [address] Calcium [Mass/Vol] 10.3 mg/dL High 8.4-10.2 [facility] Comment on above: Performed By: #### G FR, FT3, CRP, FT4, TSH, CMP #### [place] [address] Chloride [Moles/Vol] 105 mmol/L Normal 98-107 [facility] Comment on above: Performed By: #### G FR, FT3, CRP, FT4, TSH, CMP #### [place] [address] CO2 [Moles/Vol] 30 mmol/L Normal 23-31 [facility] Comment on above: Performed By: #### G FR, FT3, CRP, FT4, TSH, CMP #### [place] [address] Creatinine [Mass/Vol] 0.79 mg/dL Normal 0.51-0.95 [facility] Comment on above: Performed By: #### G FR, FT3, CRP, FT4, TSH, CMP #### [place] [address] Electrolyte Balance 5.0 mEq/L Normal 4.0-15.0 [facility] Comment on above: Performed By: #### G FR, FT3, CRP, FT4, TSH, CMP #### [place] [address] Globulin 3.8 G/dL Normal 2.7-4.4 [facility] Comment on above: Performed By: #### G FR, FT3, CRP, FT4, TSH, CMP #### [address] [address] Glucose [Mass/Vol] 139 mg/dL High 80-115 [facility] Comment on above: Performed By: #### G FR, FT3, CRP, FT4, TSH, CMP #### [address] [address] Potassium [Moles/Vol] 4.0 mmol/L Normal 3.5-5.1 [facility] Comment on above: Performed By: #### G FR, FT3, CRP, FT4, TSH, CMP #### [address] [address] Sodium [Moles/Vol] 140 mmol/L Normal 136-145 [facility] Comment on above: Performed By: #### G FR, FT3, CRP, FT4, TSH, CMP #### [address] [address] Total Protein 7.4 G/dL Normal 6.4-8.2 [facility] Comment on above: Performed By: #### G FR, FT3, CRP, FT4, TSH, CMP #### [address] [address] Urea nitrogen [Mass/Vol] 13 mg/dL Normal 7-18 [facility] Comment on above: Performed By: #### G FR, FT3, CRP, FT4, TSH, CMP #### [address] [address] CRPon 05-29-2025 C-Reactive Protein 1.2 mg/dL High 0.0-0.3 [facility] Comment on above: Performed By: #### G FR, FT3, CRP, FT4, TSH, CMP #### [address] [address] FT3on 05-29-2025 Free T3 [Mass/Vol] 2.78 pg/mL Normal 2.30-4.00 [facility] Comment on above: Performed By: #### G FR, FT3, CRP, FT4, TSH, CMP #### [place] [address] [place], [place] [address] FT4on 05-29-2025 Free T4 [Mass/Vol] 1.28 ng/dL Normal 0.76-1.46 [facility] Comment on above: Performed By: #### G FR, FT3, CRP, FT4, TSH, CMP #### [place] [address] [place], [place] [address] LABORATORYOrdered By: SYSTEM SYSTEM on 05-29-2025 Albumin [...] 05-29-2025 TSH Qn 0.07 m[IU]/L Low 0.36-3.74 [facility] Comment on above: Performed By: #### G FR, FT3, CRP, FT4, TSH, CMP #### [place] [address] [place], [place] [address] ANCAon 05-10-2025 Atypical pANCA <1:20 Normal Neg:<1:20 [facility] Comment on above: Result Comment: The atypical pANCA pattern has been observed in a significant percentage of patients with ulcerative colitis, primary sclerosing cholangitis and autoimmune hepatitis. Performed At: [address] [id number] Pritesh Sidhu PhD Ph:[phone] Performed By: #### G FR, FT3, CRP, FT4, TSH, CMP #### [address] [address] Cytoplasmic (C-ANCA) <1:20 Normal Neg:<1:20 [facility] Comment on above: Performed By: #### G FR, FT3, CRP, FT4, TSH, CMP #### [place] [id number] Perinuclear (P-ANCA) <1:20 Normal Neg:<1:20 [facility] Comment on above: Result Comment: The presence of positive fluorescence exhibiting P-ANCA or C-ANCA patterns alone is not specific for the diagnosis of Judah's Granulomatosis (WG) or microscopic polyangiitis. Decisions about treatment should not be based solely on ANCA IFA results. The [employer] ANCA [employer] Consensus recommends follow up testing of positive sera with both NH- 3 and MPO-ANCA enzyme immunoassays. As many as 5% serum samples are positive only by EIA. Ref. AM J Clin Pathol 1999;111:507-513. Performed By: #### G FR, FT3, CRP, FT4, TSH, CMP #### [address] [address] .Auto Diffon 05-07-2025 Basophil, Absolute 0.1 10 3/mcL Normal 0.0-0.3 [facility] Comment on above: Performed By: #### G FR, FT3, CRP, FT4, TSH, CMP #### [address] [address] Basophils/100 WBC (Bld) 0.6 % Normal 0.0-2.5 [facility] Comment on above: Performed By: #### G FR, FT3, CRP, FT4, TSH, CMP #### [address] [address] Eosinophil, Absolute 0.3 10 3/mcL Normal 0.0-0.7 [facility] Comment on above: Performed By: #### G FR, FT3, CRP, FT4, TSH, CMP #### [address] [address] Eosinophils/100 WBC (Bld) 3.4 % Normal 0.0-6.0 [facility] Comment on above: Performed By: #### G FR, FT3, CRP, FT4, TSH, CMP #### [address] [address] Lymphocyte, Absolute 2.9 10 3/mcL Normal 0.9-4.3 [facility] Comment on above: Performed By: #### G FR, FT3, CRP, FT4, TSH, CMP #### [address] [address] Lymphocytes/100 WBC (Bld) 35.7 % Normal 20.0-40.0 [facility] Comment on above: Performed By: #### G FR, FT3, CRP, FT4, TSH, CMP #### [address] [address] Monocyte, Absolute 0.7 10 3/mcL Normal 0.1-1.4 [facility] Comment on above: Performed By: #### G FR, FT3, CRP, FT4, TSH, CMP #### [address] [address] Monocytes/100 WBC (Bld) 8.7 % Normal 2.0-13.0 [facility] Comment on above: Performed By: #### G FR, FT3, CRP, FT4, TSH, CMP #### [address] [address] Neutrophils/100 WBC (Bld) 51.6 % Normal 50.0-75.0 [facility] Comment on above: Performed By: #### G FR, FT3, CRP, FT4, TSH, CMP #### [address] [address] .GFRon 05-07-2025 Estimated Glomerular Filtration Rate 78 ml/min/1.73sqm Normal [facility] Comment on above: Result Comment: Stages [...] FR, FT3, CRP, FT4, TSH, CMP #### [address] [address] .NEUABSon 05-07-2025 Neutrophil, Absolute 4.2 10 3/mcL Normal 2.3-8.1 [facility] Comment on above: Performed By: #### G FR, FT3, CRP, FT4, TSH, CMP #### [address] [address] A1Con 05-07-2025 Glucose [Mass/Vol] 148 mg/dL Normal [facility] Comment on above: Result Comment: Beth mated Average Glucose calculated by equation ((28.7xA1C)-46.7) Estimated average glucose (eAG) is a calculated value from Hemoglobin A1C and is provider relations representative of the average blood glucose level in the last 2-3 month period. Normal range: less than 114 mg/dL Performed By: #### G FR, FT3, CRP, FT4, TSH, CMP #### [address] [address] HbA1c (Bld) [Mass fraction] 6.8 % High 4.3-6.4 [facility] Comment on above: Performed By: #### G FR, FT3, CRP, FT4, TSH, CMP #### [address] [address] CBCon 05-07-2025 Erythrocyte distribution width (RBC) [Ratio] 13.4 % Normal 11.5-15.5 [facility] Comment on above: Performed By: #### A CRISTY, ADIFF, A1C, CMP, TSH, [id number], CRP, CBC, GFR, LIPID #### [address] [address] #### JOON #### [address] [address] Hematocrit (Bld) [Volume fraction] 38.4 % Normal 34.0-46.0 [facility] Comment on above: Performed By: #### A CRISTY, ADIFF, A1C, CMP, TSH, 395339, CRP, CBC, GFR, LIPID #### [address] [address] #### JOON #### [place] [address] Hgb 13.3 G/dL Normal 12.0-16.0 [facility] Comment on above: Performed By: #### A CRISTY, ADIFF, A1C, CMP, TSH, 287985, CRP, CBC, GFR, LIPID #### [address] [address] #### JOON #### [address] [address] MCH (RBC) [Entitic mass] 31.9 pg Normal 27.0-33.0 [facility] Comment on above: Performed By: #### A CRISTY, ADIFF, A1C, CMP, TSH, 277657, CRP, CBC, GFR, LIPID #### [address] [address] #### JOON #### [place] [address] MCHC 34.5 G/dL Normal 32.0-36.0 [facility] Comment on above: Performed By: #### A CRISTY, ADIFF, A1C, CMP, TSH, 663089, CRP, CBC, GFR, LIPID #### [address] [address] #### JOON #### [place] [address] MCV (RBC) [Entitic vol] 92.6 fL Normal 80.0-99.0 [facility] Comment on above: Performed By: #### A CRISTY, ADIFF, A1C, CMP, TSH, 127278, CRP, CBC, GFR, LIPID #### [place] [address] #### JOON #### [place] [address] Platelet 306 10 3/mcL Normal 150-450 [facility] Comment on above: Performed By: #### A CRISTY, ADIFF, A1C, CMP, TSH, 499335, CRP, CBC, GFR, LIPID #### [place] [address] #### JOON #### [place] [address] Platelet mean volume (Bld) [Entitic vol] 7.8 fL Normal 6.6-10.5 [facility] Comment on above: Performed By: #### A CRISTY, ADIFF, A1C, CMP, TSH, 078736, CRP, CBC, GFR, LIPID #### [address] [address] #### JOON #### [place] [address] RBC 4.15 10 6/mcL Normal 4.10-5.30 [facility] Comment on above: Performed By: #### A CRISTY, ADIFF, A1C, CMP, TSH, 368619, CRP, CBC, GFR, LIPID #### [place] [address] #### JOON #### [place] [address] WBC 8.1 10 3/mcL Normal 4.5-10.8 [facility] Comment on above: Performed By: #### A CRISTY, ADIFF, A1C, CMP, TSH, 370769, CRP, CBC, GFR, LIPID #### [address] [address] #### JOON #### [address] [address] Albumin Level 3.5 G/dL Normal 3.4-4.8 [facility] Comment on above: Performed By: #### G FR, FT3, CRP, FT4, TSH, CMP #### [address] [address] Albumin/Globulin [Mass ratio] 0.9 {ratio} Low 1.1-2.5 [facility] Comment on above: Performed By: #### G FR, FT3, CRP, FT4, TSH, CMP #### [address] [address] ALP [Catalytic activity/Vol] 106 U/L Normal 40-135 [facility] Comment on above: Performed By: #### G FR, FT3, CRP, FT4, TSH, CMP #### [address] [address] ALT [Catalytic activity/Vol] 33 U/L Normal 14-59 [facility] Comment on above: Performed By: #### G FR, FT3, CRP, FT4, TSH, CMP #### [address] [address] AST [Catalytic activity/Vol] 15 U/L Normal 10-40 [facility] Comment on above: Performed By: #### G FR, FT3, CRP, FT4, TSH, CMP #### [address] [address] Bili Total 1.3 mg/dL High 0.2-1.0 [facility] Comment on above: Result Comment: Use of this assay is not recommended for patients undergoing treatment with eltrombopag due to the potential for falsely elevated results. Performed By: #### G FR, FT3, CRP, FT4, TSH, CMP #### [address] [address] BUN/Creatinine Ratio 17 ratio Normal 7-27 [facility] Comment on above: Performed By: #### G FR, FT3, CRP, FT4, TSH, CMP #### [address] [address] Calcium [Mass/Vol] 10.1 mg/dL Normal 8.4-10.2 [facility] Comment on above: Performed By: #### G FR, FT3, CRP, FT4, TSH, CMP #### [address] [address] Chloride [Moles/Vol] 101 mmol/L Normal 98-107 [facility] Comment on above: Performed By: #### G FR, FT3, CRP, FT4, TSH, CMP #### [address] [address] CO2 [Moles/Vol] 27 mmol/L Normal 23-31 [facility] Comment on above: Performed By: #### G FR, FT3, CRP, FT4, TSH, CMP #### [address] [address] Creatinine [Mass/Vol] 0.84 mg/dL Normal 0.51-0.95 [facility] Comment on above: Performed By: #### G FR, FT3, CRP, FT4, TSH, CMP #### [address] [address] Electrolyte Balance 9.0 mEq/L Normal 4.0-15.0 [facility] Comment on above: Performed By: #### G FR, FT3, CRP, FT4, TSH, CMP #### [address] [address] Globulin 3.9 G/dL Normal 2.7-4.4 [facility] Comment on above: Performed By: #### G FR, FT3, CRP, FT4, TSH, CMP #### [address] [address] Glucose [Mass/Vol] 133 mg/dL High 80-115 [facility] Comment on above: Performed By: #### G FR, FT3, CRP, FT4, TSH, CMP #### [place] [address] Potassium [Moles/Vol] 4.0 mmol/L Normal 3.5-5.1 [facility] Comment on above: Performed By: #### G FR, FT3, CRP, FT4, TSH, CMP #### [place] [address] Sodium [Moles/Vol] 137 mmol/L Normal 136-145 [facility] Comment on above: Performed By: #### G FR, FT3, CRP, FT4, TSH, CMP #### [place] [address] Total Protein 7.4 G/dL Normal 6.4-8.2 [facility] Comment on above: Performed By: #### G FR, FT3, CRP, FT4, TSH, CMP #### [place] [address] Urea nitrogen [Mass/Vol] 14 mg/dL Normal 7-18 [facility] Comment on above: Performed By: #### G FR, FT3, CRP, FT4, TSH, CMP #### [place] [address] CORTon 05-07-2025 Cortisol Level 12.6 mcg/dL Normal [facility] Comment on above: Result Comment: Joon isol AM Reference Range 6.5-26.0 mcg/dL Cortisol PM Reference Range 3.5-15.0 mcg/dL Performed By: #### G FR, FT3, CRP, FT4, TSH, CMP #### [place] [address] CRPon 05-07-2025 C-Reactive Protein 1.0 mg/dL High 0.0-0.3 [facility] Comment on above: Performed By: #### G FR, FT3, CRP, FT4, TSH, CMP #### [place] [address] LABORATORYOrdered By: Shane Basurto on 05-07-2025 Albumin [...] calculated value from Hemoglobin A1C and is provider relations representative of the average blood glucose level [...] 05-07-2025 Cholesterol [Mass/Vol] 242 mg/dL High 0-200 [facility] Comment on above: Result Comment: Chol esterol Reference Interval: Less than 200 Desirable 200-239 Borderline high risk 240 and above High risk Performed By: #### G FR, FT3, CRP, FT4, TSH, CMP #### [address] [address] Cholesterol in HDL [Mass/Vol] 36 mg/dL Low 40-60 [facility] Comment on above: Performed By: #### G FR, FT3, CRP, FT4, TSH, CMP #### [place] [address] [place], [place] [address] Cholesterol in LDL [Mass/Vol] 165 mg/dL High 0-130 [facility] Comment on above: Performed By: #### G FR, FT3, CRP, FT4, TSH, CMP #### [address] [address] Triglyceride [Mass/Vol] 203 mg/dL High 0-150 [facility] Comment on above: Result Comment: Trig lyceride Reference Interval: Less than 150 Normal 150-199 Borderline high risk 200-499 High risk 500 or higher Very high risk Performed By: #### G FR, FT3, CRP, FT4, TSH, CMP #### [place] [address] [place], [place] [address] Laboratory - Chemistry and C hemistry - challengeOrdered By: Macarena Basurto on 05-07-2025 Creatinine (U) [Mass/Vol] 123.6 mg/dL Invalid Interpretation Code AO ADM SS MALBRon 05-07-2025 U Creatinine 123.6 mg/dL Normal [facility] Comment on above: Performed By: #### R JACOB, MALBR #### [address] [address] U Microalb 9.2 mg/L Normal [facility] Comment on above: Performed By: #### R JACOB, MALBR #### [address] [address] U Ratio Alb/Cre 7 mg/G Normal 0-30 [facility] Comment on above: Performed By: #### R JACOB, MALBR #### [address] [address] RPCURon 05-07-2025 U Protein 14 mg/dL Normal [facility] Comment on above: Performed By: #### R JACOB, MALBR #### [address] [address] U Ratio Prot/Creat 0.1 ratio Normal [facility] Comment on above: Performed By: #### R JACOB, MALBR #### [address] [address] TSHon 05-07-2025 TSH Qn 0.54 m[IU]/L Normal 0.36-3.74 [facility] Comment on above: Performed By: #### G FR, FT3, CRP, FT4, TSH, CMP #### [address] [address] Brain/Head without Contrasto n 05-05-2025 Brain/Head without Contrast [facility] Imaging Services [address] [place] [address] Brain/Head without Contrast MR#: [id number] Acct: [id number] Name: RICHY RODRIGUEZ Rep #: [id number] : 1960 F 64 From: Kamaljit Degroot MD PCP: Dr. July Rees MD Status: REG CLI Study: Brain/Head without Contrast Date of Exam: 05/21 Exam# [id number] Ordering Dr: Nan Stewart NP CLINICAL BIOCHEMIST-C PROCEDURE: CT BRAIN/HEAD WITHOUT CONTRAST 05/05/2025 REASON [...] IMPRESSION: No acute intracranial abnormality. Reading Location: [facility] CC: CLINICAL BIOCHEMIST-C Nan Stewart; Dr. July Rees MD Statement Request Clerk: Signed Normal [facility] CBC W/ Manual Differentialon 09-24-2024 PATH REV Reviewed Normal [facility] Comment on above: Result Comment: Efren Patrick M.D. 09/24/24 AMENDED REPORT 09/24/24 1425 PATH REV previously reported as: December Performed By: #### L 501.080 #### [facility] Laboratory [address] [place], [address] Comprehensive Metabolic Prof ilon 09-23-2024 Albumin [Mass/Vol] 3.7 g/dL Normal 3.2-5.0 [facility] Comment on above: Order Comment: Order Date: 09/18/24Order Info: [id number] - CMPOrder Info: [id number] - TSH Performed By: #### L 501.080 #### [facility] [address] [place], [address] Albumin/Globulin [Mass ratio] 0.9 {ratio} Normal 0.9-2.4 [facility] Comment on above: Order Comment: Order Date: 09/18/24Order Info: [id number] - CMPOrder Info: [id number] - TSH Performed By: #### L 501.080 #### [facility] [address] [place], [address] ALK P 97 U/L Normal 45-117 [facility] Comment on above: Order Comment: Order Date: 09/18/24Order Info: 07- - CMPOrder Info: 3015-10 - TSH Performed By: #### L 501.080 #### [facility] [address] [place], [address] ALT [Catalytic activity/Vol] 33 U/L Normal 13-56 [facility] Comment on above: Order Comment: Order Date: 09/18/24Order Info: [id number]- - CMPOrder Info: 3015-10 - TSH Performed By: #### L 501.080 #### [facility] [address] [place], [address] AST [Catalytic activity/Vol] 16 U/L Normal 15-37 [facility] Comment on above: Order Comment: Order Date: 09/18/24Order Info: 0786- - CMPOrder Info: [id number]- - TSH Performed By: #### L 501.080 #### [facility] [address] [place], [address] Bilirubin [Mass/Vol] 1.10 mg/dL High 0.20-1.00 [facility] Comment on above: Order Comment: Order Date: 09/18/24Order Info: 0786-1 - CMPOrder Info: [id number] - TSH Result Comment: For patients on eltrombopag therapy, use of Dimension Boelus TBIL is not recommended. Performed By: #### L 501.080 #### [facility] [address] [place], [address] BUN/CRE 20.3 RATIO High 10-20 [facility] Comment on above: Order Comment: Order Date: 09/18/24Order Info: [id number] - CMPOrder Info: 3015-3 - TSH Performed By: #### L 501.080 #### [facility] [address] [place], [address] CA,Total 10.5 mg/dL High 8.5-10.1 [facility] Comment on above: Order Comment: Order Date: 09/18/24Order Info: 86-1 - CMPOrder Info: 3 - TSH Performed By: #### L 501.080 #### [facility] [address] [place], [address] Chloride [Moles/Vol] 104 mmol/L Normal 98-107 [facility] Comment on above: Order Comment: Order Date: 09/18/24Order Info: 0786-1 - CMPOrder Info: 3015-10 - TSH Performed By: #### L 501.080 #### [facility] [address] [place], [address] CO2 [Moles/Vol] 27.0 mmol/L Normal 21.0-32.0 [facility] Comment on above: Order Comment: Order Date: 09/18/24Order Info: 0786-1 - CMPOrder Info: 3015-3 - TSH Performed By: #### L 501.080 #### [facility] [address] [place], [address] Creatinine [Mass/Vol] 0.99 mg/dL Normal 0.55-1.02 [facility] Comment on above: Order Comment: Order Date: 09/18/24Order Info: 0786-1 - CMPOrder Info: 6-3 - TSH Result Comment: The validity of the calculated GFR GFRAA in patients over 70 years has not been determined. Clinical correlation is essential. Performed By: #### L 501.080 #### [facility] [address] [place], [address] EST GFR - AA 73 mL/min Normal >60 [facility] Comment on above: Order Comment: Order Date: 09/18/24Order Info: 0786-1 - CMPOrder Info: 6-3 - TSH Result Comment: Afri can Greenlandic GFR Calc Performed By: #### L 501.080 #### [facility] [address] [place], [address] GAP 7 Normal 5-15 [facility] Comment on above: Order Comment: Order Date: 09/18/24Order Info: 86-1 - CMPOrder Info: [id number] - TSH Performed By: #### L 501.080 #### [facility] [address] [place], [address] GFR/1.73 sq M.predicted among non-blacks MDRD (S/P/Bld) [Vol rate/Area] 61 mL/min/{1.73_m2} Normal >60 [facility] Comment on above: Order Comment: Order Date: 09/18/24Order Info: 0786-1 - CMPOrder Info: 3015-3 - TSH Result Comment: Non- GFR Calc Performed By: #### L 501.080 #### [facility] [address] [place], [address] Globulin (S) [Mass/Vol] 4.3 g/dL High 2.2-4.2 [facility] Comment on above: Order Comment: Order Date: 09/18/24Order Info: 0786-1 - CMPOrder Info: 3015-3 - TSH Performed By: #### L 501.080 #### [facility] [address] [place], [address] Glucose [Mass/Vol] 114 mg/dL High 74-106 [facility] Comment on above: Order Comment: Order Date: 09/18/24Order Info: 0786-1 - CMPOrder Info: [id number] - TSH Result Comment: Fast ing Glucose result from 100 to 125 mg/dL suggests IMPAIRED HOMEOSTASIS per A.D.A. criteria. Performed By: #### L 501.080 #### [facility] [address] [place], [address] Potassium [Moles/Vol] 3.6 mmol/L Normal 3.5-5.1 [facility] Comment on above: Order Comment: Order Date: 09/18/24Order Info: 0786-1 - CMPOrder Info: 3 - TSH Performed By: #### L 501.080 #### [facility] [address] [place], [address] Sodium [Moles/Vol] 138 mmol/L Normal 136-145 [facility] Comment on above: Order Comment: Order Date: 09/18/24Order Info: 0786-1 - CMPOrder Info: 3015-10 - TSH Performed By: #### L 501.080 #### [facility] [address] [place], [address] T PROT 8.0 g/dL Normal 6.4-8.2 [facility] Comment on above: Order Comment: Order Date: 09/18/24Order Info: 0786-1 - CMPOrder Info: 3015-10 - TSH Performed By: #### L 501.080 #### [facility] [address] [place], [address] Urea nitrogen [Mass/Vol] 20 mg/dL High 7-18 [facility] Comment on above: Order Comment: Order Date: 09/18/24Order Info: 0786-1 - CMPOrder Info: 3 - TSH Performed By: #### L 501.080 #### [facility] [address] [place], [address] Creatinine, Urine (random)on 09-23-2024 UR CREAT 20.40 mg/dL Normal NO RANGE EST. [facility] Comment on above: Order Comment: Order Date: 09/18/24 Order Info: 2161-8 - CREATU Order Info: [id number] - ALBU Performed By: #### L 502.0500, L501.1200 #### [facility] [address] [place], [address] Microalbumin,Random Urineon 09-23-2024 MICROALBUMIN,UR < 5.0 Normal NO RANGE EST. [facility] Comment on above: Order Comment: Order Date: 09/18/24Order Info: 216-8 - CREATUOrder Info: [id number] - ALBU Performed By: #### L 100.0500, L500.2500 #### [facility] [address] [place], [address] Thyroid Stim Hormone (TSH)on 09-23-2024 TSH 1.140 uIU/mL Normal 0.358-3.740 [facility] Comment on above: Order Comment: Order Date: 09/18/24Order Info: [id number] - CMPOrder Info: [id number] - TSH Performed By: #### L 501.080 #### [facility] [address] [place], [address] Basophil percentageOrdered B y: July Rees on 11-16-2023 Bilirubin [Mass/Vol] 1.30 mg/dL 0.20-1.00 [facility] Comment on above: For patients on eltr ombopag therapy, use of Dimension Boelus TBIL is not recommended. Chloride [Moles/Vol] 108 mmol/L 98-107 [facility] Cholesterol [Mass/Vol] 223 mg/dL <200 [facility] Comment on above: <200 mg/dL Desirable 200-240 mg/dL Borderline >240 mg/dL High Risk Glucose [Mass/Vol] 203 mg/dL 74-106 [facility] Comment on above: Glucose result great er than or equal to 200 mg/dLsuggests DIABETES MELLITUS per A.D.A. criteria. Potassium [Moles/Vol] 4.2 mmol/L 3.5-5.1 [facility] Protein [Mass/Vol] 7.7 g/dL 6.4-8.2 [facility] Sodium [Moles/Vol] 141 mmol/L 136-145 [facility] Triglyceride [Mass/Vol] 334 mg/dL <199 [facility] Comment on above: The drugs N-Acetylcy steine and Metamizole may falsely depress this assay.Serum Triglycerides Reference Interval Normal <150 mg/dL Borderline high 150 - 199 mg/dL High 200 - 499 mg/dL Very High > or = 500 mg/dL Laboratory - Chemistry and C hemistry - challengeOrdered By: July Rees on 11-16-2023 Albumin/Globulin [Mass ratio] 1.0 {ratio} 0.9-2.4 [facility] ALP [Catalytic activity/Vol] 131 U/L 45-117 [facility] ALT [Catalytic activity/Vol] 81 U/L 13-56 [facility] Cholesterol in HDL [Mass/Vol] 36 mg/dL >40 [facility] Comment on above: The drugs N-Acetylcy steine and Metamizole may falsely depress this assay. Reference Range HDL <40 mg/dL Low HDL Cholesterol HDL >or= 60 mg/dL High HDL Cholesterol Cholesterol in LDL [Mass/Vol] 120 mg/dL 0-130 [facility] CO2 [Moles/Vol] 26.0 mmol/L 21.0-32.0 [facility] Globulin (S) [Mass/Vol] 3.8 g/dL 2.2-4.2 [facility] Urea nitrogen/Creatinine [Mass ratio] 15.9 mg/mg 10-20 [facility] No Panel InformationOrdered By: July Rees on 11-16-2023 Estimated GFR (MDRD) Amer 83 mL/min >60 [facility] Comment on above: GFR Calc Estimated GFR (MDRD) Non-Af Amer 69 mL/min >60 [facility] Comment on above: Non- GFR Calc Urine Microalbumin/Creatini ne Ratio 8.7 mg/g CRE <30 [facility] VLDL Cholesterol 67 mg/dL 5-40 [facility] Serum or plasma calcium gold urement (mass/volume)Ordered By: July eRes on 11-16-2023 Calcium [Mass/Vol] 10.0 mg/dL 8.5-10.1 [facility] Serum or plasma creatinine m easurement (mass/volume)Ordered By: July Rees on 11-16-2023 Creatinine [Mass/Vol] 0.88 mg/dL 0.55-1.02 [facility] Comment on above: The validity of the calculated GFR & GFRAA in patients over 70 years has not been determined. Clinical correlation is essential. Serum or plasma thyroid stim ulating hormone (TSH) measurement (units/volume)Ordered By: July Rees on 11-16-2023 TSH Qn 0.79 uIU/mL 0.358-3.74 [facility] Serum or plasma urea nitroge n measurement (mass/volume)Ordered By: July Rees on 11-16-2023 Urea nitrogen [Mass/Vol] 14 mg/dL 7-18 [facility] Thin prep Papanicolaou smear with manual screeningOrdered By: July Rees on 11-16-2023 Thin prep Papanicolaou smear with manual screening 3.9 g/dL 3.2-5.0 [facility] Thin prep Papanicolaou smear with manual screening 50 U/L 15-37 [facility] Thin prep Papanicolaou smear with manual screening 7 5-15 [facility] Thin prep Papanicolaou smear with manual screening 14.1 mg/L NO RANGE EST. [facility] Urine creatinine measurement (mass/volume)Ordered By: July Rees on 11-16-2023 Creatinine (U) [Mass/Vol] 162.00 mg/dL NO RANGE EST. [facility] Final Surgical Pathology Rep gonzalo 11-22-2022 Final Surgical Pathology Report . Pathology Reports Accession: Collected Date/Time: Received Date/Time: Pathologist: [id number] 11/20/2022 09:04 EDT 11/21/2022 10:52 EDT SHAYNE VILLAGOMEZ MD Final Surgical Pathology Report DIAGNOSIS: ILEOCECAL VALVE BIOPSY: - COLONIC MUCOSA WITHOUT SIGNIFICANT MICROSCOPIC PATHOLOGY COMMENT: [facility] - [id number] CLINICAL INFORMATION: Procedure: COLONOSCOPY WITH BIOPSY Preoperative diagnosis: HX OF COLON POLYPS Postoperative diagnosis: SAME SPECIMEN: A ILEOCECAL VALVE BIOPSY GROSS DESCRIPTION: All parts labelled with patient name and [id number] Received in formalin labelled "ileocecal valve biopsy" are two fragments of nagy tissue each measuring 0.2 and 0.3 cm. TS-1 Roxi Hurtado, Grossing Rn Radiation/ Dr. Shayne Villagomez, Pathologist Dictated by Roxi Hurtado MICROSCOPIC DESCRIPTION: The microscopic examination is performed, except in the case of Gross Only. Electronically Signed by Pathology Report verified by [facility] SHAYNE VILLAGOMEZ Sign out Date: 11/22/2022 14:57 Performing Lab: [facility], [address] [place] [address] Pathology Dept Normal [facility] ([place]) MRI SHOULDER W/O CONTRAST LE FTon 08-18-2022 [...] 08/18/2022 9:23:55 AM Ordering Provider: OLIVIER BROWN [facility] ([place] XR FINGER 3RD DIGIT 3 VIEWS LEFTon [...] 02/09/2022 1:15:50 AM Ordering Provider: OLIVIER BROWN [facility] [place]) Basophil percentageon 2021 Bilirubin [Mass/Vol] 0.90 mg/dL 0.20-1.00 [facility] Work Phone: Comment on above: For patients on eltr ombopag therapy, use of Dimension Boelus TBIL is not recommended. Chloride [Moles/Vol] 106 mmol/L 98-107 [facility] Work Phone: Glucose [Mass/Vol] 189 mg/dL 74-106 [facility] Work Phone: Comment on above: Fasting Glucose resu lt greater than or equal to 126 mg/dL suggests DIABETES MELLITUS per A.D.A. criteria. Potassium [Moles/Vol] 3.6 mmol/L 3.5-5.1 [facility] Work Phone: [phone] Protein [Mass/Vol] 7.3 g/dL 6.4-8.2 [facility] Work Phone: [phone] Sodium [Moles/Vol] 139 mmol/L 136-145 [facility] Work Phone: Laboratory - Chemistry and C hemistry - challengeon 01-10-2022 ALP [Catalytic activity/Vol] 95 U/L 45-117 [facility] Work Phone: ALT [Catalytic activity/Vol] 75 U/L 13-56 [facility] Work Phone: CO2 [Moles/Vol] 26.0 mmol/L 21.0-32.0 [facility] Work Phone: Free T4 [Mass/Vol] 0.84 ng/dL 0.76-1.46 [facility] Work Phone: [phone] Globulin (S) [Mass/Vol] 3.6 g/dL 2.2-4.2 [facility] Work Phone: Urea nitrogen/Creatinine [Mass ratio] 14.6 mg/mg 10-20 [facility] Work Phone: No Panel Informationon 01-10 Thyroglobulin Antibody < 1.0 IU/mL [facility] Work Phone: Comment on above: Thyroglobulin Antibo dy measured by Kale [employer] Thyroglobulin Level 24.5 ng/mL [facility] Work Phone: [phone] Comment on above: According to the [facility] Academy of Clinical Biochemistry,the reference interval for Thyroglobulin (TG) should berelated to euthyroid patients and not for patients whounderwent thyroidectomy. TG reference intervals for thesepatients depend on the residual mass of the thyroid tissueleft after surgery. Establishing a post-operative baselineis recommended. The assay limit of quantitation is 0.1ng/mLThyroglobulin measured by Kale Aidan [employer] Estimated GFR (MDRD) Amer 77 mL/min >60 [facility] Work Phone: Comment on above: GFR Calc Estimated GFR (MDRD) Non-Af Amer 63 mL/min >60 [facility] Work Phone: Comment on above: Non- GFR Calc Free Triiodothyronine (T3) pg/dL 2.3 pg/mL 2.18-3.98 [facility] Work Phone: [phone] Thyroid Stimulating Hormone (TSH) 0.63 uIU/mL 0.358-3.74 [facility] Work Phone: [phone] Urine Microalbumin/Creatini ne Ratio 8.6 mg/g CRE <30 [facility] Work Phone: Serum or plasma albumin gold urement (mass/volume)on 01-10-2022 Albumin [Mass/Vol] 3.7 g/dL 3.2-5.0 [facility] Work Phone: [phone] Serum or plasma albumin/glob ulin mass ratioon 01-10-2022 Albumin/Globulin [Mass ratio] 1.0 {ratio} 0.9-2.4 [facility] Work Phone: [phone] Serum or plasma calcium gold urement (mass/volume)on 01-10-2022 Calcium [Mass/Vol] 9.9 mg/dL 8.5-10.1 [facility] Work Phone: [phone] Serum or plasma creatinine m easurement (mass/volume)on 01-10-2022 Creatinine [Mass/Vol] 0.96 mg/dL 0.55-1.02 [facility] Work Phone: Comment on above: The validity of the calculated GFR & GFRAA in patients over 70 years has not been determined. Clinical correlation is essential. Serum or plasma thyroperoxid ase antibody assay (units/volume)on 01-10-2022 TPO Ab Qn [IU]/mL [facility] Work Phone: Comment on above: Performed at: [address] [id number] Director: Nahum Jonas PhD, Phone: [phone] Serum or plasma urea nitroge n measurement (mass/volume)on 01-10-2022 Urea nitrogen [Mass/Vol] 14 mg/dL 7-18 [facility] Work Phone: Thin prep Papanicolaou smear with manual screeningon 01-10-2022 Thin prep Papanicolaou smear with manual screening 33 U/L 15-37 [facility] Work Phone: Thin prep Papanicolaou smear with manual screening 7 5-15 [facility] Work Phone: [phone] Thin prep Papanicolaou smear with manual screening 7.0 mg/L NO RANGE EST. [facility] Work Phone: Urine creatinine measurement (mass/volume)on 01-10-2022 Creatinine (U) [Mass/Vol] 81.90 mg/dL NO RANGE EST. [facility] Work Phone: Basophil percentageon 2021 Bilirubin [Mass/Vol] 1.00 mg/dL 0.20-1.00 [facility] Work Phone: Comment on above: For patients on eltr ombopag therapy, use of Dimension Boelus TBIL is not recommended. Chloride [Moles/Vol] 107 mmol/L 98-107 [facility] Work Phone: Cholesterol [Mass/Vol] 188 mg/dL <200 [facility] Work Phone: [phone] Comment on above: <200 mg/dL Desirable 200-240 mg/dL Borderline >240 mg/dL High Risk Glucose [Mass/Vol] 109 mg/dL 74-106 [facility] Work Phone: Comment on above: Fasting Glucose resu lt from 100 to 125 mg/dL suggests IMPAIRED HOMEOSTASIS per A.D.A. criteria. Potassium [Moles/Vol] 3.9 mmol/L 3.5-5.1 [facility] Work Phone: Protein [Mass/Vol] 7.6 g/dL 6.4-8.2 [facility] Work Phone: [phone] Sodium [Moles/Vol] 139 mmol/L 136-145 [facility] Work Phone: [phone] Triglyceride [Mass/Vol] 204 mg/dL [facility] Work Phone: [phone] Comment on above: The drugs N-Acetylcy steine and Metamizole may falsely depress this assay.Serum Triglycerides Reference Interval Normal <150 mg/dL Borderline high 150 - 199 mg/dL High 200 - 499 mg/dL Very High > or = 500 mg/dL Laboratory - Chemistry and C hemistry - challengeon 10-07-2021 ALP [Catalytic activity/Vol] 99 U/L 45-117 [facility] Work Phone: ALT [Catalytic activity/Vol] 45 U/L 13-56 [facility] Work Phone: CO2 [Moles/Vol] 24.0 mmol/L 21.0-32.0 [facility] Work Phone: Globulin (S) [Mass/Vol] 3.9 g/dL 2.2-4.2 [facility] Work Phone: Urea nitrogen/Creatinine [Mass ratio] 17.4 mg/mg 10-20 [facility] Work Phone: No Panel Informationon 10-07 Estimated GFR (MDRD) Amer 80 mL/min >60 [facility] Work Phone: Comment on above: GFR Calc Estimated GFR (MDRD) Non-Af Amer 66 mL/min >60 [facility] Work Phone: [phone] Comment on above: Non- GFR Calc Thyroid Stimulating Hormone (TSH) 0.31 uIU/mL 0.358-3.74 [facility] Work Phone: [phone] Serum or plasma albumin gold urement (mass/volume)on 10-07-2021 Albumin [Mass/Vol] 3.7 g/dL 3.2-5.0 [facility] Work Phone: Serum or plasma albumin/glob ulin mass ratioon 10-07-2021 Albumin/Globulin [Mass ratio] 0.9 {ratio} 0.9-2.4 [facility] Work Phone: Serum or plasma calcium gold urement (mass/volume)on 10-07-2021 Calcium [Mass/Vol] 9.8 mg/dL 8.5-10.1 [facility] Work Phone: Serum or plasma cholesterol in HDL measurement (mass/volume)on 10-07-2021 Cholesterol in HDL [Mass/Vol] 39 mg/dL [facility] Work Phone: Comment on above: The drugs N-Acetylcy steine and Metamizole may falsely depress this assay. Reference Range HDL <40 mg/dL Low HDL Cholesterol HDL >or= 60 mg/dL High HDL Cholesterol Serum or plasma cholesterol in VLDL measurement (mass/volume)on 10-07-2021 Cholesterol in VLDL [Mass/Vol] 41 mg/dL 5-40 [facility] Work Phone: Serum or plasma creatinine m easurement (mass/volume)on 10-07-2021 Creatinine [Mass/Vol] 0.92 mg/dL 0.55-1.02 [facility] Work Phone: Comment on above: The validity of the calculated GFR & GFRAA in patients over 70 years has not been determined. Clinical correlation is essential. Serum or plasma low density lipoprotein (LDL) cholesterol measurement (mass/volume)on 10-07-2021 Cholesterol in LDL [Mass/Vol] 108 mg/dL 0-130 [facility] Work Phone: Serum or plasma urea nitroge n measurement (mass/volume)on 10-07-2021 Urea nitrogen [Mass/Vol] 16 mg/dL 7-18 [facility] Work Phone: Thin prep Papanicolaou smear with manual screeningon 10-07-2021 Thin prep Papanicolaou smear with manual screening 20 U/L 15-37 [facility] Work Phone: Thin prep Papanicolaou smear with manual screening 8 5-15 [facility] Work Phone: Whole blood hemoglobin A1c/t otal hemoglobin ratio (mass fraction)on 10-07-2021 HbA1c (Bld) [Mass fraction] 6.0 % 3.8-5.6 [facility] Work Phone: Comment on above: Normal < 5.7 % Predi abetic 5.7 - 6.4 % Diabetic >or= 6.5 % Please note range changes. [place] MAMMOGRAM DIAGNOSTIC LEFT W/TOMOon 03-08-2017 [place] MAMMOGRAM DIAGNOSTIC LEFT W/MILES ORIGINALFROM:[address] [address]Wltzf: [phone] PROCEDURE FOR:RICHY RODRIGUEZ[address] [place], [place] [address]Pfij: [phone]#: [id number]#: [id number]#: [id number]: 1Age: 56 TO:MURALI LEIVA CLINICAL BIOCHEMIST-[address] [place], [place] [address] #[id number] LEFT DIGITAL DIAGNOSTIC MAMMOGRAM 3D/2D WITH CAD WITH MEDIOLATERAL MEDIOLATERAL OBLIQUE CRANIOCAUDAL SPOT COMPRESSION: 03/08/2017CLINICAL: CALCIFICATIONS LEFT BREAST. Comparison is made to exams dated: 08/30/2016 mammogram, 08/08/2016 mammogram, and 12/07/2014 mammogram - [facility]. There are scattered fibroglandular elements in [...] as well. DESTINEY MENDES MD cm/:03/09/2017 17:28:23 Draft Roller Picker: SUELLEN PATEL RT(R)(M)(CT) [facility]: Probably Benign BI-RADS 3 Mammogram BI-RADS: 3 Probably benign Normal [facility] Free T4on 03-07-2017 Thyroxine (T4) free 1.2 ng/mL Normal 0.6-1.7 [facility] Comment on above: Performed By: #### F T4 ####[address] [address] T4on 03-07-2017 T4 11.8 mcg/dL Normal 4.8-13.9 [facility] Comment on above: Performed By: #### T 4 ####[address] [address] Total T3on 03-07-2017 Total T3 123.9 ng/dL Normal 60.0-181.0 [facility] Comment on above: Performed By: #### T 3 ####[address] [address] A1C Hgbon 03-03-2017 Hemoglobin A1c/Hemoglobin.total mass fraction (Bld) 6.2 % High 4.8-5.9 [facility] Comment on above: Performed By: #### A 1C ####[address] [address] Comp. Metabolic Panelon Aspartate aminotransferase (AST) 40 U/L Normal 10-40 [facility] Comment on above: Performed By: #### C MP ####[address] [address] Alanine aminotransferase (ALT) 59 U/L High 10-35 [facility] Comment on above: Performed By: #### C MP ####[address] [address] Alk. Phosphatase 80 IU/L Normal 40-135 [facility] Comment on above: Performed By: #### C MP ####[address] [address] Glucose mass conc 120 mg/dL High 70-105 [facility] Comment on above: Performed By: #### C MP ####[address] [address] Albumin/Globulin Ratio 1.6 {ratio} Normal 1.1-2.5 [facility] Comment on above: Performed By: #### C MP ####[address] [address] Bilirubin (direct) 1.1 mg/dL High 0.2-1.0 [facility] Comment on above: Performed By: #### C MP ####[place] [id number] Globulin 2.8 G/dL Normal [facility] Comment on above: Performed By: #### C MP ####[place] [id number] T. Protein 7.3 G/dL Normal 6.0-8.3 [facility] Comment on above: Performed By: #### C MP ####[place] [id number] BUN/Creatinine Ratio 16 mg/mg Normal 7-27 [facility] Comment on above: Performed By: #### C MP ####[address] [address] Creatinine 0.9 mg/dL Normal 0.6-1.2 [facility] Comment on above: Performed By: #### C MP ####[address] [address] Albumin 4.5 G/dL Normal 3.5-5.0 [facility] Comment on above: Performed By: #### C MP ####[address] [address] Calcium 10.2 mg/dL Normal 8.4-10.2 [facility] Comment on above: Performed By: #### C MP ####[address] [address] CO2 21 mmol/L Low 22-29 [facility] Comment on above: Performed By: #### C MP ####[address] [address] Electrolyte Balance 12.0 mEq/L Normal [facility] Comment on above: Performed By: #### C MP ####[address] [address] Chloride 107 mmol/L Normal 98-107 [facility] Comment on above: Performed By: #### C MP ####[address] [address] Potassium molar conc 4.9 mmol/L Normal 3.5-5.1 [facility] Comment on above: Performed By: #### C MP ####[address] [address] Sodium 140 mmol/L Normal 136-146 [facility] Comment on above: Performed By: #### C MP ####[address] [address] Urea nitrogen 14 mg/dL Normal 7-18 [facility] Comment on above: Performed By: #### C MP ####[address] [address] Glomerular Filtration Rate E stimateon 03-03-2017 eGFR (non-black) mL/min/{1.73_m2} Normal [facility] Comment on above: Performed By: #### G FR ####[address] [address] Result Comment: [place]ot[place] mariamarosa mean GFR = 93 mL/min/1.73 sq.m. for ages 50-59 years. Chronic Kidney Disease: Less than 60 mL/min/1.73 square metersEnd Stage Renal Disease: Less than 15 mL/min/1.73 square meters HDL Cholesterol Profileon Cholesterol 211 mg/dL High 131-200 [facility] Comment on above: Result Comment: Chol esterol Reference Interval: Less than 200 Desirable 200-239 Borderline high risk 240 and above High risk ---- Performed By: #### L IPID ####Jared [address] [address] HDL Cholesterol 33 mg/dL Low 35-90 [facility] Comment on above: Result Comment: HDL Reference Interval: Less than 40 Low - high risk 60 or above Optimal/lowers risk ---- Performed By: #### L IPID ####[address] [address] LDL Cholesterol 124 mg/dL Normal 0-130 [facility] Comment on above: Result Comment: LDL is a calculated result and requires a 12- hr fast. LDL Reference Interval: Less than 100 Optimal 100-129 Near or above optimal 130-159 Borderline high risk 160-189 High risk 190 and above Very high risk ----- Performed By: #### L IPID ####Jared Pierson, [address] [place] [address] Triglyceride 268 mg/dL High 40-150 [facility] Comment on above: Result Comment: Trig lyceride Reference Interval: Less than 150 Normal 150-199 Borderline high risk 200-499 High risk 500 or higher Very high risk ---- Performed By: #### L IPID ####Jared [address] [address] TSHon 03-03-2017 Thyroid stimulating hormone (TSH) 0.17 mcIU/mL Low 0.27-4.20 [facility] Comment on above: Performed By: #### T SH ####Jared [address] [address] Vital Signs Date Time Vital Sign Value Performing Clinician Faci litza 06-24-2025 08:30-0400 Blood Pressure Cuff Size DR ROSAURA COLORADO MD [address] [place] [address] 06-24-2025 08:30-[address] ROSAURA COLORADO MD [address] [place] [address] 06-24-2025 08:30-[address] ROSAURA COLORADO MD [address] [place] [address] 06-24-2025 08:30-0400 Body temperature 97.52 [degF] DR ROSAURA COLORADO MD [address] [place] [address] 06-24-2025 08:30-0400 Diastolic Blood Pressure Non-Invasive 78 mm[Hg] DR ROSAURA COLORADO MD [address] [place] [address] 06-24-2025 08:30-0400 Heart rate 76 /min DR ROSAURA COLORADO MD [address] [place] [address] 06-24-2025 08:30-0400 Reason For Taking VItal Signs DR ROSAURA COLORADO MD [address] [place] [address] 06-24-2025 08:30-0400 Respiratory rate 18 /min DR ROSAURA COLORADO MD [address] [place] [address] 06-24-2025 08:30-0400 Systolic Blood Pressure Non-Invasive 124 mm[Hg] DR ROSAURA COLORADO MD [address] [place] [address] 06-23-2025 23:21-0400 Body temperature 98.24 [degF] DR ROSAURA COLORADO MD [address] 06-23-2025 23:21-0400 Diastolic Blood Pressure Non-Invasive 81 mm[Hg] DR ROSAURA COLORADO MD [address] [place] [address] 06-23-2025 23:21-0400 Heart rate 66 /min DR ROSAURA COLORADO MD [address] [place] [address] 06-23-2025 23:21-0400 Respiratory rate 16 /min DR ROSAURA COLORADO MD [address] [place] [address] 06-23-2025 23:21-0400 Systolic Blood Pressure Non-Invasive 128 mm[Hg] DR ROSAURA COLORADO MD [address] [place] [address] 06-23-2025 16:27-0400 Blood Pressure Cuff Size DR ROSAURA COLORADO MD [address] [place] [address] 06-23-2025 16:27-[address] ROSAURA COLORADO MD [address] [place] [address] 06-23-2025 16:27-[address] ROSAURA COLORADO MD [address] [place] [address] 06-23-2025 16:27-0400 Body temperature 98.24 [degF] DR ROSAURA COLORADO MD [address] [place] [address] 06-23-2025 16:27-0400 Diastolic Blood Pressure Non-Invasive 84 mm[Hg] DR ROSAURA COLORADO MD [address] 06-23-2025 16:27-0400 Heart rate 69 /min DR ROSAURA COLORADO MD [address] 06-23-2025 16:27-0400 Reason For Taking VItal Signs DR ROSAURA COLORADO MD [address] [place] [address] 06-23-2025 16:27-0400 Respiratory rate 18 /min DR ROSAURA COLORADO MD [address] [place] [address] 06-23-2025 16:27-0400 Systolic Blood Pressure Non-Invasive 126 mm[Hg] DR ROSAURA COLORADO MD [address] [place] [address] 06-23-2025 08:20-0400 Heart rate 72 /min DR ROSAURA COLORADO MD [address] [place] [address] 06-23-2025 08:19-0400 Heart rate 7 /min DR ROSAURA COLORADO MD [address] [place] [address] 06-23-2025 07:01-0400 Blood Pressure Cuff Size DR ROSAURA COLORADO MD [address] [place] [address] 06-23-2025 07:01-[address] ROSAURA COLORADO MD [address] [place] [address] 06-23-2025 07:01-[address] ROSAURA COLORADO MD [address] [place] [address] 06-23-2025 07:01-0400 Heart rate 68 /min DR ROSAURA COLORADO MD [address] [place] [address] 06-23-2025 07:01-0400 Reason For Taking VItal Signs DR ROSAURA COLORADO MD [address] [place] [address] 06-22-2025 23:19-0400 Heart rate 72 /min DR ROSAURA COLORADO MD [address] [place] [address] 06-22-2025 19:13-0400 Heart rate 73 /min DR ROSAURA COLORADO MD [address] [place] [address] 06-22-2025 16:55-0400 Heart rate 63 /min DR ROSAURA COLORADO MD [address] [place] [address] 06-21-2025 17:34-0400 Body height 162.[address] ROSAURA COLORADO MD [address] [place] [address] 06-21-2025 17:34-0400 Body weight 104.[address] ROSAURA COLORADO MD [address] [place] [address] 06-21-2025 17:34-0400 Body weight 39.53 kg/m2 DR ROSAURA COLORADO MD [facility] 06-21-2025 04:11-0400 Mean blood pressure 88 mm[Hg] DR ROSAURA COLORADO MD [facility] 06-21-2025 00:23-0400 Mean blood pressure 89 mm[Hg] DR ROSAURA COLORADO MD [facility] 06-20-2025 18:34-0400 SaO2% (BldA) [Mass fraction] 84.8 % DR ROSAURA COLORADO MD [facility] 11-20-2022 09:45-0400 Diastolic Blood Pressure Non-Invasive [address] NAHUM HEWITT MD [facility] 11-20-2022 09:45-0400 Heart rate 91 /min DR NAHUM HEWITT MD [facility] 11-20-2022 09:45-0400 Respiratory rate 16 /min DR NAHUM HEWITT MD [facility] 11-20-2022 09:45-0400 Systolic Blood Pressure Non-Invasive [address] NAHUM HEWITT MD [facility] 11-20-2022 09:26-0400 Diastolic Blood Pressure Non-Invasive [address] NAHUM HEWITT MD [facility] 11-20-2022 09:26-0400 Heart rate 87 /min DR NAHUM HEWITT MD [facility] 11-20-2022 09:26-0400 Respiratory rate 17 /min DR NAHUM HEWITT MD [facility] 11-20-2022 09:26-0400 Systolic Blood Pressure Non-Invasive [address] NAHUM HEWITT MD [facility] 11-20-2022 09:15-0400 Diastolic Blood Pressure Non-Invasive [address] NAHUM HEWITT MD [facility] 11-20-2022 09:15-0400 Heart rate 85 /min DR NAHUM HEWITT MD [facility] 11-20-2022 09:15-0400 Respiratory rate 18 /min DR NAHUM HEWITT MD [facility] 11-20-2022 09:15-0400 Systolic Blood Pressure Non-Invasive [address] NAHUM HEWITT MD [facility] 11-20-2022 09:05-0400 Body temperature 98.06 [degF] DR NAHUM HEWITT MD [facility] 11-20-2022 08:55-0400 Respiratory Rate - Anes 20 br/min DR NAHUM HEWITT MD [facility] 11-20-2022 08:50-0400 Respiratory Rate - Anes 14 br/min DR NAHUM HEWITT MD [facility] 11-20-2022 07:55-0400 Body temperature 97.7 [degF] DR NAHUM HEWITT MD [facility] 11-20-2022 07:55-0400 Heart rate 115 /min DR NAHUM HEWITT MD [facility] 11-20-2022 07:51-0400 Body temperature 97.7 [degF] DR NAHUM HEWITT MD [facility] 11-20-2022 07:49-0400 Body height 162.[address] NAHUM HEWITT MD [facility] 11-20-2022 07:49-0400 Body weight [address] NAHUM HEWITT MD [facility] 11-20-2022 07:49-0400 Body weight 37.84 kg/m2 DR NAHUM HEWITT MD [facility] 11-20-2022 07:48-0400 Body height 162.[address] NAHUM HEWITT MD [facility] Encounters Encounter Date Encounter Type Care Provider Facility Start: 06-24-2025 ambulatory Suyapa Templeton Facility[facility] Start: 06-24-2025 Evaluation and management of inpatient Suyapa Templeton Facility:[facility] Start: 06-19-2025 End: 06-24-2025 Evaluation and management of inpatient DR ROSAURA COLORADO MD [facility] Start: 06-19-2025 End: 06-19-2025 Emergency department patient visit Andres Serrano Facility:[facility] Start: 06-16-2025 End: 06-16-2025 ambulatory July Rees Facility:[facility] Start: 06-10-2025 End: 06-10-2025 ambulatory July Rees Facility:[facility] Start: 06-04-2025 End: 06-04-2025 ambulatory July Rees Facility:[facility] Start: 06-02-2025 End: 06-02-2025 ambulatory JULY REES MD [facility] Start: 06-02-2025 End: 06-02-2025 Patient encounter procedure JULY REES MD [facility] Start: 05-29-2025 End: 05-29-2025 ambulatory JULY REES MD [facility] Start: 05-29-2025 End: 05-29-2025 Patient encounter procedure JULY REES MD [facility] Start: 05-26-2025 End: 05-26-2025 ambulatory JUANPABLO PATEL Facility[facility] Start: 05-26-2025 End: 05-26-2025 Patient encounter procedure JUANPABLO PAETL MD [facility] Start: 05-11-2025 End: 06-26-2025 ambulatory JULY REES MD Facility[facility] Start: 05-07-2025 End: 05-07-2025 ambulatory JULY REES MD Facility[facility] Start: 05-07-2025 End: 05-07-2025 Patient encounter procedure JULY REES MD [facility] Start: 05-05-2025 End: 05-05-[address] July Rees MD Work Phone: -Cat Scan [facility] Start: 05-05-2025 End: 05-05-2025 Patient encounter procedure Nan Stewart CLINICAL BIOCHEMIST-C -Cat Scan [facility] Work Phone: Start: 05-05-2025 End: 05-05-2025 ambulatory July Rees Facility:[facility] Start: 09-23-2024 End: 09-23-2024 ambulatory July Rees Facility:[facility] Start: 11-16-2023 End: 11-16-2023 ambulatory [facility] Work Phone: Start: 11-16-2023 End: 11-16-2023 Patient encounter procedure [facility] Work Phone: Start: 11-20-2022 End: 11-20-2022 ambulatory NAHUM HEWITT Facility:[facility] Start: 11-20-2022 End: 11-20-[address] NAHUM HEWITT MD [facility] Start: 09-08-2022 End: 10-31-2022 ambulatory OLIVIER BROWN DO Facility:[facility] Start: 09-08-2022 End: 10-31-2022 Physical therapy management OLIVIER SPITTLE DO [facility] Start: 08-16-2022 End: 08-17-2022 ambulatory OLIVIER SPITTLE DO Facility:[facility] Start: 08-16-2022 End: 08-16-2022 Patient encounter procedure OLIVIER SPITTLE DO [facility] Start: 05-19-2022 End: 09-05-2022 ambulatory OLIVIER SPITTLE DO Facility:[facility] Start: 05-19-2022 End: 09-05-2022 Physical therapy management OLIVIER SPITTLE DO [facility] Start: 02-07-2022 End: 02-08-2022 ambulatory OLIVIER SPITTLE DO Facility:[facility] Start: 02-07-2022 End: 02-07-2022 Patient encounter procedure OLIVIER SPITTLE DO [facility] Start: 01-17-2022 End: 01-17-2022 Patient encounter procedure [facility]patient [facility] Start: 01-10-2022 End: 01-10-2022 Patient encounter procedure [facility] Start: 10-07-2021 End: 10-07-2021 Patient encounter procedure [facility] Start: 03-08-2017 Ambulatory PHY WO ID REFERRING Fac ility:[facility] Start: 03-03-2017 End: 03-04-2017 Ambulatory PHY WO ID REFERRING Facility[place] [place] Procedures Date Procedure Procedure Detail [...] virus vaccine, unspecified formulation OLIVIER STEWARTTTLE DO [facility] 06-28-2015 influenza virus vaccine, unspecified formulation OLIVIER SPITTLE DO [facility] 07-14-2014 influenza virus vaccine, unspecified formulation OLIVIER SPITTLE DO [facility] 05-12-2013 influenza virus vaccine, unspecified formulation OLIVIER SPITTLE DO [facility] 06-17-2012 influenza virus vaccine, unspecified formulation OLIVIER SPITTLE DO [facility] 05-01-2008 hepatitis A and hepatitis B vaccine OLIVIER SPITTLE DO [facility] 03-24-2008 hepatitis A and hepatitis B vaccine OLIVIER SPITTLE DO [facility] Payers Date Payer Category Payer Private Health Insurance [id number] 2024 Self-pay [id number] 2022 Unknown [id number] 2016 Unknown [id number] 1960 Unknown [id number] 2.16.8 40.1.834326.3.579.2.627 1960 Unknown [id number] 2.16.8 40.1.180009.3.579.2.7 1960 Unknown [id number] 2.16.8 40.1.391260.3.579.2. 1961 Unknown [id number] 2.16.8 40.1.570946.3.579.2.627 1961 Unknown [id number] 2.16.8 40.1.473221.3.579.2.7 1961 Unknown [id number] 2.16. 840.1.773918.3.579.2.627 1961 Unknown [id number] 2.16. 840.1.697253.3.579.2.7 1960 Unknown [id number] 2.16. 840.1.134097.3.579.2.627 1961 Unknown [id number] 2.16. 840.1.183361.3.579.2.627 1961 Unknown [id number] 2.16. 840.1.629027.3.579.2.627 1960 Unknown [id number] 2.16. 840.1.384611.3.579.2.62 Unknown [id number] 2.16.8 40.1.773396.3.579.2.462 Unknown [id number] 2.16.8 40.1.988760.3.579.2.462 Unknown [id number] 2.16.8 40.1.000213.3.579.2.462 Unknown [id number] 2.16.8 40.1.610186.3.579.2.462 Unknown [id number] 2.16.8 40.1.687115.3.579.2.462 Unknown [id number] 2.16.8 40.1.076064.3.579.2.462 Unknown [id number] 2.16.8 40.1.662005.3.579.2.462 Unknown [id number] 2.16.8 40.1.518244.3.579.2.462 Unknown [id number] 2.16.8 40.1.127009.3.579.2.462 Unknown [id number] 2.16.8 40.1.408676.3.579.2.462 Unknown [id number] 2.16.8 40.1.173840.3.579.2.462 Unknown [id number] 2.16.8 40.1.900668.3.579.2.462 Unknown [id number] 2.16.8 40.1.207107.3.579.2.462 Unknown [id number] 2.16.8 40.1.693800.3.579.2.462 Unknown [id number] 2.16.8 40.1.736113.3.579.2.462 Unknown [id number] 2.16.8 40.1.010721.3.579.2.462 Social History Date Type Detail [facility] Work Phone: Start: 1960 Sex Assigned At Female W [facility] Work Phone: Start: 09-08-2019 Tobacco smoking status Never s moked tobacco (finding) [facility] Sexual Orientation [facility] Start: 02-19-2019 Sex Female (finding) [facility] Work Phone: Sex Female [facility] Social / personal history observable (observable entity) [facility] Start: 06-22-2025 [facility] Start: 06-21-2025 No, per patient [facility] Start: 06-21-2025 End: 06-21-2026 Future intention Reported No desire to become (finding) [facility] Functional Status Date Assessment Result Facility 06-24-[address] [facility] 06-24-[address] [facility] 06-24-2025 Functional Status Identified as high risk, Room located near nursing station, Bed alert on, Door open, Bathroom light on, Room check performed [facility] 06-24-[address] [facility] 06-24-[address] [facility] 06-23-2025 Functional Status [facility] 06-23-[address] [facility] 06-23-[address] [facility] 06-23-[address] [facility] 06-23-2025 Functional Status [facility] Functional Status [facility] 06-23-2025 Functional Status [facility] 06-23-[address] [facility] 06-22-2025 Functional Status [facility] 06-22-[address] [facility] 06-22-2025 Functional Status None [facility] 06-22-2025 Functional Status Single level home [facility] 06-22-2025 Functional Status Independent [facility] 06-22-2025 Functional Status [facility] 06-22-2025 Functional Status [facility] 06-21-2025 Functional Status Done [facility] 06-21-2025 [facility] Functional Status Jared [facility] 06-20-2025 Functional Status Jared [facility] 06-20-2025 [facility] 06-20-[facility] Functional Status Hospital bed Jared [facility] 06-20-2025 [facility] 06-19-2025 Functional Status Preventative D ressing Intervention Other: [facility] 11-20-[address] [facility] 11-20-[address] [facility] 05-19-2022 Functional Status Home Living Ad [...] Drop ARM: - ER lag sign: - [facility] Mental Status Date Assessment Result Facility 06-24-2025 Mental Status Orientation Oriented x 4 [facility] 06-23-2025 Mental Status [facility] 06-23-2025 Mental Status [facility] 06-23-2025 Mental Status [facility] 06-22-2025 Mental Status [facility] 06-22-[address] [facility] 06-22-2025 Mental Status [facility] 06-22-[address] [facility] 06-21-2025 Mental Status [facility] 06-21-[address] [facility] 11-20-2022 Mental Status Oriented x 4 [facility] 11-20-2022 Mental Status [facility] 05-19-2022 Mental Status Orientation Asse ssment Oriented x 4 [facility] Clinical Notes 11-20-2022 to 06-24-2025 Note Date & Type Note Facility 06-24-2025 Note [facility] Medical Records Department [address] [place] [address] History Physical Exam 06/24/25 1455 MR#: [id number] Acct: [id number] Name: RICHY RODRIGUEZ Rep #: [id number] : 1960 64 From: Fanny Matthews PCP: Dr. July Rees MD Status:ADM IN Location: [place] [address] Documented by User: OMER Perea 06/25/25 12:42 HPI - General General Date of Admission: 06/24/25 Date of Service: 06/24/25 Chief Complaint: Ataxia with debility HPI Narrative RICHY RODRIGUEZ, is a 64 F who has history of hypertension, dyslipidemia, type 2 diabetes who is being admitted to inpatient rehab following presentation to the ED at [facility] on 06/19/25 for AMS and Ataxia. She [...] the family. Pt was then transferred to [facility] for continued workup. At [place], the pt did receive a repeat MRI [...] in completion of tasks or answering questions. [facility] Medical History (Updated 06/25/25 @ 16:54 by [...] urgency Musculoskeletal Mus (more content not included)... [facility] 06-24-2025 Hospital Discharge instructions Patient Education 06/24/2025 [...] especially in intensive care. Live in a alf. Had recent surgery. Have liver or kidney [...] your urine clear or pale yellow. Take dvsn-lwk-aboqxjv and prescription medicines only as told by [...] 01/19/2017 Document Revised: 07/26/2018 Document Reviewed: 01/19/2017 Sina Patient Education 2020 [employer]. 06/24/2025 11:31:35 Fall Prevention in the Home, Adult, Htgs-pt-Niff Fall Prevention in the Home, Adult Falls [...] Keep items that you use often in rtrs-wk-xvnfi places. Lower the shelves around your home [...] of the way. Do not use floor tajik or wax that makes floors slippery. If [...] for Disease Control and PreventionLINDSEY: https://cdc.gov National [place] on Aging: https://dt0lagr.karen.nih.gov Contact a doctor if: You are afraid [...] Document Reviewed: 03/28/2018 Elsevier Patient Education 2020 Sina Inc. Follow Up Care 06/19/2025 17:22:01 With:[facility] [phone] Address:Unknown When:1-2 days With:JOSE FRANCIS Address: [address] [place] [address]- [phone] Business (1) When:1-2 days Comments:follow up for elevated calcium levels, abnormal thyroid studies With:DARIEN BUSTILLOS Address: [address] [facility] [address] [place] [address] [phone] Business (1) When:1-2 days Comments:follow up for cervical stenosis With:Please follow up with the [facility] for further work-up Address:Unknown When:1-2 days With:[facility] Address: [address] [place] [address]- Business (1) When:1-2 days Comments:follow up within 3-4 weeks With:JULY REES MD Address: [facility] [address] [facility] [address] [place] [address]- When:1-2 days Comments:Please call the office to schedule your hospital follow up appointment . [facility] 06-24-2025 Note Discharge Instructions Thank you for allowing [facility] to assist you with your healthcare needs. The following is important discharge information regarding your hospital visit. Your Care Team JULY REES MD Your Diagnosis Foot-drop What to do next Follow Up Appointments Follow Up with JOSE FRANCIS When:Within 1-2 days Where:[address] [place] [address]- [phone] Business (1) Additional Information: follow up for elevated calcium levels, abnormal thyroid studies Follow Up with DARIEN BUSTILLOS When:Within 1-2 days Where:[address] [facility] [address] [place] [address] [phone] Business (1) Additional Information: follow up for cervical stenosis Follow Up with Please follow up with the [facility] for further work-up When:Within 1-2 days Follow Up with [facility] When:Within 1-2 days Where:[address] [place] [address]- Business (1) Additional Information: follow up within 3-4 weeks Follow Up with JULY RESE MD When:Within 1-2 days Where:[facility] [address] [place] [address]- Additional Information: Please call the office to [...] especially in intensive care. Live in a alf. Had recent surgery. Have liver or kidney [...] your urine clear or pale yellow. Take evty-dhl-lkgwcst and prescription medicines only as told by [...] 01/19/2017 Document Revised: 07/26/2018 Document Reviewed: 01/19/2017 Sina Patient Education 2020 Sina Inc. Fall Prevention in the Home, Adult [...] Keep items that you use often in qnlu-yi-acegc places. Lower the shelves around your home [...] of the way. Do not use floor tajik or wax that makes floors slippery. If [...] for Disease Control and PreventionLINDSEY: https://cdc.gov National [place] on Aging: https://lu5evhz.karen.nih.gov Contact a doctor if: You are afraid [...] Document Reviewed: 03/28/2018 Elsevier Patient Education 2020 Sina Inc. Additional Information VACCINATE! IT SAVES LIVES! Members of the community who have not yet received the COVID-19 vaccine and would like to receive it can visit one of [facility] vaccine clinics. There are many vaccine clinic locations within the [facility]. For locations and available times, please visit https://gettheshot.coronavirus.[place]. gov/. It is important to note that some COVID mobile vaccine clinics are held outdoors and may be canceled in rainy or stormy conditions. To learn more about pediatric vaccinations (ages 5-11), we invite you to visit the [facility] webpage. https://www.Sportingos.org/pages /7334-Efvsk-Wpwybzfbiqq-Frequently-A sked-Questions.html To learn more about the COVID-19 vaccine, we invite you to visit the CDC website for a list of frequently asked questions.https://www.cdc.gov/fair virus/2019-ncov/vaccines/faq.html [employer] Patient Portal Access Instructions: Stay connected with your healthcare team and access your personal medical information anytime with the [employer] Patient Portal. Please follow the directions below to create your [employer] account: 1.Access the email account you provided upon registration to the hospital/physician office.2.Look for an invitation email from [facility].3.Open the email and access the invitation link: Accept Invitation to [employer].4.Fill in the required cook to create your account. To access your account, visit [employer]/Movista or scan the QR code above. Click [...] [facility] on the [facility] lyndsay. Simply click on "Patient Portal" and then log into your account. If you would like to receive a full copy of your medical records, please contact the [facility] Medical Records Department by calling [phone], Sunday through Sunday between 8 a.m. and [...] Call your local pharmacy or go to [email or web address] [email or web address] to find one close to you.3.Make use of household items: Use cat litter or old coffee grounds to dispose medications if other options are not available. Mix your drugs with these household products, seal them in an airtight container and throw it into the garbage. Call [facility]: [phone] to be sure your drugs can be [...] Encephalopathy Fall Prevention in the Home, Adult, Mueo-sq-Uzib Medication Leaflets My discharge plan and instructions have been reviewed and explained to me and I,RICHY RODRIGUEZ understand my current condition and have read and understand these discharge instructions. I have received a written copy of the plan/instructions. If I have questions, I am aware that I should contact my doctor. 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 Patient presented to [facility] on 06/19/2025 with complaints of memory deficits as well as right foot drop. Patient has been undergoing a neurologic workup in the outpatient setting, she underwent MRI of the brain noting periventricular, subcortical white matter changes that are nonspecific demyelinating disease was not excluded, chronic lacunar infarct of right basal ganglia was noted. Patient was therefore admitted to [facility] on 06/19/2025 for further workup. Lab work [...] patient is medically stable for discharge to [place] rehab facility. Updated multiple family members. Case [...] Date: June 21, 2025 Verified By: GIL EBAVER DO CLINICAL STATEMENT: IMPRESSION: []1. Fatty replacement [...] [address] [place] [address]- [phone] Business (1) Additional Information: follow up for elevated calcium levels, abnormal thyroid studies Follow Up with DARIEN BUSTILLOS When:Within 1-2 days Where:[address] [facility] [address] [place] [address]- [phone] Business (1) Additional Information: follow up for cervical stenosis Follow Up with Please follow up with the [facility] for further work-up When:Within 1-2 days Follow Up with [facility] When:Within 1-2 days Where:[address] [place] [address]- Business (1) Additional Information: follow up within 3-4 weeks Follow Up with JULY REES MD When:Within 1-2 days Where:[facility] [address] [place] [address]- Additional Information: Please call the office to [...] on 06/24/2025 10:26 AM Digitally Signed by ANYG PATEL DO on 06/24/2025 11:36 AM [facility] 06-23-2025 Note Date of Service 06/23/25 Chief Complaint ams Subjective 64-year-old female with past medical history of hypertension, hyperlipidemia, type 2 diabetes mellitus, hemorrhoids and obesity. Patient presented to [facility] on 06/19/2025 with complaints of memory deficits as well as right foot drop. Patient has been undergoing a neurologic workup in the outpatient setting, she underwent MRI of the brain noting periventricular, subcortical white matter changes that are nonspecific demyelinating disease was not excluded, chronic lacunar infarct of right basal ganglia was noted. Patient was therefore admitted to [facility] on 06/19/2025 for further workup. Lab work [...] OP setting with close follow up with [facility] Additional labs in-transit will need followed up [...] by KARL MACE on 06/23/2025 11:25 AM [facility] 06-23-2025 Note Date of Service 06/23/25 Chief Complaint ams Subjective 64-year-old female with past medical history of hypertension, hyperlipidemia, type 2 diabetes mellitus, hemorrhoids and obesity. Patient presented to [facility] on 06/19/2025 with complaints of memory deficits as well as right foot drop. Patient has been undergoing a neurologic workup in the outpatient setting, she underwent MRI of the brain noting periventricular, subcortical white matter changes that are nonspecific demyelinating disease was not excluded, chronic lacunar infarct of right basal ganglia was noted. Patient was therefore admitted to [facility] on 06/19/2025 for further workup. Lab work [...] OP setting with close follow up with [facility] Additional labs in-transit will need followed up [...] PT/OT recommending inpatient rehab facility, planning for [place] rehab Level of Care Indication: _Regular Floor DVT Prophylaxis: _Heparin SQ Maintenance IVF Indication: _NA / No maintenance IVF Indwelling Urinary Catheter Indication: _NA - No indwelling catheter Anticipated Timeline of Discharge: __24 hours Anticipated DC Disposition: __Inpatient Rehab Facility Plan discussed with patient. Family was updated on plan Case discussed with Dr. Patel Digitally Signed by KARL MACE on 06/23/2025 11:25 AM [facility] 06-23-2025 Note Exam Date Time Procedure Performing Provider Status 06/23/25 3:27 PM MRI Spine Cervical w / + w/o Contrast NENA LANDAVERDE MD; Auth (Verified) [id number] ORIGINAL EXAMINATION: MRI OF THE CERVICAL SPINE [...] 4:50:33 PM Ordering Provider: SERENITY MURRAY RP [id number] Note Date of Service 06/23/25 Chief Complaint ams Subjective 64-year-old female with past medical history of hypertension, hyperlipidemia, type 2 diabetes mellitus, hemorrhoids and obesity. Patient presented to [facility] on 06/19/2025 with complaints ofmemory deficits as well as right foot drop. Patient has been undergoing a neurologic workup in the outpatient setting, she underwent MRI of the brain noting periventricular, subcortical white matter changes that are nonspecific demyelinating disease was not excluded, chronic lacunar infarct of right basal ganglia was noted. Patient was therefore admitted to [facility] on 06/19/2025 for further workup. Lab work [...] OP setting with close follow up with [facility] Additional labs in-transit will need followed up [...] by KARL MACE on 06/23/2025 11:25 AM [facility] [id number] Neurology Progress note Date of Service 06/22/25 [...] Exam Mental Status: Orientation: Oriented to person, [facility], and [facility] Language: Normal fluency, normal simple comprehension [...] distally RLE: 5/5 proximally, 5/5 distally Coordination: Qgbvnt-kddl-flngek movements: ataxic on the right normal on [...] instability/neurocognitive testing outpatient/patient should follow- up with [facility] for further evaluation/testing of MS OP [...] by SERENITY MURRAY on 06/22/2025 03:02 PM [facility] [id number] Note Date of Service 06/22/25 Chief Complaint abnormal MRI Subjective 64-year-old female with past medical history of hypertension, hyperlipidemia, type 2 diabetes mellitus, hemorrhoids and obesity. Patient presented to [facility] on 06/19/2025 with complaints of memory deficits as well as right foot drop. Patient has been undergoing a neurologic workup in theoutpatient setting, she underwent MRI of the brain noting periventricular, subcortical white matter changes that are nonspecific demyelinating disease was not excluded, chronic lacunar infarct of right basal ganglia was noted. Patient was therefore admitted to [facility] on 06/19/2025 for further workup. Lab work [...] OP setting with close follow up with [facility] Ammonia level normalized, status post 1 dose of lactulose Blood sugars reviewed and are stable, continue current regimen Continue remainder of home chronic medications PT/OT recommending inpatient rehab facility, Referral made to [facility] Level of Care Indication: _Regular Floor DVT Prophylaxis: _Heparin SQ Maintenance IVF Indication: _NA / No maintenance IVF Indwelling Urinary Catheter Indication: _NA - No indwelling catheter Anticipated Timeline of Discharge: __24 hours Anticipated DC Disposition: __Inpatient Rehab Facility Plan discussed with patient and sister and szoxaiw-ml-dvt at bedside. Case discussed with Dr. Nowak Digitally Signed by KARL MACE on 06/22/2025 02:13 PM [facility] [id number] Note Date of Service 06/22/2025 Date Read [...] PORSCHE UGARTE MD on 06/22/2025 12:51 PM [facility] [id number] Note Date of Service 06/21/2025 Chief Complaint [...] neurocognitive decline, foot drop Abnormal MRI Hypertension Xvu-gcjfvpy-clbcrhglu diabetes Obesity Elevated ammonia level Plan Patient [...] KAREN NOWAK MD on 06/21/2025 04:33 PM [facility] [id number] Note* Exam Date Time Procedure Performing Provider Status 06/21/25 11:31 AM MRI Brain w/ + w/o Contrast KIN GARCIA MD; Auth (Verified) [id number] ORIGINAL EXAMINATION: MRI OF THE BRAIN WITHOUT [...] 12:07:11 PM Ordering Provider: ELVIS NEGRON RP [facility] HospitalAgxpdbyt72-43-5844 Note* Exam Date Time Procedure Performing Provider Status 06/21/25 8:29 AM US Abdomen/Elastogra phy/Doppler Abdomen GIL BEAVER DO; Auth (Verified) [id number] ORIGINAL EXAMINATION: Exam Title:US ELASTOGRAPHY Completed Time: [...] 8:58:29 AM Ordering Provider: KAREN NOWAK RP [facility] HospitalTbbkwnmq19-96-2721 Neurology Consult note Date of Service 06/20/2025 [...] seek medical attention at the ED in [place]. The patient was subsequently transferred to [facility] for further workup. Review of Systems As [...] throughout. 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 July Rees MD Status: REG CLI Study:Brain/Head without Contrast Date of Exa m: 05/05/25 Exam# [id number] Ordering Dr: Darline Stewart NP CLINICAL BIOCHEMIST-C PROCEDURE: CT BRAIN/HEAD WITHOUT CONTRAST 05/05/2025 REASON [...] IMPRESSION: No acute intracranial abnormality. [place] Location[facility] CC: ALIVIA-C Nan Stewart; Dr. July Rees MD ~ Statement Request Clerk: Signed [facility]03-27-2023 Evaluation + Plan noteExtracted from: Title:Clinical Document Author:NAHUM HEWITT Zaki Hercules Date:11/20/22 PETTY ADMISSION HISTORY AN D PHYSICIAL CHIEF COMPLAINT: HISTORY OF PRESENT ILLNESS: REVIEW OF SYSTEMS: ACTIVE PROBLEMS: (4) DM2 (diabetes mellitus, type 2) (062172084) Hemorrhoids (096631759) HTN (hypertension) (0392963208) Mixed hyperlipidemia (336741253) MEDICATIONS: Active Inpt Meds: None Active PRN Meds: None One Time Meds: None Active IV Meds: Lactated Ringers Infusion 1,000 mL (LR 1,000 mL) Start: 11/20/22 7:30:00 EDT, Rate: 50 mL/hr, 11/20/22 7:30:00 EDT ALLERGIES: (1) NKA FAMILY HISTORY: SOCIAL HISTORY: PHYSICAL EXAM: VITALS: EwzbsnLydwVZNqtrtZIFjY5ECA8RwjbXc(kg) 11/20 07:5536.5--115------12269.0 11/20 07:5136.5--9882706HC 24 Hr Tmax: 36.5 at 11/20 07:55 [...] changes to the H&P unless noted below. [facility] 03-27-2023 Hospital Discharge instructions Patient Education 11/20/2022 09:21:56 Nausea and Vomiting, Adult, Uguw-uy-Hltp Nausea and Vomiting, Adult Nausea is feeling [...] fruit juice). ?Low-calorie sports drinks. Eat bland, yxez-ja-yglxib foods in small amounts as you are able, such as: ?Bananas. ?Applesauce. ?Rice. ?Low-fat (lean) meats. ?Monterey. ?Crackers. Avoid drinking fluids that have a lot of sugar or caffeine in them. This includes energy drinks, sports drinks, and soda. Avoid alcohol. Avoid spicy or fatty foods. General instructions Take lqhz-hxc-zxnvyyd and prescription medicines only as told by your doctor. Drink enough fluid to keep your pee (urine) pale yellow. Wash your hands often with soap and water. If you cannot use soap and water, use hand refrigerator cabinetmaker. Make sure that all people in your [...] too much water in your body. Take wrtf-vmr-tsxqcly and prescription medicines only as told by [...] 01/29/2009 Document Revised: 12/05/2019 Document Reviewed: 01/21/2019 Sina Patient Education 2020 [employer]. 11/20/2022 09:21:48 Monitored Anesthesia Care, Care After [...] before eating solid foods. General instructions Take goki-ake-jstgjlv and prescription medicines only as told by [...] 12/03/2016 Document Revised: 11/11/2018 Document Reviewed: 12/03/2016 Sina Patient Education 2020 [employer]. 11/20/2022 09:21:45 Colonoscopy, Adult, Care After Colonoscopy, [...] a slower pace than normal. ?Eat soft, lpkr-jl-brsppe foods. Take brfw-jir-ftytvsg or prescription medicines only as told by [...] 03/27/2005 Document Revised: 06/05/2018 Document Reviewed: 10/24/2016 Sina Patient Education 2020 [employer]. Follow Up Care 10/30/2022 10:54:58 With:NAHUM HEWITT MD Address: [address] [phone] When:Within 10 Year(s) Comments:FOLLOW UP IN 3-[address] HEWITT. CALL OFFICE FOR ANY QUESTIONS OR CONCERNS. GO TO EMERGENCY ROOM FOR ANY MEDICAL EMERGENCIES. [facility] 03-27-2023 Summary of episode note Discharge Instructions Thank you for allowing [facility] to assist you with your healthcare needs. [...] FOR ANY MEDICAL EMERGENCIES. Where: [address] [facility] [address] [place] [address] [phone] Medications Please ask your primary doctor or [...] juice). ? Low-calorie sports drinks. Eat bland, pdzq-ep-agwvlj foods in small amounts as you are able, such as: ? Bananas. ? Applesauce. ? Rice. ? Low-fat (lean) meats. ? Monterey. ? Crackers. Avoid drinking fluids that have a lot of sugar or caffeine in them. This includes energy drinks, sports drinks, and soda. Avoid alcohol. Avoid spicy or fatty foods. General instructions Take rjhl-tya-blzhplf and prescription medicines only as told by your doctor. Drink enough fluid to keep your pee (urine) pale yellow. Wash your hands often with soap and water. If you cannot use soap and water, use hand refrigerator cabinetmaker. Make sure that all people in your [...] too much water in your body. Take fsbf-cdp-oambhub and prescription medicines only as told by [...] 01/29/2009 Document Revised: 12/05/2019 Document Reviewed: 01/21/2019 Sina Patient Education 2020 [employer]. Monitored Anesthesia Care, Care After These instructions [...] before eating solid foods. General instructions Take xrtg-llh-qnkhccy and prescription medicines only as told by [...] 12/03/2016 Document Revised: 11/11/2018 Document Reviewed: 12/03/2016 Sina Patient Education 2020 Sina Inc. Colonoscopy, Adult, Care After This sheet [...] slower pace than normal. ? Eat soft, okrf-yy-hjmhoc foods. Take fdmf-yyi-yjsbnez or prescription medicines only as told by [...] 03/27/2005 Document Revised: 06/05/2018 Document Reviewed: 10/24/2016 Sina Patient Education 2020 [employer]. Additional Information VACCINATE! IT SAVES LIVES! Members of the community who have not yet received the COVID-19 vaccine and would like to receive it can visit one of [facility] vaccine clinics. There are many vaccine clinic locations within the [facility]. For locations and available times, please visit https://gettheshot.coronavirus.[place].gov/. It is important to note that some COVID mobile vaccine clinics are held outdoors and may be canceled in rainy or stormy conditions. To learn more about pediatric vaccinations (ages 5-11), we invite you to visit the [facility] webpage. https://www.[facility].org/pages/0788-Eboyx-Ffmtowkjsxx-Hgnfosziyx-Fnqlh-Fhz stions.htmlTo learn more about the COVID-19 vaccine, we invite you to visit the CDC website for a list of frequently asked questions. https://www.cdc.gov/coronavirus/2019-ncov/vaccines/faq.html [employer] Patient Portal Access Instructions: Stay connected with your healthcare team and access your personal medical information anytime with the [employer] Patient Portal.If you would like a full copy of your medical records, please contact the [facility] Medical Records Department, Sunday through Sunday between 8a.m. and 4:30p.m. Please follow the directions below to access the portal: 1.Access the email account you provided upon registration to the hospital.2.Look for an invitation email from [facility].3.Open the email and access the invitation link: Accept Invitation to [employer]4.Fill in the required cook to create your account. Sign into www.Deja View [employer] with your username and password that you [...] you will allow to register on the [employer] Patient Portal for access to your information. You can also access the [employer] Patient Portal on the Clinical Data. Simply click on "Health Records" under "HealthData" and then click on the [employer] logo. HOW TO SAFELY DISPOSE OF PRESCRIPTION [...] Call your local pharmacy or go to http://bit.ZhenXin/9E5Nq7g to find one close to you.3.Make use of household items: Use cat litter or old coffee grounds to dispose medications if other options arenot available. Mix your drugs with these household products, seal them in an airtight container andthrow it into the garbage. Call [facility]: [phone] to be sure your drugs can be [...] Patient Education Materials Nausea and Vomiting, Adult, Btup-dq-Pybs Monitored Anesthesia Care, Care After Colonoscopy, Adult, Care After Medication Leaflets My discharge plan and instructions have been reviewed and explained to me and I,RICHY RODRIGUEZ understand my current condition and have read and understand these discharge instructions. I have received a written copy of the plan/instructions. If I have questions, I am aware that I should contactmy doctor. 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 Signature: Date/Time: Relationship to Patient: Witness Name/Signature: Date/Time: [facility]03-27-2023 Anesthesiology Consult note Patient: RICHY RODRIGUEZ Age: [...] by DREW DOE on 11/20/2022 09:06 AM [facility]03-27-2023 Anesthesiology Consult note Patient: RICHY RODRIGUEZ Age: [...] Problem list: Medical Hemorrhoids / SNOMED CT 085393577 / Confirmed HTN (hypertension) / SNOMED CT 6493467357 / Confirmed Mixed hyperlipidemia / SNOMED CT 609441958 / Confirmed DM2 (diabetes mellitus, type 2) / SNOMED CT 745704388 / Confirmed, Active Problems (4) DM2 (diabetes mellitus, type 2) Hemorrhoids HTN (hypertension) Mixed hyperlipidemia Histories Past Medical History: Active Hemorrhoids (673617556) Family History: Diabetes mellitus Father Breast cancer Mother Cancer Mother HTN - Hypertension Mother Procedure history: Colonoscopy and biopsy of colon ([id number]) on 07/22/2018 at 57 Years. Appendectomy ([id number]) on 03/03/1991 at 30 Years. H/O: hysterectomy (692609859). Spinal fusion (05379319). Comments: 07/22/2018 8:07 ANTON Collier cervical with plate and rods Cholecystectomy (83223760). Bunionectomy (51212207). 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 Nutrition/Health 08/12/2019 Caffeine intake amount: coffee; [...] Vital Signs(last 24 hrs) Last Charted Temp Wtkzscwk07.5 DegC (NOV 20 07:51) Heart Rate Qitwtuveo19 bpm (NOV 20 09:00) Resp Rate 18 br/min (NOV 20 07:51) VHI379 mmHg (NOV 20 09:00) DBP73 mmHg (NOV 20 09:00) BMI37.84 (NOV 20 07:49) Measurements from flowsheet : Measurements 11/20/2022 7:49 EDT Height 162.56 cm Admission Weight 100 kg Weight Method Stated [place] Body Weight 54.70 kg BSA Admission 2.04 Body Mass Index 37.84 kg/m2 11/20/2022 7:48 EDT Height 162.56 cm [place] Body Weight 54.70 kg Pain assessment: Pain [...] Bag 1,000 mL mL 11/20/2022 8:49 EDT [place] History and Physical 11/20/2022 8:26 EDT Lactated [...] Attendee SN - CAt - Role Performed TYPESETTING SUPERVISOR SN - CAt - Role Performed Procedure Nurse SN - CAt - Role Performed Student Services Coordinator SN - CAt - Role Performed Primary [...] no difficulties Skin Temperature Warm Skin Description [place], Normal for ethnicity, Dry Skin Integrity Intact [...] 4 Ambulation Ambulation in [place] Allergies Yes Brewing Technician On Yes Colon Prep Results Excellent Consent [...] #1 We May Share PHI REBECCA RODRIGUEZ [phone] Designated Person #1 Relationship Family member Privacy Restrictions Requested None Height 162.56 cm Admission Weight 100 kg Weight Method Stated [place] Body Weight 54.70 kg BSA Admission 2.04 [...] Teaching Method Electronic, Explanation Preferred Written Language Tanzanian Preferred Spoken Language Tanzanian Information Given by Patient Patient's Current Physicians Patient's Current Physicians Discharge To, Anticipated Home independently Prev Test Positive/Diagnosis w/COVID-19 Yes Previous COVID-19 Positive 2019 Current Quarantine/Isolated any Illness No Any Contact with Sick Animals/Birds No Traveled Anywhere in Last 30 Days No No Personal Devices, Patient Valuables None Admission Note-Nursing Procedure/Therapy Intake 11/20/2022 7:48 EDT Designated Person #1 We May Share JONATHAN RODRIGUEZ [phone] Designated Person #1 Relationship Family member Privacy Restrictions Requested None Height 162.56 cm [place] Body Weight 54.70 kg Status No, per [...] No Weight Loss No Preferred Written Language Tanzanian Preferred Spoken Language Tanzanian Information Given by Patient Patient's Current Physicians Patient's Current Physicians Prev Test Positive/Diagnosis w/COVID-19 Yes Previous COVID-19 Positive Date 2019 Current Quarantine/Isolated any Illness No Any Contact with Sick Animals/Birds No Traveled Anywhere in Last 30 Days No Admission Note-Nursing Procedure/Therapy Intake 11/20/2022 7:40 EDT Designated Person #1 We May Share JONATHAN RODRIGUEZ [phone] Designated Person #1 Relationship Family member Privacy [...] No Safety Brochure Information Reviewed Yes Jared Atkins Video Viewed No Barriers to Learning None evident Teaching Method Electronic, Explanation Teaching Evaluation Verbalizes/Nonverbally indicates understanding Preferred Written Language Tanzanian Preferred Spoken Language Tanzanian Information Given by Patient Patient's Current Physicians [...] Day Patient History . Assessment and Plan [place] [employer] (ASA) physical status classification: Class III. Anesthetic Preoperative Plan Anesthetic technique: MAC. Informed consent: signed by patient. Digitally Signed by DREW DOE on 11/20/2022 09:06 AM [facility]03-27-2023 Note PETTY ADMISSION HISTORY AND PHYSICIAL CHIEF COMPLAINT: HISTORY OF PRESENT ILLNESS: REVIEW OF SYSTEMS: ACTIVE PROBLEMS: (4) DM2 (diabetes mellitus, type 2) (727102156) Hemorrhoids (176887676) HTN (hypertension) (1031663656) Mixed hyperlipidemia (483581167) MEDICATIONS: Active Inpt Meds: None Active PRN Meds: None One Time Meds: None Active IV Meds: Lactated Ringers Infusion 1,000 mL (LR 1,000 mL) Start: 11/20/22 7:30:00 EDT, Rate: 50 mL/hr, 11/20/22 7:30:00 EDT ALLERGIES: (1) NKA FAMILY HISTORY: SOCIAL HISTORY: PHYSICAL EXAM: VITALS: TyxjcoSildEXOcqioCDUiZ6MCZ4GlnvWn(kg) 11/20 07:5536.5--115------00.0 11/20 07:5136.5--1619285PM 24 Hr Tmax: 36.5 at 11/20 07:55 [...] NAHUM HEWITT MD on 11/20/2022 08:53 AM [facility] No data available for this section [facility] Evaluation + Plan note Future Appointments Appointment Date:09/08/2022 07:00:00 AM Scheduled Provider: Location:[facility] Appointment Type:PT Outpatient Evaluation [facility] Evaluation + Plan note Future Appointments [facility] Evaluation + Plan note Future Appointments Appointment Date:05/11/2025 03:30:00 PM Scheduled Provider: Location:[facility] Appointment Type:PT Outpatient Evaluation Diagnostic Tests Pending * Antineutrophil Cytoplasmic Ab 05/07/25 [facility] Evaluation noteNo assessment information available [facility] Work Phone: Hospital Discharge instructions No data available for this section [facility] Progress note No data available for this section [facility] Reason for referral (narrative)No reason for referral information availableWTri[facility] Work Phone: Summary Purpose Family History No [...] section and content) DATE CREATED AUTHOR 02/20/2018 [facility] DATE CREATED AUTHOR AUTHOR'S ORGANIZ ATION 11/29/2022 [facility] ([place]) DATE CREATED AUTHOR AUTHOR'S ORGANIZ ATION 07/02/2025 [facility] DATE CREATED AUTHOR AUTHOR'S ORGANIZ ATION 07/02/2025 [facility] DATE CREATED AUTHOR AUTHOR'S ORGANIZ ATION 07/09/2025 [facility] Goals (unrecognized section and content) Goals may [...] 2025 End: May 05, 2025 Nan Stewart CLINICAL BIOCHEMIST, CLINICAL BIOCHEMIST-C Attending physician Active Start: May 05, 2025 End: May 05, 2025 Nan Stewart CLINICAL BIOCHEMIST, CLINICAL BIOCHEMIST-C Referring Provider Active S tart: May 05, 2025 End: May 05, 2025 Care Team (unrecognized sect ion and content) Care Team Personnel Name: JULY REES MD Member Role: Primary Care Physician Address: Address: [address] [place] [address]- Care Team Related Persons Name: RAE RODRIGUEZ Address: Home [address] [place], [place] [id number] Address: [facility] [address] [place], [place] [id number] Name: REBECCA RODRIGUEZ Care Team Personnel Name: JULY REES MD Member Role: Primary Care Physician Address: Address: [place] [address] [place] [address]- Care Team Related Persons Name: RAE RODRIGUEZ Address: Home [address], [place] [phone] [place] Address: Temporary [address] [place], [place] [phone] Name: REBECCA RODRIGUEZ Care Team Personnel Name: JULY REES MD Member Role: Primary Care Physician Address: Address: [facility] [address] [place] [address]- Care Team Related Persons Name: RAE RODRIGUEZ Address: Home [address], [place] [id number] Address: Temporary [address] [place], [place] [id number] Name: REBECCA RODRIGUEZ FOR RECORDS PERTAINING TO [...] BE BASED ON THE PRIMARY CLINICAL RECORDS. [employer] [facility]. provides no warranty or guarantee of the accuracy or completeness of information in this document.
[2025-07-28 07:57] LABS: Hematocrit 38.1 % (37-47); Hemoglobin 12.7 g/dL (12.0-15.0); Immature Granulocytes Count 0.130 X10^3/uL (0.0-0.0); Mean Corp Hgb Conc 33.3 g/dL (32-36); Mean Corpuscular Volume 97.4 fL (81-99); Mean Platelet Vol. 10.4 fl (6.2-12.0); NRBC Flagged by Analyzer 0 % (0-5); Platelet Count 239 K/mm3 (150-450); RBC Distribution Width CV 13.1 % (11.6-14.6); RBC Distribution Width SD 46.5 fl (35.1-43.9); Red Blood Count 3.91 M/mm3 (4.2-5.4); White Blood Count 10.0 K/mm3 (4.4-11.0)
[2025-07-28 08:27] LABS: Anion Gap 12 (5-15); BUN 14 mg/dL (4-19); BUN/Creat Ratio 15.9 RATIO (10-20); Calcium,Total 10.1 mg/dL (7.6-11.0); Carbon Dioxide 23.8 mmol/L (21.0-32.0); Chloride 102 mmol/L (98-108); Glucose 166 mg/dL (70-99); Potassium 4.1 mmol/L (3.3-5.1)
== END ==
LOC: OLS.SW 05:00
PROVIDERS: PCP Family Medicine; Visit Provider Internal Medicine
DX: I10 Essential (primary) hypertension (principal); M62.50 Muscle wasting and atrophy, not elsewhere classified, unspecified site
CPT/HCPCS: 36415; 80048; 85025